=== PATIENT | female | born 1960 | race Caucasian/White ===

== ENCOUNTER 2019-02-09 17:50 | Emergency (ER) | payer SELFPAY ==
[2019-02-09] MEDS ORDERED: ASPIRIN 81 MG CHEWABLE TABLET ONE (18:36)
[2019-02-09] MEDS ORDERED: MECLIZINE HCL 12.5 MG TAB ONE (18:36)
[2019-02-09] MEDS ORDERED: NA CHLORIDE 0.9% 1,000 ML ONE (18:36)
[2019-02-09 18:51] LABS: Absolute Lymphocytes (CBC) 3.3 K/uL (0.7-4.9); Basophils % 0.8 % (0-1.3); Hematocrit 37.7 % (36.0-45.0); Lymphocytes % 32.6 % (15.3-44.8); MPV 7.8 fL (7.6-11.3); RBC Red Blood Cell Count 4.22 M/uL (3.86-4.86)
[2019-02-09 18:53] LABS: Protime INR 1.11
--- NOTE | 2019-02-09 19:06 | RAD REPORT ---
EXAM DESCRIPTION: CT - Head Brain Wo Cont - 02/09/2019 6:57 pm CLINICAL HISTORY: Dizziness, weakness, seizure history COMPARISON: None. TECHNIQUE: Axial 5 mm thick images of the head were obtained without IV contrast. All CT scans are performed using dose optimization technique as appropriate and may include automated exposure control or mA/KV adjustment according to patient size. FINDINGS: No intracranial hemorrhage, mass, edema or shift of mid-line structures. No acute infarcti on changes seen. No abnormal extra-axial fluid collections. Ventricles are normal. Patchy chronic isc hemic changes are evident in the cerebral white matter. Mastoid air cells and visualized portions of the paranasal sinuses are clear. No acute bony findings. IMPRESSION: Negative non-contrast CT head examination for acute finding.
[2019-02-09] MEDS ORDERED: FAMOTIDINE 20 MG/2 ML VIAL IV ONE (19:08)
[2019-02-09 19:14] LABS: ALT/SGPT 15 U/L (12-78); AST/SGOT 13 U/L (15-37); Albumin 3.1 g/dL (3.4-5.0); Alkaline Phosphatase 116 U/L (45-117); BUN Blood Urea Nitrogen 9 mg/dL (7-18); Bicarbonate 23 mmol/L (21-32); Bilirubin Direct < 0.1 mg/dL (0-0.2); Bilirubin Total 0.2 mg/dL (0.2-1.0); Glucose Level 112 mg/dL (74-106); Magnesium 1.8 mg/dL (1.8-2.4); NT PRO-BNP 96 pg/mL (<125); Potassium 3.2 mmol/L (3.5-5.1); Sodium Level 141 mmol/L (136-145); Troponin (Emerg Dept Use Only) < 0.02 ng/mL (0.0-0.045)
--- NOTE | 2019-02-09 20:06 | RAD REPORT ---
EXAM DESCRIPTION: RAD - Chest Single View - 02/09/2019 7:08 pm CLINICAL HISTORY: Cough COMPARISON: None. TECHNIQUE: AP portable chest image was obtained 1903 hours . FINDINGS: Lungs are clear. Heart and vasculature are normal. No measurable pleural effusion and no p neumothorax. No acute bony abnormality seen. No acute aortic findings suspected. IMPRESSION: No acute cardiopulmonary process.
--- NOTE | 2019-02-09 20:07 | RAD REPORT ---
EXAM DESCRIPTION: US - CP - 02/09/2019 7:44 pm CLINICAL HISTORY: Dizziness, syncope, stroke-like symptoms COMPARISON: None. TECHNIQUE: Real-time sonographic evaluation of both carotid systems was performed. Garcias scale and Do ppler interrogation were performed with waveform tracing bilaterally. FINDINGS: Normal high resistance waveforms are noted in both external carotid arteries. The common c arotid arteries and internal carotid arteries show normal low resistance waveforms. Prominent carotid bulb calcified plaquing changes are present. Visually no significant degree of jess nal narrowing identified. Peak systolic and end diastolic velocity values and the ICA/CCA ratios are in the non-hemodynamically significant range. Antegrade flow seen in both vertebral arteries. Velocity values and ratios were recorded and are retained in the patient's imaging records. IMPRESSION: Bilateral carotid bulb calcified plaquing changes. No evidence of a hemodynamically significant stenosis.
--- NOTE | 2019-02-09 20:14 | ER ---
Nurse's Notes [facility] Name: Milly Cabrera Age: 58 yrs Sex: Female : 1960 Arrival Date: 02/09/2019 Time: 17:53 Bed 8 Private MD: Diagnosis: Dizziness and giddiness;Weakness;Dermatitis, unspecified;Vertiginous syndromes in diseases classified elsewhere, unspecified ear Presentation: 02/09 18:20 Presenting complaint: Patient states: "equilibrium feels off today", it also affects iw her vision, thinks it may be caused by a rash on her hands, neck, lower back that started yesterday. her hands feel like needles and has numbness to fingertips in both hands. Transition of care: patient was not received from another setting of care. Onset of symptoms was February 09, 2019. Risk Assessment: Do you want to hurt yourself or someone else? Patient reports no desire to harm self or others. Initial Sepsis Screen: Does the patient meet any 2 criteria? No. Patient's initial sepsis screen is negative. Does the patient have a suspected source of infection? No. Patient's initial sepsis screen is negative. Care prior to arrival: None. 18:20 Method Of Arrival: Ambulatory iw 18:20 Acuity: DAMON 3 iw Historical: - Allergies: 18:25 PENICILLINS; iw 18:25 Zithromax Z-Joon; iw 18:25 Iodine; iw 18:25 SHELLFISH; iw 18:25 Strawberries; iw 18:25 Morphine; iw 18:25 Demerol; iw - Home Meds: 18:28 Plavix 75 mg Oral tab 1 tab once daily [Active]; metoprolol tartrate 50 mg Oral tab iw once daily [Active]; atorvastatin 40 mg oral tab 1 tab once daily [Active]; fluoxetine 40 mg Oral cap 1 cap once daily [Active]; aspirin 81 mg Oral TbEC 1 tab once daily [Active]; Nexium 40 mg Oral cpDR 1 cap once daily [Active]; - PMHx: 18:25 Anxiety; neuropathy; Hyperlipidemia; Hypertension; acid reflux; Endometrosis; vulvar iw cancer; - PSHx: 18:25 Hysterectomy; ; femoral stents; Appendectomy; vulvar; iw - Immunization history:: Adult Immunizations not up to date. - Social history:: Smoking status: Patient/guardian denies using tobacco. - Ebola Screening: : Patient negative for fever greater than or equal to 101.5 degrees Fahrenheit, and additional compatible Ebola Virus Disease symptoms Patient denies exposure to infectious person Patient denies travel to an Ebola-affected area in the 21 days before illness onset No symptoms or risks identified at this time. - Family history:: not pertinent. Screenin:47 Abuse screen: Denies threats or abuse. Denies injuries from another. Nutritional hb screening: No deficits noted. Tuberculosis screening: No symptoms or risk factors identified. Fall Risk None identified. Assessment: 18:46 General: Appears in no apparent distress. Behavior is calm, cooperative. Pain: Denies hb pain. Neuro: Level of Consciousness is awake, alert, obeys commands, Oriented to person, place, time, situation, Reports dizziness. Cardiovascular: Capillary refill < 3 seconds Patient's skin is warm and dry. Respiratory: Airway is patent Respiratory effort is even, unlabored, Respiratory pattern is regular, symmetrical, Breath sounds are clear bilaterally. GI: No signs and/or symptoms were reported involving the gastrointestinal system. : No signs and/or symptoms were reported regarding the genitourinary system. EENT: No signs and/or symptoms were reported regarding the EENT system. Derm: Skin is pink, warm \\T\\ dry. Reports itching. Musculoskeletal: No signs and/or symptoms reported regarding the musculoskeletal system. 19:15 General: Appears in no apparent distress. comfortable, Behavior is calm, cooperative, rr5 appropriate for age. Pain: Denies pain. Neuro: Level of Consciousness is awake, alert, obeys commands, Oriented to person, place, time, situation, Appropriate for age. Cardiovascular: Capillary refill < 3 seconds Patient's skin is warm and dry. Respiratory: Airway is patent Respiratory effort is even, unlabored, Respiratory pattern is regular, symmetrical. GI: No signs and/or symptoms were reported involving the gastrointestinal system. : No signs and/or symptoms were reported regarding the genitourinary system. EENT: No signs and/or symptoms were reported regarding the EENT system. Derm: Skin is intact, is healthy with good turgor, Skin temperature is warm Reports itching, both hands, it started at nape area going down to her back. now its in my hands as verbalized by the patient. 19:15 Musculoskeletal: Circulation, motion, and sensation intact. Capillary refill < 3 rr5 seconds, Swelling present in right hand. 20:00 Reassessment: Patient appears in no apparent distress at this time. Patient is alert, rr5 oriented x 3, equal unlabored respirations, skin warm/dry/pink. Patient states feeling better. Patient states symptoms have improved. 20:22 Reassessment: Patient appears in no apparent distress at this time. Patient is alert, rr5 oriented x 3, equal unlabored respirations, skin warm/dry/pink. discharge instruction given and explained without complaints made,verbalized understanding. Patient states feeling better. Vital Signs: 18:25 BP 125 / 55; Pulse 50; Resp 16; Temp 98.0; Pulse Ox 98% on R/A; Weight 84.82 kg; Height iw 5 ft. 6 in. (167.64 cm); Pain 9/10; 19:15 BP 121 / 70; Pulse 51; Resp 19; Temp 98.1; Pulse Ox 99% on R/A; Pain 0/10; rr5 20:21 BP 115 / 60; Pulse 52; Resp 17; Temp 98; Pulse Ox 100% ; rr5 18:25 Body Mass Index 30.18 (84.82 kg, 167.64 cm) iw ED Course: 17:53 Patient arrived in ED. rg4 18:04 Joshua Milner MD is Attending Physician. demetra 18:22 Triage completed. iw 18:25 Arm band placed on. iw 18:46 Zaynab Meeks, RAAD is Primary Nurse. hb 18:46 Ignacio Sun NP is PHCP. pm1 18:47 Patient has correct armband on for positive identification. Placed in gown. Bed in low hb position. Call light in reach. Side rails up X 1. 18:47 Inserted saline lock: 20 gauge in right antecubital area, using aseptic technique. hb Blood collected. 19:01 CT completed. Patient tolerated procedure well. Patient moved to radiology Patient bq moved back from CT. 19:43 Ultrasound completed. Patient tolerated well. sg3 20:13 Cipriano Rasheed MD is Referral Physician. pm1 20:21 No provider procedures requiring assistance completed. IV discontinued, intact, rr5 bleeding controlled, No redness/swelling at site. Pressure dressing applied. Administered Medications: 18:45 Drug: Meclizine 50 mg Route: PO; hb 20:20 Follow up: Response: No adverse reaction; Marked relief of symptoms rr5 18:45 Drug: NS 0.9% 500 ml Route: IV; Rate: bolus; Site: right antecubital; hb 19:15 Follow up: Response: No adverse reaction; IV Status: Completed infusion; IV Intake: rr5 500ml 19:01 Drug: Aspirin 162 mg Route: PO; hb 20:23 Follow up: Response: No adverse reaction rr5 19:15 Drug: NS 0.9% 1000 ml Route: IV; Rate: 125 ml/hr; Site: right antecubital; rr5 20:20 Follow up: Response: No adverse reaction; IV Status: Order to discontinue infusion; IV rr5 Intake: 125ml 19:23 Drug: Pepcid 20 mg Route: IVP; Site: right antecubital; rr5 20:23 Follow up: Response: No adverse reaction rr5 20:34 Drug: Potassium Chloride 40 mEq Route: PO; rr5 20:34 Follow up: Response: Medication administered at discharge. rr5 Intake: 19:15 IV: 500ml; Total: 500ml. rr5 20:20 IV: 125ml; Total: 625ml. rr5 Outcome: 20:13 Discharge ordered by . pm1 20:21 Discharged to home ambulatory, with family. rr5 20:21 Condition: stable 20:21 Discharge instructions given to patient, family, Instructed on discharge instructions, follow up and referral plans. medication usage, Demonstrated understanding of instructions, follow-up care, medications, Prescriptions given X 4. 20:35 Patient left the ED. rr5 Signatures: Joshua Milner MD MD cha Quilty, Betty bq Williams, Irene, RN RN iw Marinas, Patrick, NP SENIOR BEHAVIORAL SCIENTIST pm1 Zaynab Meeks RN RN hb Garcia, Rubi Rachel Espino 3 Christopher Dial RN RN rr5
--- NOTE | 2019-02-09 20:14 | EDPHYS ---
Physician Documentation [facility] Name: Milly Cabrera Age: 58 yrs Sex: Female : 1960 Arrival Date: 02/09/2019 Time: 17:53 Bed 8 Private MD: ELINA Physician Joshua Milner HPI: 02/09 18:32 This 58 yrs old Female presents to ER via Ambulatory with complaints of demetra Dizziness, Rash, Hand Swelling. 18:32 The patient presents with dizziness, generalized weakness, feeling off balance. Onset: demetra The symptoms/episode began/occurred this morning. Context: occurred at home. Modifying factors: The symptoms are alleviated by nothing, the symptoms are aggravated by nothing. Associated signs and symptoms: The patient has no apparent associated signs or symptoms. Severity of symptoms: At their worst the symptoms were mild in the emergency department the symptoms are unchanged. Patient's baseline: Neuro: alert and fully oriented. The patient has experienced similar episodes in the past, a few times. Historical: - Allergies: 18:25 PENICILLINS; iw 18:25 Zithromax Z-Joon; iw 18:25 Iodine; iw 18:25 SHELLFISH; iw 18:25 Strawberries; iw 18:25 Morphine; iw 18:25 Demerol; iw - Home Meds: 18:28 Plavix 75 mg Oral tab 1 tab once daily [Active]; metoprolol tartrate 50 mg Oral tab iw once daily [Active]; atorvastatin 40 mg oral tab 1 tab once daily [Active]; fluoxetine 40 mg Oral cap 1 cap once daily [Active]; aspirin 81 mg Oral TbEC 1 tab once daily [Active]; Nexium 40 mg Oral cpDR 1 cap once daily [Active]; - PMHx: 18:25 Anxiety; neuropathy; Hyperlipidemia; Hypertension; acid reflux; Endometrosis; vulvar iw cancer; - PSHx: 18:25 Hysterectomy; ; femoral stents; Appendectomy; vulvar; iw - Immunization history:: Adult Immunizations not up to date. - Social history:: Smoking status: Patient/guardian denies using tobacco. - Ebola Screening: : Patient negative for fever greater than or equal to 101.5 degrees Fahrenheit, and additional compatible Ebola Virus Disease symptoms Patient denies exposure to infectious person Patient denies travel to an Ebola-affected area in the 21 days before illness onset No symptoms or risks identified at this time. - Family history:: not pertinent. ROS: 18:32 Constitutional: Negative for fever, chills, and weight loss, Eyes: Negative for injury, demetra pain, redness, and discharge, ENT: Negative for injury, pain, and discharge, Neck: Negative for injury, pain, and swelling, Cardiovascular: Negative for chest pain, palpitations, and edema, Respiratory: Negative for shortness of breath, cough, wheezing, and pleuritic chest pain, Abdomen/GI: Negative for abdominal pain, nausea, vomiting, diarrhea, and constipation, Back: Negative for injury and pain, : Negative for injury, bleeding, discharge, and swelling, MS/Extremity: Negative for injury and deformity, Skin: Negative for injury, rash, and discoloration, Psych: Negative for depression, anxiety, suicide ideation, homicidal ideation, and hallucinations, Allergy/Immunology: Negative for hives, rash, and allergies, Endocrine: Negative for neck swelling, polydipsia, polyuria, polyphagia, and marked weight changes, Hematologic/Lymphatic: Negative for swollen nodes, abnormal bleeding, and unusual bruising. 18:32 Neuro: Positive for dizziness. Exam: 18:32 Constitutional: This is a well developed, well nourished patient who is awake, alert, demetra and in no acute distress. Head/Face: Normocephalic, atraumatic. ENT: Nares patent. No nasal discharge, no septal abnormalities noted. Tympanic membranes are normal and external auditory canals are clear. Oropharynx with no redness, swelling, or masses, exudates, or evidence of obstruction, uvula midline. Mucous membranes moist. Neck: Trachea midline, no thyromegaly or masses palpated, and no cervical lymphadenopathy. Supple, full range of motion without nuchal rigidity, or vertebral point tenderness. No Meningismus. Chest/axilla: Normal chest wall appearance and motion. Nontender with no deformity. No lesions are appreciated. Cardiovascular: Regular rate and rhythm with a normal S1 and S2. No gallops, murmurs, or rubs. Normal PMI, no JVD. No pulse deficits. Respiratory: Lungs have equal breath sounds bilaterally, clear to auscultation and percussion. No rales, rhonchi or wheezes noted. No increased work of breathing, no retractions or nasal flaring. Abdomen/GI: Soft, non-tender, with normal bowel sounds. No distension or tympany. No guarding or rebound. No evidence of tenderness throughout. Back: No spinal tenderness. No costovertebral tenderness. Full range of motion. Female : Normal external genitalia. Skin: Warm, dry with normal turgor. Normal color with no rashes, no lesions, and no evidence of cellulitis. MS/ Extremity: Pulses equal, no cyanosis. Neurovascular intact. Full, normal range of motion. Neuro: Awake and alert, GCS 15, oriented to person, place, time, and situation. Cranial nerves II-XII grossly intact. Motor strength 5/5 in all extremities. Sensory grossly intact. Cerebellar exam normal. Normal gait. Psych: Awake, alert, with orientation to person, place and time. Behavior, mood, and affect are within normal limits. 18:32 Eyes: Periorbital structures: appear normal, no acute changes, Pupils: no acute changes, equal, round, and reactive to light and accomodation, Extraocular movements: no acute changes, Conjunctiva: normal, no acute changes, Corneas: are normal, no acute changes, Sclera: no appreciated abnormality, no acute changes, Nystagmus: nystagmus with fast component noted, bilaterally. Vital Signs: 18:25 BP 125 / 55; Pulse 50; Resp 16; Temp 98.0; Pulse Ox 98% on R/A; Weight 84.82 kg; Height iw 5 ft. 6 in. (167.64 cm); Pain 9/10; 19:15 BP 121 / 70; Pulse 51; Resp 19; Temp 98.1; Pulse Ox 99% on R/A; Pain 0/10; rr5 20:21 BP 115 / 60; Pulse 52; Resp 17; Temp 98; Pulse Ox 100% ; rr5 18:25 Body Mass Index 30.18 (84.82 kg, 167.64 cm) iw MDM: 18:04 Patient medically screened. [facility] 18:35 Data reviewed: vital signs, nurses notes, lab test result(s), EKG, radiologic studies, [facility] CT scan, plain films. 20:13 Counseling: I had a detailed discussion with the patient and/or guardian regarding: the pm1 historical points, exam findings, and any diagnostic results supporting the discharge/admit diagnosis, lab results, radiology results, the need for outpatient follow up, to return to the emergency department if symptoms worsen or persist or if there are any questions or concerns that arise at home. 20:35 ED course: Patient itching and vertigo improved with medications given in the ER. pm1 02/09 18:32 Order name: Basic Metabolic Panel [facility] 02/09 18:32 Order name: CBC with Diff [facility] 02/09 18:32 Order name: LFT's [facility] 02/09 18:32 Order name: Magnesium [facility] 02/09 18:32 Order name: NT PRO-BNP [facility] 02/09 18:32 Order name: PT-INR [facility] 02/09 18:32 Order name: Troponin (emerg Dept Use Only) [facility] 02/09 18:55 Order name: CBC with Automated Diff; Complete Time: 19:08 EDMS 02/09 18:55 Order name: Protime (+INR); Complete Time: 19:08 EDMS 02/09 19:14 Order name: Basic Metabolic Panel; Complete Time: 19:38 EDMS 02/09 19:14 Order name: Liver (Hepatic) Function; Complete Time: 19:38 EDMS 02/09 19:14 Order name: Troponin (Emerg Dept Use Only); Complete Time: 19:38 EDMS 02/09 19:14 Order name: NT PRO-BNP; Complete Time: 19:38 EDMS 02/09 19:14 Order name: Magnesium; Complete Time: 19:38 EDMS 02/09 18:32 Order name: XRAY Chest (1 view) [facility] 02/09 18:32 Order name: EKG; Complete Time: 18:33 [facility] 02/09 18:32 Order name: Cardiac monitoring; Complete Time: 18:46 [facility] 02/09 18:32 Order name: EKG - Nurse/Tech; Complete Time: 19:24 [facility] 02/09 18:32 Order name: IV Saline Lock; Complete Time: 18:46 [facility] 02/09 18:32 Order name: Labs collected and sent; Complete Time: 18:46 [facility] 02/09 18:32 Order name: O2 Per Protocol; Complete Time: 18:45 [facility] 02/09 18:32 Order name: CT Head Brain wo Cont [facility] 02/09 18:32 Order name: US Carotid Artery Bilateral [facility] 02/09 20:11 Order name: CT; Complete Time: 20:12 EDCT 02/09 18:32 Order name: O2 Sat Monitoring; Complete Time: 18:45 demetra Administered Medications: 18:45 Drug: Meclizine 50 mg Route: PO; hb 20:20 Follow up: Response: No adverse reaction; Marked relief of symptoms rr5 18:45 Drug: NS 0.9% 500 ml Route: IV; Rate: bolus; Site: right antecubital; hb 19:15 Follow up: Response: No adverse reaction; IV Status: Completed infusion; IV Intake: rr5 500ml 19:01 Drug: Aspirin 162 mg Route: PO; hb 20:23 Follow up: Response: No adverse reaction rr5 19:15 Drug: NS 0.9% 1000 ml Route: IV; Rate: 125 ml/hr; Site: right antecubital; rr5 20:20 Follow up: Response: No adverse reaction; IV Status: Order to discontinue infusion; IV rr5 Intake: 125ml 19:23 Drug: Pepcid 20 mg Route: IVP; Site: right antecubital; rr5 20:23 Follow up: Response: No adverse reaction rr5 20:34 Drug: Potassium Chloride 40 mEq Route: PO; rr5 20:34 Follow up: Response: Medication administered at discharge. rr5 Disposition: 02/10 13:25 Co-signature as Attending Physician, Joshua Milner MD I agree with the assessment and [facility] plan of care. Disposition: 02/09/19 20:13 Discharged to Home. Impression: Dizziness and giddiness, Weakness, Dermatitis, unspecified, Vertiginous syndromes in diseases classified elsewhere, unspecified ear. - Condition is Stable. - Discharge Instructions: Benign Positional Vertigo, Contact Dermatitis, Dizziness, Hand Dermatitis, Rash, Weakness, Rash, Xawr-eg-Vnoh, Weakness, Tlbd-ak-Aytl, Contact Dermatitis, Cjgf-nv-Zhkc, Aspirin and Your Heart, Hand Dermatitis, Sesl-tv-Uvzl, Dizziness, Irbe-kt-Aorz. - Prescriptions for Meclizine 25 mg Oral Tablet - take 1 tablet by ORAL route every 8 hours As needed; 30 tablet. Pepcid 20 mg Oral Tablet - take 1 tablet by ORAL route every 12 hours for 10 days; 20 tablet. Hydrocortisone 0.5 % Topical Cream - apply 1 application by TOPICAL route every 12 hours As needed; 30 gram. Medrol (Joon) 4 mg Oral Tablets, Dose Pack - take 1 tablet by ORAL route as directed - follow package instructions; 1 packet. - Medication Reconciliation Form, Thank You Letter, Antibiotic Education, Prescription Opioid Use form. - Follow up: Private Physician; When: 2 - 3 days; Reason: Recheck today's complaints, Continuance of care, Re-evaluation by your physician. Follow up: Cipriano Rasheed; When: 2 - 3 days; Reason: Recheck today's complaints, Re-evaluation by your physician. - Problem is new. - Symptoms have improved. Signatures: Dispatcher [employer] EDMS Joshua Milner MD MD cha Williams, Irene, RN RN iw Ignacio Sun NP CRISIS NURSE pm1 Zaynab Meeks RN RN Christopher Dial RN RN rr5 Corrections: (The following items were deleted from the chart) 02/09 20:35 20:13 02/09/2019 20:13 Discharged to Home. Impression: Dizziness and giddiness; rr5 Weakness; Dermatitis, unspecified; Vertiginous syndromes in diseases classified elsewhere, unspecified ear. Condition is Stable. Discharge Instructions: Benign Positional Vertigo, Contact Dermatitis, Dizziness, Hand Dermatitis, Rash, Weakness, Rash, Aarh-ld-Uday, Weakness, Ltei-jf-Wpvf, Contact Dermatitis, Tiap-vs-Fkck, Aspirin and Your Heart, Hand Dermatitis, Xdom-ah-Ucaz, Dizziness, Jfpb-we-Recr. Prescriptions for Meclizine 25 mg Oral Tablet - take 1 tablet by ORAL route every 8 hours As needed; 30 tablet, Pepcid 20 mg Oral Tablet - take 1 tablet by ORAL route every 12 hours for 10 days; 20 tablet, Hydrocortisone 0.5 % Topical Cream - apply 1 application by TOPICAL route every 12 hours As needed; 30 gram, Medrol (Joon) 4 mg Oral Tablets, Dose Pack - take 1 tablet by ORAL route as directed - follow package instructions; 1 packet. and Forms are Medication Reconciliation Form, Thank You Letter, Antibiotic Education, Prescription Opioid Use. Follow up: Private Physician; When: 2 - 3 days; Reason: Recheck today's complaints, Continuance of care, Re-evaluation by your physician. Follow up: Cipriano Rasheed; When: 2 - 3 days; Reason: Recheck today's complaints, Re-evaluation by your physician. Problem is new. Symptoms have improved. pm1
[2019-02-09] MEDS ORDERED: POTASSIUM CL SA 10 MEQ TAB PO ONE (20:27)
[2019-02-09 21:43] VITALS: BP 115/60; TEMP 98; O2SAT 100
--- NOTE | 2019-02-10 12:45 | EKG ---
Test Date: 2019-02-09 Test Time: 19:19:55 Forest Management Teacher: RR MEASUREMENT RESULTS: Intervals: Rate: 47 PA: 198 QRSD: 94 QT: 466 QTc: 412 [place]: P: 54 PA: 198 QRS: 2 T: 15 INTERPRETIVE STATEMENTS: Sinus bradycardia ST & T wave abnormality, consider anterior ischemia Abnormal ECG No previous ECG available for comparison Electronically Signed On 02-10-19 12:43:41 HR GENERALIST by Jose Cook
--- OUTSIDE RECORDS SUMMARY | 2019-02-11 06:36 | XMS REPORT ---
:1960 [facility] Address [address] [place] [address] Care Team Providers Name Role Phone Unavailable Unavailable Unavailable Payers Payer Name Policy Type Policy Number Effective Date Expiration Date Problems This patient has no known problems. Allergies, Adverse Reactions, Alerts Allergy Name Allergy Status Severity Reaction(s) Onset Inactive Treating Comments Type Date Date Clinician clindamycin DA Active U 2018-11 00:00:0 0 No Known DA Active U 2018-09 Allergies - 00:00:0 0 iodine DA Active 2017-09 00:00:0 0 meperidine DA Active HI 2017-09 00:00:0 0 penicillin G DA Active HI 2017-09 00:00:0 0 strawberry DA Active 2017-09 00:00:0 0 ZPAC DA Active HI 2017-09 00:00:0 0 strawberry FA Active 2017-09 00:00:0 0 TUNA FISH DA Active 2017-04 00:00:0 0 Medications This patient has no known medications. Results Test Description Test Time Test Comments Text Results Atomic Results Result Comments - MRI 2019-01-08 FAX: Bella Hannah MD [phone] [place]: St: [facility] FAX: Y L-SPINE 09:37:00 Apolinar Fields MD [phone] W/O CONT Patient Name: JEFRY LOPEZ Unit No: [id number] EXAMS: CPT CODE: [id number] MRI L-SPINE W/O CONT [id number] MRI Lumbar Spine without contrast HISTORY: Back pain COMPARISON: None available TECHNIQUE: Sagittal T1, T2 and STIR, axial T1, T2 and coronal fat suppressed T2 weighted images of the lumbar spine were obtained without contrast. FINDINGS: There is a normal lumbar lordosis with preservation of vertebral body alignment and vertebral body height. The conus medullaris ends at the L1 level and demonstrates normal caliber and signal intensity. Disc desiccation is noted throughout the lumbar spine. Mild loss of disc height is noted at L3-L4. Soft tissues are within normal limits. Axial images: L1-L2: The disk is normal in configuration. There is no facet arthropathy, neural foraminal narrowing, or central canal stenosis. L2-L3: Mild 2 mm broad-based central disc protrusion There is no facet arthropathy, neural foraminal narrowing, or central canal stenosis. L3-L4: mild 3 mm broad-based disc bulge eccentric to the right. No canal stenosis. Mild bilateral right greater than left neuroforaminal narrowing.. L4-L5: Moderate 4 mm broad-based disc bulge.. There is moderate bilateral facet arthrosis with ligamentum flavum hypertrophy. Moderate canal stenosis with the canal measuring 7 mm. Marked bilateral lateral recess stenosis. Moderate bilateral neuroforaminal stenosis. L5-S1: The disk is normal in configuration. There is no facet arthropathy, neural foraminal narrowing, or central canal stenosis. IMPRESSION: 1. At L4-L5, moderate canal stenosis, marked bilateral lateral recess stenosis , and moderate bilateral neuroforaminal stenosis. 2. At L3-L4, mild bilateral neuroforaminal narrowing. at 0937 Reported and signed by: Tyrell Burgos M.D. 508 Imaging NAME: JEFRY LOPEZ [address] [place] [address] PHYS: [place], [place] : 1960 AGE: 58 SEX: F [phone] LOC: [email or web address] PHONE #: [phone] EXAM DATE: 01/08/2019 STATUS: REG CLI FAX #: [phone] RAD NO: DC Dt: PAGE 1 Signed Report ( CONTINUED) FAX: Bella Hannah MD [phone] [place]: St: REG FAX : Apolinar Buchanan MD [phone] ------ Patient Name: JEFRY LOPEZ Unit No: [id number] EXAMS: CPT CODE: [id number] MRI L-SPINE W/O CONT [id number] <Continued> CC: Bella Elmore MD; Apolinar Fields MD Dictated Date/Time: 01/08/2019 (936)Technologist: Low Barillas Transcribed Date/Time: 2018 (936) By: [email or web address] Orig Print D/T: S: 01/08/2019 (939) 508 Imaging NAME: JEFRY LOPEZ [address] [place] [address] PHYS: Apolinar [place], [place] : 1960 AGE: 58 SEX: F [id number] LOC: [id number] PHONE #: [phone] EXAM DATE: 01/08/2019 STATUS: REG CLI FAX # : [phone] RAD NO: DC Dt: PAGE 2 Signed Report BASIC METABOLIC PANEL 2018-11-02 11:35:00 Test Item Value Reference Range Comments SODIUM (test code=NA) 138.0 mmol/L 133-144 POTASSIUM (test code=K) 4.5 mmol/L 3.5-5.1 CHLORIDE (test code=CL) 105 mmol/L 95-105 CARBON DIOXIDE (test 27 mmol/L 21-32 code=CO2) ANION GAP (test code=GAP) 6.0 GAP calc 4.0-15.0 GLUCOSE (test code=GLU) 144 MG/DL 70-110 BLOOD UREA NITROGEN (test 9 MG/DL 7-18 code=BUN) CREATININE (test 0.75 MG/DL 0.55-1.30 Results may be depressed code=CREAT) if patient is takingN-Acetylcysteine (NAC) and Metamizole (Dipyrone). CALCIUM (test code=CA) 8.7 MG/DL 8.5-10.1 INDEX HEMOLYSIS (test 1 NORMAL <10 MG 1 NORMAL code=HEMINDEX) Index/DL INDEX ICTERIC (test 1 NORMAL <2 MG 1 NORMAL code=ICTINDEX) Index/DL INDEX LIPEMIA (test 1 NORMAL <50 MG 1 NORMAL code=LIPINDEX) Index/DL Specimen comments: PRE-OPIs this a LINE draw? [place],N: The patient will be fasting before starting thistest? YLIPID PROFILE (CORONARY RISK)2018-11-02 11:35:00 Test Item Value Reference Range Comments TRIGLYCERIDES (test code=TRIG) 105 MG/DL 0-150 Results may be depressed if patient is takingN-Acetylcysteine (NAC) and Metamizole (Dipyrone). CHOLESTEROL (test code=CHOL) 169 MG/DL 133-200 CHOLESTEROL/HDL RATIO (test 2.72 RATIO >0 REFERENCE RANGE: code=CHOLHDL) MALE FEMALE 1/2 AVG RISK 3.43 3.27 AVG RISK 4.97 4.44 2X AVG RISK 9.55 7.05 3X AVG RISK 23.39 11.04 HDL CHOLESTEROL (test code=HDL) 62 MG/DL 40-59 Results maybe depressed if patient is taking Metamizole(Dipyrone). NON-HDL CHOLESTEROL (test 107 mg/dL <130 Patients with CHD or CHD code=NHDL) risk LDL: <70 mg/dL nonHDL: <100 mg/dLPatients with 2+ risk factors LDL: <130 mg/dL nonHDL: <160 mg/dLPatients with 0-1 risk factors LDL: <160 mg/dL nonHDL: <190 mg/dL LIPOPROTEIN LDL (test code=LDL) 86 MG/DL 0-129 LDL/HDL (test code=LDL/HDL) 1.38 Ratio 1.48-3.22 Avg LDL/HDL RISK ASSESSMENT1.47 One-half average3.22 Average5.03 Two times average6.14 Three times average Specimen comments: PRE-OPIs this a LINE draw? [place],N: The patient will be fasting before starting thistest? YBASIC METABOLIC [id number] 11:33:00 Test Item Value Reference Range Comments SODIUM (test code=NA) 138.0 mmol/L 133-144 POTASSIUM (test code=K) 4.5 mmol/L 3.5-5.1 CHLORIDE (test code=CL) 105 mmol/L 95-105 CARBON DIOXIDE (test 27 mmol/L 21-32 code=CO2) ANION GAP (test code=GAP) 6.0 GAP calc 4.0-15.0 GLUCOSE (test code=GLU) 144 MG/DL 70-110 BLOOD UREA NITROGEN (test 9 MG/DL 7-18 code=BUN) CREATININE (test 0.75 MG/DL 0.55-1.30 Results may be depressed code=CREAT) if patient is takingN-Acetylcysteine (NAC) and Metamizole (Dipyrone). CALCIUM (test code=CA) 8.7 MG/DL 8.5-10.1 INDEX HEMOLYSIS (test 1 NORMAL <10 MG 1 NORMAL code=HEMINDEX) Index/DL INDEX ICTERIC (test 1 NORMAL <2 MG 1 NORMAL code=ICTINDEX) Index/DL INDEX LIPEMIA (test 1 NORMAL <50 MG 1 NORMAL code=LIPINDEX) Index/DL Specimen comments: PRE-OPIs this a LINE draw? [place],N: The patient will be fasting before starting thistest? YLIPID PROFILE (CORONARY RISK)2018-11-02 11:33:00 Test Item Value Reference Range Comments TRIGLYCERIDES (test code=TRIG) 105 MG/DL 0-150 Results may be depressed if patient is takingN-Acetylcysteine (NAC) and Metamizole (Dipyrone). CHOLESTEROL (test code=CHOL) 169 MG/DL 133-200 CHOLESTEROL/HDL RATIO (test RATIO >0 code=CHOLHDL) HDL CHOLESTEROL (test code=HDL) MG/DL 40-59 NON-HDL CHOLESTEROL (test mg/dL <130 code=NHDL) LIPOPROTEIN LDL (test code=LDL) MG/DL 0-129 LDL/HDL (test code=LDL/HDL) Ratio 1.48-3.22 Avg Specimen comments: PRE-OPIs this a LINE draw? [place],N: The patient will be fasting before starting thistest? YPT AND [id number] 11:24:00 Test Item Value Reference Range Comments PT PATIENT (test 11.2 SECONDS 9.4-12.5 code=PTP) INTERNATIONAL NORMAL 0.99 INR Unit 0.88-1.13 RATIO (test code=INR) T herapeutic range for INR is dependent upon the situation.2.0-3.0 Prophylaxis / venous thromboembolism, Treatment of DVT, Acute myocardial infarction stroke prevention, Systemic embolism prevention in fibrillation3.0-4.5 AMI recurrence prevention, Systemic embolism prevention in prosthetic heart 3.0-5.4 AMI mortality reduction THROMBOPLASTIN TIME 30.2 SECONDS 24-37.7 THERAPEUTIC RANGE FOR PARTIAL (test code=PTT) UNFRACTIONATED HEPARIN=50.5-83.6 SEC This test is not recommended to monitor low molecularweight heparin or danaparoid. Order LMWH test COLLECTION THROUGH LINES THAT HAVE BEEN PREVIOUSLY FLUSHEDWITH HEPARIN SHOULD BE AVOIDED DUE TO POSSIBLE HEPARINCONTAMINATION Specimen comments: PRE-OPIs this a LINE draw? NANTICOAGULANT THERAPY [Y,N]: [facility] W/AUTO [id number] 11:16:00 Test Item Value Reference Range Comments WHITE BLOOD CELL (test code=WBC) 14.0 K/mm3 4.1-12.1 RED BLOOD CELL (test code=RBC) 4.63 M/mm3 3.8-5.5 HEMOGLOBIN (test code=HGB) 13.7 G/DL 10.6-15.8 HEMATOCRIT (test code=HCT) 42.3 % 31.8-47.4 MEAN CELL VOLUME (test code=MCV) 91.4 fL 80.1-101.1 MEAN CELL HGB (test code=MCH) 29.6 pg 25.3-35.3 MEAN CELL HGB CONCETRATION (test code=MCHC) 32.4 G/DL 32.7-35.1 RED CELL DISTRIBUTION WIDTH (test code=RDW) 13.9 % 12.2-16.4 RED CELL DISTRIBUTION WIDTH (test code=RDW-SD) 46.5 fL 36.4-46.3 PLATELET COUNT (test code=PLT) 288 K/mm3 155-337 MEAN PLATELET VOLUME (test code=MPV) 9.4 fL 6.8-11.2 GRANULOCYTE % (test code=GR%) 86.0 % 37.8-82.6 IMMATURE GRANULOCYTE % (test code=IG%) 0.5 % 0.0-2.0 LYMPHOCYTE % (test code=LY%) 11.7 % 14.1-45.4 MONOCYTE % (test code=MO%) 1.7 % 2.5-11.7 EOSINOPHIL % (test code=EO%) 0.0 % 0.0-6.2 BASOPHIL % (test code=BA%) 0.1 % 0.0-2.1 NUCLEATED RBC % (test code=NRBC%) 0.0 /100WBC% 0.0-1.0 GRANULOCYTE # (test code=GR#) 12.01 k/mm3 2.0-13.7 IMMATURE GRANULOCYTE # (test code=IG#) 0.07 K/mm3 0.00-0.03 LYMPHOCYTE # (test code=LY#) 1.64 K/mm3 0.6-3.8 MONOCYTE # (test code=MO#) 0.24 K/mm3 0.11-0.59 EOSINOPHIL # (test code=EO#) 0.00 K/mm3 0.0-0.4 BASOPHIL # (test code=BA#) 0.02 K/mm3 0.0-0.1 NUCLEATED RBC # (test code=NRBC#) 0.00 K/mm3 0.0-0.05
== END 2019-02-09 20:35 | disposition home or self-care (01) ==
LOC: ER 17:50
DX: R53.1 Weakness (principal); H82.9 Vertiginous syndromes in diseases classified elsewhere, unspecified ear; L30.9 Dermatitis, unspecified; I10 Essential (primary) hypertension; E78.5 Hyperlipidemia, unspecified; F41.9 Anxiety disorder, unspecified; Z79.01 Long term (current) use of anticoagulants; Z79.82 Long term (current) use of aspirin; Z88.0 Allergy status to penicillin; Z88.1 Allergy status to other antibiotic agents; Z88.5 Allergy status to narcotic agent; Z91.013 Allergy to seafood; Z91.018 Allergy to other foods
CPT/HCPCS: 36415; 70450; 71045; 80048; 80076; 83735; 83880; 84484; 85025; 85610; 93005; 93880; 96361; 96374; 99284; J7030; J8597

== ENCOUNTER 2020-05-14 19:40 | Emergency (ER) | payer OTHER ==
[2020-05-14 20:44] LABS: Absolute Lymphocytes (CBC) 3.6 K/uL (0.7-4.9); Basophils % 1.1 % (0-1.3); Hematocrit 33.7 % (36.0-45.0); Lymphocytes % 22.8 % (15.3-44.8); MPV 6.7 fL (7.6-11.3); RBC Red Blood Cell Count 3.72 M/uL (3.86-4.86)
[2020-05-14 20:45] LABS: Protime INR 1.15
[2020-05-14 20:47] LABS: Urine Blood 2+ (NEG); Urine Glucose NEGATIVE (NEG); Urine Protein 2+ (NEG)
[2020-05-14] MEDS ORDERED: FENTANYL CITR 100 MCG/2 ML ONE (20:51)
[2020-05-14] MEDS ORDERED: NA CHLORIDE 0.9% 1,000 ML ONE ×2 (20:51→22:32)
[2020-05-14] MEDS ORDERED: ONDANSETRON 4 MG/2 ML VIAL ONE (20:51)
[2020-05-14] MEDS ORDERED: HYDROCODONE/APAP 7.5/325 MG TAB ONE (21:02)
[2020-05-14] MEDS ORDERED: CLINDAMYCIN IV 150 MG/ML (4 mL) VIAL ONE (21:02)
[2020-05-14 21:07] LABS: ALT/SGPT 13 U/L (12-78); AST/SGOT 14 U/L (15-37); Albumin 2.8 g/dL (3.4-5.0); Alkaline Phosphatase 145 U/L (45-117); BUN Blood Urea Nitrogen 10 mg/dL (7-18); Bicarbonate 21 mmol/L (21-32); Bilirubin Direct < 0.1 mg/dL (0-0.2); Bilirubin Total 0.2 mg/dL (0.2-1.0); Glucose Level 110 mg/dL (74-106); NT PRO-BNP 254 pg/mL (<125); Potassium 3.3 mmol/L (3.5-5.1); Protein, Total 8.4 g/dL (6.4-8.2); Sodium Level 138 mmol/L (136-145); Troponin (Emerg Dept Use Only) < 0.02 ng/mL (0.0-0.045)
--- NOTE | 2020-05-14 21:13 | RAD REPORT ---
EXAM DESCRIPTION: CT - Abdomen Pelvis Wo Contrast - 05/14/2020 8:40 pm CLINICAL HISTORY: ABD PAIN History of endometriosis, vulvar cancer, hysterectomy and appendectomy COMPARISON: No comparisons TECHNIQUE: Axial [address] imaging of the abdomen and pelvis was performed without IV contrast. No IV contrast was given because of allergy, abnormal renal function, patient refusal or physician re quest. No oral contrast. All CT scans are performed using dose optimization technique as appropriate and may include automated exposure control or mA/KV adjustment according to patient size. FINDINGS: No suspicious findings in the lung bases. The liver, spleen and pancreas show no suspicious findings on non-contrast imaging. Gallbladder and b iliary tree are also without suspicious finding. No hydronephrosis or suspicious renal mass. No significant adrenal finding. Isodense renal masses an d pyelonephritis cannot be excluded in the absence of IV contrast. Urinary bladder is contracted limi ting detail. Uterus is absent. Atrophic ovaries are noted with no adnexal mass. Increased soft tissue is present in the mid pole bulla with stranding and edema in the skin and fatty tissues of the lower pelvis. Postsurgical changes are present from right inguinal surgery. Right fem oral stent is in place. Patient has a history of vulvar cancer with surgery. Radiation history was no t detailed. No prior imaging is available to establish would baseline amount of soft tissue is presen t for this patient. Without prior imaging or additional clinical information, recurrent tumor and/or cellulitis changes cannot be distinguished from baseline post treatment appearance for this patient. No air present in the soft tissues. No dilated bowel loops or bowel wall thickening. No free air, free fluid or inflammatory stranding. No hernia, mass or bulky lymphadenopathy. No suspicious bony findings. Vascular calcifications are present. An infrarenal aortic aneurysm is present 3.2 cm AP x 2.6 cm TR. No displaced calcifications. IMPRESSION: Patient has increased soft tissue density in the vulvar region extending as stranding an d edematous appearance to the skin and subcutaneous fatty tissues lower pelvis. Patient details history of vulvar cancer with surgery. No prior imaging is available that would help distinguish baseline postsurgical and therapy change from recurrence and/or cellulitis. Urinary bladder is contracted limiting detail. No hydronephrosis or acute finding. Isodense masses and pyelonephritis are not excluded in the absence of contrast. Infrarenal abdominal aortic aneurysm 3.2 x 2.6 cm in size.
[2020-05-14 21:28] LABS: Urine Bacteria 20-50 /HPF (<20); Urine Mucus 2+ /HPF (NONE SEEN)
--- NOTE | 2020-05-14 22:13 | ER ---
Nurse's Notes [facility] Name: Milly Cabrera Age: 59 yrs Sex: Female : 1960 Arrival Date: 05/14/2020 Time: 19:46 Bed 5 Private MD: Diagnosis: Vulvovaginal ulceration and inflammation in diseases classified elsewhere-vulvar cancer;Abdominal tenderness;Urinary tract infection, site not specified;Elevated white blood cell count;Hypokalemia;Cellulitis and acute lymphangitis of other sites-mons, labia Presentation: 05/14 20:09 Chief complaint: Patient states: had 2 stents placed in her groin due to bad veins 3 em months ago, reports that her doctor tried to place a catheter in but would not go in, pt reports pain and blood during urination and when wiping, denies fever, N/V. Coronavirus screen: Client denies travel out of the [place] in the last 14 days. Ebola Screen: Patient negative for fever greater than or equal to 101.5 degrees Fahrenheit, and additional compatible Ebola Virus Disease symptoms Patient denies exposure to infectious person. Patient denies travel to an Ebola-affected area in the 21 days before illness onset. No symptoms or risks identified at this time. Initial Sepsis Screen: Does the patient meet any 2 criteria? No. Patient's initial sepsis screen is negative. Does the patient have a suspected source of infection? No. Patient's initial sepsis screen is negative. Risk Assessment: Do you want to hurt yourself or someone else? Patient reports no desire to harm self or others. Onset of symptoms was May 14, 2020. 20:09 Method Of Arrival: Ambulatory em 20:09 Acuity: DAMON 3 em Historical: - Allergies: 20:14 Demerol; em 20:14 Iodine; em 20:14 Morphine; em 20:14 PENICILLINS; em 20:14 SHELLFISH; em 20:14 Strawberries; em 20:14 Zithromax Z-Joon; em 20:14 Ciprofloxacin; em 20:14 Cephalexin; em - PMHx: 20:14 acid reflux; Anxiety; Endometrosis; Hyperlipidemia; Hypertension; neuropathy; vulvar em cancer; - PSHx: 20:14 vulvar; Hysterectomy; ; Appendectomy; femoral stents; em - Immunization history:: Adult Immunizations up to date. - Social history:: Smoking status: Patient denies any tobacco usage or history of. Screenin:33 Abuse screen: Denies threats or abuse. Denies injuries from another. Nutritional rv screening: No deficits noted. Tuberculosis screening: No symptoms or risk factors identified. Fall Risk None identified. Assessment: 20:33 General: Appears comfortable, Behavior is calm, cooperative. Pain: Complains of pain in rv abdomen and left lower quadrant and right lower quadrant. Neuro: Level of Consciousness is awake, alert, obeys commands, Oriented to person, place, time, situation. Cardiovascular: Patient's skin is warm and dry. Respiratory: Airway is patent. : Reports vaginal bleeding that is light flow. Derm: Skin is intact. 21:40 Reassessment: Patient appears in no apparent distress at this time. Patient is alert, rr5 oriented x 3, equal unlabored respirations, skin warm/dry/pink. Patient states feeling better. Patient states symptoms have improved. 22:38 Reassessment: Patient appears in no apparent distress at this time. Patient is alert, rr5 oriented x 3, equal unlabored respirations, skin warm/dry/pink. complaint of pain pelvic area 10/10. stat medication given and signed. awaiting for other facility acceptance. Vital Signs: 20:09 BP 122 / 67; Pulse 87; Resp 18; Temp 97.0; Pulse Ox 97% on R/A; Weight 81.65 kg; Height em 5 ft. 6 in. (167.64 cm); Pain 9/10; 21:30 BP 105 / 75; Pulse 74; Resp 17; Pulse Ox 98% ; Pain 7/10; rr5 22:30 BP 117 / 64; Pulse 80; Resp 16; Pulse Ox 99% ; Pain 10/10; rr5 23:30 BP 131 / 67; Pulse 73; Resp 17; Pulse Ox 95% on R/A; rv 23:30 BP 138 / 66; Pulse 70; Resp 19; Temp 97.5; Pulse Ox 96% on R/A; rv 20:09 Body Mass Index 29.05 (81.65 kg, 167.64 cm) em ED Course: 19:46 Patient arrived in ED. am4 20:01 Christopher Dial RN is Primary Nurse. rr5 20:08 Joshua Milner MD is Attending Physician. demetra 20:13 Triage completed. em 20:14 Arm band placed on. em 20:33 Initial lab(s) drawn, by me, sent to lab. Inserted saline lock: 20 gauge in right rv antecubital area, using aseptic technique. Blood collected. 20:34 Patient has correct armband on for positive identification. 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 Pulse rv ox on. NIBP on. 20:40 CT Abd/Pelvis - Without Contrast In Process Unspecified. EDMS 20:44 XRAY Chest (1 view) In Process Unspecified. EDMS 20:45 EKG done, by ED staff, reviewed by Joshua Milner MD. rr5 22:10 Dr. Milner initiated transfer at [facility] with Marychuy Parmar. tt3 23:12 Gianna Grace called with Dr. Tapia to speak with Dr. Milner. tt3 23:15 Gianna Grace gave admin approval. The accepting physician is Dr. Tapia. The pt is tt3 going to the ER ([facility] Nurse to call report to [phone]. 05/15 00:30 No provider procedures requiring assistance completed. IV is patent, with fluids rv infusing freely, Patient transferred, IV remains in place. Administered Medications: 05/14 20:50 Drug: NS 0.9% 500 ml Route: IV; Rate: bolus; Site: right antecubital; rr5 21:23 Follow up: Response: No adverse reaction; IV Status: Completed infusion; IV Intake: rr5 500ml 20:50 Drug: Zofran (Ondansetron) 4 mg Route: IVP; Site: right antecubital; rr5 22:36 Follow up: Response: No adverse reaction rr5 20:52 Drug: fentaNYL (PF) 25 mcg {Note: rass 0.} Route: IVP; Site: right antecubital; rr5 21:50 Follow up: Response: No adverse reaction; Pain is decreased; RASS: Alert and Calm (0) rr5 21:22 Drug: NS 0.9% 1000 ml Route: IV; Rate: 125 ml/hr; Site: right antecubital; rr5 05/15 00:28 Follow up: IV Status: Completed infusion rv 05/14 22:24 Drug: Azactam 1 grams Route: IVPB; Infused Over: 30 mins; Site: right antecubital; rr5 23:14 Follow up: IV Status: Completed infusion; IV Intake: 100ml rv 22:36 Drug: Potassium Effervescent Tablet 25 mEq Route: PO; rr5 02 00:29 Follow up: Response: No adverse reaction rv 05/14 22:37 Drug: fentaNYL (PF) 25 mcg {Note: rass 0.} Route: IVP; Site: right antecubital; rr5 05/15 00:28 Follow up: Response: No adverse reaction; Adverse reaction, Physician notified; RASS: rv Alert and Calm (0) 05/14 23:14 Drug: vancoMYCIN 1 grams Route: IVPB; Infused Over: 2 hrs; Site: right antecubital; rv 02 00:29 Follow up: IV Status: Infusion continued upon transfer rv 00:28 Drug: fentaNYL (PF) 25 mcg {Note: rass 0.} Route: IVP; Site: right antecubital; rv 00:29 Follow up: Response: Medication administered at discharge.; RASS: Alert and Calm (0) rv 00:28 Drug: Zofran (Ondansetron) 4 mg Route: IVP; Site: right antecubital; rv 00:29 Follow up: Response: Medication administered at discharge. rv Intake: 05/14 21:23 IV: 500ml; Total: 500ml. rr5 23:14 IV: 100ml; Total: 600ml. rv Outcome: 22:12 ER care complete, transfer ordered by MD. mccrary 05/15 00:30 Transferred by ground EMS to [facility], Transfer form completed. X-rays sent rv w/ patient. Condition: good Instructed on the need for transfer. 00:31 Patient left the ED. rv Addendum: 05/23/2020 13:53 Addendum: Culture Results: Positive urine culture. Faxed over patient's culture reports e b to [facility] at [phone]. Signatures: Dispatcher [employer] Joshua Marley MD MD cha Munoz, Edgar, RN Jo Ann Mathis Ronaldo, RN RN rv Roque, Raymond, RN RN rr5 Teja Hawthorne3 Kirstin Stafford am4 Corrections: (The following items were deleted from the chart) 05/14 22:10 20:09 Chief complaint: Patient states: had 2 stents placed in her groin due to bad em veins 3 months ago, reports that her doctor tried to place a catheter in but would not go in, pt reports pain during urination and when wiping, denies fever, N/V em
--- NOTE | 2020-05-14 22:13 | EDPHYS ---
Physician Documentation [facility] Name: Milly Cabrera Age: 59 yrs Sex: Female : 1960 Arrival Date: 05/14/2020 Time: 19:46 Bed 5 Private MD: ELINA Physician Joshua Milner HPI: 05/14 20:23 This 59 yrs old Female presents to ER via Ambulatory with complaints of demetra Vaginal Bleeding. 20:23 The patient presents with vaginal bleeding that is light. Onset: The symptoms/episode demetra began/occurred 1 week(s) ago. Historical: - Allergies: 20:14 Demerol; em 20:14 Iodine; em 20:14 Morphine; em 20:14 PENICILLINS; em 20:14 SHELLFISH; em 20:14 Strawberries; em 20:14 Zithromax Z-Joon; em 20:14 Ciprofloxacin; em 20:14 Cephalexin; em - PMHx: 20:14 acid reflux; Anxiety; Endometrosis; Hyperlipidemia; Hypertension; neuropathy; vulvar em cancer; - PSHx: 20:14 vulvar; Hysterectomy; ; Appendectomy; femoral stents; em - Immunization history:: Adult Immunizations up to date. - Social history:: Smoking status: Patient denies any tobacco usage or history of. ROS: 20:24 Constitutional: Negative for fever, chills, and weight loss, Eyes: Negative for injury, demetra pain, redness, and discharge, ENT: Negative for injury, pain, and discharge, Neck: Negative for injury, pain, and swelling, Cardiovascular: Negative for chest pain, palpitations, and edema, Respiratory: Negative for shortness of breath, cough, wheezing, and pleuritic chest pain, Back: Negative for injury and pain, MS/Extremity: Negative for injury and deformity, Neuro: Negative for headache, weakness, numbness, tingling, and seizure, Psych: Negative for depression, anxiety, suicide ideation, homicidal ideation, and hallucinations, Allergy/Immunology: Negative for hives, rash, and allergies, Endocrine: Negative for neck swelling, polydipsia, polyuria, polyphagia, and marked weight changes, Hematologic/Lymphatic: Negative for swollen nodes, abnormal bleeding, and unusual bruising. 20:24 Abdomen/GI: Positive for abdominal distension. 20:24 : Positive for urinary symptoms, pelvic pain, vaginal bleeding, vaginal discharge, vaginal itching. 20:24 Skin: Positive for pallor. Exam: 20:24 Constitutional: This is a well developed, well nourished patient who is awake, alert, demetra and in no acute distress. Head/Face: Normocephalic, atraumatic. Eyes: Pupils equal round and reactive to light, extra-ocular motions intact. Lids and lashes normal. Conjunctiva and sclera are non-icteric and not injected. Cornea within normal limits. Periorbital areas with no swelling, redness, or edema. ENT: Nares patent. No nasal discharge, no septal abnormalities noted. Tympanic membranes are normal and external auditory canals are clear. Oropharynx with no redness, swelling, or masses, exudates, or evidence of obstruction, uvula midline. Mucous membranes moist. Neck: Trachea midline, no thyromegaly or masses palpated, and no cervical lymphadenopathy. Supple, full range of motion without nuchal rigidity, or vertebral point tenderness. No Meningismus. Chest/axilla: Normal chest wall appearance and motion. Nontender with no deformity. No lesions are appreciated. Cardiovascular: Regular rate and rhythm with a normal S1 and S2. No gallops, murmurs, or rubs. Normal PMI, no JVD. No pulse deficits. Respiratory: Lungs have equal breath sounds bilaterally, clear to auscultation and percussion. No rales, rhonchi or wheezes noted. No increased work of breathing, no retractions or nasal flaring. Back: No spinal tenderness. No costovertebral tenderness. Full range of motion. MS/ Extremity: Pulses equal, no cyanosis. Neurovascular intact. Full, normal range of motion. Neuro: Awake and alert, GCS 15, oriented to person, place, time, and situation. Cranial nerves II-XII grossly intact. Motor strength 5/5 in all extremities. Sensory grossly intact. Cerebellar exam normal. Normal gait. Psych: Awake, alert, with orientation to person, place and time. Behavior, mood, and affect are within normal limits. 20:24 Abdomen/GI: Inspection: distension, that is mild, that is moderate, Bowel sounds: active, Palpation: mild abdominal tenderness, moderate abdominal tenderness, in the right lower quadrant and left lower quadrant, Liver: no appreciated palpable abnormalities, Hernia: not appreciated. 22:08 ECG was reviewed by the Attending Physician. demetra Vital Signs: 20:09 BP 122 / 67; Pulse 87; Resp 18; Temp 97.0; Pulse Ox 97% on R/A; Weight 81.65 kg; Height em 5 ft. 6 in. (167.64 cm); Pain 9/10; 21:30 BP 105 / 75; Pulse 74; Resp 17; Pulse Ox 98% ; Pain 7/10; rr5 22:30 BP 117 / 64; Pulse 80; Resp 16; Pulse Ox 99% ; Pain 10/10; rr5 23:30 BP 131 / 67; Pulse 73; Resp 17; Pulse Ox 95% on R/A; rv 23:30 BP 138 / 66; Pulse 70; Resp 19; Temp 97.5; Pulse Ox 96% on R/A; rv 20:09 Body Mass Index 29.05 (81.65 kg, 167.64 cm) em MDM: 20:08 Patient medically screened. demetra 20:27 Differential diagnosis: malignancy, menorrhea, Neoplasm sympomatic leaking abdominal demetra aortic aneurysm, non-specific abd pain, pancreatitis, urinary tract infection. Data reviewed: vital signs, nurses notes, lab test result(s), EKG, radiologic studies, CT scan, plain films. Data interpreted: case monitor: rate is 87 beats/min, rhythm is regular, Pulse oximetry: is not applicable for this patient encounter. Test interpretation: by ED physician or midlevel provider: ECG, plain radiologic studies. Counseling: I had a detailed discussion with the patient and/or guardian regarding: the historical points, exam findings, and any diagnostic results supporting the discharge/admit diagnosis, lab results. 05/14 20:13 Order name: Urine Culture [facility] 05/14 20:22 Order name: Basic Metabolic Panel; Complete Time: 21:54 [facility] 05/14 20:22 Order name: CBC with Diff; Complete Time: 21:54 [facility] 05/14 20:22 Order name: LFT's; Complete Time: 21:54 [facility] 05/14 20:22 Order name: Magnesium; Complete Time: 21:54 [facility] 05/14 20:22 Order name: NT PRO-BNP; Complete Time: 21:54 [facility] 05/14 20:22 Order name: PT-INR; Complete Time: 21:54 [facility] 05/14 20:22 Order name: Troponin (emerg Dept Use Only); Complete Time: 21:54 [facility] 05/14 20:22 Order name: XRAY Chest (1 view) [facility] 05/14 20:40 Order name: Urine Microscopic Only; Complete Time: 21:54 [facility] 05/14 20:43 Order name: Urine Dipstick--Ancillary (enter results) [facility] 05/14 20:44 Order name: Urine Dipstick-Ancillary; Complete Time: 21:54 [facility] 05/14 23:21 Order name: SARS-COV-2 RT PCR [facility] 05/14 20:13 Order name: Pelvic Exam Setup; Complete Time: 20:33 [facility] 05/14 20:13 Order name: Urine Dipstick-Ancillary (obtain specimen); Complete Time: 20:33 [facility] 05/14 20:22 Order name: EKG; Complete Time: 20:23 [facility] 05/14 20:22 Order name: Cardiac monitoring; Complete Time: 20:32 [facility] 05/14 20:22 Order name: EKG - Nurse/Tech; Complete Time: 20:32 [facility] 05/14 20:22 Order name: CT Abd/Pelvis - Without Contrast; Complete Time: 21:54 [facility] 05/14 20:22 Order name: IV Saline Lock; Complete Time: 20:32 [facility] 05/14 20:22 Order name: Labs collected and sent; Complete Time: 20:32 [facility] 05/14 20:22 Order name: O2 Per Protocol; Complete Time: 20:33 [facility] 05/14 20:22 Order name: O2 Sat Monitoring; Complete Time: 20:33 [facility] EC:08 Rate is 74 beats/min. Rhythm is regular. QRS [place] is Normal. AL interval is normal. QRS demetra interval is normal. QT interval is normal. No Q waves. T waves are Normal. No ST changes noted. Clinical impression: NSR w/ Non-specific ST/T Changes and No evidence of ischemia. Interpreted by me. Reviewed by me. Administered Medications: 20:50 Drug: NS 0.9% 500 ml Route: IV; Rate: bolus; Site: right antecubital; rr5 21:23 Follow up: Response: No adverse reaction; IV Status: Completed infusion; IV Intake: rr5 500ml 20:50 Drug: Zofran (Ondansetron) 4 mg Route: IVP; Site: right antecubital; rr5 22:36 Follow up: Response: No adverse reaction rr5 20:52 Drug: fentaNYL (PF) 25 mcg {Note: rass 0.} Route: IVP; Site: right antecubital; rr5 21:50 Follow up: Response: No adverse reaction; Pain is decreased; RASS: Alert and Calm (0) rr5 21:22 Drug: NS 0.9% 1000 ml Route: IV; Rate: 125 ml/hr; Site: right antecubital; rr5 02 00:28 Follow up: IV Status: Completed infusion rv 05/14 22:24 Drug: Azactam 1 grams Route: IVPB; Infused Over: 30 mins; Site: right antecubital; rr5 23:14 Follow up: IV Status: Completed infusion; IV Intake: 100ml rv 22:36 Drug: Potassium Effervescent Tablet 25 mEq Route: PO; rr5 05/15 00:29 Follow up: Response: No adverse reaction rv 02 22:37 Drug: fentaNYL (PF) 25 mcg {Note: rass 0.} Route: IVP; Site: right antecubital; rr5 02 00:28 Follow up: Response: No adverse reaction; Adverse reaction, Physician notified; RASS: rv Alert and Calm (0) 02 23:14 Drug: vancoMYCIN 1 grams Route: IVPB; Infused Over: 2 hrs; Site: right antecubital; rv 0212 00:29 Follow up: IV Status: Infusion continued upon transfer rv 00:28 Drug: fentaNYL (PF) 25 mcg {Note: rass 0.} Route: IVP; Site: right antecubital; rv 00:29 Follow up: Response: Medication administered at discharge.; RASS: Alert and Calm (0) rv 00:28 Drug: Zofran (Ondansetron) 4 mg Route: IVP; Site: right antecubital; rv 00:29 Follow up: Response: Medication administered at discharge. rv Disposition: 05/14/20 22:12 Transfer ordered to [facility]. Diagnosis are Vulvovaginal ulceration and inflammation in diseases classified elsewhere - vulvar cancer, Abdominal tenderness, Urinary tract infection, site not specified, Elevated white blood cell count, Hypokalemia, Cellulitis and acute lymphangitis of other sites - mons, labia. - Reason for transfer: Higher level of care. - Accepting physician is to [facility]. - Condition is Fair. - Problem is new. - Symptoms are unchanged. Signatures: Dispatcher [employer] [facility] Joshua Milner MD MD cha Munoz, Edgar, RN RN Minh Leal, RN RN Christopher Mckeon, RN RN rr5 Corrections: (The following items were deleted from the chart) 05/14 22:13 22:12 05/14/2020 22:12 Transfer ordered to [facility]. Diagnosis is Vulvovaginal demetra ulceration and inflammation in diseases classified elsewhere - vulvar cancer; Abdominal tenderness; Urinary tract infection, site not specified; Elevated white blood cell count; Hypokalemia. Reason for transfer: Higher level of care. Accepting physician is to [facility]. Condition is Fair. Problem is new. Symptoms are unchanged. [facility] 22:37 22:21 CORONAVIRUS+MR.LAB.BRZ ordered. [facility] 05/15 00:31 05/14 22:13 05/14/2020 22:12 Transfer ordered to [facility]. Diagnosis is Vulvovaginal rv ulceration and inflammation in diseases classified elsewhere - vulvar cancer; Abdominal tenderness; Urinary tract infection, site not specified; Elevated white blood cell count; Hypokalemia; Cellulitis and acute lymphangitis of other sites - mons, labia. Reason for transfer: Higher level of care. Accepting physician is to [facility]. Condition is Fair. Problem is new. Symptoms are unchanged. demetra
[2020-05-14] MEDS ORDERED: VANCOMYCIN 1 GM/VIAL ONE (22:32)
[2020-05-14] MEDS ORDERED: NA CHLORIDE 0.9% 100 ML ONE (22:32)
[2020-05-14] MEDS ORDERED: AZTREONAM 1 GM/VIAL ONE (22:32)
[2020-05-14] MEDS ORDERED: NA CHLORIDE 0.9% 250 ML ONE (22:34)
[2020-05-14] MEDS ORDERED: POTASSIUM 25 MEQ EFFERV TAB ONE (22:46)
[2020-05-15] MEDS ORDERED: FENTANYL CITR 100 MCG/2 ML ONE (00:39)
[2020-05-15] MEDS ORDERED: ONDANSETRON 4 MG/2 ML VIAL ONE (00:39)
[2020-05-15 00:40] VITALS: BP 131/67; TEMP 97.5; O2SAT 96
--- NOTE | 2020-05-15 07:58 | RAD REPORT ---
EXAM DESCRIPTION: [facility] Single View05/14/2020 8:44 pm CLINICAL HISTORY: Cough COMPARISON: 2019 FINDINGS: The lungs appear clear of acute infiltrate. The heart is normal size IMPRESSION: No acute abnormalities displayed
--- NOTE | 2020-05-17 07:58 | EKG ---
Test Date: 2020-05-14 Test Time: 20:53:41 Career Development Coordinator/Teacher: RV MEASUREMENT RESULTS: Intervals: Rate: 74 NC: 188 QRSD: 102 QT: 416 QTc: 461 Lolo: P: 113 NC: 188 QRS: -24 T: 13 INTERPRETIVE STATEMENTS: Normal sinus rhythm Nonspecific ST abnormality Abnormal ECG Compared to ECG 02/09/2019 19:19:55 Sinus bradycardia no longer present Possible ischemia no longer present ST (T wave) deviation still present Electronically Signed On 05-17-20 07:53:49 EARTH MOVER by Jose Cook
== END 2020-05-15 00:31 | disposition short-term general hospital (02) ==
LOC: ER 19:40
DX: C51.9 Malignant neoplasm of vulva, unspecified (principal); N39.0 Urinary tract infection, site not specified; E87.6 Hypokalemia; N76.2 Acute vulvitis; L04.1 Acute lymphadenitis of trunk; D72.829 Elevated white blood cell count, unspecified; R10.819 Abdominal tenderness, unspecified site; I10 Essential (primary) hypertension; Z88.0 Allergy status to penicillin; Z88.1 Allergy status to other antibiotic agents; Z88.5 Allergy status to narcotic agent; Z20.822 Contact with and (suspected) exposure to COVID-19; Z91.013 Allergy to seafood; Z91.018 Allergy to other foods; Z91.048 Other nonmedicinal substance allergy status
CPT/HCPCS: 96365; 96367; 96361; 93005; 87088; 85025; 87086; 80048; 36415; 83735; 85610; 80076; 87077; 87186; 84484; 83880; 74176; 71045; 96375; 99285; U0003; J3010 ×2; J3370; S0077; J7050; J7030 ×2; J2405 ×2; 81003; 81015

== ENCOUNTER 2020-05-28 15:13 | Emergency (ER) | payer OTHER ==
--- OUTSIDE RECORDS SUMMARY | 2020-05-28 15:18 | XMS REPORT | Continuity of Care Document ---
:1960 Author Organization [facility] t Address [address] [place] [address] Care Team Providers Name Role Phone Catarina CASTELLON Primary Care Physician Fred CASTELLON Attending Clinician Willie CASTELLON Attending Clinician Tammy CASTELLON Attending Clinician TAMMY Attending Clinician Unavailable Bill CASTELLON Attending Clinician Shea Morales MD Attending Clinician TAMMY Admitting Clinician Unavailable Payers Payer Name Policy Type Policy Effective Date Expiration Date Sour ce Number [facility] [id number] 2020 MD Dowell rschuck MEDICARE 00:00:00 [facility] MEDICARE MEDICAID DUAL [id number] 21-PresentMedicare Problems Condition Condition Condition Status Onset Resolution Last Treating Co mments Source Name Details Category Date Date Treatment Clinician Date Chronic Chronic Disease Active obstructiv obstructiv 2-12 An derso e e 00:00: n pulmonary pulmonary 00 disease disease Coronary Coronary Disease Active arterioscl arterioscl 2-12 An derso erosis erosis 00:00: n 00 Chronic Chronic Disease Active back pain back pain 2-12 Delmer rso 00:00: n 00 Cellulitis Cellulitis Disease Active M D 2-12 Anderso 00:00: n 00 Anxiety Anxiety Disease Active depression depression 212 An derso 00:00: n 00 Hyperlipid Hyperlipid Disease Active M D emia emia 2-12 Anderso 00:00: n 00 Abnormal Abnormal Disease Active vaginal vaginal 2-12 Anderso bleeding bleeding 00:00: n 00 Malignant Malignant Disease Active neoplasm neoplasm Ed o of vulva of vulva n Allergies, Adverse Reactions, Alerts Allergy Allergy Status Severity Reaction(s) Onset Inactive Treating Comm ents Source Name Type Date Date Clinician clindamy DA Active [facility] jomar 8- [place] 00:00: [facility] No Known DA Active [facility] Allergie 6-13 [place] s 00:00: [facility] iodine DA Active SV [facility] 6- [place] 00:00: [facility] meperidi DA Active PA 0 [facility] ne 6- [place] 00:00: [facility] penicill DA Active PA [facility] in G 6- [place] 00:00: [facility] strawber DA Active SV [facility] ry 6- [place] 00:00: [facility] ZPAC DA Active PA 2017-0 [facility] 6-25 [place] 00:00: [facility] strawber FA Active SV [facility] ry 6- [place] 00:00: [facility] TUNA DA Active SV [facility] FISH 1-12 [place] 00:00: [facility], [facility] Aspirin Propensi Active [place] ty to Methodi adverse st reaction s to drug Iodine Propensi Active [place] ty to Methodi adverse st reaction s to drug Meperidi Propensi Active [facility] n me ty to Methodi adverse st reaction s to drug Penicill Propensi Active [place] [facility] ty to Methodi adverse st reaction s to drug Social History Social Habit Start Date Stop Date Quantity Comments Source Sex Assigned At MD Ward on Exposure to Not sure MD Milner SARS-CoV-2 (event) Cigarettes smoked 2020-05-15 2020-05-15 MD Delmer coleman current (pack per 00:00:00 00:00:00 day) - Reported Cigarette pack-years 2020-05-15 2020-05-15 MD Kristy villeda 00:00:00 00:00:00 Tobacco use and 2020-05-15 2020-05-15 Never used MD Ward on exposure 00:00:00 00:00:00 Alcohol intake 2020-05-15 2020-05-15 Ex-drinker MD Arlene briggs 00:00:00 00:00:00 (finding) Smoking Status Start Date Stop Date Source Former smoker 2020-05-15 00:00:00 2020-05-15 00:00:00 MD Marte son Medications Ordered Filled Start Stop Current Ordering Indication Dosage Frequency Signature Comments Components Source Medication Medication Date Date Medication? Clinician (SIG) Name Name amitriptyli Yes 100mg Take 100 M D ne (ELAVIL) 2-12 mg by Anderso 50 mg 23:04: mouth at n tablet 43 bedtime. Takes 50mg by mouth in the morning and 100mg by mouth in the evening. aspirin 81 Yes 81mg Take 81 mg M D mg EC 2-12 by mouth Anderso tablet 23:04: daily. n 43 lidocaine-p Yes Suspected Please rilocaine 2-12 vulva administer And erso (EMLA) 00:00: cancer as needed n 2.5-2.5% 00 for cream comfort doxycycline 2020-2020- No Cellulitis 100mg Take 1 MD (VIBRAMYCIN 2-12 02-20 capsule Delmer rso ) 100 MG 00:00: 05:59 (100 mg) n capsule 00 :00 by mouth twice daily for 7 days. HYDROcodone Yes 1{tbl} Take 1 MD -acetaminop 2-04 tablet by And erso hen (NORCO) 00:00: mouth n 10 mg-325 00 every 6 mg per (six) tablet hours as needed for pain. tiZANidine Yes 4mg Take 4 mg MD (ZANAFLEX) 2-04 by mouth Estuardo so 4 mg tablet 00:00: every 8 n 00 (eight) hours as needed for muscle spasms. clopidogrel Yes 75mg Take 75 mg MD (PLAVIX) 75 1-14 by mouth Delmer rso mg tablet 00:00: daily. n 00 amitriptyli Yes 50mg Take 50 mg MD ne (ELAVIL) 1-11 by mouth Delmer rso 50 mg 00:00: daily. n tablet 00 Takes 50mg by mouth in the morning and 100mg by mouth in the evening. atorvastati Yes 40mg Take 40 mg MD n (LIPITOR) 1-11 by mouth Del[place] rso 40 mg 00:00: at n tablet 00 bedtime. FLUoxetine Yes 40mg Take 40 mg M D (PROzac) 40 11 by mouth Delmer rso mg capsule 00:00: daily. n 00 metoprolol 2017-04 Yes metoprolol [place] clements/hydrochl 0-15 clements-hydroch Me thodi orothiaz 14:33: lorothiaz st (DUTOPROL 44 ORAL) morPHINE 2017-04 Yes morphine [place] on 0.2 mg/mL 0-15 Methodi solution 14:33: st () 44 atorvastati 2017-04 Yes atorvastat Marquez n (LIPITOR) 0-15 in 10 mg Meth giovanna 10 MG 14:33: tablet st tablet 44 Take 1 tablet every day by oral route. ibuprofen 2017-04 Yes ibuprofen Bettina ston (MOTRIN) 0-15 Methodi 100 mg/5 mL 14:33: st suspension 44 pregabalin 2017-04 Yes Lyrica 75 [place] (LYRICA) 75 0-15 mg capsule Me thodi MG capsule 14:33: Take 1 st 44 capsule twice a day by oral route. Vital Signs Vital Name Observation Time Observation Value Comments Source WEIGHT 2020-05-15 05:19:42 79.7 kg HEIGHT 2020-05-15 05:19:42 164 cm WEIGHT 2020-05-15 05:19:42 79.7 kg HEIGHT 2020-05-15 05:19:42 164 cm Systolic blood pressure 2020-05-15 22:03:02 145 mm[Hg] MD Milner Diastolic blood pressure 2020-05-15 22:03:02 80 mm[Hg] MD Milner Heart rate 2020-05-15 22:03:02 94 /min MD Estuardo zuniga Body temperature 2020-05-15 22:03:02 36.72 Kiersten MD Kristy villeda Respiratory rate 2020-05-15 22:03:02 18 /min MD Kristy villeda Oxygen saturation in 2020-05-15 22:03:02 95 /min MD Milner Arterial blood by Pulse oximetry Body height 2020-05-15 11:19:42 164 cm MD Estuardo zuniga Body weight 2020-05-15 11:19:42 79.7 kg MD Estuardo zuniga BMI 2020-05-15 11:19:42 29.63 kg/m2 MD Estuardo zuniga Procedures Procedure Date / Time Performed Performing Clinician [facility] e PATHOLOGY BIOPSY 2020-05-15 18:35:00 Julian Ferro MD INTERPRETATION CT ABDOMEN PELVIS WO CONTRAST 2020-05-15 09:54:00 Mahendra Tapia MD URINALYSIS WITH MICROSCOPIC IF 2020-05-15 09:21:00 Josh Tapia MD INDICATED URINALYSIS MICROSCOPIC 2020-05-15 09:21:00 Kameron Tapia MDson URINE CULTURE 2020-05-15 09:21:00 Kameron Tapia MD ANTIBODY SCREEN 2020-05-15 08:19:00 Kameron Tapia MD GLUCOSE LEVEL 2020-05-15 08:19:00 Kameron Tapia MD BLOOD UREA NITROGEN 2020-05-15 08:19:00 Kameron Tapia MD ELECTROLYTE PANEL 2020-05-15 08:19:00 Kameron Tapia MD SERUM CREATININE 2020-05-15 08:19:00 Kameron Tapia MD .GLOMERULAR FILTRATION RATE 2020-05-15 08:19:00 Kameron Tapia MD CALCIUM LEVEL TOTAL 2020-05-15 08:19:00 Kameron Tapia MD ALBUMIN LEVEL 2020-05-15 08:19:00 Kameron Tapia MD ALKALINE PHOSPHATASE 2020-05-15 08:19:00 Kameron Tapia MD ALANINE AMINOTRANSFERASE 2020-05-15 08:19:00 Kameron aTpia MD ASPARTATE AMINOTRANSFERASE 2020-05-15 08:19:00 Kameron Tapia TOTAL PROTEIN 2020-05-15 08:19:00 Kameron Tapia MD FRACTIONATED BILIRUBIN 2020-05-15 08:19:00 Kameron Tapia MD derson Results CBC 2020-05-15 08:19:00 Kameron Tapia MD MANUAL DIFFERENTIAL 2020-05-15 08:19:00 Kameron Tapia MD son CLOT EXPIRATION DATE 2020-05-15 08:19:00 Kameron Tapia MD TMP INTERPRETATION ANTIBODY 2020-05-15 08:19:00 Kameron Tapia MD SCREEN NEGATIVE BLOODCULTURE 2020-05-15 08:19:00 Kameron Tapia MD INFLUENZA A/B + COVID-19 2020-05-15 08:19:00 Kameron Tapia MD ASYMPTOMATIC-L MAGNESIUM LEVEL 2020-05-15 08:19:00 Kameron Tapia MD PHOSPHORUS LEVEL 2020-05-15 08:19:00 Kameron Tapia MD COMPREHENSIVE METABOLIC PANEL 2020-05-15 08:19:00 Mahendra Tapia MD COMPLETE BLOOD COUNT W/ 2020-05-15 08:19:00 Kameron Tapia MD nderson DIFFERENTIAL PROTHROMBIN TIME 2020-05-15 08:19:00 Kameron Tapia MD PARTIAL THROMBOPLASTIN TIME 2020-05-15 08:19:00 Kameron Tapia MD TYPE AND SCREEN 2020-05-15 08:19:00 Sujata Khan MD Delmer rson CONFIRM ABORH TYPE 2020-05-15 08:19:00 Kameron Tapiaers on ABORH 2020-05-15 08:19:00 Kameron Tapia MD OSI CHEST 2020-05-15 04:04:02 Joshua Milner MD Plan of Care Planned Activity Planned Date Details Comments Source Future Scheduled 2019-11-02 INFLUENZA VACCINE [place] [facility] 00:00:00 [code = INFLUENZA VACCINE] Future Scheduled 2009-12-19 BREAST CANCER [place] [facility] Test 00:00:00 SCREENING [code = BREAST CANCER SCREENING] Future Scheduled 2009-12-19 COLONOSCOPY SCREENING [place] [facility] 00:00:00 [code = COLONOSCOPY SCREENING] Future Scheduled 2009-12-19 SHINGLES VACCINES [place] [facility] 00:00:00 (#1) [code = SHINGLES VACCINES (#1)] Future Scheduled 1980-12-[address] [facility] Test 00:00:00 malignant neoplasm of cervix (procedure) [code = 402941954] Future Scheduled 1977-12-19 Hepatitis C screening [place] [facility] 00:00:00 (procedure) [code = 471112812] Future Scheduled 1975 COVID-19 VACCINE (1 [place] [facility] Test 00:00:00 of 2) [code = COVID-19 VACCINE (1 of 2)] Encounters Start End Encounter Admission Attending Care Care Encounter Source Date/Time Date/Time Type Type Clinicians Facility Department ID 2020-05-15 2020-05-15 Outpatient [facility] [id number] 22:03:48 22:03:48 Ed briggs 2020-05-15 2020-05-15 Inpatient ER [facility] [place] [facility] [id number] 01:39:00 17:04:00 JULIAN briggs Results Test Description Test Time Test Comments Results Result Comments Source Blood culture 2020-05-23 00:51:09 Test Item Value Reference Range Interpretation Comme nts Final Report (test code = 8488) No growth Path Review - Bottle/Isolator (test Immunity and antibiotic use may render code = 8499) culture negative. Ongoing infection requires repeat culture.The results have been reviewed and electronically signed by Pathologist:RANDA RAMOS MD #[id number] MO (test code = MO) Short draw may invalidate quantitative blood culture results. MD MilnerUrine [id number] 19:27:30 Test Item Value Reference Range Interpretation Comments Final Report (test code <10,000 cfu/ml Gram A = 8488) Negative Rods...<10,000 cfu/ml Normal site silverio present. Path Review - Urine The results have been A (test code = 8483) reviewed and electronically signed by Pathologist:RANDA RAMOS MD #[id number] Lab Interpretation Abnormal (test code = 62277-4) MD MilnerPathology Biopsy [id number] 15:22:00 Test Item Value Reference Range Interpretation Comments Diagnosis (test code = 34) j7tozPHuKBZxkVO6UxY zKKLyi1hnq5BfsLMbrX UoRDekwELxamLqlq82b FQ7pJ33MC7pNADwYmU2 UYKgktT8Oto5NWKlATD ucGYjL175z0vbo3olyn YwuBW2lWldITPuLJGsA WluXGZzMjAgQTogQmlv gXL3SWZ4gCj3QOubeJX yXGxpNzIwXGxpbjcyMC VSOnSMK0rGWCVJOWhJC DPPJK1ZMXLYNJUSQAgh NLkUJcBSDT2BSJWKTPT oD7MSRY3MTMUrW6DBH6 pXT65MUHGOXKVVFDbSB yBUTyBUSVNTVUUgRURH RVMuXHBhclxwYXJkXHR hYiBERVBUSCBPRiBJTl IEP7vXZqSODWBEHJFRU QGmHC9qZOXhwadpFXIn TEpET3IJHzhiNEH7 Gross Description (test j7uafVHvKTYtqDQ8HhT code = [id number]) kQZPer5fjo6GxzWPqiE JwHCsasIDzkoFbwa07a EK2qP59LO9mJOOhSqL1 XKZbloP7Tsu3CJIkKKP lxHOiT902c3tol3jvfv TrkMC2mVgcGIVns4yxQ OXkcKYqGDX3CSncfSZn GNRdZVWzLMf0QINnJGe tgRCiIZ1lrPxhTetdaP bpj0IrfQCbDXxjPAAjT PCiCWjtQMSfH1FGMSAp WhG8CeDcNRHaTIj2VDl xG8YMOWTmEFS6PuKfJC YsApY5TSt4DVFKDa4yZ gK5FKp8IfD7CZU3JjS7 IFxcdCAyIFxcZmwgXFx mIEFyaWFsIFxcZnMgMT WkVPypNsQcBE9hnNxnt GFpblxiXGZzMjAgQTpc hKRjNJTkMFPxj3StfCq shdLmxbX1HDUvWMHYj0 2qsUL3qyVxAhKfHIFdi r9rhoW4SOJ9mf6zmSEb tCGtHEQfl2etOWJ8O8m yeS9cLAXyPUSmkYSqNz 3zMKmrSY15KAxyBG77K GNtLCBzdXJmYWNlIGRp n7ZrMNalEYBlUsVvo46 sIGdyYWlueSBsZXNpb2 4gdGhhdCBpcyAwLjcge SXsMsXlK35fJIceB5J9 TYZiOI7xNVIgUAJcl36 fcRyjWN6aMBRdq2NdkB IpM7anICHwemfhCIFqt HVlOyBlbnRpcmVseSBz oNWpxBC4OQBrpH9uYKT 2WCWseQnoSC1getqfqF 2rYYLeIXCnLC24mmgaH RCwUQK1FMQvdEGrzuHu gaLrOaC9hUDks4KwI4z xDO4az8YorJSchCeme7 VjdGlvbmVkLiAgXHByb 2RqA2Q1FBMoDKngb0ao LNVrTVvoq8FqJXmGQVX WNA1PIZ0bgTW0ZJxRV6 LSE1iTvLPiITW2qIF3X UIRBdggeQG3hVP5pS25 TPWcBSJugUOiZYwqY60 1QXl7MXUiKFhvu1qrAM TcMMzbj6XkKDkLEFNXW I6DXM4bbDF5WVsRX1VE RHwyMTAxNnwxfFVTRVJ 6GVwljYiaeYz4h8bapB Mid6u1IDouKMH0fVtcq GMrudmiehOlx1scdTmf g7XvyUBvRS17GRUknAM fJGN9NA3uaJouOLU6 Disclaimer (test code = p6jxsBXlJFTgrWQcHeR 9844) cAPHqYSVax5isLEJftF FuZzEwMzNcZnRuYmpcd TJiAFWjUfKfz0mpn696 fXTxn5oaMJLkOmD7tLX iKIGrmGNeF580QHRsLU hmr2wyv9PdMTUgjCKuw 6D4LJBVnczewNq6pRsv J67jz6I9YdqgW7hrZWF dNZQpM9IpFT1vMONnNr c7ILQ2YTV9SWYwYISwX 5JcXO0mEYOecDViIVy9 h1oyjMgaHZHvMZM6r0s kPPgxgvXwJR3gez6hjY n7j6hqygCmOGLcJFDea IVTUANqR2IcmSvfXe4m zYd7nGdlCmrdGRY5Efk 9LX5ojg35uxg3tWhaHV QxzfgsZoK1EPkjWOPxf vyrJBk4IBfoPHEjcAN6 KXPovEUvM8IhCLTsUP0 fqao2QLP8EQihOFGuKu V0CXBdqFTxBTQdgKhiR Ybyd279GLB9OhZoOO5p G3Fat6C4uG9iaEMhKUY ifVLtRiRnFTEsnj5bjR ZrXEteq4TmTUJ1orT5z VIhoHUtOWOoPV75Uvvx f9UyOwyjTWM5CXXpuxW wr0Ton6hmWsTegcZjC7 yoW8ReIILsTPMcKVBrD hXqmpTlp8Oes1FbxFRv pCd1x4uzVVNbXKXabMj xg3bdPJS9BJQkX9X3cB Tia0lvWUtdFXQwbXG7g pA8FLCioPEtT9BgbX9p CPWrTZ9swzi3a8dsQRA 3IOllUIVuCaB5vkU4PJ BcaGVhZGVyeTcyMFxmb 106MST8RaUhOSWmu2Ps F6CcjQmdB16tmAywX68 dJYBktYhdmA7vkKcafW 5cZjBcZnMyNFxxbFxwb YThdwpqIDofcaO8BZbd fexrMJHhYWumF3fhUkN zXALxzYyoCGbpq1QuWH EpXZDdYphvvlA2VAWKh 95iUWMzx5TaILPqzM4g nFQaVQmfzcIezKX1OBr hdmUgYmVlbiBkZXZlbG 5vNULdFI3aMXLdvgLca b7mdoPuPDTzTGGjI2Ts cmlzdGljcyBkZXRlcm1 vawCvDRN3JKWPER9UIN OhPWHuz32vUKXopCmcg K5ozAPsbpGkYVVzb7Ic tS3lrOTPNJOaP2edDO6 nURgga9BlvEHvwJHecO L3RBCdy1WsCbQyxlNez XQrgMUuS8TcaYzdC2ou IQFvSMKqglXhnNQwz5C xGJNacNB7eHKlNZ3EDm GGb80cSIIdAELVfvBsG ZSsuVzzqIN6agS3oY6a LiBJZiBhcHBsaWNhYmx oIWFeo527ua5dqqS7QB JeFPQuncyvb1UjXRTxE ITteX06UXFbBJHaal0v ovsdgFIqcvVoC6Wtktt 0mM8yWRRnYDjsBZWzBA ZzMjJcbGFuZzEwMzNca GljaFxmMVxkYmNoXGYx CAuhE2poVkXtSvYeWvb wYXJ9 MD MilnerOSI [id number] 04:04:09Study acquired at another institution. For comparison only. No MD Milner originated interpretationrequested or available.MD MilnerCT Abdomen Pelvis without IV [id number] 16:14:151. Fungating soft tissue vulvar mass with overlying subcutaneous edema, consistent with patient's known treated vulvar malignancy.2. Colonic diverticulosis without acute diverticulitis.3. Incidentalfindings as above. 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 Axial, coronal and sagittal reconstructions. The study is limited by the noncontrast technique.FINDINGS: Soft tissues: Fungating vulvar soft tissue mass consistent with treated malignancy measures 2.8 x 7.7 x 5.2 cm, with overlying subcutaneous edema.Reproductive organs: Status post hysterectomy. There is no adnexal mass.Gastrointestinal tract: Incidental colonic diverticulosis. Small hiatal hernia.Peritoneum and retroperitoneum: No ascites o r free air. No other fluid collection.Lymph nodes: Scattered nonenlarged mesenteric and retroperitoneal lymph nodes. Prominent left inguinal lymph node measures 0.7 cm in short axis.Liver: Normal.Biliary tree: No intra- or extrahepatic biliary ductal dilation.Gallbladder: Hydropic, measuring 4.6 cm in diameter. No CT evidence of gallstones.Pancreas: Normal.Spleen: Normal.Adrenals: Normal.Kidneys and ureters: Normal.Urinary bladder: Normal.Vasculature: Atherosclerotic changes of the abdominal aorta and its branches.Bones: Multilevel degenerative changes of the visualized axial skeleton.Lines, tubes a nd hardware: None.Lower thorax: 0.4 cm right middle lobe pulmonary nodule. Mild bibasilar pulmonary scarring/atelectasis.IMPRESSION:1. Fungating soft tissue vulvar mass with overlying subcutaneous edema, consistent with patient's known treated vulvar malignancy.2. Colonic diverticulosis without acute diverticulitis.3. Incidental findings as above.I personally reviewed these image(s) along with theresident's/fellow's interpretations, certify that if a procedure was performed I was physically present, and agree with the final report.[facility] Interpretation Antibody Screen [id number] 15:41:44 Test Item Value Reference Range Interpretation Comments TMP Auto Neg At the present ABSC Interp time, patient (test code = plasma shows no REJI 7535) evidence of RBC LERNER alloantibodies. Melyssa SANa paramjit by: REJI SAN,Dictated Date/Time: 05.15.2020 9:41 AM OCCUPATIONAL THERAPY AIDE Transcrib ed Date/Time: 05.15.2020 9:41 AM CSTElectronical ly Signed By: MITCHELL IN EDUARDA SAN, on 05.15.2020 9:41 AM C MD MilnerConfirm [id number] 13:46:54 Test Item Value Reference Range Interpretation Comments ABORh Confirm. (test code = 882-1) O POS MD MilnerAntibody [id number] 13:33:05 Test Item Value Reference Range Interpretation Comments ABSC. (test code = 890-4) Negative ABSC MD [id number] 13:33:04 Test Item Value Reference Range Interpretation Comments ABORh. (test code = 882-1) O POS MD MilnerClot Expiration [id number] 13:32:35 Test Item Value Reference Range Interpretation Comments T & S Expiration (test code = 05/18/2020 5318) MD MilnerUrinalysis with [id number] 11:06:23 Test Item Value Reference Interpretation Comments Range UA WBC (test code = 108 See_Comment H [Automa paramjit 7904) message] The system which generated this result transmitted reference range : 0 - 2 /HPF. The reference range was not used to interpret this result as normal/abnormal . UA RBC (test code = 7 See_Comment H [Automa paramjit 7891) message] The system which generated this result transmitted reference range : 0 - 2 /HPF. The reference range was not used to interpret this result as normal/abnormal . UA Mucous (test code NOT SEEN TRACE /HPF = 7887) UA Bacteria (test OCC NOT SEEN /HPF code = 7870) UA Squam Epi (test OCC OCC /HPF code = 7896) UA WBC Clump (test OCC OCC /HPF code = 7906) MO (test code = Some reporting MO) parameters within the Urinalysis test have changed due to the implementation of new instrumentation in the [facility], allowing greater sensitivity of measurement. Urinalysis results reported by the [facility] using existing instrumentation, as well as Urinalysis testing performed manually or by backup methodology at the [facility] will remain relatively unchanged. New reporting parameters and units will now be reported for all campuses. Lab Interpretation Abnormal (test code = 51994-6) MD MilnerUrinalysis w/Microscopic if [id number] 10:53:50 Test Item Value Reference Range Interpretation Comments UA Color (test code = 7877) Yellow Yellow UA Appear (test code = 7868) Clear Clear UA Glucose (test code = 7881) NEG NEG mg/dL UA Bili (test code = 7871) NEG NEG UA Ketones (test code = 7884) NEG NEG mg/dL UA Spec Grav (test code = 7894) 1.009 1.002-1.035 UA Blood (test code = 7872) Moderate NEG A UA pH (test code = 7909) 6.0 4.5-8.0 UA Protein (test code = 7890) NEG NEG mg/dL UA Urobilinogen (test code = 7903) NEG NEG UA Nitrite (test code = 7888) NEG NEG UA Leuk Est (test code = 7886) Large NEG A Lab Interpretation (test code = Abnormal 33410-0) MD MilnerFractionated [id number] 09:23:53 Test Item Value Reference Range Interpretation Comments Bili Total (test <0.3 See_Comment Direct and indirect code = 5096) bilirubin will not be reported when T otal bilirubin resul t is <0.3 mg/dLIndocyanin e Green (ICG) may cause false ly elevated bilirubin resul ts. Total and direct bilirubi n must not be measured from s amples containing indo cyanine green. False el evation of total bilirubin can be seen in patients wit h IgG concentrations above 28 g/L. [Automated mes demarco] The system which ge nerated this result transmit paramjit reference range: <=1.2 mg /dL. The reference range was not used to interpret th is result as normal/abnormal . MD MilnerGlomerular Filtration [id number] 09:23:52 Test Item Value Reference Range Interpretation Comments eGFR-AA (test code 83 See_Comment Normal eG FR: >= 60 = 8062) mL/min/1.73 m2N ote: The eGFR is calculated u sing the CKD-EPI equatio n. The eGFR declines with a ge. eGFR <60 mL/min/1.73 m2 is considered as "decreased". This equation should only be used for patients 18 and older. According to th e National Kidney [employer] on's Kidney Disease Outcome Quality Initiative (KDO QI) classification and 2012 Kidney Disease Improving Global Outcomes (KDIGO) Clinical Practi ce Guideline, the stage of CK D should be categorized bas ed on estimated GFR. Stage Description GFR mL/min/1.73 m21 Normal or high GFR >=902 Mildly decrease d GFR 60-893a M ildly to moderately decr eased GFR 45-593b Moderat rei to severely decrea sed GFR 30-444 Severely decreased GFR 15-295 Kid andrey failure <15 [Automa Marley Spoon message] The system OutSystems generated this result tra nsmitted reference range : >=60 mL/min/1.73 sq. m. The reference range was not used to interpret th is result as normal/abnormal . eGFR-EMILY (test code 72 See_Comment Normal e GFR: >= 60 = 8063) mL/min/1.73 m2N ote: The eGFR is calculated u sing the CKD-EPI equatio n. The eGFR declines with a ge. eGFR <60 mL/min/1.73 m2 is considered as "decreased". This equation should only be used for patients 18 and older. According to th e National Kidney [employer] on's Kidney Disease Outcome Quality Initiative (KDO QI) classification and 2012 Kidney Disease Improving Global Outcomes (KDIGO) Clinical Practi ce Guideline, the stage of CK D should be categorized bas ed on estimated GFR. Stage Description GFR mL/min/1.73 m21 Normal or high GFR >=902 Mildly decrease d GFR 60-893a M ildly to moderately decr eased GFR 45-593b Moderat rei to severely decrea sed GFR 30-444 Severely decreased GFR 15-295 Kid andrey failure <15 [Automa paramjit message] The system OutSystems generated this result tra nsmitted reference range : >=60 mL/min/1.73 sq. m. The reference range was not used to interpret th is result as normal/abnormal . MD MilnerTotal [id number] 09:23:51 Test Item Value Reference Range Interpretation Comments Total Protein (test code = 7649) 7.6 g/dL 6.4-8.3 MD MilnerMagnesium [id number] 09:23:50 Test Item Value Reference Range Interpretation Comments Magnesium (test code = 6359) 2.0 mg/dL 1.6-2.6 MD MilnerPhosphorus [id number] 09:23:49 Test Item Value Reference Range Interpretation Comments Phosphorus (test code = 6817) 4.2 mg/dL 2.5-4.5 MD MilnerAlkaline [id number] 09:23:48 Test Item Value Reference Range Interpretation Comments Alk Phos (test code = 4768) 137 U/L 35-104 H Lab Interpretation (test code = Abnormal 88540-0) MD MilnerCalcium [id number] 09:23:47 Test Item Value Reference Range Interpretation Comments Calcium Lvl (test code = 5258) 9.0 mg/dL 8.4-10.2 MD [id number] 09:23:46 Test Item Value Reference Range Interpretation Comments ALT (test code = 8 U/L See_Comment [Automated message] The 4639) system which ge nerated this result transmit paramjit reference range : <=33. The reference range was not used to interpr et this result as deepti l/abnormal. MD MilnerAlbumin [id number] 09:23:45 Test Item Value Reference Range Interpretation Comments Albumin Lvl (test code 3.5 See_Comment [Aut omated message] The = 7915) system which ge nerated this result tra nsmitted reference range : 3.5 - 5.2 gm/dL. The refe rence range was not used to interpret this result as normal/abnormal . MD Milner.Serum [id number] 09:23:44 Test Item Value Reference Range Interpretation Comments Creatinine (test code = 5399) 0.88 mg/dL 0.51-0.95 MD MilnerAspartate [id number] 09:23:43 Test Item Value Reference Range Interpretation Comments AST (test code = 10 U/L See_Comment [Automated message] The 4731) system which ge nerated this result transmit paramjit reference range : <=32. The reference range was not used to interpr et this result as deepti l/abnormal. MD [id number] 09:23:42 Test Item Value Reference Range Interpretation Comments BUN (test code = 5055) 10 mg/dL 6-23 MD MilnerElectrolyte [id number] 09:23:41 Test Item Value Reference Range Interpretation Comments Sodium Lvl (test code = 139 See_Comment [Au tomated message] The 7355) system which ge nerated this result tra nsmitted reference range : 136 - 145 mEq/L. The reference range was not u sed to interpret this result as normal/abnormal . Potassium Lvl (test 3.8 See_Comment [Automa paramjit message] The code = 6854) system which ge nerated this result tra nsmitted reference range : 3.5 - 5.1 mEq/L. The reference range was not u sed to interpret this result as normal/abnormal . Chloride (test code = 104 See_Comment [Auto mated message] The 3329) system which ge nerated this result tra nsmitted reference range : 98 - 107 mEq/L. The refe rence range was not u sed to interpret this result as normal/abnormal . CO2 (test code = 5227) 23 See_Comment [Aut omated message] The system which ge nerated this result tra nsmitted reference range : 22 - 29 mEq/L. The refe rence range was not u sed to interpret this result as normal/abnormal . Anion Gap (test code = 12 See_Comment [Aut omated message] The 9337) system which ge nerated this result tra nsmitted reference range : 4 - 14 mEq/L. The refe rence range was not u sed to interpret this result as normal/abnormal . MD MilnerGlucose [id number] 09:23:39 Test Item Value Reference Range Interpretation Comments Glucose Level (test code 110 mg/dL 70-99 H Eff ective 10/28/15, = 5699) the glucose reference inter vals have been updat ed based on [place] an Diabetes Associ ation guidelines (Standards of Medical Care in Diabetes 2016. Diabetes Care 2 016; 39: S13-S22).Fa sting blood glucose:Normal: 70 99 mg/dLImpaire d fasting glucose (increased risk for diabetes or pre-diabetes): 100 125 mg/dLDiabet es mellitus: >/=1 26 mg/dL Random bl ood glucose:Normal: 70 199 mg/dLNote: Random glucose >100 mg/dL is associ ated with increased risk for diabetes Lab Interpretation (test Abnormal code = 13197-8) MD MilnerInfluenza A/B + COVID-19 Asymptomatic- [id number] 09:13:15 Test Item Value Reference Range Interpretation Comments Influenza A (test Not Detected Not Detected code = 28773-9) Influenza B (test Not Detected Not Detected code = 13084-7) COVID19 Not Detected Not Detected (SARS-CoV-2) (test code = 18662-1) COVID19 SARS Inpatient Indication (test Admission code = 94144) Inf AB+Cov19 See Note The [place] SARS- CoV-2 Comment (test & Influenza A/ B code = 35042) nucleic acid t est for use on the alireza s Geni System is a [employer] real-time RT-PC R assay intended for the simultaneou s, qualitative det ection and differentia l of SARS-CoV-2 (COVID-19), inf luenza A, and influenz a B viral RNA in nasopharyngeal swabs in transport me autumn from patients suspected of valle ving a respiratory inf ection with one of the se viruses or poss ibly exposure to COV ID-19 by a healthcare provider. Resul ts must be interpr eted within the cont ext of all relevant cl inical and laboratory findings and sh ould not form the so le basis for a autumn gnosis or treatment decision. A fac t sheet for patie nts provided by the pulling machine operator ([employer]) can be rev iewed at: https://www.fda .gov/m edia/277461/radha nloadA fact sheet for Health Care providers is provided by the pulling machine operator ([employer]) and can be reviewed at: https://www.fda .gov/m edia/967373/radha nload Influenza A and Influenza B neg ative results should be considered presumptive in samples that valle ve a positive SARS-C oV-2 result. If co-infection wi th influenza A or influenza B vir us is suspected in sa mples with a positive SARS-CoV-2 resu lts, the sample pepeu ld be re-tested with another approve d influenza test. This assay has been authorized by t willy FDA for use only un fausto Emergency Use Authorization ( EUA) in laboratories that have been CLIA-certified to perform moderate-comple xity and high-comple xity tests. The [facility] Laboratory at [facility], CLIA Accreditation #[id number] and CAP Accreditation #[id number], verif ied the performance characteristics of this assay. Int ernal controls are us ed to monitor all sta ges of the test proces s. MD MinlerPartial Thromboplastin [id number] 09:04:05 Test Item Value Reference Range Interpretation Comments PTT (test code = 30.1 See_Comment [Automated message] The 6773) system which ge nerated this result transmit paramjit reference range : 24.2 - 36.0 second(s). The reference range was not used to interpr et this result as deepti l/abnormal. MD MilnerProthrombin Time with [id number] 09:04:04 Test Item Value Reference Range Interpretation Comments PT (test code = 6746) 14.5 See_Comment H [Auto mated message] The system whic h generated this result transmitted ref erence range: 12.0 - 1 4.3 second(s). The reference range was not used to int erpret this result as normal/abnormal . INR (test code = 5973) 1.20 0.90-1.10 H Lab Interpretation (test Abnormal code = 37336-1) MD Mi[id number] 08:56:12 Test Item Value Reference Range Interpretation Comments Neutrophil % (test code = 65.3 % 42-66 78689-2) Lymphocyte % (test code = 20.5 % 24-44 L 737-7) Monocyte % (test code = 10.9 % 2-7 H 744-3) Eosinophil % (test code = 2.4 % 1-4 713-8) Basophil % (test code = 0.5 % 0-1 707-0) IGRE % (test code = 0.4 % 0-0.4 IGRE % c ount 51806-0) includes Metamyelocytes, Myelocytes, and Promyelocytes. Neutrophil Abs (test code 9.79 K/uL 1.7-7.3 H = 753-4) Lymphocyte Abs (test code 3.07 K/uL 1-4.8 = 732-8) Monocyte Abs (test code = 1.63 K/uL 0.08-0.7 H 743-5) Eosinophil Abs (test code 0.36 K/uL 0.04-0.4 = 712-0) Basophil Abs (test code = 0.07 K/uL 0-0.1 705-4) IG Abs (test code = 0.06 K/uL 0-0.04 H 76925-3) Lab Interpretation (test Abnormal code = 38713-5) MD Milner.[id number] 08:56:09 Test Item Value Reference Range Interpretation Comments WBC (test code = 15.0 K/uL 4-11 H 6690-2) RBC (test code = 789-8) 3.48 See_Comment L [Au tomated message] The system [employer] generated this result transmitted ref erence range: 4.00 - 5 .50 M/uL. The refer ence range was not u sed to interpret this result as normal/abnor mal. Hgb (test code = 718-7) 10.0 See_Comment L [Au tomated message] The system [employer] generated this result transmitted ref erence range: 12.0 - 1 6.0 gm/dL. The refe rence range was not u sed to interpret this result as normal/abnor mal. Hct (test code = 32.9 % 37-47 L 4544-3) MPV (test code = 787-2) 8.6 fL 4-10.4 MCH (test code = 785-6) 28.7 pg 27-31 MCHC (test code = 30.4 See_Comment L [Automate d message] 786-4) The system [employer] generated this result transmitted ref erence range: 31.0 - 3 6.0 gm/dL. The refe rence range was not u sed to interpret this result as normal/abnor mal. RDW-SD (test code = 60.4 fL 35.1-46.3 H 66655-0) RDW-CV (test code = 17.6 % 12-15.5 H 788-0) Platelet count (test 407 K/uL 140-440 code = 777-3) INRBC (test code = 0.1 % See_Comment H The INRBC (instrument 5974) NRBC) value ref lects the enumeration of nucleated red b lood cells contained in a 200uL sampleof whole blood analyzed by the instrument. Thi s value maydiffer from the NRBC value reported in a m anual differential,wh ich is based on a 100 cell differential. [Automated mess age] The system [employer] generated this result transmitted ref erence range: <=0.0. T he reference range was not used to int erpret this result as normal/abnormal . Lab Interpretation Abnormal (test code = 09964-4) MD Milner- MRI L-SPINE W/O [id number] 09:37:00 FAX: Bella Hannah MD [phone] [place]: St: [facility] FAX: Apolinar [place] MD [phone] Patient Name: JEFRY LOPEZ Unit No: [id number] EXAMS: CPT CODE: [id number] MRI L-SPINE W/O CONT 20351 MRI Lumbar Spine without contrast HISTORY: Back pain COMPARISON: None available TECHNIQUE: Sagittal T1, T2 and STIR, axial T1, T2 andcoronal fat suppressed T2 weighted images of the lumbar spine were obtained without contrast. FINDINGS: There is a normal lumbar lordosis with preservation of vertebral bodyalignment and vertebral body height. The conus medullaris ends at the L1 level and demonstrates normal caliber and signal intensity. Disc desiccation is noted throughout the lumbar sp ine. Mild loss of disc height is noted at L3-L4. Soft tissues are within normal limits. Axial images: L1-L2: The disk is normal in configuration. There is no facet arthropathy, neural foraminal narrowing, or central canal stenosis. L2-L3: Mild 2 mm broad- based central disc protrusion There is no facet [...] is normal in configuration. There is no facetarthropathy, neural foraminal narrowing, or central canal stenosis. IMPRESSION: 1. At L4-L5, moderate canal stenosis, marked bilateral lateral recess stenosis, and moderate bilateral neuroforaminal stenosis. 2. At L3-L4, mild bilateral neuroforaminal narrowing. at 0937 Reported and signed by: Tyrell Burgos M.D. [facility] NAME: JEFRY LOPEZ [address] [place] [address] PHYS: LISA - Apolinar [place], [place] : 1960 AGE: 58 SEX: F [phone] LOC: [id number] PHONE #: [phone] EXAM DATE: 01/08/2019 STATUS: REG CLI FAX #: [phone] RAD NO: DC Dt: PAGE 1 Signed Report (CONTINUED) FAX: Bella Hannah MD [phone] [place]: St: REG FAX: Apolinar [place] MD [phone] --- Patient Name: JEFRY LOPEZ Guy Unit No: [id number] EXAMS: CPT CODE: [id number] MRI L-SPINE W/O CONT [id number] <Continued> CC: Bella Elmore MD; Apolinar Fields MD Dictated Date/Time: 01/08/2019 (37)Technologist: Low Painting - Eran Transcribed Date/Time: 01/08/2019 (936) By: [email or web address] Orig Print D/T: S: 01/08/2019 (1866) 508 Imaging NAME: JEFRY LOPEZ [address] [place] [address] PHYS: SHIREEN.Regulo - Apolinar [place], [place] : 1960 AGE: 58 SEX: F [id number] LOC: SELAM PHONE #: [phone] EXAM DATE: 01/08/2019 STATUS: REG CLI FAX #: [phone] RAD NO: DC Dt: PAGE 2 SignedReportBASIC METABOLIC [id number] 11:35:00 Test Item Value Reference Range Interpretation Comments SODIUM (test code = 138.0 mmol/L 133-144 N NA) POTASSIUM (test code 4.5 mmol/L 3.5-5.1 N = K) CHLORIDE (test code 105 mmol/L 95-105 N = CL) CARBON DIOXIDE (test 27 mmol/L 21-32 N code = CO2) ANION GAP (test code 6.0 GAP calc 4.0-15.0 N = GAP) GLUCOSE (test code = 144 MG/DL 70-110 H GLU) BLOOD UREA NITROGEN 9 MG/DL 7-18 N (test code = BUN) CREATININE (test 0.75 MG/DL 0.55-1.30 N Results may be code = CREAT) depressed if patient is takingN-Acetylc yste ine (NAC) and Metamizole (Dipyrone). CALCIUM (test code = 8.7 MG/DL 8.5-10.1 N CA) INDEX HEMOLYSIS 1 NORMAL <10 MG 1 NORMAL (test code = Index/DL HEMINDEX) INDEX ICTERIC (test 1 NORMAL <2 MG 1 NORMAL code = ICTINDEX) Index/DL INDEX LIPEMIA (test 1 NORMAL <50 MG 1 NORMAL code = LIPINDEX) Index/DL Specimen comments: PRE-OPIs this a LINE draw? [place],N: The patient will be fasting before starting thistest? YLIPID PROFILE (CORONARY RISK)2018-11-02 11:35:00 Test Item Value Reference Range Interpretation Comments TRIGLYCERIDES (test 105 MG/DL 0-150 N Results may be code = TRIG) depressed if mitzy vines is takingN-Acetylc ystei ne (NAC) and Metamizole (Dipyrone). CHOLESTEROL (test code 169 MG/DL 133-200 N = CHOL) CHOLESTEROL/HDL RATIO 2.72 RATIO >0 REFER ENCE RANGE: (test code = CHOLHDL) WINSTON AHUJA FEMALE 1/2 AVG RISK 3.4 3 3.27 AVG RISK 4.9 7 4.44 2 X AVG RISK 9.5 5 7.05 3 X AVG RISK 23.3 9 11.04 HDL CHOLESTEROL (test 62 MG/DL 40-59 H Result s maybe code = HDL) depressed if mitzy vines is taking Metamizole(Dipy dorys) . NON-HDL CHOLESTEROL 107 mg/dL <130 Patients with CHD or (test code = NHDL) CHD risk LDL: <70 mg/dL non HDL: <100 mg/dLPatie nts with 2+ risk fa ctors LDL: <130 mg/dL nonHDL: <160 mg/dLPatie nts with 0-1 risk factors LDL: <160 mg/dL nonHDL: <190 m g/dL LIPOPROTEIN LDL (test 86 MG/DL 0-129 N code = LDL) LDL/HDL (test code = 1.38 Ratio 1.48-3.22 Avg L LDL/HD L RISK LDL/HDL) ASSESSMENT1.47 One-half averag e3.22 Average5.0 3 Two times average6.[address] Specimen comments: PRE-OPIs this a LINE draw? [place],N: The patient will be fasting before starting thistest? YBASIC METABOLIC [id number] 11:33:00 Test Item Value Reference Range Interpretation Comments SODIUM (test code = 138.0 mmol/L 133-144 N NA) POTASSIUM (test code 4.5 mmol/L 3.5-5.1 N = K) CHLORIDE (test code 105 mmol/L 95-105 N = CL) CARBON DIOXIDE (test 27 mmol/L 21-32 N code = CO2) ANION GAP (test code 6.0 GAP calc 4.0-15.0 N = GAP) GLUCOSE (test code = 144 MG/DL 70-110 H GLU) BLOOD UREA NITROGEN 9 MG/DL 7-18 N (test code = BUN) CREATININE (test 0.75 MG/DL 0.55-1.30 N Results may be code = CREAT) depressed if patient is takingN-Acetylc yste ine (NAC) and Metamizole (Dipyrone). CALCIUM (test code = 8.7 MG/DL 8.5-10.1 N CA) INDEX HEMOLYSIS 1 NORMAL <10 MG 1 NORMAL (test code = Index/DL HEMINDEX) INDEX ICTERIC (test 1 NORMAL <2 MG 1 NORMAL code = ICTINDEX) Index/DL INDEX LIPEMIA (test 1 NORMAL <50 MG 1 NORMAL code = LIPINDEX) Index/DL Specimen comments: PRE-OPIs this a LINE draw? [place],N: The patient will be fasting before starting thistest? YLIPID PROFILE (CORONARY RISK)2018-11-02 11:33:00 Test Item Value Reference Range Interpretation Comments TRIGLYCERIDES (test code 105 MG/DL 0-150 N Res ults may be = TRIG) depressed if mitzy vines is takingN-Acetylc ystei ne (NAC) and Metamizole (Dipyrone). CHOLESTEROL (test code = 169 MG/DL 133-200 N CHOL) CHOLESTEROL/HDL RATIO RATIO >0 (test code = CHOLHDL) HDL CHOLESTEROL (test MG/DL 40-59 code = HDL) NON-HDL CHOLESTEROL mg/dL <130 (test code = NHDL) LIPOPROTEIN LDL (test MG/DL 0-129 code = LDL) LDL/HDL (test code = Ratio 1.48-3.22 Avg LDL/HDL) Specimen comments: PRE-OPIs this a LINE draw? [place],N: The patient will be fasting before starting thistest? YPT AND [id number] 11:24:00 Test Item Value Reference Interpretation Comments Range PT PATIENT (test 11.2 SECONDS 9.4-12.5 N code = PTP) INTERNATIONAL 0.99 INR 0.88-1.13 N NORMAL RATIO (test Unit --------- code = INR) ---------Therap eutic range for INR i s dependent upon the situation.2.0-3 .0 Prophylaxis / v enous thromboembolism , Treatment of DVT, Acute myocardia l infarction stro ke prevention, Systemic emboli sm prevention in fibrillation3.0 -4.5 AMI recurrence prev ention, Systemic emboli sm prevention in p rosthetic heart 3.0-5.4 A PA mortality reduc tion THROMBOPLASTIN TIME 30.2 SECONDS 24-37.7 N THERAPEU TIC RANGE FOR PARTIAL (test code UNFRACTIO NATED HEPARIN = = PTT) 50.5-83.6 SEC T his test is not recommen ded to monitor low molecularweight heparin or danaparoid. Order LMWH test COLLECTION THROUGH LINES THAT HAVE BEEN PREVIOUSLY FLUS HEDWITH HEPARIN SHOULD BE AVOIDED DUE TO POSSIBLE HEPARINCONTAMIN ATION Specimen comments: PRE-OPIs this a LINE draw? NANTICOAGULANT THERAPY [Y,N]: [facility] CBC W/AUTO [id number] 11:16:00 Test Item Value Reference Range Interpretation Comments WHITE BLOOD CELL (test code = 14.0 K/mm3 4.1-12.1 H WBC) RED BLOOD CELL (test code = RBC) 4.63 M/mm3 3.8-5.5 N HEMOGLOBIN (test code = HGB) 13.7 G/DL 10.6-15.8 N HEMATOCRIT (test code = HCT) 42.3 % 31.8-47.4 N MEAN CELL VOLUME (test code = 91.4 fL 80.1-101.1 N MCV) MEAN CELL HGB (test code = MCH) 29.6 pg 25.3-35.3 N MEAN CELL HGB CONCETRATION (test 32.4 G/DL 32.7-35.1 L code = MCHC) RED CELL DISTRIBUTION WIDTH 13.9 % 12.2-16.4 N (test code = RDW) RED CELL DISTRIBUTION WIDTH 46.5 fL 36.4-46.3 H (test code = RDW-SD) PLATELET COUNT (test code = PLT) 288 K/mm3 155-337 N MEAN PLATELET VOLUME (test code 9.4 fL 6.8-11.2 N = MPV) GRANULOCYTE % (test code = GR%) 86.0 % 37.8-82.6 H IMMATURE GRANULOCYTE % (test 0.5 % 0.0-2.0 N code = IG%) LYMPHOCYTE % (test code = LY%) 11.7 % 14.1-45.4 L MONOCYTE % (test code = MO%) 1.7 % 2.5-11.7 L EOSINOPHIL % (test code = EO%) 0.0 % 0.0-6.2 N BASOPHIL % (test code = BA%) 0.1 % 0.0-2.1 N NUCLEATED RBC % (test code = 0.0 /100WBC% 0.0-1.0 N NRBC%) GRANULOCYTE # (test code = GR#) 12.01 k/mm3 2.0-13.7 N IMMATURE GRANULOCYTE # (test 0.07 K/mm3 0.00-0.03 H code = IG#) LYMPHOCYTE # (test code = LY#) 1.64 K/mm3 0.6-3.8 N MONOCYTE # (test code = MO#) 0.24 K/mm3 0.11-0.59 N EOSINOPHIL # (test code = EO#) 0.00 K/mm3 0.0-0.4 N BASOPHIL # (test code = BA#) 0.02 K/mm3 0.0-0.1 N NUCLEATED RBC # (test code = 0.00 K/mm3 0.0-0.05 N NRBC#)
--- NOTE | 2020-05-28 20:55 | ER ---
Nurse's Notes [facility] Name: Milly Cabrera Age: 59 yrs Sex: Female : 1960 Arrival Date: 05/28/2020 Time: 15:15 Bed Waiting Private MD: Diagnosis: Presentation: 05/28 15:34 Chief complaint: Patient states: i have a abscess on my vagina that i need to get tw2 recheck i am still having some redness and drainage and swelling as well. Coronavirus screen: At this time, the client does not indicate any symptoms associated with coronavirus-19. Ebola Screen: Patient denies travel to an Ebola-affected area in the 21 days before illness onset. Initial Sepsis Screen: Does the patient meet any 2 criteria? HR > 90 bpm. Does the patient have a suspected source of infection? No. Patient's initial sepsis screen is negative. Risk Assessment: Do you want to hurt yourself or someone else? Patient reports no desire to harm self or others. Onset of symptoms was May 28, 2020. 15:34 Method Of Arrival: Ambulatory tw2 15:34 Acuity: DAMON 3 tw2 Triage Assessment: 15:38 General: Appears in no apparent distress. uncomfortable, Behavior is calm, cooperative, tw2 appropriate for age. Pain: Complains of pain in pelvis. Historical: - Allergies: 15:38 Cephalexin; tw2 15:38 Ciprofloxacin; tw2 15:38 Demerol; tw2 15:38 Iodine; tw2 15:38 Morphine; tw2 15:38 PENICILLINS; tw2 15:38 SHELLFISH; tw2 15:38 Strawberries; tw2 15:38 Zithromax Z-Joon; tw2 - Home Meds: 15:38 aspirin 81 mg Oral TbEC 1 tab once daily [Active]; atorvastatin 40 mg Oral tab 1 tab tw2 once daily [Active]; fluoxetine 40 mg Oral cap 1 cap once daily [Active]; metoprolol tartrate 50 mg Oral tab once daily [Active]; Nexium 40 mg Oral cpDR 1 cap once daily [Active]; Plavix 75 mg Oral tab 1 tab once daily [Active]; - PMHx: 15:38 acid reflux; Anxiety; Endometrosis; Hyperlipidemia; Hypertension; neuropathy; vulvar tw2 cancer; ovarian cancer; - PSHx: 15:38 vulvar; Hysterectomy; ; Appendectomy; femoral stents; tw2 - Immunization history:: Adult Immunizations. - Social history:: Smoking status: . Assessment: 20:53 Reassessment: Phoned pt, pt states, "I left already cause I was hurting too bad". ca1 Vital Signs: 15:34 BP 146 / 87; Pulse 108; Resp 17; Temp 97.8(TE); Pulse Ox 99% on R/A; Weight 83.01 kg; tw2 Height 5 ft. 6 in. (167.64 cm); Pain 10/10; 15:34 Body Mass Index 29.54 (83.01 kg, 167.64 cm) tw2 ED Course: 15:15 Patient arrived in ED. as 15:36 Triage completed. tw2 15:38 Arm band placed on. tw2 20:50 Patient's name was called from ER lobby. No response. Unable to locate patient. Will ca1 disposition as left without being seen by a provider. Administered Medications: No medications were administered Outcome: 20:54 Patient left the ED. ca1 Signatures: Faviola Stafford Tara, RN RN tw2 Sally Brown RN RN ca1
[2020-05-29 01:44] VITALS: BP 146/87; TEMP 97.8; O2SAT 99
== END 2020-05-28 20:54 | disposition left against medical advice (07) ==
LOC: ER 15:13
DX: Z53.21 Procedure and treatment not carried out due to patient leaving prior to being seen by health care provider (principal)
CPT/HCPCS: 99281

== ENCOUNTER 2020-05-31 20:56 | Emergency (ER) | payer OTHER ==
--- OUTSIDE RECORDS SUMMARY | 2020-05-31 21:01 | XMS REPORT | Continuity of Care Document ---
:1960 Author Organization [facility] t Address [address] [place] [address] Care Team Providers Name Role Phone Catarina CASTELLON Primary Care Physician Rudy PAC, S Attending Clinician Marcos SHANKAR, R Attending Clinician Unavailable Fred CASTELLON Attending Clinician Willie CASTELLON Attending Clinician Tammy CASTELLON Attending Clinician TAMMY Attending Clinician Unavailable Bill CASTELLON Attending Clinician Shea Morales MD Attending Clinician TAMMY Admitting Clinician Unavailable Payers Payer Name Policy Type Policy Effective Date Expiration Date Sour ce Number [facility] [id number] 2020 MD Dowell rson MEDICARE 00:00:00 [facility] MEDICARE MEDICAID DUAL [id number] 21-PresentMedicare Problems Condition Condition Condition Status Onset [...] 00 Anxiety Anxiety Disease Active depression depression 2-12 An derso 00:00: n 00 Hyperlipid Hyperlipid [...] Date Date Clinician clindamy DA Active U 2018- [facility] [place] [facility] No Known DA Active U 2018-0 [facility] Allergie 6-13 [place] [facility] 00:[facility] iodine DA Active SV 2017- [facility] 6-25 [place] 00:[facility]: [facility] meperidi DA Active AR 2017-0 [facility] ne 6- [place] 00:00: [facility] penicill DA Active AR 2017-0 [facility] in G 6-25 [place] 00:00: [facility] strawber DA Active SV 2018-0 [facility] ry 6-25 [place] 00:00: [facility] ZPAC DA Active AR 2017-0 [facility] 6-25 [place] 00:00: [facility] strawber FA Active SV 2017-0 [facility] ry 6- [place] 00:00: [facility] TUNA DA Active SV 2017-0 [facility] FISH 1-12 [place] 00:00: [facility] Aspirin Propensi Active [place] ty to Methodi adverse st reaction s to drug Iodine Propensi Active [place] ty to Methodi adverse st reaction s to drug Meperidi Propensi Active [place] ty to Methodi adverse st reaction s [...] n 43 lidocaine-p Yes Suspected Please rilocaine 12 vulva administer And erso (EMLA) 00:00: cancer as needed n 2.5-2.5% 00 for cream comfort doxycycline 2021- No Cellulitis 100mg Take 1 MD (VIBRAMYCIN 05-15 02-20 capsule Delmer rso ) 100 MG [...] 50mg Take 50 mg MD ne (ELAVIL) -11 by mouth [place] rso 50 mg 00:00: daily. n tablet 00 Takes 50mg by mouth in the morning and 100mg by mouth in the evening. atorvastati Yes 40mg Take 40 mg MD n (LIPITOR) 1-11 by mouth Delmer rso 40 mg 00:00: at n tablet 00 bedtime. FLUoxetine Yes 40mg Take 40 mg M D (PROzac) 40 -11 by mouth Delmer rso mg capsule 00:00: [...] Procedure Date / Time Performed Performing Clinician [facility] e PATHOLOGY BIOPSY 2020-05-15 18:35:00 Julian Ferro MD INTERPRETATION CT ABDOMEN PELVIS WO CONTRAST 2020-05-15 09:54:00 Mahendra Tapia MD URINALYSIS WITH MICROSCOPIC IF 2020-05-15 09:21:00 Josh Tapia MD INDICATED URINALYSIS MICROSCOPIC 2020-05-15 09:21:00 Kameron Tapia MD derson URINE CULTURE 2020-05-15 09:21:00 Kameron Tapia MD ABORH 2020-05-15 08:19:00 Kameron Tapia MD ANTIBODY SCREEN 2020-05-15 08:19:00 Kameron Tapia MD GLUCOSE LEVEL 2020-05-15 08:19:00 Kameron Tapia MD BLOOD UREA NITROGEN 2020-05-15 08:19:00 Kameron Tapia MD ELECTROLYTE PANEL 2020-05-15 08:19:00 Kameron Tapia MD SERUM CREATININE 2020-05-15 08:19:00 Kameron Tapia MD .GLOMERULAR FILTRATION RATE 2020-05-15 08:19:00 Kameron Tapia MD CALCIUM LEVEL TOTAL 2020-05-15 08:19:00 Kameron Tapia MD Estuardo zuniga ALBUMIN LEVEL 2020-05-15 08:19:00 Kameron Tapia MD ALKALINE PHOSPHATASE 2020-05-15 08:19:00 Kameron Tapia MD rschuck ALANINE AMINOTRANSFERASE 2020-05-15 08:19:00 [facility] ASPARTATE AMINOTRANSFERASE 2020-05-15 08:19:00 [facility] TOTAL PROTEIN 2020-05-15 08:19:00 [facility] FRACTIONATED BILIRUBIN 2020-05-15 08:19:00 Kameron Tapia MD derson Results CBC 2020-05-15 08:19:00 [facility] MANUAL DIFFERENTIAL 2020-05-15 08:19:00 Kameron Tapia MD Estuardo zuniga CLOT EXPIRATION DATE 2020-05-15 08:19:00 [facility] rschuck TMP INTERPRETATION ANTIBODY 2020-05-15 08:19:00 Kameron Tapia MD SCREEN NEGATIVE BLOODCULTURE 2020-05-15 08:19:00 Kameron Tapia MD INFLUENZA A/B + COVID-19 2020-05-15 08:19:00 Kameron Tapia MD ASYMPTOMATIC-L MAGNESIUM LEVEL 2020-05-15 08:19:00 [facility] PHOSPHORUS LEVEL 2020-05-15 08:19:00 Kameron Tapia MD COMPREHENSIVE METABOLIC PANEL 2020-05-15 08:19:00 [facility] MD COMPLETE BLOOD COUNT W/ 2020-05-15 08:19:00 Kameron Tapia MD nderson DIFFERENTIAL PROTHROMBIN TIME 2020-05-15 08:19:00 [facility] MD PARTIAL THROMBOPLASTIN TIME 2020-05-15 08:19:00 Kameron Tapia MD TYPE AND SCREEN 2020-05-15 08:19:00 Sujata Khan MD Delmer rschuck CONFIRM ABORH TYPE 2020-05-15 08:19:00 [facility] MD on OSI CHEST 2020-05-15 04:04:02 Joshua Milner MD Plan of Care Planned Activity Planned Date Details Comments Source Future Scheduled 2019-11-02 INFLUENZA VACCINE [place] [facility] 00:00:00 [code = INFLUENZA VACCINE] Future Scheduled 2009-12-19 BREAST CANCER [facility] Test 00:00:00 SCREENING [code = BREAST CANCER SCREENING] Future Scheduled 2009-12-19 COLONOSCOPY SCREENING [place] [facility] 00:00:00 [code = COLONOSCOPY SCREENING] Future Scheduled 2009-12-19 SHINGLES VACCINES [place] [facility] 00:00:00 (#1) [code = SHINGLES VACCINES (#1)] Future Scheduled 1980-12-19 Screening for [facility] Test 00:00:00 malignant neoplasm of cervix (procedure) [code = 679346907] Future Scheduled 1977-12-19 Hepatitis C screening [place] [facility] 00:00:00 (procedure) [code = 305025920] Future Scheduled 1975 COVID-19 VACCINE (1 [place] [facility] 00:00:00 of 2) [code = COVID-19 VACCINE (1 of 2)] Encounters Start End Encounter Admission Attending Care Care Encounter Source Date/Time Date/Time Type Type Clinicians Facility Department ID 2020-05-28 2020-05-28 Emergency [facility] [id number] 19:20:00 21:33:00 Rosi Zhang [id number] [place] [id number] Mobile [id number] 2020-05-15 2020-05-15 Outpatient MILTON ROSE [id number] 22:03:48 22:03:48 Ed briggs 2020-05-15 2020-05-15 Inpatient ER TAMMY, MILTON CHIMNEY SWEEPER [id number] 01:39:00 17:04:00 JULIAN briggs Results Test Description [...] and electronically signed by Pathologist:RANDA RAMOS MD #[id number] MO (test code = MO) Short draw may invalidate quantitative blood culture results. MD MilnerUrine [id number] 19:27:30 Test Item Value Reference Range Interpretation Comments Final Report (test code <10,000 cfu/ml Gram A = 8488) Negative Rods...<10,000 cfu/ml Normal site silverio present. Path Review - Urine The results have been A (test code = 8483) reviewed and electronically signed by Pathologist:RANDA RAMOS MD #[id number] Lab Interpretation Abnormal (test code = 87974-8) MD MilnerPathology Biopsy [id number] 15:22:00 Test Item Value Reference Range Interpretation Comments Diagnosis (test code = 34) o2khkQSoAQYagWG2MyD nXYYcr5ift0EgyNLjqD GwOThjsJFuymGbai10p IE5eD13XB3cWIGuVhH2 BKJmkiJ3Tlh2VIDaCQA ofLFaQ193p3dyn0zbnp YzdKG5ySmzDUBiGERtK WluXGZzMjAgQTogQmlv iJC3GIE3uIq7NSjehCW yXGxpNzIwXGxpbjcyMC CZXtZNU1vJNLHRTWbWI RNQJF3ONIPJBSKVQUti GHhTIoLPZX9PWHXNJFS iG8QEVN3ZDXTkK0HRC4 pOX86SPHNANZPGNQfWK yBUTyBUSVNTVUUgRURH RVMuXHBhclxwYXJkXHR hYiBERVBUSCBPRiBJTl QKR0tMEeAZSGSPRKTGW LVnTY8jIAFinzdsGETq BKkPN6GHJisqIGT0 Gross Description (test y6cshOMaTKDrtMS3ExX code = 3882604193) kPWFyh5nef3FxbZCucP ItHHguqOGmscUafv47l MP3uU24MN4rFNWuNhJ8 OVMfgnE5Pei8FDXfJFK qiFKnO226j6gzr5sors XnnDW2lGbsQDCgm2dwM EFjrFWaNBC5QBwdwGDz IOFcQSWeLUq1VGLtUXn fdKEmXP2wmOnmZkiblE cfu4SzjSYaSRogSKSkH TPiCQfoAHQgV5MRLUVt KtC9KmXaJBYqQSm7IXe tG1JUSRWuTAS8LoOtGD JeUzC9BRw9LBSLOw8wY pP1ILt2NzP2QAR8LcZ1 IFxcdCAyIFxcZmwgXFx mIEFyaWFsIFxcZnMgMT MwUFdjZlPbFD7wyFgjb GFpblxiXGZzMjAgQTpc yATiDKRhULZwf9GwqMu tvsDcksS8HCPlBJUPv0 4gdXC4rjQnHzNbFQMix w3ysvB3DWG6zr8ulBDo kRRfPLFnd3idLQF8I9e gdK5hQLEmWCTamKGwVc 4fTPuqDR40SGpcVE54Y GNtLCBzdXJmYWNlIGRp k2MrFNgyFSWmTsZrq73 sIGdyYWlueSBsZXNpb2 4gdGhhdCBpcyAwLjcge RWqPzIxY39gPLvwT1V8 BXHcJO9sNKHcCXZcx44 yrPkjDB9sKCFuk1XrvS AkM1qhCSDecxfiXIUnp HVlOyBlbnRpcmVseSBz aQUfiJF7TLUufX9qEUQ 8IGMvrGwkCP5cpagpfD 1uUTRwACHzFL10oqszJ EBfMPJ3MKNpeUGwgsEj jhMtYsP6lKHok4WhH8e bQJ1co8QccRRbfLjui1 VjdGlvbmVkLiAgXHByb 4HpE8I2RXJfKXgqm7zr ZDNjLNhjf0ClDJoMYJK BZV2AMV8neVG3MXnKZ8 QNO8pYvMAzYXP2nSB2N NSEJxvsgXS0uIM4sA01 GPIfIORzxEQuFCuoI56 8PHl8AOPqIXiup1udDF BgFRmpv3AeCErXCMACB P4XGI4xoTM2PRfYH2VB RHwyMTAxNnwxfFVTRVJ 7QKaidNlzhKc4o0vtvQ Rbk7k4CBqsHZY5lEzzp VBnoasxbmKea5pxlZii g6YiiWPdAE22TOSinWA xIGX7RH5prQxeMLZ2 Disclaimer (test code = k5cayMUdWJUcbVPuSyJ 9844) gOYWaMMFub7fuRQZqgG FuZzEwMzNcZnRuYmpcd UHgBVNzAsZuw5tcc980 rMQys1vuDTKhJeD5oNF fCSEfvJEaW026YHCzEZ wys6yte1UpMQMlzDWus 4A5IALDouujxWw9tCbw W33iy7H8DjmlA8whVIG hFAVpJ5YnUJ2tMNIqPo w1FNB3FRS3JMBqFWRuN 9TeBZ4lWEFiyGLcUOv5 a2mgrYhjNWJsYTU3w2r eERfubuXqIS7jrd8qpP x2m7jeqnDuRWHuDINwh WXLJIVgH8ZueDpuXo1i aWl6hDidXtzyKFS5Jir 0DM1miu66aer8tFbyFR PsiwixPyK1UGiwRUBbh iwdYUu6DVdgJXZizBG5 LKSabBLcV7JdNASaIV6 bidi1JNB0UXsjLDNpBy K5YFCnxMTeNXNjyRkbZ Zfkj417UWQ5NaAxBQ2x F3Dho4G1dP9gwLFaVPP jbGFdNhSoQNDxft5oqQ JbLHwgt1BrFPK1bsG8s OAwjIXnZHAdHT97Taub y1ZlVapmQKS9VZZwlmR qa9Kba6hcXsKjcjRzL1 gxI9DfTDVaWNFhPJQzL uKapjUob6Nzk9YpyZNf tUu3n8unPGYxGEMhiOr rz1khUXH5PZVaU4C9tA Enw6viFBrsCTYacDZ8c oB3ERHnxJUnV5FvxZ6f RZRwQS1mjml3z6gqQCA 0AWdgABZvUdX7lkC9DG BcaGVhZGVyeTcyMFxmb 819VBC6BiJbEXDvf4Xu U5OmfDvkJ04qtDjzD72 sUBOysZrnpP4paJwudR 5cZjBcZnMyNFxxbFxwb HDirgbeSDqrkpQ3OHrc rbjhTEXuKXsrG7dwGmE eYLBfiQlwQGpww8IlBP NcQNIxUiubnkZ4YWOXw 42zVPCux2IsEGDfeL6o sQPzPRjsthBzkIX7QEx hdmUgYmVlbiBkZXZlbG 6rYFMjAO3zGFXexqWby t0djdVqJXFpZJQpC8Vp cmlzdGljcyBkZXRlcm1 kosFcSMG0CQSCBC3AAQ WiMKCqg37iLLGixWwyl O7bcSCdrzUhJRJcp9Mc jO8zvLIUDEGsV3vyQQ2 sPFwpv6JzjJDhlUPwrM M9KDGho5EiNhSbzbUnz ZEbaTKmT5GkwAvrB2hm LHLjOWVhakYspPFlh5R aAXTugRQ9fUPtMK1VGh EAw71hWMBuFPGApcIrW BUjcYwboXJ8otT3fG3r LiBJZiBhcHBsaWNhYmx yJLAcp663we9wycW7HX ErVSEzljpgx0OtHNOaK HJibB62QRJeKQUrqq7u zboxoZCrctNdY8Kulol 4dK6xTWXpUFxaLNMvFR ZzMjJcbGFuZzEwMzNca GljaFxmMVxkYmNoXGYx HDbyQ2riTvQgScDcOtq wYXJ9 MD Bowles [id number] 04:04:09Study acquired at another institution. For comparison only. No MD Milner originated interpretationrequested or available.MD Bales Abdomen Pelvis without IV Zrriamwm1843-73-44 16:14:151. Fungating soft tissue vulvar mass with [...] present, and agree with the final report.MD MilnerTMP Interpretation Antibody Screen Fkmxvljo0270-27-31 15:41:44 Test Item Value Reference Range Interpretation Comments TMP Auto Neg At the present ABSC Interp time, patient (test code = plasma shows no REJI 7535) evidence of RBC LERNER alloantibodies. So SAN paramjit by: REJI SAN,Dictated Date/Time: 05.15.2020 9:41 AM NET SQL DEVELOPER Transcrib ed Date/Time: 05.15.2020 9:41 AM CSTElectronical ly Signed By: MITCHELL SAN, on 05.15.2020 9:41 AM C MD MilnerConfirm [id number] 13:46:54 Test Item Value Reference Range Interpretation Comments ABORh Confirm. (test code = 882-1) O POS MD MilnerAntibody [id number] 13:33:05 Test Item Value Reference Range Interpretation Comments ABSC. (test code = 890-4) Negative ABSC MD MilnerWooznvhwLSILs7286-55-13 13:33:04 Test Item Value Reference Range Interpretation Comments ABORh. (test code = 882-1) O POS MD MilnerClot Expiration [id number] 13:32:35 Test Item Value Reference Range Interpretation Comments T & S Expiration (test code = 05/18/2020 5318) MD MilnerUrinalysis with Zjayvqgovia7902-76-89 11:06:23 Test Item Value Reference Interpretation Comments Range UA WBC (test code = 108 See_Comment H [Automa paramjit 0171) message] The system which generated this result [...] implementation of new instrumentation in the [facility], allowing greater sensitivity of measurement. Urinalysis results reported by the [facility] using existing instrumentation, as well as Urinalysis testing performed manually or by backup methodology at the [facility] will remain relatively unchanged. New reporting parameters and units will now be reported for all campuses. Lab Interpretation Abnormal (test code = 49455-2) MD MilnerUrinalysis w/Microscopic if [id number] 10:53:50 Test Item Value Reference Range Interpretation [...] A Lab Interpretation (test code = Abnormal 50165-8) MD MilnerFractionated [id number] 09:23:53 Test Item Value Reference Range Interpretation [...] result as normal/abnormal . MD MilnerGlomerular Filtration [id number] 09:23:52 Test Item Value Reference Range Interpretation [...] failure <15 [Automa paramjit message] The system Axentraic h generated this result tra nsmitted reference range [...] failure <15 [Automa paramjit message] The system [employer] generated this result tra nsmitted reference range : >=60 mL/min/1.73 sq. m. The reference range was not used to interpret th is result as normal/abnormal . MD MilnerTotal Uqvzsbr4073-13-23 09:23:51 Test Item Value Reference Range Interpretation Comments Total Protein (test code = 7649) 7.6 g/dL 6.4-8.3 MD MilnerMagnesium [id number] 09:23:50 Test Item Value Reference Range Interpretation Comments Magnesium (test code = 6359) 2.0 mg/dL 1.6-2.6 MD MilnerPhosphorus [id number] 09:23:49 Test Item Value Reference Range Interpretation Comments Phosphorus (test code = 6817) 4.2 mg/dL 2.5-4.5 MD MilnerAlkaline Ubokphmedpq5657-74-38 09:23:48 Test Item Value Reference Range Interpretation Comments Alk Phos (test code = 4768) 137 U/L 35-104 H Lab Interpretation (test code = Abnormal 68041-0) MD MilnerCalcium [id number] 09:23:47 Test Item Value Reference Range Interpretation Comments Calcium Lvl (test code = 5258) 9.0 mg/dL 8.4-10.2 MD MilnerQcrpoufxCLA3712-91-92 09:23:46 Test Item Value Reference Range Interpretation Comments ALT (test code = 8 U/L See_Comment [Automated message] The 1664) system which ge nerated this result transmit paramjit reference range : <=33. The reference range was not used to interpr et this result as deepti l/abnormal. MD MilnerAlbumin Vfgbh4353-04-12 09:23:45 Test Item Value Reference Range Interpretation Comments Albumin Lvl (test code 3.5 See_Comment [Aut omated message] The = 6819) system which ge nerated this result tra nsmitted reference range : 3.5 - 5.2 gm/dL. The refe rence range was not used to interpret this result as normal/abnormal . MD Milner.Serum Brbrhkvwdw5596-70-36 09:23:44 Test Item Value Reference Range Interpretation Comments Creatinine (test code = 5399) 0.88 mg/dL 0.51-0.95 MD MilnerAspartate Pblimukckkqyiiza7765-53-08 09:23:43 Test Item Value Reference Range Interpretation Comments AST (test code = 10 U/L See_Comment [Automated message] The 4731) system which ge nerated this result transmit paramjit reference range : <=32. The reference range was not used to interpr et this result as deepti l/abnormal. MD MilnerXneypcwfJRV7986-75-81 09:23:42 Test Item Value Reference Range Interpretation Comments BUN (test code = 5055) 10 mg/dL 6- MD MilnerElectrolyte [id number] 09:23:41 Test Item Value Reference Range Interpretation Comments Sodium Lvl (test code = 139 See_Comment [Au tomated message] The 7300) system which ge nerated this result tra [...] = 104 See_Comment [Auto mated message] The 3339) system which ge nerated this result tra [...] = 12 See_Comment [Aut omated message] The 9288) system which ge nerated this result tra nsmitted reference range : 4 - 14 mEq/L. The refe rence range was not u sed to interpret this result as normal/abnormal . MD MilnerGlucose [id number] 09:23:39 Test Item Value Reference Range Interpretation [...] diabetes Lab Interpretation (test Abnormal code = 91638-3) MD MilnerInfluenza A/B + COVID-19 Asymptomatic- [id number] 09:13:15 Test Item Value Reference Range Interpretation Comments Influenza A (test Not Detected Not Detected code = 50648-1) Influenza B (test Not Detected Not Detected code = 18668-4) COVID19 Not Detected Not Detected (SARS-CoV-2) (test code = 60112-9) COVID19 SARS Inpatient Indication (test Admission code = 11590) Inf AB+Cov19 See Note The stnaton SARS- CoV-2 Comment (test & Influenza A/ B code = 98998) nucleic acid t est for use on the alireza s Geni System is a mul [employer] real-time RT-PC R assay intended for the [...] sheet for patie nts provided by the advertising designer ([employer]) can be rev iewed at: https://www.fda .gov/m edia/570988/radha nloadA fact sheet for Health Care providers is provided by the advertising designer (Tyler patrick [employer]) and can be reviewed at: https://www.fda .gov/m edia/792582/radha nload Influenza A and Influenza B neg ative results should be considered presumptive in samples that valle ve a positive SARS-C oV-2 result. If co-infection wi th influenza A or influenza B vir us is suspected in sa mples with a positive SARS-CoV-2 resu lts, the sample shou ld be re-tested with another approve d influenza test. This assay has been authorized by t willy [facility] for use only un fausto Emergency Use Authorization ( EUA) in laboratories that have been CLIA-certified to perform moderate-comple xity and high-comple xity tests. The [facility] Laboratory at [facility], CLIA Accreditation #[id number] and CAP Accreditation #[id number], verif ied the performance characteristics of this assay. Int ernal controls are us ed to monitor all sta ges of the test proces s. MD MilnerPartial Thromboplastin [id number] 09:04:05 Test Item Value Reference Range Interpretation Comments PTT (test code = 30.1 See_Comment [Automated message] The 6773) system which ge nerated this result transmit paramjit reference range : 24.2 - 36.0 second(s). The reference range was not used to interpr et this result as deepti l/abnormal. MD MilnerProthrombin Time with [id number] 09:04:04 Test Item Value Reference Range Interpretation Comments PT (test code = 6746) 14.5 See_Comment H [Auto mated message] The system whic h generated this result transmitted ref erence range: 12.0 - 1 4.3 second(s). The reference range was not used to int erpret this result as normal/abnormal . INR (test code = 5973) 1.20 0.90-1.10 H Lab Interpretation (test Abnormal code = 23115-9) MD MilnerOqkybjgzJsmlxyktkhth2108-28-16 08:56:12 Test Item Value Reference Range Interpretation Comments Neutrophil % (test code = 65.3 % 42-66 86435-0) Lymphocyte % (test code = 20.5 % 24-44 L 737-7) Monocyte % (test code = 10.9 % 2-7 H 744-3) Eosinophil % (test code = 2.4 % 1-4 713-8) Basophil % (test code = 0.5 % 0-1 707-0) IGRE % (test code = 0.4 % 0-0.4 IGRE % c ount 67618-0) includes Metamyelocytes, Myelocytes, and Promyelocytes. Neutrophil Abs (test code 9.79 K/uL 1.7-7.3 H = 753-4) Lymphocyte Abs (test code 3.07 K/uL 1-4.8 = 732-8) Monocyte Abs (test code = 1.63 K/uL 0.08-0.7 H 743-5) Eosinophil Abs (test code 0.36 K/uL 0.04-0.4 = 712-0) Basophil Abs (test code = 0.07 K/uL 0-0.1 705-4) IG Abs (test code = 0.06 K/uL 0-0.04 H 37094-8) Lab Interpretation (test Abnormal code = 67859-6) MD Milner.[id number] 08:56:09 Test Item Value Reference Range Interpretation Comments WBC (test code = 15.0 K/uL 4-11 H 6690-2) RBC (test code = 789-8) 3.48 See_Comment L [Au tomated message] The system [employer] generated this result transmitted ref erence range: 4.00 - 5 .50 M/uL. The refer ence range was not u sed to interpret this result as normal/abnor mal. Hgb (test code = 718-7) 10.0 See_Comment L [Au tomated message] The system [employer] generated this result transmitted ref erence range: [...] L [Automate d message] 786-4) The system [employer] generated this result transmitted ref erence range: 31.0 - 3 6.0 gm/dL. The refe rence range was not u sed to interpret this result as normal/abnor mal. RDW-SD (test code = 60.4 fL 35.1-46.3 H 77474-0) RDW-CV (test code = 17.6 % 12-15.5 [...] cell differential. [Automated mess age] The system [employer] generated this result transmitted ref erence range: <=0.0. T he reference range was not used to int erpret this result as normal/abnormal . Lab Interpretation Abnormal (test code = 11534-2) MD Milner- MRI L-SPINE W/O [id number] 09:37:00 FAX: Bella Hannah MD [phone] Mobile: St: REG FAX: Apolinar Buchanan MD [phone] Patient Name: JEFRY LOPEZ Unit No: [id number] EXAMS: CPT CODE: [id number] MRI L-SPINE W/O CONT 17208 MRI Lumbar Spine without contrast HISTORY: Back [...] Reported and signed by: Tyrell Burgos M.D. [facility] NAME: JESSICAJEFRY D [address] [place] [address] PHYS: JONAHH.Regulo - Apolinar Fields [place] : 1960 AGE: 58 SEX: F [phone] LOC: [id number] PHONE #: [phone] EXAM DATE: 01/08/2019 STATUS: REG CLI FAX #: [phone] RAD NO: DC Dt: PAGE 1 Signed Report (CONTINUED) FAX: Bella Hannah MD [phone] Mobile: St: REG FAX: Apolinar Buchanan MD [phone] --- Patient Name: JEFRY LOPEZ Unit No: [id number] EXAMS: CPT CODE: [id number] MRI L-SPINE W/O CONT 00602 <Continued> CC: Bella Elmore MD; Apolinar Fields MD Dictated Date/Time: 01/08/2019 (936)Technologist: Low Barillas Transcribed Date/Time: 01/08/2019 (936) By: [email or web address] Orig Print D/T: S: 01/08/2019 (0940) 508 Imaging NAME: JEFRY LOPEZ [address] [place] [address] PHYS: Apolinar Huerta, [place] : 1960 AGE: 58 SEX: F [phone] LOC: [id number] PHONE #: [phone] EXAM DATE: 01/08/2019 STATUS: REG CLI FAX #: [phone] RAD NO: DC Dt: PAGE 2 SignedReportBASIC METABOLIC [id number] 11:35:00 Test Item Value Reference Range Interpretation [...] be fasting before starting thistest? YBASIC METABOLIC [id number] 11:33:00 Test Item Value Reference Range Interpretation [...] be fasting before starting thistest? YPT AND [id number] 11:24:00 Test Item Value Reference Interpretation Comments [...] prevention in p rosthetic heart 3.0-5.4 A AR mortality reduc tion THROMBOPLASTIN TIME 30.2 SECONDS [...] this a LINE draw? NANTICOAGULANT THERAPY [Y,N]: UNK CBC W/AUTO [id number] 11:16:00 Test Item Value Reference Range Interpretation [...]
[2020-05-31] MEDS ORDERED: FENTANYL CITR 100 MCG/2 ML ONE ×2 (22:39→23:00)
[2020-05-31 23:07] LABS: Urine Blood NEGATIVE (NEG); Urine Glucose 2+ (NEG); Urine Protein NEGATIVE (NEG); Urine Specific Gravity 1.015 (1.005-1.030); Urine pH 5.5 (5.0-7.0)
--- NOTE | 2020-05-31 23:38 | EDPHYS ---
Physician Documentation [facility] Name: Milly Cabrera Age: 59 yrs Sex: Female : 1960 Arrival Date: 05/31/2020 Time: 21:02 Bed 6 Private MD: ED Physician Nitish Hatch HPI: 05/31 22:45 This 59 yrs old Female presents to ER via Ambulatory with complaints of mh7 VAGINAL PROBLEM. 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 mh7 Onset: The symptoms/episode began/occurred 2 day(s) ago, Pain for several weeks but ran out of pain medication 2 days ago. Modifying factors: The symptoms are alleviated by nothing, the symptoms are aggravated by nothing. 22:47 Associated signs and symptoms: Pertinent positives: vaginal discharge, for 2 weeks, mh7 currently taking Metronidazole and Doxycycline, Pertinent negatives: constipation, cramping, diarrhea, dyspareunia, dysuria, fever, hematuria, nausea, urinary frequency, vaginal bleeding, vomiting. Severity of symptoms: At their worst the symptoms were moderate, 2 day(s) ago, in the emergency department the symptoms are unchanged. The patient has been recently seen at the [facility] Emergency Department, a couple of weeks ago. Seen at [facility] and to follow up with [facility] oncology.. Historical: - Allergies: 21:10 Cephalexin; mg2 21:10 Ciprofloxacin; mg2 21:10 Demerol; mg2 21:10 Iodine; mg2 21:10 Morphine; mg2 21:10 PENICILLINS; mg2 21:10 SHELLFISH; mg2 21:10 Strawberries; mg2 21:10 Zithromax Z-Joon; mg2 - PMHx: 21:10 acid reflux; Anxiety; Endometrosis; Hyperlipidemia; Hypertension; neuropathy; ovarian mg2 cancer; vulvar cancer; - PSHx: 21:10 neck sx; c section; Appendectomy; mg2 - Immunization history:: Flu vaccine status is unknown. - Social history:: Smoking status: Patient denies any tobacco usage or history of. Patient/guardian denies using alcohol, street drugs, IV drugs. ROS: 22:47 Constitutional: Negative for fever, chills, and weight loss, Eyes: Negative for injury, mh7 pain, redness, and discharge, ENT: Negative for injury, pain, and discharge, Neck: Negative for injury, pain, and swelling, Cardiovascular: Negative for chest pain, palpitations, and edema, Respiratory: Negative for shortness of breath, cough, wheezing, and pleuritic chest pain, Abdomen/GI: Negative for abdominal pain, nausea, vomiting, diarrhea, and constipation, Back: Negative for injury and pain, MS/Extremity: Negative for injury and deformity, Skin: Negative for injury, rash, and discoloration, Neuro: Negative for headache, weakness, numbness, tingling, and seizure, Psych: Negative for depression, anxiety, suicide ideation, homicidal ideation, and hallucinations, Allergy/Immunology: Negative for hives, rash, and allergies, Endocrine: Negative for neck swelling, polydipsia, polyuria, polyphagia, and marked weight changes, Hematologic/Lymphatic: Negative for swollen nodes, abnormal bleeding, and unusual bruising. Exam: 22:47 Constitutional: This is a well developed, well nourished patient who is awake, alert, mh7 and in no acute distress. Head/Face: Normocephalic, atraumatic. Eyes: Pupils equal round and reactive to light, extra-ocular motions intact. Lids and lashes normal. Conjunctiva and sclera are non-icteric and not injected. Cornea within normal limits. Periorbital areas with no swelling, redness, or edema. Neck: Trachea midline, no thyromegaly or masses palpated, and no cervical lymphadenopathy. Supple, full range of motion without nuchal rigidity, or vertebral point tenderness. No Meningismus. Chest/axilla: Normal chest wall appearance and motion. Nontender with no deformity. No lesions are appreciated. Cardiovascular: Regular rate and rhythm with a normal S1 and S2. No gallops, murmurs, or rubs. Normal PMI, no JVD. No pulse deficits. Respiratory: Lungs have equal breath sounds bilaterally, clear to auscultation and percussion. No rales, rhonchi or wheezes noted. No increased work of breathing, no retractions or nasal flaring. Abdomen/GI: Soft, non-tender, with normal bowel sounds. No distension or tympany. No guarding or rebound. No evidence of tenderness throughout. Back: No spinal tenderness. No costovertebral tenderness. Full range of motion. MS/ Extremity: Pulses equal, no cyanosis. Neurovascular intact. Full, normal range of motion. Neuro: Awake and alert, GCS 15, oriented to person, place, time, and situation. Cranial nerves II-XII grossly intact. Motor strength 5/5 in all extremities. Sensory grossly intact. Cerebellar exam normal. Normal gait. Psych: Awake, alert, with orientation to person, place and time. Behavior, mood, and affect are within normal limits. 22:51 : CVA tenderness, is absent, Pelvic Exam: External exam: moderate vulva mass without 7 bleeding or erythema. 22:51 : Pelvic Exam: the nurse was present for the exam. [facility] Vital Signs: 21:06 BP 116 / 93; Pulse 103; Resp 18; Temp 98.2; Pulse Ox 100% on R/A; Weight 81.65 kg; mg2 Height 5 ft. 6 in. (167.64 cm); 23:37 BP 130 / 76; Pulse 80; Resp 18; Temp 98; Pulse Ox 95% on R/A; mg2 21:06 Body Mass Index 29.05 (81.65 kg, 167.64 cm) mg2 MDM: 23:35 Differential diagnosis: vaginosis, Vulva Cancer, Chronic Pain. Data reviewed: [facility] signs, nurses notes, old medical records. Data interpreted: Pulse oximetry: on room air is 100 %. Interpretation: normal. Counseling: I had a detailed discussion with the patient and/or guardian regarding: the historical points, exam findings, and any diagnostic results supporting the discharge/admit diagnosis, the need for outpatient follow up, to return to the emergency department if symptoms worsen or persist or if there are any questions or concerns that arise at home. Response to treatment: the patient's symptoms have markedly improved after treatment. 23:37 Patient medically screened. [facility] 05/31 22:32 Order name: Urine Dipstick--Ancillary (enter results) ut 05/31 22:32 Order name: Urine --Ancillary (enter results); Complete Time: 23:11 ut 05/31 22:32 Order name: Urine Dipstick-Ancillary; Complete Time: 23:11 EDMS Administered Medications: 22:27 Drug: fentaNYL (PF) 50 mcg {Note: RASS 0.} Route: IM; Site: right gluteus; 23:19 Follow up: Response: No adverse reaction mg2 Disposition: 05/31/20 23:37 Discharged to Home. Impression: Vulva Cancer, Chronic Pain. - Condition is Stable. - Discharge Instructions: Vulvar Pain. - Medication Reconciliation Form, Thank You Letter, Antibiotic Education, Prescription Opioid Use form. - Follow up: Private Physician; When: 1 - 2 days; Reason: Worsening of condition, Recheck today's complaints, Continuance of care, Re-evaluation by your physician. Follow up: Manda Lassiter MD; When: 1 - 2 days; Reason: Worsening of condition, Recheck today's complaints. - Problem is chronic. - Symptoms have improved. Signatures: Dispatcher [employer] EDMS Osiris Pro RN RN Mike Carrillo RN RN mg2 Nitish Hatch MD MD mh7 Corrections: (The following items were deleted from the chart) 23:46 23:37 05/31/2020 23:37 Discharged to Home. Impression: Vulva Cancer; Chronic Pain. mg2 Condition is Stable. Forms are Medication Reconciliation Form, Thank You Letter, Antibiotic Education, Prescription Opioid Use. Follow up: Private Physician; When: 1 - 2 days; Reason: Worsening of condition, Recheck today's complaints, Continuance of care, Re-evaluation by your physician. Follow up: Manda Lassiter; When: 1 - 2 days; Reason: Worsening of condition, Recheck today's complaints. Problem is chronic. Symptoms have improved. mh7
--- NOTE | 2020-05-31 23:38 | ER ---
Nurse's Notes [facility] Name: Milly Cabrera Age: 59 yrs Sex: Female : 1960 Arrival Date: 05/31/2020 Time: 21:02 Bed 6 Private MD: Diagnosis: Vulva Cancer;Chronic Pain Presentation: 05/31 21:06 Chief complaint: Patient states: i have vulvar Cancer , not on treatment and im looking mg2 for an oncologist here in [place]. prabhakar been having vaginal pain /discharge for long time. Coronavirus screen: Client denies travel out of the [place] in the last 14 days. At this time, the client does not indicate any symptoms associated with coronavirus-19. Ebola Screen: No symptoms or risks identified at this time. Initial Sepsis Screen: Does the patient meet any 2 criteria? No. Patient's initial sepsis screen is negative. Does the patient have a suspected source of infection? No. Patient's initial sepsis screen is negative. Risk Assessment: Do you want to hurt yourself or someone else? Patient reports no desire to harm self or others. 21:06 Method Of Arrival: Ambulatory mg2 21:06 Acuity: DAMON 3 mg2 Historical: - Allergies: 21:10 Cephalexin; mg2 21:10 Ciprofloxacin; mg2 21:10 Demerol; mg2 21:10 Iodine; mg2 21:10 Morphine; mg2 21:10 PENICILLINS; mg2 21:10 SHELLFISH; mg2 21:10 Strawberries; mg2 21:10 Zithromax Z-Joon; mg2 - PMHx: 21:10 acid reflux; Anxiety; Endometrosis; Hyperlipidemia; Hypertension; neuropathy; ovarian mg2 cancer; vulvar cancer; - PSHx: 21:10 neck sx; c section; Appendectomy; mg2 - Immunization history:: Flu vaccine status is unknown. - Social history:: Smoking status: Patient denies any tobacco usage or history of. Patient/guardian denies using alcohol, street drugs, IV drugs. Screenin:49 Abuse screen: Denies threats or abuse. Nutritional screening: No deficits noted. ll1 Tuberculosis screening: No symptoms or risk factors identified. 23:46 Fall Risk None identified. mg2 Assessment: 21:48 General: Appears in no apparent distress. Behavior is calm, cooperative, appropriate ll1 for age. Pain: Complains of pain in vagina Quality of pain is described as aching, crampy. Neuro: No deficits noted. Cardiovascular: No deficits noted. Respiratory: No deficits noted. : Reports cramping, discharge, from vagina that is pain vaginal area. 23:37 Reassessment: Patient appears in no apparent distress at this time. Patient and/or mg2 family updated on plan of care and expected duration. Pain level reassessed. Patient is alert, oriented x 3, equal unlabored respirations, skin warm/dry/pink. Vital Signs: 21:06 BP 116 / 93; Pulse 103; Resp 18; Temp 98.2; Pulse Ox 100% on R/A; Weight 81.65 kg; mg2 Height 5 ft. 6 in. (167.64 cm); 23:37 BP 130 / 76; Pulse 80; Resp 18; Temp 98; Pulse Ox 95% on R/A; mg2 21:06 Body Mass Index 29.05 (81.65 kg, 167.64 cm) [facility] [place]: 21:02 Patient arrived in ED. 2 21:09 Triage completed. [facility] 21:09 Arm band placed on. [facility] 21:28 Nitish Hatch MD is Attending Physician. [facility] 21:50 Patient has correct armband on for positive identification. Bed in low position. Call ll1 light in reach. Side rails up X 1. Cardiac monitoring not applicable on this patient. 21:54 Radha Fay RN is Primary Nurse. 1 22:15 vaginal exam. [facility] 23:19 Patient did not have IV access during this emergency room visit. [facility] 23:36 Manda Lassiter MD is Referral Physician. [facility] Administered Medications: 22:27 Drug: fentaNYL (PF) 50 mcg {Note: RASS 0.} Route: IM; Site: right gluteus; 23:19 Follow up: Response: No adverse reaction [facility] Outcome: 23:37 Discharge ordered by . [facility] 23:46 Discharged to home ambulatory. [facility] 23:46 Condition: stable 23:46 Discharge instructions given to patient, Instructed on discharge instructions, follow up and referral plans. Demonstrated understanding of instructions, follow-up care. 23:46 Patient left the ED. [facility] Signatures: Osiris Pro RN RN Mike Carrillo RN RN [facility] Erika Bains 2 Radha Fay RN RN ll1 Nitish Hatch MD MD mh7
[2020-06-01 03:11] VITALS: BP 130/76; TEMP 98; O2SAT 95
== END 2020-05-31 23:46 | disposition home or self-care (01) ==
LOC: ER 20:56
DX: G89.3 Neoplasm related pain (acute) (chronic) (principal); C51.9 Malignant neoplasm of vulva, unspecified; I10 Essential (primary) hypertension; Z85.43 Personal history of malignant neoplasm of ovary; Z88.0 Allergy status to penicillin; Z88.1 Allergy status to other antibiotic agents; Z88.5 Allergy status to narcotic agent; Z91.013 Allergy to seafood; Z91.018 Allergy to other foods
CPT/HCPCS: 81025; 81003; 96372; 99283; J3010

== ENCOUNTER 2020-06-11 13:33 | Emergency (ER) | payer OTHER ==
--- OUTSIDE RECORDS SUMMARY | 2020-06-11 13:37 | XMS REPORT | Continuity of Care Document ---
:[address] [facility] [place], [place] t Address [address] [place] [address] Care Team Providers Name Role Phone SYSTEM, NOT IN Attending Clinician Unavailable Marcos SHANKAR, R Attending Clinician Unavailable Bill CASTELLON Attending Clinician Fred CASTELLON Attending Clinician TAMMY Attending Clinician Unavailable Willie CASTELLON Attending Clinician Tammy CASTELLON Attending Clinician Bill CASTELLON Attending Clinician Shea Morales MD Attending Clinician TAMMY Admitting Clinician Unavailable Payers Payer Name Policy Type Policy Effective Date Expiration Date Sour ce Number [facility] [id number] 2020 MD Dowell rson MEDICARE 00:00:00 [facility] MEDICARE MEDICAID DUAL [id number] 21-PresentMedicare Problems Condition Condition Condition Status Onset [...] clindamy DA Active U 2018- [facility] jomar 8-02 [place] 00:00: [facility] No Known DA Active U 2018-0 [facility] Allergie 6-13 [place] 00:00: [facility] iodine DA Active SV [facility] 6-25 [place] 00:00: [facility] meperidi DA Active [place] 2017-0 [facility] ne 6- [place] 00:00: [address] penicill DA Active [place] 2017-0 [facility] in G 6-25 [place] 00:00: [facility] strawber DA Active SV 2017-0 [facility] ry 6- [place] 00:00: [facility] ZPAC DA Active [place] 2017-0 [facility] 6-25 [place] 00:00: [facility] strawber FA Active SV 2017- [facility] ry 6- [place] 00:00: [facility] TUNA DA Active SV [facility] FISH 1-12 [place] 00:00: [address] Social History Social Habit Start Date Stop [...] n 2.5-2.5% 00 for cream comfort doxycycline 2020- No Cellulitis 100mg Take 1 MD (VIBRAMYCIN 2-12 02-20 capsule Del[place] rso ) 100 MG 00:00: 05:59 (100 mg) n capsule 00 :00 by mouth twice daily for 7 days. HYDROcodone Yes 1{tbl} Take 1 MD -acetaminop 2-04 tablet by And erso hen (NORCO) 00:00: mouth n 10 mg-325 00 every 6 mg per (six) tablet hours as needed for pain. tiZANidine 2021-0 Yes 4mg Take 4 mg MD (ZANAFLEX) [...] Take 40 mg M D (PROzac) 40 1-11 by mouth Delmer rso mg capsule 00:00: daily. n 00 Vital Signs Vital Name Observation Time Observation [...] Procedure Date / Time Performed Performing Clinician [facility] e PATHOLOGY BIOPSY 2020-05-15 18:35:00 Julian Munoz MD Estuardo son INTERPRETATION CT ABDOMEN PELVIS WO CONTRAST 2020-05-15 [...] UREA NITROGEN 2020-05-15 08:19:00 Kameron Tapia MD Estuardo [facility] ELECTROLYTE PANEL 2020-05-15 08:19:00 Kameron Tapia MD SERUM CREATININE 2020-05-15 08:19:00 Kameron Tapia MD .GLOMERULAR FILTRATION RATE 2020-05-15 08:19:00 Kameron Tapia MD CALCIUM LEVEL TOTAL 2020-05-15 08:19:00 Kameron Tapia MD Estuardo son ALBUMIN LEVEL 2020-05-15 08:19:00 Kameron Tapia MD ALKALINE PHOSPHATASE 2020-05-15 08:19:00 Kameron Tapia MD rschuck ALANINE AMINOTRANSFERASE 2020-05-15 08:19:00 Kameron Tapia MD ASPARTATE AMINOTRANSFERASE 2020-05-15 08:19:00 Kameron Tapia TOTAL PROTEIN 2020-05-15 08:19:00 Kameron Tapia MD FRACTIONATED BILIRUBIN 2020-05-15 08:19:00 Kameron Tapia MD derson Results CBC 2020-05-15 08:19:00 Kameron Tapia MD MANUAL DIFFERENTIAL 2020-05-15 08:19:00 Kameron Tapia MD Estuardo [facility] CLOT EXPIRATION DATE 2020-05-15 08:19:00 Kameron Tapia MD rschuck TMP INTERPRETATION ANTIBODY 2020-05-15 08:19:00 [...] rson CONFIRM ABORH TYPE 2020-05-15 08:19:00 Kameron Tapia MD Ed on OSI CHEST 2020-05-15 04:04:02 Joshua Milner MD Encounters Start End Encounter Admission Attending Care Care Encounter Source Date/Time Date/Time Type Type Clinicians Facility Department ID 2020-06-01 Outpatient SYSTEM, [facility] ROSE [id number] 10:50:13 PROVIDER Ed briggs 2020-05-22 2020-05-22 Telephone KhanMARTHA [id number] 00:00:00 00:00:00 [facility] [id number] [facility] [id number] 2020-05-15 2020-05-15 Outpatient MILTON ROSE [id number] 22:03:48 22:03:48 Ed o chester 2020-05-15 2020-05-15 Inpatient ER MILTON MUNOZ DO[facility] NURSING PRACTICE [id number] 01:39:00 17:04:00 JULIAN briggs Results Test Description [...] and electronically signed by Pathologist:RANDA RAMOS MD #[id number] MO (test code = MO) Short draw may invalidate quantitative blood culture results. MD MilnerUrine [id number] 19:27:30 Test Item Value Reference Range Interpretation Comments Final Report (test code <10,000 cfu/ml Gram A = 8488) Negative Rods...<10,000 cfu/ml Normal site silverio present. Path Review - Urine The results have been A (test code = 8483) reviewed and electronically signed by Pathologist:RANDA RAMOS MD #[id number] Lab Interpretation Abnormal (test code = 24007-2) MD MilnerPathology Biopsy [id number] 15:22:00 Test Item Value Reference Range Interpretation Comments Diagnosis (test code = 34) a0oskKGbRBTxuCD4EjZ rNGThp2wow7SvbEWwaX SjXPuyoSRuuaPhwo50m WZ1iE02KU1jIXIpRsV9 DODxaaN4Nmq4JPNeKHU jkEZtK508p5ryf9kzff GioQP3tWvbBOEvLWNnZ WluXGZzMjAgQTogQmlv lBS9WTB4gJk2OHghvRO yXGxpNzIwXGxpbjcyMC AFWhIYK5mEQHUQQZjYD SQGNX8IDUTDQTPKYTqq OHgMMbFJKA8HPOYNSMV nU2BMYJ6FVUBfX9PFS9 vXV70PUKZZMVNNPYuZD yBUTyBUSVNTVUUgRURH RVMuXHBhclxwYXJkXHR hYiBERVBUSCBPRiBJTl KIZ3kMBeQYLPYHMWOFJ HSmHG4oBTPbuzixPUQv QNyPI6QVNnvyOHF0 Gross Description (test y1ixmGLgPKOjzQV9TaJ code = 4679402067) eJNNca1szd4NeaJFplS EvKYgdbFGlyuCkjn04y GZ5lS64PQ6oFCFoPlL7 OYKlayO2Noc4YUUvECE ruAAaZ966u2xvh3tgmd AopMT2oRjqNSKrh2ppI ICfaRGuSXB0IFzfyHSd EDQhFCSjWOy9UNSdTBh ywSArMB4seHaqAubnaO mwt1AbkSKfDLpiUTOmW ZIjRCzzSPLoH9CZZEHr XnF4EyIwIRSaURi8XYp pB3PXEWTmDXK8QzQjNZ YuQaS1BNs0SVBXMe5vZ sM8CFc9PrO5CGS3GbN8 IFxcdCAyIFxcZmwgXFx mIEFyaWFsIFxcZnMgMT IuQBcbPaVoGB9mbLjgy GFpblxiXGZzMjAgQTpc wTScADGoEPSkg2DpsWa dheUpmsM4HKRpFZEAo8 5foAP3ibZiNcQlOXEms n9djbD2EWA4bg6wlWFo jYKlYXByn7iwTUN0E2a pyW6qXRWoHFHsdELfVb 4mYJuzJT66SVabMO75R GNtLCBzdXJmYWNlIGRp k4JiZOxsRCVkSaOhm12 sIGdyYWlueSBsZXNpb2 4gdGhhdCBpcyAwLjcge JGtEqEiU41xTKvhA7P2 ZMToYV6yKAVxSURxj88 zeMduSX5eCCFgp5TzfE MfX8pjTVZdulgtMCRbk HVlOyBlbnRpcmVseSBz cDTvqZK3RWAshO6vJWY 9ANTxoDzdCM6nvziafK 2wRTVyYSDyGL88lqawW DRhCWF3PNCwlBPmkvHk hsNnPeC4bYQpl2PdE9n vGV9fm9SzcRTjqLpqx3 VjdGlvbmVkLiAgXHByb 2EbX4Q8UVNcXEhjz0pz RMTpQNegn4PaDViLNDQ XRR3IBT9wfXX8LBiCS9 MNX2tXdMLjDAO6qTR7H HUDYtdxgAK1qPJ5lM72 RRCgDIOlgOAzCIvqA96 0JZg6LGUpFRyls1niYL TfVQbrv9KaLMsFVIYRS C7AMO1quTL6TUmCZ3FC RHwyMTAxNnwxfFVTRVJ 0DSkpnRvttSt4u7odeB Zdj2u2OPrmEII0jMsuf VUxsbtlvoCgk6hxkIby r9PbrWRnGN45QZTchES rPTH2PA1iqUpcRHL5 Disclaimer (test code = n3rmrPRsCCQahWDpFxO 9844) lRDJwOFNer8axMDObvR FuZzEwMzNcZnRuYmpcd XUqUONzSkVnn6cpx479 nMXdy6mjSTNfRsV0pEG xVBBzzQSnO187XURlJE hka3vza6QnJBZxmJWga 5L9XFYHfwdxySf4zMvp D17ta7H2GetoA8odCZK aMJGhI1CoDR4rAQKqMi c0ZLW5OCY7SHGhJBBsD 3WtLR8rTLFnbPMyWWr1 y0bvhUhtLPXvYVM9f9u qVDpbhdQyCC3rmj8gpW u6w9wvamSnTRNpYKAqh GFLWQTpG3RylNlkLd0e sMw7zYdiZcucALO8Bdm 2RJ7xer33phz5pBvaHH OoaivvApO8SYmwESEuw lqoTAd9BGlzANJytZH1 XWZnjLCxU4RdFRPeFH3 wxhv3PVK3WJlfTYApAw Q4RUDsoAZpLKAlgUmtY Zqxm819DAY7KyWuBI8d K4Xqs7J4nH8bdZDhKJR gvKFqEjNcWMFqml8hfO CcARozj6OeHCE4ekV1p BQnyHNqNHZlPO65Xxyj k3FeGyenGJY2IJKoneL kf6Iqi8urCrDyhaTnF8 cmK6BpELTmJTIwEVIoA oEfavAju1Ige9SscEKd yBs4b8mdEVPtOEYigTw aj7dvMMZ1BZMcT9O6xP Oye6ewSEouRTNqeFG8m xV4AWCcyHNlH1YllO8v YOGbJY6kyzm5c1iqJCY 4EFqxQXJyIdR0brA1PS BcaGVhZGVyeTcyMFxmb 358DIS9ItFbMCIht8Cp G1LtyFlzG35fhXxyG93 nJYWowPyhpL0rtWymbD 5cZjBcZnMyNFxxbFxwb MTxhqamTOfjxnG6DBbv kpgeAQIuZIniF0pgZcM kYZUzsEhmCXahk0BcAP OvGMMgEeqgcwX8KTHOf 77mIYXsf7CyBOFrsN8e dXYjGPnmubMypLI0AFo hdmUgYmVlbiBkZXZlbG 1vJSSbHT3yTDJeveXmv s1tkqKmXEGeVMBxG2En cmlzdGljcyBkZXRlcm1 iugRzJSU2YUOUUM4INX ObRPZvs26lQOTluVuun L0mqCWxyvIwAIFsa8Fu lM1waZOILLRrJ7dgBZ3 lJHkeb5PapIZfaUPhpQ P5DCPmg9WvKzLrxbDfa BXrqQNkJ4MbxLerZ2gd KEYsATBefiDdtTZoa5O tGTHbwTH3mQGvWU8PXw LFv71iVACgMWPFjpQoC VKgaQvymQG6ecG2dO8y LiBJZiBhcHBsaWNhYmx wGIGiu965ol6rqgU0EQ MwWAHrsbkcs5OdPBZqH PXxuM34ROStGFBcsl6k rjqcgUAhhiEiI8Qqeax 0mY7kUHBzESdyDBOwLV ZzMjJcbGFuZzEwMzNca GljaFxmMVxkYmNoXGYx AIxsR2wjOhQnPiOyQeb wYXJ9 MD Bowles [id number] 04:04:09Study acquired at another institution. For comparison only. No MD Milner originated interpretationrequested or available.MD MilnerCT Abdomen Pelvis without IV Epihmucz3193-60-00 16:14:151. Fungating soft tissue vulvar mass with [...] the final report.MD MilnerTMP Interpretation Antibody Screen Tppxpsqk1445-21-20 15:41:44 Test Item Value Reference Range Interpretation Comments TMP Auto Neg At the present ABSC Interp time, patient (test code = plasma shows no REJI 7535) evidence of RBC LERNER alloantibodies. So SAN paramjit by: REJI SAN,Dictated Date/Time: 05.15.2020 9:41 AM [employer] Transcrib ed Date/Time: 05.15.2020 9:41 AM CSTElectronical ly Signed By: MITCHELL SAN, on 05.15.2020 9:41 AM C MD MilnerConfirm [id number] 13:46:54 Test Item Value Reference Range Interpretation Comments ABORh Confirm. (test code = 882-1) O POS MD MilnerAntibody Fhocgw7223-04-34 13:33:05 Test Item Value Reference Range Interpretation Comments ABSC. (test code = 890-4) Negative ABSC MD MilnerEhdplytfQMTTs9180-71-83 13:33:04 Test Item Value Reference Range Interpretation Comments ABORh. (test code = 882-1) O POS MD MilnerClot Expiration [id number] 13:32:35 Test Item Value Reference Range Interpretation Comments T & S Expiration (test code = 05/18/2020 5318) MD MilnerUrinalysis with Gtvzzsqzkuv0678-86-31 11:06:23 Test Item Value Reference Interpretation Comments [...] implementation of new instrumentation in the Main [place], allowing greater sensitivity of measurement. Urinalysis results reported by the [facility] using existing instrumentation, as well as Urinalysis testing performed manually or by backup methodology at the [facility] will remain relatively unchanged. New reporting parameters and units will now be reported for all campuses. Lab Interpretation Abnormal (test code = 16632-3) MD MilnerUrinalysis w/Microscopic if Vfsplyrxi7969-78-68 10:53:50 Test Item Value Reference Range Interpretation [...] A Lab Interpretation (test code = Abnormal 13291-9) MD MilnerFractionated Rlqtjxycf3070-57-18 09:23:53 Test Item Value Reference Range Interpretation [...] result as normal/abnormal . MD MilnerGlomerular Filtration [id number] 09:23:52 Test Item Value Reference Range Interpretation Comments eGFR-AA (test code 83 See_Comment Normal eG FR: >= 60 = 8062) mL/min/1.73 m2N ote: The eGFR is calculated u sing the CKD-EPI equatio n. The eGFR declines with a ge. eGFR <60 mL/min/1.73 m2 is considered as "decreased". This equation should only be used for patients 18 and older. According to e [employer]'s Kidney Disease [...] failure <15 [Automa paramjit message] The system [employer] h generated this result tra nsmitted reference [...] for patients 18 and older. According to e [employer]'s Kidney Disease [...] failure <15 [Automa paramjit message] The system Camera360 generated this result tra nsmitted reference range : >=60 mL/min/1.73 sq. m. The reference range was not used to interpret th is result as normal/abnormal . MD MilnerTotal Cialwgr0936-16-95 09:23:51 Test Item Value Reference Range Interpretation Comments Total Protein (test code = 7649) 7.6 g/dL 6.4-8.3 MD MilnerMagnesium [id number] 09:23:50 Test Item Value Reference Range Interpretation Comments Magnesium (test code = 6359) 2.0 mg/dL 1.6-2.6 MD MilnerPhosphorus [id number] 09:23:49 Test Item Value Reference Range Interpretation Comments Phosphorus (test code = 6817) 4.2 mg/dL 2.5-4.5 MD MilnerAlkaline Yolxjnlttre1459-97-52 09:23:48 Test Item Value Reference Range Interpretation Comments Alk Phos (test code = 4768) 137 U/L 35-104 H Lab Interpretation (test code = Abnormal 00956-9) MD MilnerCalcium [id number] 09:23:47 Test Item Value Reference Range Interpretation Comments Calcium Lvl (test code = 5258) 9.0 mg/dL 8.4-10.2 MD MilnerMrbbtsfbBTD1009-26-24 09:23:46 Test Item Value Reference Range Interpretation Comments ALT (test code = 8 U/L See_Comment [Automated message] The 8881) system which ge nerated this result transmit paramjit reference range : <=33. The reference range was not used to interpr et this result as deepti l/abnormal. MD MilnerAlbumin Fxode1062-41-37 09:23:45 Test Item Value Reference Range Interpretation Comments Albumin Lvl (test code 3.5 See_Comment [Aut omated message] The = 4763) system which ge nerated this result tra nsmitted reference range : 3.5 - 5.2 gm/dL. The refe rence range was not used to interpret this result as normal/abnormal . MD Milner.Serum Vrnxkcvgbz3009-54-32 09:23:44 Test Item Value Reference Range Interpretation Comments Creatinine (test code = 5399) 0.88 mg/dL 0.51-0.95 MD MilnerAspartate Rubsbkocvfgxluzh5235-69-08 09:23:43 Test Item Value Reference Range Interpretation Comments AST (test code = 10 U/L See_Comment [Automated message] The 4731) system which ge nerated this result transmit parajmit reference range : <=32. The reference range was not used to interpr et this result as deepti l/abnormal. MD MilnerYyglkbsrUCZ2411-01-53 09:23:42 Test Item Value Reference Range Interpretation Comments BUN (test code = 5055) 10 mg/dL 6- MD MilnerElectrolyte Kmkze8793-04-64 09:23:41 Test Item Value Reference Range Interpretation Comments Sodium Lvl (test code = 139 See_Comment [Au tomated message] The 7373) system which ge nerated this result tra [...] = 104 See_Comment [Auto mated message] The 5279) system which ge nerated this result tra [...] = 12 See_Comment [Aut omated message] The 9355) system which ge nerated this result tra nsmitted reference range : 4 - 14 mEq/L. The refe rence range was not u sed to interpret this result as normal/abnormal . MD MilnerGlucose Dfppw8835-05-26 09:23:39 Test Item Value Reference Range Interpretation [...] diabetes Lab Interpretation (test Abnormal code = 29923-6) MD MilnerInfluenza A/B + COVID-19 Asymptomatic- [id number] 09:13:15 Test Item Value Reference Range Interpretation Comments Influenza A (test Not Detected Not Detected code = 39345-6) Influenza B (test Not Detected Not Detected code = 18556-4) COVID19 Not Detected Not Detected (SARS-CoV-2) (test code = 07762-6) COVID19 SARS Inpatient Indication (test Admission code = 69158) Inf AB+Cov19 See Note The [place] SARS- CoV-2 Comment (test & Influenza A/ B code = 08907) nucleic acid t est for use on the alireza s Geni System is a mul tiplex real-time RT-PC R assay intended for the [...] sheet for patie nts provided by the erp engineer ([employer]) can be rev iewed at: https://www.[facility] .gov/ edia/133273/radha nloadA fact sheet for Health Care providers is provided by the erp engineer ([employer]) and can be reviewed at: https://www.fda .gov/m edia/142574/radha nload Influenza A and Influenza B neg [...] This assay has been authorized by t [facility] for use only un fausto Emergency Use Authorization ( EUA) in laboratories that have been CLIA-certified to perform moderate-comple xity and high-comple xity tests. The Microbiology Laboratory at [facility], CLIA Accreditation #[id number] and CAP Accreditation #[id number], verif ied the performance characteristics of this assay. Int ernal controls are us ed to monitor all sta ges of the test proces s. MD MilnerPartial Thromboplastin [id number] 09:04:05 Test Item Value Reference Range Interpretation Comments PTT (test code = 30.1 See_Comment [Automated message] The 6773) system which ge nerated this result transmit paramjit reference range : 24.2 - 36.0 second(s). The reference range was not used to interpr et this result as deepti l/abnormal. MD MilnerProthrombin Time with [id number] 09:04:04 Test Item Value Reference Range Interpretation Comments PT (test code = 6746) 14.5 See_Comment H [Auto mated message] The system whic h generated this result transmitted ref erence range: 12.0 - 1 4.3 second(s). The reference range was not used to int erpret this result as normal/abnormal . INR (test code = 5973) 1.20 0.90-1.10 H Lab Interpretation (test Abnormal code = 42385-1) MD MilnerPwgnwjfjZzafqosufwgl9367-24-72 08:56:12 Test Item Value Reference Range Interpretation Comments Neutrophil % (test code = 65.3 % 42-66 36244-4) Lymphocyte % (test code = 20.5 % 24-44 L 737-7) Monocyte % (test code = 10.9 % 2-7 H 744-3) Eosinophil % (test code = 2.4 % 1-4 713-8) Basophil % (test code = 0.5 % 0-1 707-0) IGRE % (test code = 0.4 % 0-0.4 IGRE % c ount 86841-5) includes Metamyelocytes, Myelocytes, and Promyelocytes. Neutrophil Abs (test code 9.79 K/uL 1.7-7.3 H = 753-4) Lymphocyte Abs (test code 3.07 K/uL 1-4.8 = 732-8) Monocyte Abs (test code = 1.63 K/uL 0.08-0.7 H 743-5) Eosinophil Abs (test code 0.36 K/uL 0.04-0.4 = 712-0) Basophil Abs (test code = 0.07 K/uL 0-0.1 705-4) IG Abs (test code = 0.06 K/uL 0-0.04 H 37031-2) Lab Interpretation (test Abnormal code = 60079-0) MD Milner.[id number] 08:56:09 Test Item Value Reference Range Interpretation Comments WBC (test code = 15.0 K/uL 4-11 H 6690-2) RBC (test code = 789-8) 3.48 See_Comment L [Au tomated message] The system Camera360 generated this result transmitted ref erence range: 4.00 - 5 .50 M/uL. The refer ence range was not u sed to interpret this result as normal/abnor mal. Hgb (test code = 718-7) 10.0 See_Comment L [Au tomated message] The system [employer]360 generated this result transmitted ref erence range: [...] L [Automate d message] 786-4) The system [employer] generated this result transmitted ref erence range: 31.0 - 3 6.0 gm/dL. The refe rence range was not u sed to interpret this result as normal/abnor mal. RDW-SD (test code = 60.4 fL 35.1-46.3 H 90523-0) RDW-CV (test code = 17.6 % 12-15.5 [...] cell differential. [Automated mess age] The system [employer]360 generated this result transmitted ref erence range: <=0.0. T he reference range was not used to int erpret this result as normal/abnormal . Lab Interpretation Abnormal (test code = 07165-8) MD Milner- MRI L-SPINE W/O [id number] 09:37:00 FAX: Bella Hannah MD [phone] [place]: St: [facility] FAX: Apolinar Buchanan MD [phone] Patient Name: JEFRY LOPEZ Unit No: [id number] EXAMS: CPT CODE: [id number] MRI L-SPINE W/O CONT 43602 MRI Lumbar Spine without contrast HISTORY: Back [...] by: Tyrell Burgos M.D. 508 Imaging NAME: JESSICAJEFRY uGy [address] [place] [address] PHYS: [email or web address] - Apolinar Fields [place] : 1960 AGE: 58 SEX: [phone] LOC: KirtIM508 PHONE #: [phone] EXAM DATE: 01/08/2019 STATUS: REG CLI FAX #: [phone] RAD NO: DC Dt: PAGE 1 Signed Report (CONTINUED) FAX: Bella Hannah MD [phone] [place]: St: REG FAX: Y Apolinar Fields MD [phone] --- Patient Name: JEFRY LOPEZ Unit No: [id number] EXAMS: CPT CODE: [id number] MRI L-SPINE W/O CONT 90611 <Continued> CC: Bella Elmoer MD; Apolinar Fields MD Dictated Date/Time: 01/08/2019 (936)Technologist: Low Barillas Transcribed Date/Time: 01/08/2019 (936) By: [email or web address] Orig Print D/T: S: 01/08/2019 (40) 508 Imaging NAME: JEFRY LOPEZ [address] [place] [address] PHYS: LISA - Apolinar Fields [place], [place] : 1960 AGE: 58 SEX: [phone] LOC: [facility]508 PHONE #: [phone] EXAM DATE: 01/08/2019 STATUS: REG CLI FAX #: [phone] RAD NO: DC Dt: PAGE 2 SignedReportBASIC METABOLIC [id number] 11:35:00 Test Item Value Reference Range Interpretation [...] REFER ENCE RANGE: (test code = CHOLHDL) MA LE FEMALE 1/2 AVG RISK 3.4 3 3.27 [...] be fasting before starting thistest? YBASIC METABOLIC [id number] 11:33:00 Test Item Value Reference Range Interpretation [...] be fasting before starting thistest? YPT AND [id number] 11:24:00 Test Item Value Reference Interpretation Comments [...] prevention in p rosthetic heart 3.0-5.4 A [place] mortality reduc tion THROMBOPLASTIN TIME 30.2 SECONDS [...] draw? NANTICOAGULANT THERAPY [Y,N]: UNK CBC W/AUTO [id number] 11:16:00 Test Item Value Reference Range Interpretation [...]
[2020-06-11] MEDS ORDERED: HYDROMORPHONE HCL 1 MG/ML INJ ONE (18:24)
[2020-06-11] MEDS ORDERED: ONDANSETRON 4 MG/2 ML VIAL ONE (18:25)
[2020-06-11] MEDS ORDERED: NA CHLORIDE 0.9% 500 ML ONE (18:25)
[2020-06-11] MEDS ORDERED: NA CHLORIDE 0.9% 1,000 ML ONE (18:25)
--- NOTE | 2020-06-11 18:32 | EDPHYS ---
Physician Documentation [facility] Name: Milly Cabrera Age: 59 yrs Sex: Female : 1960 Arrival Date: 06/11/2020 Time: 13:40 Bed 24 Private MD: ED Physician Doreen Finn HPI: 06/11 18:03 This 59 yrs old Female presents to ER via Ambulatory with complaints of demetra Vaginal Bleeding. 18:03 The patient presents with pelvic pain, vaginal bleeding that is moderate. Onset: The demetra symptoms/episode began/occurred 3 day(s) ago. Modifying factors: The symptoms are alleviated by remaining still. Associated signs and symptoms: The patient has no apparent associated signs or symptoms. Severity of symptoms: At their worst the symptoms were mild, moderate, in the emergency department the symptoms are unchanged. The patient is not sexually active. The patient has not experienced similar symptoms in the past. Historical: - Allergies: 14:22 Cephalexin; ca1 14:22 Ciprofloxacin; ca1 14:22 Demerol; ca1 14:22 Iodine; ca1 14:22 Morphine; ca1 14:22 PENICILLINS; ca1 14:22 SHELLFISH; ca1 14:22 Strawberries; ca1 14:22 Zithromax Z-Joon; ca1 - PMHx: 14:22 acid reflux; Anxiety; Endometrosis; Hyperlipidemia; Hypertension; neuropathy; ovarian ca1 cancer; vulvar cancer; - PSHx: 14:22 neck sx; ; Appendectomy; stents; ca1 - Immunization history:: Flu vaccine is up to date. - Social history:: Smoking status: Patient/guardian denies using tobacco, the patient reports quitting approximately 13 years ago. - Family history:: not pertinent. ROS: 18:03 Constitutional: Negative for fever, chills, and weight loss, Eyes: Negative for injury, demetra pain, redness, and discharge, ENT: Negative for injury, pain, and discharge, Neck: Negative for injury, pain, and swelling, Cardiovascular: Negative for chest pain, palpitations, and edema, Respiratory: Negative for shortness of breath, cough, wheezing, and pleuritic chest pain, Back: Negative for injury and pain, MS/Extremity: Negative for injury and deformity, Skin: Negative for injury, rash, and discoloration, Neuro: Negative for headache, weakness, numbness, tingling, and seizure, Psych: Negative for depression, anxiety, suicide ideation, homicidal ideation, and hallucinations, Allergy/Immunology: Negative for hives, rash, and allergies, Endocrine: Negative for neck swelling, polydipsia, polyuria, polyphagia, and marked weight changes, Hematologic/Lymphatic: Negative for swollen nodes, abnormal bleeding, and unusual bruising. 18:03 Abdomen/GI: Positive for abdominal pain, abdominal cramps. 18:03 : Positive for injury or acute deformity, foul smelling urine, vaginal bleeding, of the clitoris, right labia majora, left labia majora, right labia minora and left labia minora. Exam: 18:03 Constitutional: This is a well developed, well nourished patient who is awake, alert, demetra and in no acute distress. Head/Face: Normocephalic, atraumatic. Eyes: Pupils equal round and reactive to light, extra-ocular motions intact. Lids and lashes normal. Conjunctiva and sclera are non-icteric and not injected. Cornea within normal limits. Periorbital areas with no swelling, redness, or edema. ENT: Nares patent. No nasal discharge, no septal abnormalities noted. Tympanic membranes are normal and external auditory canals are clear. Oropharynx with no redness, swelling, or masses, exudates, or evidence of obstruction, uvula midline. Mucous membranes moist. Neck: Trachea midline, no thyromegaly or masses palpated, and no cervical lymphadenopathy. Supple, full range of motion without nuchal rigidity, or vertebral point tenderness. No Meningismus. Chest/axilla: Normal chest wall appearance and motion. Nontender with no deformity. No lesions are appreciated. Respiratory: Lungs have equal breath sounds bilaterally, clear to auscultation and percussion. No rales, rhonchi or wheezes noted. No increased work of breathing, no retractions or nasal flaring. Back: No spinal tenderness. No costovertebral tenderness. Full range of motion. Skin: Warm, dry with normal turgor. Normal color with no rashes, no lesions, and no evidence of cellulitis. MS/ Extremity: Pulses equal, no cyanosis. Neurovascular intact. Full, normal range of motion. Neuro: Awake and alert, GCS 15, oriented to person, place, time, and situation. Cranial nerves II-XII grossly intact. Motor strength 5/5 in all extremities. Sensory grossly intact. Cerebellar exam normal. Normal gait. Psych: Awake, alert, with orientation to person, place and time. Behavior, mood, and affect are within normal limits. 18:03 Cardiovascular: Rate: tachycardic, Rhythm: regular, Pulses: Pulses are 4+ in bilateral radial, brachial, femoral, popliteal, posterior tibial and and dorsalis pedis arteries.. Heart sounds: normal, normal S1and S2, no S3 or S4, no murmur, no rub, no gallop, Edema: is not appreciated, JVD: is not appreciated. 20:04 ECG was reviewed by the Attending Physician. [facility] Vital Signs: 14:18 BP 113 / 83; Pulse 113; Resp 18 S; Temp 97.4; Pulse Ox 97% on R/A; Weight 72.57 kg (R); ca1 Height 5 ft. 6 in. (167.64 cm) (R); Pain 10/10; 18:17 BP 153 / 81; Pulse 100; Resp 16 S; Pulse Ox 96% ; aa5 19:30 BP 133 / 64; Pulse 92; Resp 18; Pulse Ox 97% on R/A; jb4 21:00 BP 134 / 93; Pulse 86; Resp 18; Pulse Ox 94% on R/A; jb4 22:00 BP 136 / 89; Pulse 84; Resp 17; Pulse Ox 96% on R/A; jb4 14:18 Body Mass Index 25.82 (72.57 kg, 167.64 cm) ca1 MDM: 17:40 Patient medically screened. [facility] 18:09 Differential diagnosis: jayesh infection, cervicitis, dysmenorrhea, malignancy, demetra menometrorrhagia, Neoplasm urinary tract infection. Data reviewed: vital signs, nurses notes, lab test result(s), radiologic studies, CT scan. 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 Counseling: I had a detailed discussion with the patient and/or guardian regarding: the historical points, exam findings, and any diagnostic results supporting the discharge/admit diagnosis, lab results, radiology results. 21:52 Response to treatment: the patient's symptoms have markedly improved after treatment. ma2 ED course: signed out to be as mild hypokalemia pending final recheck for potassium after repletion, potassium came back wnl.. will discharge home . 06/11 18:01 Order name: CBC with Diff [facility] 06/11 18:01 Order name: Comprehensive Metabolic Panel [facility] 06/11 18:59 Order name: Comprehensive Metabolic Panel; Complete Time: 19:01 EDTX 06/11 19:03 Order name: Phosphorus [facility] 06/11 19:06 Order name: Chem 7: at 845pm [facility] 06/11 19:10 Order name: CBC with Automated Diff; Complete Time: 19:11 EDTX 06/11 18:01 Order name: CT Abd/Pelvis - Without Contrast [facility] 06/11 19:46 Order name: CT; Complete Time: 20:04 EDTX 06/11 19:56 Order name: Phosphorus; Complete Time: 20:04 EDTX 06/11 21:47 Order name: Basic Metabolic Panel; Complete Time: 21:52 EDTX 06/11 18:01 Order name: Urine Dipstick-Ancillary (obtain specimen); Complete Time: 18:43 [facility] 06/11 18:15 Order name: EKG; Complete Time: 18:16 [facility] 06/11 18:15 Order name: EKG - Nurse/Tech; Complete Time: 18:43 [facility] EC:04 Rate is 99 beats/min. Rhythm is regular. QRS [place] is Normal. [place] interval is normal. QRS demetra interval is normal. QT interval is normal. No Q waves. T waves are Normal. No ST changes noted. Clinical impression: NSR w/ Non-specific ST/T Changes, 1st degree heart block, and No evidence of ischemia. Interpreted by me. Reviewed by me. Administered Medications: Discontinued: NS 0.9% 1000 ml IV at 125 ml/hr continuous 18:10 Drug: NS 0.9% 500 ml Route: IV; Rate: bolus; Site: right antecubital; aa5 19:45 Follow up: Response: No adverse reaction; IV Status: Completed infusion; IV Intake: jb4 500ml 18:10 Drug: NS 0.9% 1000 ml Route: IV; Rate: 125 ml/hr; Site: right antecubital; aa5 18:10 Drug: Zofran (Ondansetron) 4 mg Route: IVP; Site: right antecubital; aa5 18:20 Follow up: Response: No adverse reaction aa5 18:12 Drug: Dilaudid 1 mg Route: IVP; Site: right antecubital; aa5 18:20 Follow up: Response: No adverse reaction aa5 19:30 Drug: Bactrim (160 mg-800 mg (DS) 1 tablet Route: PO; jb4 20:46 Follow up: Response: No adverse reaction jb4 19:30 Drug: Doxycycline 100 mg Route: PO; jb4 20:45 Follow up: Response: No adverse reaction jb4 19:30 Drug: Potassium Effervescent Tablet 50 mEq Route: PO; jb4 20:45 Follow up: Response: No adverse reaction jb4 19:30 Drug: Potassium Chloride 20 mEq Route: IV; Rate: per protocol; Site: right antecubital; jb4 20:30 Follow up: Response: No adverse reaction; IV Status: Completed infusion; IV Intake: jb4 100ml 19:30 Drug: NS 0.9% with KCl 20 mEq/L 1000 ml Route: IV; Rate: 150 ml/hr; Site: right jb4 antecubital; 22:29 Follow up: Response: No adverse reaction; IV Status: Order to discontinue infusion; IV jb4 Intake: 406ml 20:45 Drug: Potassium Effervescent Tablet 50 mEq Route: PO; jb4 22:30 Follow up: Response: No adverse reaction jb4 21:24 Drug: fentaNYL (PF) 25 mcg Route: IVP; Site: right antecubital; jb4 21:50 Follow up: Response: No adverse reaction; Pain is decreased; RASS: Alert and Calm (0) jb Disposition: 06/11/20 21:57 Discharged to Home. Impression: Abnormal uterine and vaginal bleeding, unspecified, Malignant neoplasm of vulva, Anemia, unspecified, Hypokalemia. - Condition is Stable. - Discharge Instructions: Abnormal Uterine Bleeding, Potassium Content of Foods, Hypokalemia, Vulva Biopsy, Care After, Vulvar Pain. - Prescriptions for Ibuprofen 600 mg Oral Tablet - take 1 tablet by ORAL route every 6 hours As needed take with food; 20 tablet. Tylenol- Codeine #3 300-30 mg Oral Tablet - take 2 tablets by ORAL route every 4-6 hours As needed; 24 tablet. Potassium Chloride 20 meq Oral Packet - take 1 packet by ORAL route every 12 hours 1 packet in 6 (six) ounces of water or juice; Take after meal; 14 packet. Doxycycline Hyclate 100 mg Oral Tablet - take 1 tablet by ORAL route every 12 hours; 20 tablet. Bactrim DS 800- 160 mg Oral Tablet - take 1 tablet by ORAL route every 12 hours for 10 days; 20 tablet. - Medication Reconciliation Form, Thank You Letter, Antibiotic Education, Prescription Opioid Use form. - Follow up: Private Physician; When: 2 - 3 days; Reason: Recheck today's complaints, Continuance of care, Re-evaluation by your physician. Follow up: Reva Wynne; When: 2 - 3 days; Reason: Recheck today's complaints, Re-evaluation by your physician. Follow up: Manda Lassiter; When: 2 - 3 days; Reason: Recheck today's complaints, Continuance of care, Re-evaluation by your physician. - Problem is new. - Symptoms have improved. 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 Impression: Vulvodynia, unspecified; demetra Malignant neoplasm of vulva - bleeding. Condition is Stable. Forms are Medication Reconciliation Form, Thank You Letter, Antibiotic Education, Prescription Opioid Use. Follow up: Private Physician; When: 2 - 3 days; Reason: Recheck today's complaints, Continuance of care, Re-evaluation by your physician. Follow up: Manda Lassiter; When: 2 - 3 days; Reason: Recheck today's complaints, Re-evaluation by your physician. Follow up: Reva Wynne; When: 2 - 3 days; Reason: Recheck today's complaints, Re-evaluation by your physician. Problem is new. Symptoms have improved. demetra 22:30 21:57 06/11/2020 21:57 Discharged to Home. Impression: Abnormal uterine and vaginal jb4 bleeding, unspecified; Malignant neoplasm of vulva; Anemia, unspecified; Hypokalemia. Condition is Stable. Discharge Instructions: Abnormal Uterine Bleeding, Potassium Content of Foods, Hypokalemia, Vulva Biopsy, Care After, Vulvar Pain. Prescriptions for Tylenol-Codeine #3 300-30 mg Oral Tablet - take 2 tablets by ORAL route every 4-6 hours As needed; 20 tablet, Doxycycline Hyclate 100 mg Oral Tablet - take 1 tablet by ORAL route every 12 hours; 20 tablet, Bactrim DS 800-160 mg Oral Tablet - take 1 tablet by ORAL route every 12 hours for 10 days; 20 tablet, Ibuprofen 600 mg Oral Tablet - take 1 tablet by ORAL route every 6 hours As needed take with food; 20 tablet, Tylenol-Codeine #3 300-30 mg Oral Tablet - take 2 tablets by ORAL route every 4-6 hours As needed; 24 tablet, Potassium Chloride 20 meq Oral Packet - take 1 packet by ORAL route every 12 hours 1 packet in 6 (six) ounces of water or juice; Take after meal; 14 packet, Doxycycline Hyclate 100 mg Oral Tablet - take 1 tablet by ORAL route every 12 hours; 20 tablet, Bactrim DS 800-160 mg Oral Tablet - take 1 tablet by ORAL route every 12 hours for 10 days; 20 tablet. and Forms are Medication Reconciliation Form, Thank You Letter, Antibiotic Education, Prescription Opioid Use. Follow up: Private Physician; When: 2 - 3 days; Reason: Recheck today's complaints, Continuance of care, Re-evaluation by your physician. Follow up: Reva Wynne; When: 2 - 3 days; Reason: Recheck today's complaints, Re-evaluation by your physician. Follow up: Manda Lassiter; When: 2 - 3 days; Reason: Recheck today's complaints, Continuance of care, Re-evaluation by your physician. Problem is new. Symptoms have improved. ma2
--- NOTE | 2020-06-11 18:32 | ER ---
Nurse's Notes [facility] Name: Milly Cabrera Age: 59 yrs Sex: Female : 1960 Arrival Date: 06/11/2020 Time: 13:40 Bed 24 Private MD: Diagnosis: Abnormal uterine and vaginal bleeding, unspecified;Malignant neoplasm of vulva;Anemia, unspecified;Hypokalemia Presentation: 06/11 14:18 Chief complaint: Patient states: They diagnosed me of Vulvar Cancer last month, have ca1 not started treatment yet. Last night, started having vaginal bleeding, heavy. Reports pain in the groin and suprapubic area. Coronavirus screen: Client denies travel out of the [place] in the last 14 days. At this time, the client does not indicate any symptoms associated with coronavirus-19. Ebola Screen: Patient negative for fever greater than or equal to 101.5 degrees Fahrenheit, and additional compatible Ebola Virus Disease symptoms Patient denies exposure to infectious person. Patient denies travel to an Ebola-affected area in the 21 days before illness onset. No symptoms or risks identified at this time. Initial Sepsis Screen: Does the patient meet any 2 criteria? No. Patient's initial sepsis screen is negative. Does the patient have a suspected source of infection? No. Patient's initial sepsis screen is negative. Risk Assessment: Do you want to hurt yourself or someone else? Patient reports no desire to harm self or others. Onset of symptoms was June 10, 2020. 14:18 Method Of Arrival: Ambulatory ca1 14:18 Acuity: DAMON 3 ca1 Historical: - Allergies: 14:22 Cephalexin; ca1 14:22 Ciprofloxacin; ca1 14:22 Demerol; ca1 14:22 Iodine; ca1 14:22 Morphine; ca1 14:22 PENICILLINS; ca1 14:22 SHELLFISH; ca1 14:22 Strawberries; ca1 14:22 Zithromax Z-Joon; ca1 - PMHx: 14:22 acid reflux; Anxiety; Endometrosis; Hyperlipidemia; Hypertension; neuropathy; ovarian ca1 cancer; vulvar cancer; - PSHx: 14:22 neck sx; ; Appendectomy; stents; ca1 - Immunization history:: Flu vaccine is up to date. - Social history:: Smoking status: Patient/guardian denies using tobacco, the patient reports quitting approximately 13 years ago. - Family history:: not pertinent. Screenin:45 Abuse screen: Denies threats or abuse. Nutritional screening: No deficits noted. aa5 Tuberculosis screening: No symptoms or risk factors identified. Fall Risk None identified. Assessment: 17:45 General: Appears uncomfortable, Behavior is calm, cooperative. Pain: Complains of pain aa5 in pelvis Pain currently is 10 out of 10 on a pain scale. Quality of pain is described as sharp, Is continuous. Neuro: Level of Consciousness is awake, alert, obeys commands, Oriented to person, place, time, situation. Cardiovascular: Patient's skin is warm and dry. Respiratory: Airway is patent Respiratory effort is even, unlabored, Respiratory pattern is regular, symmetrical. GI: Abdomen is round non-distended, Bowel sounds present X 4 quads. Abd is soft and non tender X 4 quads. : Reports vaginal bleeding that is bright red, moderate flow. EENT: No signs and/or symptoms were reported regarding the EENT system. Derm: Skin is pink, warm \T\ dry. Musculoskeletal: Range of motion: intact in all extremities. 18:20 Reassessment: Patient is alert, oriented x 3, equal unlabored respirations, skin aa5 warm/dry/pink. Patient states feeling better. 19:05 Reassessment: Patient appears in no apparent distress at this time. Patient and/or jb4 family updated on plan of care and expected duration. Pain level reassessed. Patient is alert, oriented x 3, equal unlabored respirations, skin warm/dry/pink. 20:00 Reassessment: Patient appears in no apparent distress at this time. Patient and/or jb4 family updated on plan of care and expected duration. Pain level reassessed. Patient is alert, oriented x 3, equal unlabored respirations, skin warm/dry/pink. 21:00 Reassessment: Patient appears in no apparent distress at this time. Patient and/or jb4 family updated on plan of care and expected duration. Pain level reassessed. Patient is alert, oriented x 3, equal unlabored respirations, skin warm/dry/pink. 22:00 Reassessment: Patient appears in no apparent distress at this time. Patient and/or jb4 family updated on plan of care and expected duration. Pain level reassessed. Patient is alert, oriented x 3, equal unlabored respirations, skin warm/dry/pink. Vital Signs: 14:18 BP 113 / 83; Pulse 113; Resp 18 S; Temp 97.4; Pulse Ox 97% on R/A; Weight 72.57 kg (R); ca1 Height 5 ft. 6 in. (167.64 cm) (R); Pain 10/10; 18:17 BP 153 / 81; Pulse 100; Resp 16 S; Pulse Ox 96% ; aa5 19:30 BP 133 / 64; Pulse 92; Resp 18; Pulse Ox 97% on R/A; jb4 21:00 BP 134 / 93; Pulse 86; Resp 18; Pulse Ox 94% on R/A; jb4 22:00 BP 136 / 89; Pulse 84; Resp 17; Pulse Ox 96% on R/A; jb4 14:18 Body Mass Index 25.82 (72.57 kg, 167.64 cm) ca1 ED Course: 13:40 Patient arrived in ED. am2 14:20 Triage completed. ca1 14:22 Arm band placed on right wrist. ca1 17:40 Joshua Milner MD is Attending Physician. demetra 17:43 Arminda Yin, RAAD is Primary Nurse. aa5 17:45 Patient has correct armband on for positive identification. Bed in low position. Call aa5 light in reach. Side rails up X 1. 17:45 Pulse ox on. NIBP on. aa5 18:10 Initial lab(s) drawn, by id, sent to lab. Inserted saline lock: 20 gauge in right aa5 antecubital area, using aseptic technique. Blood collected. 18:25 Manda Lassiter MD is Referral Physician. demetra 18:25 Reva Green MD is Referral Physician. demetra 19:05 Report given to RAAD Lezama. aa5 20:11 Primary Nurse role handed off by Arminda Yin, RAAD mw2 20:38 Shady Torres, RAAD is Primary Nurse. jb4 21:30 Attending Physician role handed off by Joshua Milner MD ma2 21:30 Doreen Finn MD is Attending Physician. ma2 21:53 Reva Green MD is Referral Physician. ma2 21:53 Manda Lassiter MD is Referral Physician. ma2 22:28 No provider procedures requiring assistance completed. IV discontinued, intact, jb4 bleeding controlled, No redness/swelling at site. Pressure dressing applied. Administered Medications: Discontinued: NS 0.9% 1000 ml IV at 125 ml/hr continuous 18:10 Drug: NS 0.9% 500 ml Route: IV; Rate: bolus; Site: right antecubital; aa5 19:45 Follow up: Response: No adverse reaction; IV Status: Completed infusion; IV Intake: jb4 500ml 18:10 Drug: NS 0.9% 1000 ml Route: IV; Rate: 125 ml/hr; Site: right antecubital; aa5 18:10 Drug: Zofran (Ondansetron) 4 mg Route: IVP; Site: right antecubital; aa5 18:20 Follow up: Response: No adverse reaction aa5 18:12 Drug: Dilaudid 1 mg Route: IVP; Site: right antecubital; aa5 18:20 Follow up: Response: No adverse reaction aa5 19:30 Drug: Bactrim (160 mg-800 mg (DS) 1 tablet Route: PO; jb4 20:46 Follow up: Response: No adverse reaction jb4 19:30 Drug: Doxycycline 100 mg Route: PO; jb4 20:45 Follow up: Response: No adverse reaction jb4 19:30 Drug: Potassium Effervescent Tablet 50 mEq Route: PO; jb4 20:45 Follow up: Response: No adverse reaction jb4 19:30 Drug: Potassium Chloride 20 mEq Route: IV; Rate: per protocol; Site: right antecubital; jb4 20:30 Follow up: Response: No adverse reaction; IV Status: Completed infusion; IV Intake: jb4 100ml 19:30 Drug: NS 0.9% with KCl 20 mEq/L 1000 ml Route: IV; Rate: 150 ml/hr; Site: right jb4 antecubital; 22:29 Follow up: Response: No adverse reaction; IV Status: Order to discontinue infusion; IV jb4 Intake: 406ml 20:45 Drug: Potassium Effervescent Tablet 50 mEq Route: PO; jb4 22:30 Follow up: Response: No adverse reaction jb4 21:24 Drug: fentaNYL (PF) 25 mcg Route: IVP; Site: right antecubital; jb4 21:50 Follow up: Response: No adverse reaction; Pain is decreased; RASS: Alert and Calm (0) jb4 Intake: 19:45 IV: 500ml; Total: 500ml. jb4 20:30 IV: 100ml; Total: 600ml. jb4 22:29 IV: 406ml; Total: 1006ml. jb4 Outcome: 18:31 Discharge ordered by . demetra 21:57 Discharge ordered by . maMariaelena 22:28 Discharged to home ambulatory. jb4 22:28 Condition: stable 22:28 Discharge instructions given to patient, Instructed on discharge instructions, follow up and referral plans. medication usage, Demonstrated understanding of instructions, follow-up care, medications, Prescriptions given X 5 22:30 Patient left the ED. jb4 Signatures: Joshua Milner MD MD cha Calderon, Audri, RN RN aa5 Shady Torres RN RN jb4 Francine Lujan Mohammad, MD MD ma2 [place], MyKena 2 Sally Brown RN RN ca1
[2020-06-11 18:58] LABS: Albumin 2.7 g/dL (3.4-5.0); Bilirubin Total 0.3 mg/dL (0.2-1.0)
[2020-06-11 18:59] LABS: Potassium 2.7 mmol/L (3.5-5.1)
[2020-06-11 19:00] LABS: Absolute Lymphocytes (CBC) 3.6 K/uL (0.7-4.9); Basophils % 0.6 % (0-1.3); Hematocrit 33.4 % (36.0-45.0); Lymphocytes % 30.4 % (15.3-44.8); MPV 7.2 fL (7.6-11.3); RBC Red Blood Cell Count 3.75 M/uL (3.86-4.86)
[2020-06-11] MEDS ORDERED: POTASSIUM 25 MEQ EFFERV TAB ONE ×2 (19:37→20:58)
[2020-06-11] MEDS ORDERED: SMZ./TMP. 800/160 MG TABLET ONE (19:38)
[2020-06-11] MEDS ORDERED: KCL 20 MEQ/100 mL IVPB 20 MEQ/100 ML BAG IV ONE (19:38)
[2020-06-11] MEDS ORDERED: NS KCL 20MEQ 1,000 ML IV ONE (19:38)
[2020-06-11] MEDS ORDERED: DOXYCYCLINE 100 MG CAP PO ONE (19:39)
--- NOTE | 2020-06-11 19:45 | RAD REPORT ---
EXAM DESCRIPTION: CT - Abdomen Pelvis Wo Contrast - 06/11/2020 6:52 pm CLINICAL HISTORY: Abdominal pain COMPARISON: May 2020 TECHNIQUE: Computed axial tomography of the abdomen and pelvis was obtained. IV and oral contrast we re not requested. All CT scans are performed using dose optimization technique as appropriate and may include automated exposure control or mA/KV adjustment according to patient size. FINDINGS: The evaluation of solid organs, vessels and bowel is limited secondary to the lack of con trast administration. The liver, spleen, pancreas, adrenals and kidneys appear grossly normal. There is no evidence of diverticulitis. The amount of soft tissue within the vulva region is without significant change from the prior exam. There has been mild improvement in the amount of stranding within subcutaneous fatty tissues. No absc ess noted. Hysterectomy. No ascites. Right iliac stent. Ectatic abdominal aorta Tiny umbilical hernia IMPRESSION: The patient has a known vulva neoplasm. The amount of soft tissue in this region is with out significant change. It is difficult to determine if this all represents postsurgical/radiation ch anges or any residual neoplasm. No acute abnormalities has developed since the prior exam
[2020-06-11] MEDS ORDERED: FENTANYL CITR 100 MCG/2 ML ONE (21:35)
[2020-06-11 21:45] LABS: Potassium 4.4 mmol/L (3.5-5.1)
[2020-06-11 23:17] VITALS: TEMP 97.4
[2020-06-11 23:23] VITALS: BP 136/89; O2SAT 96
--- NOTE | 2020-06-12 06:50 | EKG ---
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
== END 2020-06-11 22:30 | disposition home or self-care (01) ==
LOC: ER 13:33
DX: C51.9 Malignant neoplasm of vulva, unspecified (principal); E87.6 Hypokalemia; D64.9 Anemia, unspecified; I10 Essential (primary) hypertension; Z85.43 Personal history of malignant neoplasm of ovary; Z88.0 Allergy status to penicillin; Z88.1 Allergy status to other antibiotic agents; Z88.3 Allergy status to other anti-infective agents; Z88.5 Allergy status to narcotic agent; Z91.013 Allergy to seafood; Z91.018 Allergy to other foods; Z91.048 Other nonmedicinal substance allergy status
CPT/HCPCS: 93005; 85025; 80048; 36415; 84100; 80053; 74176; J3480 ×2; J3010; J1170; J7040; J7030; J2405; 96361; 96365; 96375; 99284

== ENCOUNTER 2020-06-30 17:51 | Emergency (ER) | payer OTHER ==
--- OUTSIDE RECORDS SUMMARY | 2020-06-30 17:55 | XMS REPORT | Continuity of Care Document ---
:1960 Author Organization [facility] t Address [address] [place] [address] Care Team Providers Name Role Phone Catarina CASTELLON Primary Care Physician SYSTEM, NOT IN Attending Clinician Unavailable Rai PARISH Attending Clinician Doctor Unassigned, Name Attending Clinician Unavailable Marcos SHANKAR, R Attending Clinician Unavailable Bill CASTELLON Attending Clinician Fred CASTELLON Attending Clinician Willie CASTELLON Attending Clinician Tammy CASTELLON Attending Clinician TAMMY Attending Clinician Unavailable Bill CASTELLON Attending Clinician Shea Morales MD Attending Clinician TAMMY Admitting Clinician Unavailable Payers Payer Name Policy Type Policy Effective Date Expiration Date Sour ce Number [facility] [id number] 2020 MD Dowell rson MEDICARE 00:00:00 [facility] MED[facility] MEDICAID DUAL [id number] 21-PresentMedicare Problems Condition Condition Condition Status Onset [...] Clinician clindamy DA [facility]ar 8[facility]02 [place] 00:00: [facility] No Known DA Active [facility] Allergie 6-13 [place] [facility] 00:[facility]: [facility] iodine DA Active [facility] 6- [place] 00:[facility]: [facility] meperidi DA Active [place] [facility] ne 6- [place] 00:00: [facility] penicill DA Active [place] 2017- [facility] in G 6- [place] 00:00: [facility] strawber DA Active [facility] ry 6- [place] 00:00: [facility] ZPAC DA Active [place] 2017- [facility] 6-25 [place] 00:00: [facility] strawber FA Active [facility] ry 6-25 [place] 00:00: [facility] TUNA DA Active [facility] FISH 1-12 [place] 00:00: [facility] Aspirin Propensi Active [place] ty to Methodi adverse st reaction s to drug Iodine Propensi Active [place] ty to Methodi adverse st reaction s to drug [place]peridi [place] [facility] adverse st reaction s to drug Penicill Propensi [place] ty to Methodi adverse st reaction s to drug Social History Social Habit Start Date Stop Date Quantity Comments Source Sex Assigned At MD [facility] on Cigarettes smoked 2020-05-15 2020-05-15 MD Delmer coleman [...] n 42 lidocaine-p Yes Suspected Please rilocaine 05-15 vulva administer And erso (EMLA) 00:00: cancer as needed n 2.5-2.5% 00 for cream comfort doxycycline 2020- No Cellulitis 100mg Take 1 (VIBRAMYCIN 2-12 02-20 capsule Delmer rso ) [...] Procedure Date / Time Performed Performing Clinician [facility] e PATHOLOGY BIOPSY 2020-05-15 18:35:00 Julian Ferro MD INTERPRETATION CT ABDOMEN PELVIS WO CONTRAST 2020-05-15 09:54:00 Mahendra Tapia MD URINALYSIS WITH MICROSCOPIC IF 2020-05-15 09:21:00 Josh Tapia MD INDICATED URINALYSIS MICROSCOPIC 2020-05-15 09:21:00 Kameron Tapia MD URINE CULTURE 2020-05-15 09:21:00 Kameron Tapia MD [...] Tapia MD derson Results CBC 2020-05-15 08:19:00 Kamerno Tapia MD MANUAL DIFFERENTIAL 2020-05-15 08:19:00 Kameron Tapia MD Estuardo zuniga CLOT EXPIRATION DATE 2020-05-15 08:19:00 Kameron Tapia [...] Delmer rschuck CONFIRM ABORH TYPE 2020-05-15 08:19:00 Kameron Tapia MD on ABORH 2020-05-15 08:19:00 Kameron Tapia MD OSI CHEST 2020-05-15 04:04:02 Joshua Milner MD Plan of Care Planned Activity Planned Date Details Comments Source Future Scheduled 2019-11-02 INFLUENZA VACCINE [place] [facility] 00:00:00 [code = INFLUENZA VACCINE] Future Scheduled 2009-12-19 BREAST CANCER [facility]odist Test 00:00:00 SCREENING [code = BREAST CANCER SCREENING] Future Scheduled 2009-12-19 COLONOSCOPY SCREENING [place] [facility] 00:00:00 [code = COLONOSCOPY SCREENING] Future Scheduled 2009-12-19 SHINGLES VACCINES [place] [facility] 00:00:00 (#1) [code = SHINGLES VACCINES (#1)] Future Scheduled 1980-12-19 Screening for [facility] Test 00:00:00 malignant neoplasm of cervix (procedure) [code = 227527416] Future Scheduled 1977-12-19 Hepatitis C screening [place] [facility] 00:00:00 (procedure) [code = 074728682] Future Scheduled 1975 COVID-19 VACCINE (1) [facility] Test 00:00:00 [code = COVID-19 VACCINE (1)] Encounters Start End Encounter Admission Attending Care Care Encounter Source Date/Time Date/Time Type Type Clinicians Facility Department ID 2020-06-01 Outpatient SYSTEM, [facility] [id number] 10:50:13 PROVIDER Ed briggs 2020-06-25 2020-06-26 [place] [facility] .[id number] 21:19:00 00:35:00 Shawn Zhang 350.1.13.10 [place] 4.2.7.2.686 [facility] [id number] 2020-06-25 2020-06-25 Orders Doctor TIM [id number] 00:00:00 00:00:00 Only UnassignedFRANCIA 350.1.13.10 [place] [facility] 4.2.7.2.686 [id number] 2020-05-22 2020-05-22 Telephone MARTHA Khan .[id number] 00:00:00 00:00:00 [facility] 350.1.13.10 [facility] 4.2.7.2.686 [id number] 2020-05-15 2020-05-15 Outpatient [facility] [id number] 22:03:48 22:03:48 Ed briggs 2020-05-15 2020-05-15 Inpatient ER TAMMY, [employer] SUPPORT ENGINEER [id number] 01:39:00 17:04:00 JULIAN Oncology Estuardo so n Results Test Description Test Time Test Comments Results Result Comments Source Blood culture 2020-05-23 00:51:09 Test Item Value Reference Range Interpretation Comme nts Final Report (test code = 8488) No growth Path Review - Bottle/Isolator (test Immunity and antibiotic use may render code = 8499) culture negative. Ongoing infection requires repeat culture.The results have been reviewed and electronically signed by Pathologist:RANDA RAMOS MD #[id number] MO (test code = MO) Short draw may invalidate quantitative blood culture results. MD MilnerUrine [id number] 19:27:30 Test Item Value Reference Range Interpretation Comments Final Report (test code <10,000 cfu/ml Gram A = 8488) Negative Rods...<10,000 cfu/ml Normal site silverio present. Path Review - Urine The results have been A (test code = 8483) reviewed and electronically signed by Pathologist:RANDA RAMOS MD #[id number] Lab Interpretation Abnormal (test code = 28655-9) MD MilnerPathology Biopsy [id number] 15:22:00 Test Item Value Reference Range Interpretation Comments Diagnosis (test code = 34) y1bovGOgPOJwnPI2KsK hDVVnt7kij7NcgOSelG JfHVsoiPDupiRkzp50x JM1qT26CA2pCTWnArC6 XEYjrtU9Aue6FNJjDLO ftFCdO708a7yqz0vaso UwtII8cUyrSXJyTJXeD WluXGZzMjAgQTogQmlv jXK4PLQ6nGx9LXywhIZ yXGxpNzIwXGxpbjcyMC QWAmLGI6cSXXZMIIhFA MCRST5TTFQHHDAFXEgh DRnOPcXTOB0JNOXHJUH lG6QQLK5LQFMlF6OFK7 bIW23BKXHOQOPHRExAN yBUTyBUSVNTVUUgRURH RVMuXHBhclxwYXJkXHR hYiBERVBUSCBPRiBJTl IYQ5zDGpQLGLCLSIZGB LUdTR1vIWPofsadTBUs FAySD0EYBzpiGEB3 Gross Description (test d7ttuMGuZKArtII8WtR code = 7750547029) jNFHzs1mur7VugJVfrV UkBPtfoIKulhTabf63h HS7eP17MB7cKJXjHuY5 ULEeisR1Lqd6KUEjBFB bcFCnT384t6ays2nbyu QseRT2iQxbBXQky2nvW SNluJNwLTN6ALbgzMEw YJKpCGRxCVd0HBYsIQa wqSXyIW9blMbdGxxruN krd9OatOClIWpjZQKcC BJsQJtjSPCtS3QZNCBx NjK3TbXvKFEeLLb7EOg kQ4QDXOJkQTS7EyUhMQ OdChJ2KMl5TPJMCs5nV hP8JTm4UsL1MVN9ZgU7 IFxcdCAyIFxcZmwgXFx mIEFyaWFsIFxcZnMgMT EgETelYjVoLN9bsVpoj GFpblxiXGZzMjAgQTpc xJInAUSxWYIsv2YuqAa wvoWivcE5AFPmAKGLu3 9paFJ6btWiXmKuGOZaa z9hnxO1KZI9dv8zgCEv jQCrGWSpu2grLOT0D0c cgA8fOZOpFHCjiIZlGy 8qOBrpQP33GTwcFV64F GNtLCBzdXJmYWNlIGRp q4XoTLgzRKVzJxYii59 sIGdyYWlueSBsZXNpb2 4gdGhhdCBpcyAwLjcge XClYrSvX42iIMxiN0L2 YLSbAV2oSPUwTIDiy15 ixFpxMO1bJNAog0GjnX JiZ1liRWLzfvyrJVZum HVlOyBlbnRpcmVseSBz fIJmsPC5IPUbpF3iQFX 8GFWooRamEF0czoajiW 2iFLXtCUPnAF72agtaA YWcQZD1VKHghUScvyBu vcMqArC5kWHzc6TxV7v cVH0zi8TcoKHlwZasi1 VjdGlvbmVkLiAgXHByb 4MjY9E1NSGwLOtoy4kc CYOwANcyo4KkVXdNJOK XWQ0VOI8vtQP1QCcSD9 WMN7mGcICrLOS1tKO1N BZLAfvxfMQ2yFG2pA74 BPAfAVTmrPUbMAspB33 6ZMl0RNVwMPpwy9awHT PnZBuvo6OlTZxNZGZCM T4EZO5dkOR1PDaQO5EJ RHwyMTAxNnwxfFVTRVJ 6NSlxwNpxzTu4v3vqtP Vgk9j4KVnsQUS8qIqei MPgzzxxxmQiy6ymrZif k2JcoXZfUP19SBQnpGI sGEE2NU7lvCftDCS0 Disclaimer (test code = o0bkfRTxHXFehEGgLkT 9844) zGYLlNEUtb5xvVUQarF FuZzEwMzNcZnRuYmpcd HEgPAPuErPyt5hqd481 nXCqh6dyDFQkNtH0gQU eVMWroBNiM625JZJqQA fxl9hyz3KeBBMtnEBdd 9P1UTTFkbitbLt1yUxr W65dk6R7CvhsQ5yzFJW hHYCnK4OrSS6cBLMoWd x3CYW3NYS4KJDmDAUjF 6CpJF0wELRkkOMsNEy1 z2hwyFxjRRXhFCJ9x0b cHYliirErWO6edw0wiD t8n8fhcbNtQZKjDHAec AROFYUaU9SiaOslZd5y uXm8iVtxLapgRVW7Bha 0ZR8rsa40xcd2vTsuBY XqwfweVvG6MUcqMIJxx wguTRj9AVlbJKNalEG8 BDUzfHPaE5UaTNTlMK3 bcyg7BFA7ZOvuALNbUo S2UUUjgWPoIGEyjDgaM Obfd585RZI3FiXvAX2n L8Fsb7W3yT1dxDHoJSO rvLZoIeBvAEMnjj9xgU FxGGexg3NsOWH4rkA5g QVioNXvZRDwUZ37Kbbg n4EpMhkbSBU3KTAuoxX az8Vca0xuXpOzezMfU4 isT7PqXGEmZEApMAAzO dGrbwNpu9Wej2ItfWVa rIn6e4qoBPHzZOWrsEc sv0mmZMJ5GCHrD0F6dK Yna8oaKUsgEXChgJB1f hS0AEMzoJGlH7AziB0r OBMvDN3uzvu1g8yeKVN 6DWmnBBKwQwQ3piU0CQ BcaGVhZGVyeTcyMFxmb 687PQI6XtAcJWFzy3Uv C0FwtWezA20puNspC69 gCZJidOftjU8pzZlsiY 5cZjBcZnMyNFxxbFxwb EUxrsfvNNhlagJ4QWey ijkzQGMyAUvsG8fiFgL rHIPucRqaJDtqt4UaYC UnXQLqOztqoxF0GPXNg 06qNFYgj0XoUJFuhY5u dMBcYVhpogHsbRH6HOn hdmUgYmVlbiBkZXZlbG 3nPNEfUM2lFNJdpoZvy a1lbxDpQVRqUKMnY5Wy cmlzdGljcyBkZXRlcm1 gwpQjFZB3XPAPQI9IOD PvIBSox97sRWGjhCtax M4hoXWhihBhYCCpp7Dy fG8vtQFPNNFpD3qkBL4 eOHpks8PrhCBujWCwbO Y2PFRha1QcEiBuniQru LMdcBGtT7UcpJncS8ni NIBnSVXbntJtfFBew5H hJHVyhWA7vGApXW5DHy CCi16lMLFwEXBItkZeN WKueWctaRB4jfC9sK5c LiBJZiBhcHBsaWNhYmx eIJNhs305ha7dekF9BI WuOZBwnteew1UzFPDcI UZwaF10TMXkGPFxaw9f xfyqhACxemOkL3Ihgqh 4uS7oQFXdEYlvFDCxKI ZzMjJcbGFuZzEwMzNca GljaFxmMVxkYmNoXGYx IBxyI0lsHfKvCcTcZym wYXJ9 MD MilnerOSI [id number] 04:04:09Study acquired at another institution. For comparison only. No MD Milner originated interpretationrequested or available.MD MilnerCT Abdomen Pelvis without IV Xeakmkks8898-28-71 16:14:151. Fungating soft tissue vulvar mass with [...] present, and agree with the final report.MD Richter Interpretation Antibody Screen Drjfejif9309-35-26 15:41:44 Test Item Value Reference Range Interpretation Comments TMP Auto Neg At the present ABSC Interp time, patient (test code = plasma shows no REJI 7535) evidence of RBC LERNER alloantibodies. So SAN paramjit by: REJI SAN,Dictated Date/Time: 05.15.2020 9:41 AM WARDROBE MISTRESS Transcrib ed Date/Time: 05.15.2020 9:41 AM CSTElectronical ly Signed By: MITCHELL SAN, on 05.15.2020 9:41 AM Kiya MilnerConfirm [id number] 13:46:54 Test Item Value Reference Range Interpretation Comments ABORh Confirm. (test code = 882-1) O POS AlfAntibody Ompams0867-30-16 13:33:05 Test Item Value Reference Range Interpretation Comments ABSC. (test code = 890-4) Negative ABSC MD MilnerNdfecuaiVOBKd4573-30-73 13:33:04 Test Item Value Reference Range Interpretation Comments ABORh. (test code = 882-1) O POS MD MilnerClot Expiration [id number] 13:32:35 Test Item Value Reference Range Interpretation Comments T & S Expiration (test code = 05/18/2020 5318) MD MilnerUrinalysis with Oaziadlbyda5649-22-31 11:06:23 Test Item Value Reference Interpretation Comments [...] implementation of new instrumentation in the Main [facility], allowing greater sensitivity of measurement. Urinalysis results reported by the [facility] using existing instrumentation, as well as Urinalysis testing performed manually or by backup methodology at the [facility] will remain relatively unchanged. New reporting parameters and units will now be reported for all campuses. Lab Interpretation Abnormal (test code = 12738-5) MD MilnerUrinalysis w/Microscopic if Vtemsrfaf7181-11-88 10:53:50 Test Item Value Reference Range Interpretation [...] A Lab Interpretation (test code = Abnormal 04629-1) MD MilnerFractionated Xhgkkmsvy1700-78-43 09:23:53 Test Item Value Reference Range Interpretation [...] result as normal/abnormal . MD MilnerGlomerular Filtration [id number] 09:23:52 Test Item Value Reference Range Interpretation [...] failure <15 [Automa paramjit message] The system Simplify generated this result tra nsmitted reference range [...] failure <15 [Automa paramjit message] The system Simplify generated this result tra nsmitted reference range : >=60 mL/min/1.73 sq. m. The reference range was not used to interpret th is result as normal/abnormal . MD MilnerTotal Uhiwkln0706-84-25 09:23:51 Test Item Value Reference Range Interpretation Comments Total Protein (test code = 7649) 7.6 g/dL 6.4-8.3 MD MilnerMagnesium [id number] 09:23:50 Test Item Value Reference Range Interpretation Comments Magnesium (test code = 6359) 2.0 mg/dL 1.6-2.6 MD MilnerPhosphorus [id number] 09:23:49 Test Item Value Reference Range Interpretation Comments Phosphorus (test code = 6817) 4.2 mg/dL 2.5-4.5 MD MilnerAlkaline Afsnhmviibx7234-09-54 09:23:48 Test Item Value Reference Range Interpretation Comments Alk Phos (test code = 4768) 137 U/L 35-104 H Lab Interpretation (test code = Abnormal 46633-5) MD MilnerCalcium Jfsgr2417-05-98 09:23:47 Test Item Value Reference Range Interpretation Comments Calcium Lvl (test code = 5258) 9.0 mg/dL 8.4-10.2 MD MilnerHwpembwhDXS7727-13-05 09:23:46 Test Item Value Reference Range Interpretation Comments ALT (test code = 8 U/L See_Comment [Automated message] The 0925) system which ge nerated this result transmit paramjit reference range : <=33. The reference range was not used to interpr et this result as deepti l/abnormal. MD MilnerAlbumin Pujqj2572-26-25 09:23:45 Test Item Value Reference Range Interpretation Comments Albumin Lvl (test code 3.5 See_Comment [Aut omated message] The = 9260) system which ge nerated this result tra nsmitted reference range : 3.5 - 5.2 gm/dL. The refe rence range was not used to interpret this result as normal/abnormal . MD Milner.Serum Htzkpxwseu2539-87-31 09:23:44 Test Item Value Reference Range Interpretation Comments Creatinine (test code = 5399) 0.88 mg/dL 0.51-0.95 MD MilnerAspartate Upxbkwwrvoqmntlu2693-72-85 09:23:43 Test Item Value Reference Range Interpretation Comments AST (test code = 10 U/L See_Comment [Automated message] The 4941) system which ge nerated this result transmit paramjit reference range : <=32. The reference range was not used to interpr et this result as deepti l/abnormal. MD MilnerAwcdzmgwRBX6859-50-01 09:23:42 Test Item Value Reference Range Interpretation Comments BUN (test code = 5055) 10 mg/dL 6-23 MD MilnerElectrolyte Qxaep0742-08-08 09:23:41 Test Item Value Reference Range Interpretation Comments Sodium Lvl (test code = 139 See_Comment [Au tomated message] The 5332) system which ge nerated this result tra [...] = 104 See_Comment [Auto mated message] The 5270) system which ge nerated this result tra [...] = 12 See_Comment [Aut omated message] The 9311) system which ge nerated this result tra nsmitted reference range : 4 - 14 mEq/L. The refe rence range was not u sed to interpret this result as normal/abnormal . MD MilnerGlucose [id number] 09:23:39 Test Item Value Reference Range Interpretation [...] diabetes Lab Interpretation (test Abnormal code = 10906-8) MD MilnerInfluenza A/B + COVID-19 Asymptomatic- [id number] 09:13:15 Test Item Value Reference Range Interpretation Comments Influenza A (test Not Detected Not Detected code = 31141-2) Influenza B (test Not Detected Not Detected code = 62565-1) COVID19 Not Detected Not Detected (SARS-CoV-2) (test code = 14621-6) COVID19 SARS Inpatient Indication (test Admission code = 24873) Inf AB+Cov19 See Note [facility] [place] SARS- CoV-2 Comment (test & Influenza A/ B code = 99936) nucleic acid t est for use on [...] sheet for patie nts provided by the outreach assistant (Kineta) can be rev iewed at: https://www.fda .gov/m edia/033281/radha nloadA fact sheet for Health Care providers is provided by the outreach assistant (Kineta) and can be reviewed at: https://www.fda .gov/m edia/667351/radha nload Influenza A and Influenza B neg [...] This assay has been authorized by t FDA for use only un fausto Emergency Use Authorization ( EUA) in laboratories that have been CLIA-certified to perform moderate-comple xity and high-comple xity tests. The Microbiology Laboratory at [facility], CLIA Accreditation #[id number] and CAP Accreditation #[id number], verif ied the performance characteristics of this assay. Int ernal controls are us ed to monitor all sta ges of the test destiny MilnerPartial Thromboplastin [id number] 09:04:05 Test Item Value Reference Range Interpretation Comments PTT (test code = 30.1 See_Comment [Automated message] The 9534) system which ge nerated this result transmit paramjit reference range : 24.2 - 36.0 second(s). The reference range was not used to interpr et this result as deepti l/abnormal. MD MilnerProthrombin Time with [id number] 09:04:04 Test Item Value Reference Range Interpretation Comments PT (test code = 6746) 14.5 See_Comment H [Auto mated message] The system Simplify generated this result transmitted ref erence range: 12.0 - 1 4.3 second(s). The reference range was not used to int erpret this result as normal/abnormal . INR (test code = 5973) 1.20 0.90-1.10 H Lab Interpretation (test Abnormal code = 08963-1) MD MilnerZvtofipkRktchhkahqve8031-28-98 08:56:12 Test Item Value Reference Range Interpretation Comments Neutrophil % (test code = 65.3 % 42-66 69260-8) Lymphocyte % (test code = 20.5 % 24-44 L 737-7) Monocyte % (test code = 10.9 % 2-7 H 744-3) Eosinophil % (test code = 2.4 % 1-4 713-8) Basophil % (test code = 0.5 % 0-1 707-0) IGRE % (test code = 0.4 % 0-0.4 IGRE % c ount 63937-6) includes Metamyelocytes, Myelocytes, and Promyelocytes. Neutrophil Abs (test code 9.79 K/uL 1.7-7.3 H = 753-4) Lymphocyte Abs (test code 3.07 K/uL 1-4.8 = 732-8) Monocyte Abs (test code = 1.63 K/uL 0.08-0.7 H 743-5) Eosinophil Abs (test code 0.36 K/uL 0.04-0.4 = 712-0) Basophil Abs (test code = 0.07 K/uL 0-0.1 705-4) IG Abs (test code = 0.06 K/uL 0-0.04 H 76961-5) Lab Interpretation (test Abnormal code = 18023-7) MD Milner.[id number] 08:56:09 Test Item Value Reference Range Interpretation Comments WBC (test code = 15.0 K/uL 4-11 H 6690-2) RBC (test code = 789-8) 3.48 See_Comment L [Au tomated message] The system Simplify generated this result transmitted ref erence range: 4.00 - 5 .50 M/uL. The refer ence range was not u sed to interpret this result as normal/abnor mal. Hgb (test code = 718-7) 10.0 See_Comment L [Au tomated message] The system TandemLaunch generated this result transmitted ref erence range: [...] L [Automate d message] 786-4) The system Simplify generated this result transmitted ref erence range: 31.0 - 3 6.0 gm/dL. The refe rence range was not u sed to interpret this result as normal/abnor mal. RDW-SD (test code = 60.4 fL 35.1-46.3 H 81327-8) RDW-CV (test code = 17.6 % 12-15.5 [...] cell differential. [Automated mess age] The system Simplify generated this result transmitted ref erence range: <=0.0. T he reference range was not used to int erpret this result as normal/abnormal . Lab Interpretation Abnormal (test code = 43052-5) MD Milner- MRI L-SPINE W/O [id number] 09:37:00 FAX: Bella Hannah MD [phone] [facility]: St: [facility] FAX: Apolinar Buchanan MD [phone] Patient Name: JEFRY LOPEZ Unit No: [id number] EXAMS: CPT CODE: [id number] MRI L-SPINE W/O CONT 48552 MRI Lumbar Spine without contrast HISTORY: Back [...] Burgos M.D. 508 Imaging NAME: JEFRY LOPEZ [address] [place] [address] PHYS: LISA Ballesteros Apolinar [place], [place] : 1960 AGE: 58 SEX: F [id number] LOC: SELAM PHONE #: [phone] EXAM DATE: 01/08/2019 STATUS: REG CLI FAX #: [phone] RAD NO: DC Dt: PAGE 1 Signed Report (CONTINUED) FAX: Bella Hannah MD [phone] [facility]: St: REG FAX: Apolinar Buchanan MD [phone] --- Patient Name: JEFRY LOPEZ Unit No: [id number] EXAMS: CPT CODE: [id number] MRI L-SPINE W/O CONT 79827 <Continued> CC: Bella Elmore MD; Apolinar Fields MD Dictated Date/Time: 01/08/2019 (936)Technologist: Low Barillas Transcribed Date/Time: 01/08/2019 (936) By: [email or web address] Orig Print D/T: S: 01/08/2019 (0940) [facility] Imaging NAME: JEFRY LOPEZ [address] [place] [address] PHYS: SHIREENColt Apolinar [place], [place] : 1960 AGE: 58 SEX: F [phone] LOC: S[place] PHONE #: [phone] EXAM DATE: 01/08/2019 STATUS: REG CLI FAX #: [phone] RAD NO: DC Dt: PAGE 2 SignedReportBASIC METABOLIC [id number] 11:35:00 Test Item Value Reference Range Interpretation [...] ENCE RANGE: (test code = CHOLHDL) WINSTON SEYMOUR FEMALE 1/2 AVG RISK 3.4 3 3.27 [...] be fasting before starting thistest? YBASIC METABOLIC [id number] 11:33:00 Test Item Value Reference Range Interpretation [...] be fasting before starting thistest? YPT AND [id number] 11:24:00 Test Item Value Reference Interpretation Comments [...] prevention in p rosthetic heart 3.0-5.4 A [place] mortality reduc tion THROMBOPLASTIN TIME 30.2 SECONDS [...] draw? NANTICOAGULANT THERAPY [Y,N]: UNK CBC W/AUTO [id number] 11:16:00 Test Item Value Reference Range Interpretation [...]
--- NOTE | 2020-06-30 20:16 | EDPHYS ---
Physician Documentation [facility] Name: Milly Cabrera Age: 59 yrs Sex: Female : 1960 Arrival Date: 06/30/2020 Time: 17:55 Bed 8 Private MD: ED Physician Tyrell Montoya HPI: 06/30 20:09 This 59 yrs old Female presents to ER via Ambulatory with complaints of vulva rn pain. 20:09 The patient presents with pelvic pain. Onset: The symptoms/episode began/occurred 3 rn month(s) ago. Modifying factors: The symptoms are alleviated by nothing, the symptoms are aggravated by pressure, urinating. Associated signs and symptoms: Pertinent negatives: diarrhea, fever. Severity of symptoms: At their worst the symptoms were mild, in the emergency department the symptoms are unchanged. The patient has experienced similar episodes in the past. The patient has been recently seen by a physician:. 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 Told to f/u with other doctors. Has not seen [facility] yet. Denies any new symptoms today, reports pain and cancer worsening while she is waiting for therapy. On abx for UTI. . Historical: - Allergies: 18:17 Cephalexin; ll1 18:17 Ciprofloxacin; ll1 18:17 Demerol; ll1 18:17 Iodine; ll1 18:17 Morphine; ll1 18:17 PENICILLINS; ll1 18:17 SHELLFISH; ll1 18:17 Strawberries; ll1 18:17 Zithromax Z-Joon; ll1 - PMHx: 18:17 Endometrosis; neuropathy; ovarian cancer; Hyperlipidemia; Anxiety; acid reflux; ll1 Hypertension; vulvar cancer; - PSHx: 18:17 neck sx; ; Appendectomy; stents; ll1 - Immunization history:: Client reports receiving the 1st dose of the Covid vaccine, Flu vaccine is up to date. - Social history:: Smoking status: Patient denies any tobacco usage or history of. - Family history:: not pertinent. - Hospitalizations: : No recent hospitalization is reported. ROS: 20:09 Positive for vulva pain and mass. rn 20:09 Constitutional: Negative for fever, chills Eyes: Negative for injury, pain, redness, and discharge, Cardiovascular: Negative for chest pain, palpitations, and edema, Respiratory: Negative for shortness of breath, cough, wheezing, and pleuritic chest pain, Abdomen/GI: Negative for abdominal pain, nausea, vomiting, diarrhea, and constipation, Back: Negative for injury and pain, MS/Extremity: Negative for injury and deformity, Neuro: Negative for headache, weakness, numbness, tingling, and seizure. Exam: 20:09 Constitutional: This is a well developed, well nourished patient who is awake, alert, rn and in no acute distress. Head/Face: Normocephalic, atraumatic. Eyes: Periorbital areas with no swelling, redness, or edema. Cardiovascular: Tachycardic, regular. No pulse deficits. Respiratory: No increased work of breathing, no retractions or nasal flaring. Abdomen/GI: soft, non-tender, no masses, no skin discoloration Female : + pedunculated masses of vulva, involving clitoris and labia with subcutaneous firmness, no bleeding. No discharge. MS/ Extremity: Pulses equal, no cyanosis. Neurovascular intact. Full, normal range of motion. Equal circumference. Neuro: Awake and alert, GCS 15, oriented to person, place, time, and situation. Cranial nerves II-XII grossly intact. Motor strength 5/5 in all extremities. Sensory grossly intact. Cerebellar exam normal. Normal gait. Vital Signs: 18:17 BP 119 / 100; Pulse 110; Resp 18; Temp 98.4; Pulse Ox 98% ; Weight 72.57 kg; Height 5 ll1 ft. 5 in. (165.10 cm); Pain 10/10; 20:15 BP 120 / 90; Pulse 99; Resp 18; Pulse Ox 99% on R/A; ea 18:17 Body Mass Index 26.63 (72.57 kg, 165.10 cm) ll1 MDM: 19:55 Patient medically screened. rn 20:13 Differential diagnosis: vulva cancer, chronic pain. Data reviewed: vital signs, nurses rn notes, lab test result(s), urinalysis, and as a result, I will discharge patient. Counseling: I had a detailed discussion with the patient and/or guardian regarding: the historical points, exam findings, and any diagnostic results supporting the discharge/admit diagnosis, lab results, the need for outpatient follow up, to return to the emergency department if symptoms worsen or persist or if there are any questions or concerns that arise at home. Special discussion: I discussed with the patient/guardian in detail that at this point there is no indication for admission to the hospital. It is understood, however, that if the symptoms persist or worsen the patient needs to return immediately for re-evaluation. Based on the history and exam findings, there is no indication for further emergent testing or inpatient evaluation. I discussed with the patient/guardian the need to see the sap data analyst/oncologist for further evaluation of the symptoms. I discussed with the patient/guardian the need to see the OB Gyne specialist for further evaluation of the symptoms. 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 . 06/30 19:37 Order name: Urine Microscopic Only em 06/30 19:38 Order name: Urine Microscopic Only [facility] 06/30 19:38 Order name: Urine Dipstick--Ancillary (enter results) tt3 06/30 19:39 Order name: Urine Dipstick-Ancillary [facility] 06/30 20:14 Order name: Urine Culture rn 06/30 19:38 Order name: Urine Dipstick-Ancillary (obtain specimen); Complete Time: 19:38 tt3 Administered Medications: 20:20 Drug: Dilaudid (HYDROmorphone) 1 mg Route: IM; Site: left deltoid; ea 20:26 Follow up: Response: Medication administered at discharge. ea Disposition: 06/30/20 20:15 Discharged to Home. Impression: Cancer of vulva, Chronic pain, not elsewhere classified. - Condition is Stable. - Discharge Instructions: Chronic Pain. - Medication Reconciliation Form, Thank You Letter, Antibiotic Education, Prescription Opioid Use form. - Follow up: Private Physician; When: As needed; Reason: Recheck today's complaints, Re-evaluation by your physician. - Problem is new. - Symptoms have improved. Signatures: Dispatcher [employer] Tyrell Shah MD MD rn Antunez, Elena, RN RN ea Lewis, Lynsay, RN RN ll1 Teja Hawthorne tt3 Corrections: (The following items were deleted from the chart) 20:26 20:15 06/30/2020 20:15 Discharged to Home. Impression: Cancer of vulva; Chronic pain, ea not elsewhere classified. Condition is Stable. Forms are Medication Reconciliation Form, Thank You Letter, Antibiotic Education, Prescription Opioid Use. Follow up: Private Physician; When: As needed; Reason: Recheck today's complaints, Re-evaluation by your physician. Problem is new. Symptoms have improved. rn
--- NOTE | 2020-06-30 20:16 | ER ---
Nurse's Notes [facility] Name: Milly Cabrera Age: 59 yrs Sex: Female : 1960 Arrival Date: 06/30/2020 Time: 17:55 Bed 8 Private MD: Diagnosis: Cancer of vulva;Chronic pain, not elsewhere classified Presentation: 06/30 18:17 Chief complaint: Patient states: Vulva CA diagnosed 3 months ago. Cannot get into a CA ll1 specialist for 3 months. Site is getting bigger, more painful, and has a foul odor again.. Coronavirus screen: Client denies travel out of the [place] in the last 14 days. At this time, the client does not indicate any symptoms associated with coronavirus-19. Ebola Screen: Patient denies travel to an Ebola-affected area in the 21 days before illness onset. Initial Sepsis Screen: Does the patient meet any 2 criteria? HR > 90 bpm. No. Patient's initial sepsis screen is negative. Does the patient have a suspected source of infection? Yes: Other: vulva CA. Risk Assessment: Do you want to hurt yourself or someone else? Patient reports no desire to harm self or others. Onset of symptoms was April 03, 2020. 18:17 Method Of Arrival: Ambulatory ll1 18:17 Acuity: DAMON 3 ll1 Historical: - Allergies: 18:17 Cephalexin; ll1 18:17 Ciprofloxacin; ll1 18:17 Demerol; ll1 18:17 Iodine; ll1 18:17 Morphine; ll1 18:17 PENICILLINS; ll1 18:17 SHELLFISH; ll1 18:17 Strawberries; ll1 18:17 Zithromax Z-Joon; ll1 - PMHx: 18:17 Endometrosis; neuropathy; ovarian cancer; Hyperlipidemia; Anxiety; acid reflux; ll1 Hypertension; vulvar cancer; - PSHx: 18:17 neck sx; ; Appendectomy; stents; ll1 - Immunization history:: Client reports receiving the 1st dose of the Covid vaccine, Flu vaccine is up to date. - Social history:: Smoking status: Patient denies any tobacco usage or history of. - Family history:: not pertinent. - Hospitalizations: : No recent hospitalization is reported. Screenin:15 Abuse screen: Denies threats or abuse. Nutritional screening: No deficits noted. ea Tuberculosis screening: No symptoms or risk factors identified. Fall Risk None identified. Assessment: 20:15 General: Appears in no apparent distress. Pain: Complains of pain in abdomen. Neuro: ea Level of Consciousness is awake, alert, obeys commands, Oriented to person, place, time. Respiratory: Airway is patent Respiratory effort is even, unlabored, Respiratory pattern is regular, symmetrical. Derm: Skin is pink, warm \T\ dry. Vital Signs: 18:17 BP 119 / 100; Pulse 110; Resp 18; Temp 98.4; Pulse Ox 98% ; Weight 72.57 kg; Height 5 ll1 ft. 5 in. (165.10 cm); Pain 10/10; 20:15 BP 120 / 90; Pulse 99; Resp 18; Pulse Ox 99% on R/A; ea 18:17 Body Mass Index 26.63 (72.57 kg, 165.10 cm) ll1 ED Course: 17:55 Patient arrived in ED. mr 18:17 Arm band placed on. ll1 18:19 Triage completed. ll1 19:39 Urine Microscopic Only Sent. tt3 19:50 Chris Brown, RN is Primary Nurse. 19:55 Tyrell Montoya MD is Attending Physician. rn 20:24 Patient has correct armband on for positive identification. Bed in low position. Call ea light in reach. Side rails up X2. 20:25 No provider procedures requiring assistance completed. Patient did not have IV access ea during this emergency room visit. Administered Medications: 20:20 Drug: Dilaudid (HYDROmorphone) 1 mg Route: IM; Site: left deltoid; ea 20:26 Follow up: Response: Medication administered at discharge. ea Outcome: 20:15 Discharge ordered by . rn 20:25 Discharged to home ambulatory. ea 20:25 Condition: stable 20:25 Discharge instructions given to patient, Instructed on discharge instructions, follow up and referral plans. Demonstrated understanding of instructions, follow-up care. 20:26 Patient left the ED. ea Signatures: Chris Brown, RAAD eubanks Chata Ashby Tyrell Montoya MD MD rn Antunez, Elena, RN RN ea Lewis, Lynsay, RN RN 1 Teja Hawthorne tt3
[2020-06-30 20:23] LABS: Urine Bacteria <20 /HPF (<20)
[2020-06-30] MEDS ORDERED: HYDROMORPHONE HCL 1 MG/ML INJ ONE (20:37)
[2020-06-30 20:40] VITALS: TEMP 98.4
[2020-06-30 20:41] VITALS: BP 120/90; O2SAT 99
[2020-06-30 21:19] LABS: Urine Blood 2+ (Negative); Urine Glucose NEGATIVE (Negative); Urine Protein 1+ (Negative); Urine Specific Gravity 1.025 (1.005-1.030); Urine pH 6.5 (5.0-7.0)
== END 2020-06-30 20:26 | disposition home or self-care (01) ==
LOC: ER 17:51
DX: C51.9 Malignant neoplasm of vulva, unspecified (principal); G89.29 Other chronic pain; I10 Essential (primary) hypertension; Z85.43 Personal history of malignant neoplasm of ovary; Z88.0 Allergy status to penicillin; Z88.1 Allergy status to other antibiotic agents; Z88.5 Allergy status to narcotic agent; Z91.013 Allergy to seafood; Z91.018 Allergy to other foods; Z91.048 Other nonmedicinal substance allergy status
CPT/HCPCS: 87088; 87086; J1170; 81003; 81015; 87077; 87186; 96372; 99283

== ENCOUNTER 2020-07-07 14:18 | Emergency (ER) | payer OTHER ==
--- OUTSIDE RECORDS SUMMARY | 2020-07-07 14:23 | XMS REPORT | Continuity of Care Document ---
:[address] [facility] t Address [address] [place] [address] Care Team Providers Name Role Phone SYSTEM, NOT IN Attending Clinician Unavailable Rai [...] Effective Date Expiration Date Sour ce Number [facility] [id number] 2020 MD Dowell rson MEDICARE 00:00:00 [facility] MEDICARE MEDICAID DUAL [id number] 21-PresentMedicare Problems Condition Condition Condition Status Onset [...] DA Active U 2018- [facility] jomar 8- [facility] 00:00: [facility] No Known DA Active U 0 [facility] Allergie 6-13 [facility] s 00:00: [facility] iodine DA Active SV [facility] 6- [facility] 00:00: [facility] meperidi DA Active [place] 2017-0 [facility] ne 6- [facility] 00:00: [facility] penicill DA Active [place] 2017- [facility] in G 6-25 [facility] 00:00: [facility] strawber DA Active SV 2017-0 [facility] ry 6-25 [facility] 00:00: [facility] ZPAC DA Active [place] 2017-0 [facility] 6-25 [facility] 00:00: [facility] strawber FA Active SV 2017- [facility] ry 6- [facility] 00:00: [facility] TUNA DA Active SV [facility] FISH 1-12 [facility] 00:00: a 00 [facility] Social History Social Habit Start Date Stop [...] n 2.5-2.5% 00 for cream comfort doxycycline 202- No Cellulitis 100mg Take 1 MD (VIBRAMYCIN [...] Body height 2020-05-15 11:19:42 164 cm MD Marte son Body weight 2020-05-15 11:19:42 79.7 kg MD Marte son BMI 2020-05-15 11:19:42 29.63 kg/m2 MD Estuardo zuniga Procedures Procedure Date / Time Performed Performing Clinician [facility] e PATHOLOGY BIOPSY 2020-05-15 18:35:00 Julian Ferro MD son INTERPRETATION CT ABDOMEN PELVIS WO CONTRAST 2020-05-15 09:54:00 Mahendra Tapia MD URINALYSIS WITH MICROSCOPIC IF 2020-05-15 09:21:00 Josh Tapia MD INDICATED URINALYSIS MICROSCOPIC 2020-05-15 09:21:00 Kameron Tapia MDson URINE CULTURE 2020-05-15 09:21:00 Kameron Tapia MD ANTIBODY SCREEN 2020-05-15 08:19:00 Kameron Tapia MD GLUCOSE LEVEL 2020-05-15 08:19:00 Kameron Tapia MD BLOOD UREA NITROGEN 2020-05-15 08:19:00 Kameron Tapia MD Estuardo nadia ELECTROLYTE PANEL 2020-05-15 08:19:00 Kameron Tapia MD SERUM CREATININE 2020-05-15 08:19:00 Kameron Tapia MD .GLOMERULAR FILTRATION RATE 2020-05-15 08:19:00 Kameron Tapia MD CALCIUM LEVEL TOTAL 2020-05-15 08:19:00 Kameron Tapia MD Estuardo zuniga ALBUMIN LEVEL 2020-05-15 08:19:00 Kameron Tapia MD ALKALINE PHOSPHATASE 2020-05-15 08:19:00 Kameron Tapia MD ALANINE AMINOTRANSFERASE 2020-05-15 08:19:00 Kameron Tapia MD ASPARTATE AMINOTRANSFERASE 2020-05-15 08:19:00 Kameron Tapia TOTAL PROTEIN 2020-05-15 08:19:00 Kameron Tapia MD FRACTIONATED BILIRUBIN 2020-05-15 08:19:00 Kameron Tapia MDson Results CBC 2020-05-15 08:19:00 Kameron Tapia MD MANUAL DIFFERENTIAL 2020-05-15 08:19:00 Kameron Tapia MD Estuardocallie zuniga CLOT EXPIRATION DATE 2020-05-15 08:19:00 Kameron [...] 2020-05-15 08:19:00 Kameron Tapia MD Ed on ABORH 2020-05-15 08:19:00 Kameron Tapia MD OSI CHEST 2020-05-15 04:04:02 Joshua Milner MD Encounters Start End Encounter Admission Attending Care Care Encounter Source Date/Time Date/Time Type Type Clinicians Facility Department ID 2020-06-01 Outpatient SYSTEM, [facility] [id number] 10:50:13 PROVIDER Ed briggs 2020-06-25 2020-06-[facility] 1..840.114 [id number] 21:19:00 00:35:00 Shawn Zhang 350.1.13.10 [place] 4.2.7.2.686 [place] [id number] 2020-06-25 2020-06-25 Orders Doctor TIM 1..840.114 [id number] 00:00:00 00:00:00 Only Unassigned, FRANCIA 350.1.13.10 [place] [facility] 4.2.7.2.686 [id number] 2020-05-22 2020-05-22 Telephone MARTHA Khan 1.2.840.11 [id number] 00:00:00 00:00:00 [facility], 1928–1983 350.1.13.10 [facility] 42.7.2.686 [id number] 2020-05-15 2020-05-15 Outpatient [facility] [id number] 22:03:48 22:03:48 Ed briggs 2020-05-15 2020-05-15 Inpatient ER TAMMY, MILTON 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 MD MilnerUrine [id number] 19:27:30 Test Item Value Reference Range Interpretation Comments Final Report (test code <10,000 cfu/ml Gram A = 8488) Negative Rods...<10,000 cfu/ml Normal site silverio present. Path Review - Urine The results have been A (test code = 8483) reviewed and electronically signed by Pathologist:RANDA RAMOS MD #[id number] Lab Interpretation Abnormal (test code = 61262-2) MD MilnerPathology Biopsy Watwkgyrnhqaer4756-28-31 15:22:00 Test Item Value Reference Range Interpretation Comments Diagnosis (test code = 34) q0pkrMIxRIIopNX1AgF iJTKof3imq3CtmTDbsJ OuNXfkcXDyhuHwwe51i TT4uF18WD5aROPiYqG1 RUAjirR4Jqx5EPQjWMM acSRaY954d9ytf2ioox NfvYQ9cJllSXFrBNPsF WluXGZzMjAgQTogQmlv aPK9DKL4hGm4KUrufSL yXGxpNzIwXGxpbjcyMC YKNdHLD2eKIEVDHIqDD UKIMW1GGWVQNIFZCPgv PHmEFmVQWA3HRRDSKGH yN8VDPK1XZBJsV0TWS9 cUH17SVNKLLBZSQGuZA yBUTyBUSVNTVUUgRURH RVMuXHBhclxwYXJkXHR hYiBERVBUSCBPRiBJTl FJF7lGQgZKSVQHGSCEG EGdIT2fNDYkjmruGOGk KDaHR9VJZhpwFCQ9 Gross Description (test v6lcbVIoVZWvgVC2JdB code = 5618831760) sVAMpz2bwj0FrlDLsnU UoDSceuKHrseGknw51n EQ6rT06MH2qMVUcKiT8 HTOzjuY3Wzb2YZFeBAJ yvMUfK715h0fvt7tteh RqcXI6xXubUCXto4deU EPiiOMpRZO5OXigvORt VAKeOCSvTNx3SRCnCJd uyMKbKH4adDnbFkdzvW myc2NhyFNuCHhwKIZxS FYwMGcfPBKcV6CKHICh TuE4VeXyWKFiRWz8JKp gE9PRHBOtRQS1LwOzTQ RaHyS2YTe7EGQZZk7jQ uY9XNj0XzW4OOP7OcH6 IFxcdCAyIFxcZmwgXFx mIEFyaWFsIFxcZnMgMT QnQIzmOfVuWE5rjDxih GFpblxiXGZzMjAgQTpc oAAkRLZcYRLjt5SydBe ageYtmcJ9KMJiVOYLy0 0thKX6enTfSdFfLLLgg x9jnmV5PRA2sk8hiXNv eFQsIYFje1lbIJO1K1a hlB9kLJDmLJNmaFMbGu 9pQLgiFP99IXcuCO67P GNtLCBzdXJmYWNlIGRp w3WeWHpzSQBySwCda46 sIGdyYWlueSBsZXNpb2 4gdGhhdCBpcyAwLjcge JKaTyKcN62fWUjbC8A5 HFGjVW3wNDFfISKrt30 gcVllQG6bWOUeu0PlsH NdM4yeWRYbjbdbEIMkp HVlOyBlbnRpcmVseSBz mLXfyPI2XIKmtW4xNOW 3TLTlwVzxSX2xushnzK 8rYZQrDGQtXZ39mfmuY JHrWPZ1AKWuyWQeylVk acUdPvU2sATko8MeD3g bKD5uz8TdnQSdpZivu0 VjdGlvbmVkLiAgXHByb 9KoD6G5UDZsCDboc9yp PSRmZMtxu1LzXEcKOQE KAQ9FVZ6ecEP0YLdCZ8 VCV0eTaORzDPY6fWI2M EYVAbkobUJ8zJO4fB59 FPAgUYFblBUxUWqrY02 2OCz6FSFzHPumi2eaZO WdLLmer6QwNRfBVNRAB M3VYM2yaIU8MJpYQ1VW RHwyMTAxNnwxfFVTRVJ 7CFxhfGgpvVq3m5oapR Hfq9f3INndZQG3mBqnd AHpnaqcfyApi3uhrSie l6RysLElBC00CYTcnTE rRCR6HU6rlGfdSOY4 Disclaimer (test code = g4zwhKZnJRBqcHHmQpS 9844) oXLHuSZAej1sgVRTkcI FuZzEwMzNcZnRuYmpcd EEgTUEsZpLbg8qbs423 cWAib4veSEKnHiE4fWY gPPUhoZKrC197KJZvGH boe8ogq9KnQJTftUQuk 5Q2BYZYexljrBd3aBbh U90zj8J8YhrsO3biUXR lZLAnN4KcUJ5sDUThMe m4ZCJ8MVA3HMKiLPXcW 5RhLN0dNSGlgDWbCOg6 h4hfvKglSAObVWQ0g5t bJUsbjpXzHP3wev7chJ s1y2purtXsRBIaFQXpg NWVUYBwW6KhdWzhJi0x tWg5nQzzJojzGZN7Oht 7MY2jfb55cuz7yPxyQK PnrngjRxN9ZRdnCSTfx nvwNWs5FFjbHYRseRV2 XRHbiZGiR7JvGJFyAG2 fqod9KOM2RNtrPJBqOx M8PDSouKSbDAUadHcpZ Xxfu239PYF4WfUkHK1v W3Oxv8L4oL3dfQOwVNQ mgUIoIlTbRLJhzu4yyW DaPImbd8LsLKK8qgY7x UNhpMBbVSThZT86Bzkp o5GyQkkiEVG3AHCiiuH ba1Bgf3qoTuIjxdJqP0 scI2TzWDIjFFOlISMzD nVgucRur1Krw3BchLLc bRx0e3rcJCAeKZCjpIp tc0jhFUZ6JWBmQ0J6mP Yju5qxAInrMGVluIO3z xW2SWRuxPSoL2WpkK8c OGXpWN6uaad5v0fpYSE 7CQmhFBEwKpR7idE5BV BcaGVhZGVyeTcyMFxmb 783ZZS8NgXwFWRbq3Oj O6WxwUdaA20wsMvuE73 vUOFchOtpoI5xoYrmaE 5cZjBcZnMyNFxxbFxwb ZRkrarbIPsfdhI8DEek kghyTACjHQooC1ibIcX pJBVryFnzJMuxu8CjCZ CpEAGjPmehueT1BBNFb 58nDVCqz0UmSYVreX7o mSZjLGyiwgZswCX4JIv hdmUgYmVlbiBkZXZlbG 3kKSLzMQ2fCBAbgaZqr o5kugIiSRAkICBjL3Kd cmlzdGljcyBkZXRlcm1 hcpSxPIT7PEUHKU1LKV ClDRPjy74eNNClgEwzh W7mvHNpdvDsKGSjj7Op hU3tbJPFURFwY2aiJY3 tXAcyo2XepRKjfZTneB N6LXUns6IpHqQtvhQer XZrfLZrD4JrfDmcD9pd FNMsBROhhwWejZMmf4C aIVDlrZL4gELmHC4WPm RGi09hYYSuQUOTotOoT VRjcWzbeNF5rmE1sJ1y LiBJZiBhcHBsaWNhYmx zMBVyk831jm7erwO1MU QrLFWxuoxzi0BjGOAmH QHypV28THOxUZZgxf6x vezpkDWhpoAlE0Nrvdu 7oE1tMKUxPShbCZRgOD ZzMjJcbGFuZzEwMzNca GljaFxmMVxkYmNoXGYx LNfnJ4cxLsIrFpScNkf wYXJ9 MD MilnerOSI [id number] 04:04:09Study acquired at another institution. For comparison only. No MD Milner originated interpretationrequested or available.MD MilnerCT Abdomen Pelvis without IV [id number] 16:14:151. Fungating soft tissue vulvar mass with [...] the final report.MD MilnerTMP Interpretation Antibody Screen Ilpiqpfw7393-51-44 15:41:44 Test Item Value Reference Range Interpretation Comments TMP Auto Neg At the present ABSC Interp time, patient (test code = plasma shows no REJI 7535) evidence of RBC LERNER alloantibodies. 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 (test code = 882-1) O POS MD MilnerAntibody [id number] 13:33:05 Test Item Value Reference Range Interpretation Comments ABSC. (test code = 890-4) Negative ABSC DaunrrloVUOJw3480-73-59 13:33:04 Test Item Value Reference Range Interpretation Comments ABORh. (test code = 882-1) O POS AlfClot Expiration [id number] 13:32:35 Test Item Value Reference Range Interpretation Comments T & S Expiration (test code = 05/18/2020 5318) MD MilnerUrinalysis with Ythseuiueoc4419-34-40 11:06:23 Test Item Value Reference Interpretation Comments [...] implementation of new instrumentation in the [facility] [place], allowing greater sensitivity of measurement. Urinalysis results reported by the [facility] using existing instrumentation, as well as Urinalysis testing performed manually or by backup methodology at the [facility] [place] will remain relatively unchanged. New reporting parameters and units will now be reported for all campuses. Lab Interpretation Abnormal (test code = 91897-6) MD MilnerUrinalysis w/Microscopic if Qbpopwzxo7041-24-59 10:53:50 Test Item Value Reference Range Interpretation [...] A Lab Interpretation (test code = Abnormal 09361-7) MD MilnerFractionated Lbkbqneiy3329-38-46 09:23:53 Test Item Value Reference Range Interpretation [...] result as normal/abnormal . MD MilnerGlomerular Filtration [id number] 09:23:52 Test Item Value Reference Range Interpretation [...] failure <15 [Automa paramjit message] The system Fetch It generated this result tra nsmitted reference range [...] failure <15 [Automa paramjit message] The system Fetch It generated this result tra nsmitted reference range : >=60 mL/min/1.73 sq. m. The reference range was not used to interpret th is result as normal/abnormal . MD MilnerTotal Vhcdsql2934-04-78 09:23:51 Test Item Value Reference Range Interpretation Comments Total Protein (test code = 7649) 7.6 g/dL 6.4-8.3 MD MilnerMagnesium [id number] 09:23:50 Test Item Value Reference Range Interpretation Comments Magnesium (test code = 6359) 2.0 mg/dL 1.6-2.6 MD MilnerPhosphorus [id number] 09:23:49 Test Item Value Reference Range Interpretation Comments Phosphorus (test code = 6817) 4.2 mg/dL 2.5-4.5 MD MilnerAlkaline Zckaognknef3163-36-27 09:23:48 Test Item Value Reference Range Interpretation Comments Alk Phos (test code = 4768) 137 U/L 35-104 H Lab Interpretation (test code = Abnormal 58524-1) MD MilnerCalcium Ibquq8334-01-87 09:23:47 Test Item Value Reference Range Interpretation Comments Calcium Lvl (test code = 5258) 9.0 mg/dL 8.4-10.2 MD MilnerIucsdpvvFWY4780-95-19 09:23:46 Test Item Value Reference Range Interpretation Comments ALT (test code = 8 U/L See_Comment [Automated message] The 4705) system which ge nerated this result transmit paramjit reference range : <=33. The reference range was not used to interpr et this result as deepti l/abnormal. MD MilnerAlbumin Gxkpn8757-02-10 09:23:45 Test Item Value Reference Range Interpretation Comments Albumin Lvl (test code 3.5 See_Comment [Aut omated message] The = 8609) system which ge nerated this result tra nsmitted reference range : 3.5 - 5.2 gm/dL. The refe rence range was not used to interpret this result as normal/abnormal . MD Milner.Serum Megdebcoip8245-56-94 09:23:44 Test Item Value Reference Range Interpretation Comments Creatinine (test code = 5399) 0.88 mg/dL 0.51-0.95 MD MilnerAspartate Cffvehmkdffjvhpl4391-71-43 09:23:43 Test Item Value Reference Range Interpretation Comments AST (test code = 10 U/L See_Comment [Automated message] The 4731) system which ge nerated this result transmit paramjit reference range : <=32. The reference range was not used to interpr et this result as deepti l/abnormal. MD MilnerMruyhpkrUOZ2184-42-00 09:23:42 Test Item Value Reference Range Interpretation Comments BUN (test code = 5055) 10 mg/dL 6-23 MD MilnerElectrolyte Pdnfk4680-72-91 09:23:41 Test Item Value Reference Range Interpretation Comments Sodium Lvl (test code = 139 See_Comment [Au tomated message] The 9039) system which ge nerated this result tra [...] = 12 See_Comment [Aut omated message] The 9375) system which ge nerated this result tra nsmitted reference range : 4 - 14 mEq/L. The refe rence range was not u sed to interpret this result as normal/abnormal . MD MilnerGlucose [id number] 09:23:39 Test Item Value Reference Range Interpretation [...] diabetes Lab Interpretation (test Abnormal code = 56370-9) MD MilnerInfluenza A/B + COVID-19 Asymptomatic- [id number] 09:13:15 Test Item Value Reference Range Interpretation Comments Influenza A (test Not Detected Not Detected code = 36532-0) Influenza B (test Not Detected Not Detected code = 66525-3) COVID19 Not Detected Not Detected (SARS-CoV-2) (test code = 83054-2) COVID19 SARS Inpatient Indication (test Admission code = 77897) Inf AB+Cov19 See Note The [place] SARS- CoV-2 Comment (test & Influenza A/ B code = 81772) nucleic acid t est for use on [...] sheet for patie nts provided by the street sweeper operator ([employer]) can be rev iewed at: https://www.Just around Us .gov/ edia/873849/radha nloadA fact sheet for Health Care providers is provided by the street sweeper operator ([employer]) and can be reviewed at: https://www.fda .gov/m edia/065597/radha nload Influenza A and Influenza B neg [...] This assay has been authorized [facility] for use only un fausto Emergency Use Authorization ( EUA) in laboratories that have been CLIA-certified to perform moderate-comple xity and high-comple xity tests. The Microbiology Laboratory at [facility], CLIA Accreditation #[id number] and CAP Accreditation #[id number], verif ied the performance characteristics of this assay. Int ernal controls are us ed to monitor all sta ges of the test proces s. MD MilnerPartial Thromboplastin [id number] 09:04:05 Test Item Value Reference Range Interpretation Comments PTT (test code = 30.1 See_Comment [Automated message] The 5658) system which ge nerated this result transmit paramjit reference range : 24.2 - 36.0 second(s). The reference range was not used to interpr et this result as deepti l/abnormal. MD MilnerProthrombin Time with [id number] 09:04:04 Test Item Value Reference Range Interpretation Comments PT (test code = 6746) 14.5 See_Comment H [Auto mated message] The system Fetch It generated this result transmitted ref erence range: 12.0 - 1 4.3 second(s). The reference range was not used to int erpret this result as normal/abnormal . INR (test code = 5973) 1.20 0.90-1.10 H Lab Interpretation (test Abnormal code = 10475-1) MD MilnerQaweejjhEbofqhfhdkeu2433-07-58 08:56:12 Test Item Value Reference Range Interpretation Comments Neutrophil % (test code = 65.3 % 42-66 31504-6) Lymphocyte % (test code = 20.5 % 24-44 L 737-7) Monocyte % (test code = 10.9 % 2-7 H 744-3) Eosinophil % (test code = 2.4 % 1-4 713-8) Basophil % (test code = 0.5 % 0-1 707-0) IGRE % (test code = 0.4 % 0-0.4 IGRE % c ount 82563-2) includes Metamyelocytes, Myelocytes, and Promyelocytes. Neutrophil Abs (test code 9.79 K/uL 1.7-7.3 H = 753-4) Lymphocyte Abs (test code 3.07 K/uL 1-4.8 = 732-8) Monocyte Abs (test code = 1.63 K/uL 0.08-0.7 H 743-5) Eosinophil Abs (test code 0.36 K/uL 0.04-0.4 = 712-0) Basophil Abs (test code = 0.07 K/uL 0-0.1 705-4) IG Abs (test code = 0.06 K/uL 0-0.04 H 24016-2) Lab Interpretation (test Abnormal code = 32188-2) MD Milner.[id number] 08:56:09 Test Item Value Reference Range Interpretation Comments WBC (test code = 15.0 K/uL 4-11 H 6690-2) RBC (test code = 789-8) 3.48 See_Comment L [Au tomated message] The system Fetch It generated this result transmitted ref erence range: 4.00 - 5 .50 M/uL. The refer ence range was not u sed to interpret this result as normal/abnor mal. Hgb (test code = 718-7) 10.0 See_Comment L [Au tomated message] The system Fetch It generated this result transmitted ref erence range: [...] L [Automate d message] 786-4) The system Fetch It generated this result transmitted ref erence range: 31.0 - 3 6.0 gm/dL. The refe rence range was not u sed to interpret this result as normal/abnor mal. RDW-SD (test code = 60.4 fL 35.1-46.3 H 42585-4) RDW-CV (test code = 17.6 % 12-15.5 [...] cell differential. [Automated mess age] The system Fetch It generated this result transmitted ref erence range: <=0.0. T he reference range was not used to int erpret this result as normal/abnormal . Lab Interpretation Abnormal (test code = 59185-1) MD Milner- MRI L-SPINE W/O [id number] 09:37:00 FAX: Bella Hannah MD [phone] [place]: St: REG FAX: Apolinar Buchanan MD [phone] Patient Name: JEFRY LOPEZ Guy Unit No: [id number] EXAMS: CPT CODE: [id number] MRI L-SPINE W/O CONT 56093 MRI Lumbar Spine without contrast HISTORY: Back [...] Burgos M.D. [facility] NAME: JEFRY LOPEZ [address] [place] [address] PHYS: LISA Apolinar Fields[place], [place] : 1960 AGE: 58 SEX: F [phone] LOC: SELAM PHONE #: [phone] EXAM DATE: 01/08/2019 STATUS: REG CLI FAX #: [phone] RAD NO: DC Dt: PAGE 1 Signed Report (CONTINUED) FAX: Bella Hannah MD [phone] [place]: St: REG FAX: Apolinar Buchanan MD [phone] --- Patient Name: JEFRY LOPEZ Unit No: [id number] EXAMS: CPT CODE: [id number] MRI L-SPINE W/O CONT 57414 <Continued> CC: Bella Elmore MD; Apolinar Fields MD Dictated Date/Time: 01/08/2019 (936)Technologist: Low Barillas Transcribed Date/Time: 01/08/2019 (936) By: [email or web address] Orig Print D/T: S: 01/08/2019 (0940 [facility] NAME: JEFRY LOPEZ [address] [place] [address] PHYS: LISA Ballesteros Apolinar [place], [place] : 1960 AGE: 58 SEX: F [phone] LOC: SELAM PHONE #: [phone] EXAM DATE: 01/08/2019 STATUS: REG CLI FAX #: [phone] RAD NO: DC Dt: PAGE 2 SignedReportBASIC METABOLIC [id number] 11:35:00 Test Item Value Reference Range Interpretation [...] be fasting before starting thistest? YBASIC METABOLIC [id number] 11:33:00 Test Item Value Reference Range Interpretation [...] ults may be = TRIG) depressed if pa leónnt is takingN-Acetylc ystei ne (NAC) and Metamizole [...] be fasting before starting thistest? YPT AND [id number] 11:24:00 Test Item Value Reference Interpretation Comments [...] prevention in p rosthetic heart 3.0-5.4 A [place] mortality reduc tion THROMBOPLASTIN TIME 30.2 SECONDS [...] draw? NANTICOAGULANT THERAPY [Y,N]: UNK CBC W/AUTO [id number] 11:16:00 Test Item Value Reference Range Interpretation [...]
[2020-07-07] MEDS ORDERED: VANCOMYCIN/NS 1 gm 1 GM/250 ML BAG IV ONE (15:15)
[2020-07-07] MEDS ORDERED: NA CHLORIDE 0.9% 2,000 ML ONE (15:17)
[2020-07-07 15:46] LABS: Potassium 3.2 mmol/L (3.5-5.1)
[2020-07-07 15:54] LABS: Absolute Lymphocytes (CBC) 2.7 K/uL (0.7-4.9); Hematocrit 29.4 % (36.0-45.0); Lymphocytes % 19.6 % (15.3-44.8); MPV 6.6 fL (7.6-11.3); RBC Red Blood Cell Count 3.34 M/uL (3.86-4.86)
--- NOTE | 2020-07-07 15:56 | RAD REPORT ---
EXAM DESCRIPTION: CT - Abdomen Pelvis Wo Contrast - 07/07/2020 3:28 pm CLINICAL HISTORY: Abdominal pain. pelvic cancer, drainage right mons COMPARISON: Abdomen Pelvis Wo Contrast dated 06/11/2020; Abdomen Pelvis Wo Contrast dated 05/14/19 21 TECHNIQUE: CT imaging of the abdomen and pelvis was performed without contrast. Solid organ, bowel a nd vascular assessment is limited due to lack of IV and oral contrast. All CT scans are performed using dose optimization technique as appropriate and may include automated exposure control or mA/KV adjustment according to patient size. FINDINGS: The lower lung rao are clear. The liver, spleen, pancreas, adrenal glands and kidneys are within normal limits for a limited non-co ntrast examination. No bowel obstruction, free air, free fluid or abscess. Stent is present in the right common iliac art charles. Appendectomy. Prominent soft tissue is seen in mons pubis/ vulva region. This abnormal soft tissue appears increase d in size since comparative study and extends anteriorly measuring approximately 4.3 x 3.9 cm. In the anterior soft tissues, a lesion has developed along the midline mons pubis involving the skin measur ing 3.0 x 2.5 cm. The surrounding skin is thickened with subcutaneous inflammatory changes. There is no evidence of localized fluid collection. The osseous structures are within normal limits. IMPRESSION: Progression in the soft tissues along the vulvar and mons pubis region noted as detailed . A localized fluid collection is not seen. A limited non-contrast examination was performed as detailed.
[2020-07-07 15:58] LABS: Urine Blood 3+ (Negative); Urine Glucose Negative (Negative); Urine Protein 1+ (Negative); Urine Specific Gravity 1.015 (1.005-1.030)
[2020-07-07 17:29] LABS: Urine Bacteria 20-50 /HPF (<20)
[2020-07-07 17:33] LABS: Urine RBC 20-50 /HPF (NONE SEEN)
--- NOTE | 2020-07-07 18:12 | EDPHYS ---
Physician Documentation [facility] Name: Milly Cabrera Age: 59 yrs Sex: Female : 1960 Arrival Date: 07/07/2020 Time: 14:20 Bed 4 Private MD: Jerzy Kim E ED Physician Tyrell Montoya HPI: 07/07 15:13 This 59 yrs old Female presents to ER via Wheelchair with complaints of rn Dizziness, Nausea, Vaginal Pain. 15:13 The patient presents with dizziness, generalized weakness, lightheadedness. Onset: The rn symptoms/episode began/occurred 2 day(s) ago. Modifying factors: The symptoms are alleviated by nothing, the symptoms are aggravated by standing up, changing position. Associated signs and symptoms: Pertinent positives: abdominal pain, Pertinent negatives: chest pain, confusion, headache, seizure, shortness of breath. Severity of symptoms: At their worst the symptoms were moderate in the emergency department the symptoms are unchanged. The patient has not experienced similar symptoms in the past. The patient has been recently seen by a physician:. Reports dizziness, fatigue, lightheaded, + increased lower abd/pelvic pain, started 2 days ago, worse today while getting mammogram, and BP was low, so came to ER. Triage vitals showed hypotension. . Historical: - Allergies: 14:42 Cephalexin; ll1 14:42 Ciprofloxacin; ll1 14:42 Demerol; ll1 14:42 Iodine; ll1 14:42 Morphine; ll1 14:42 PENICILLINS; ll1 14:42 SHELLFISH; ll1 14:42 Strawberries; ll1 14:42 Zithromax Z-Joon; ll1 14:42 Clindamycin; ll1 - PMHx: 14:42 acid reflux; Anxiety; Endometrosis; Hyperlipidemia; Hypertension; neuropathy; ovarian ll1 cancer; vulvar cancer; - PSHx: 14:42 neck sx; ; Appendectomy; stents; ll1 - Immunization history:: Flu vaccine is up to date. - Social history:: Smoking status: Patient denies any tobacco usage or history of. - Family history:: not pertinent. - Hospitalizations: : No recent hospitalization is reported. ROS: 15:13 Constitutional: Negative for fever, chills, and weight loss, Eyes: Negative for injury, rn pain, redness, and discharge, Neck: Negative for injury, pain, and swelling, Cardiovascular: Negative for chest pain, palpitations, and edema, Respiratory: Negative for shortness of breath, cough, wheezing, and pleuritic chest pain, Abdomen/GI: Negative for constipation,+ nausea/vomiting/diarrhea Back: Negative for injury and pain, : + pain and swelling/mass to mons pubis MS/Extremity: Negative for injury and deformity, Skin: Negative for injury, rash, and discoloration, Neuro: Negative for headache, weakness, numbness, tingling, and seizure. Exam: 15:13 Constitutional: This is a well developed, well nourished patient who is awake, alert, rn and in no acute distress. Head/Face: Normocephalic, atraumatic. Eyes: Pupils equal round and reactive to light, extra-ocular motions intact. Lids and lashes normal. Conjunctiva and sclera are non-icteric and not injected. Cornea within normal limits. Periorbital areas with no swelling, redness, or edema. Cardiovascular: Regular rate and rhythm. No pulse deficits. Respiratory: No increased work of breathing, no retractions or nasal flaring. Abdomen/GI: soft, mild suparpubic and mons pubis pain with cauliflower appearance, + fluctuant area superior mons pubis with expressed purulence Skin: Warm, dry MS/ Extremity: Pulses equal, no cyanosis. Neurovascular intact. Full, normal range of motion. Equal circumference. Neuro: Awake and alert, GCS 15, oriented to person, place, time, and situation. Vital Signs: 14:39 BP 55 / 44; Pulse 81; Resp 18; Temp 97.3; Pulse Ox 98% ; Weight 72.57 kg; Height 5 ft. ll1 5 in. (165.10 cm); Pain 10/10; 15:00 BP 76 / 46; Pulse 73; Resp 16; Pulse Ox 98% on R/A; iw 15:12 BP 75 / 50; Pulse 68; Resp 16; Pulse Ox 100% on R/A; iw 16:03 BP 98 / 58; Pulse 70; Resp 16; Pulse Ox 98% on R/A; iw 16:24 BP 95 / 52; iw 17:50 BP 110 / 57; Pulse 72; Resp 16; Pulse Ox 98% on R/A; iw 18:09 BP 137 / 68; Pulse 79; rn 19:21 BP 162 / 78; Pulse 91; Resp 18; Pulse Ox 99% on R/A; mg2 20:15 BP 147 / 93; Pulse 89; Resp 18; Temp 98; Pulse Ox 100% on R/A; mg2 14:39 Body Mass Index 26.63 (72.57 kg, 165.10 cm) ll1 MDM: 14:49 Patient medically screened. rn 17:57 ED course: Pt with cellulitis on mons pubis on top of her soft tissue cancer, still rn waiting on [facility] to call us back. Abx given, BP improved, HR improved. Pt feels better. No drainable fluid collection but definite purulence expressed by me, patient, and nurse. . 18:09 Differential diagnosis: generalized weakness, hypovolemia, idiopathic dizziness, rn sepsis, abscess, vulvar cancer. Data reviewed: vital signs, nurses notes, lab test result(s), radiologic studies, CT scan, and as a result, I will admit patient. Counseling: I had a detailed discussion with the patient and/or guardian regarding: the historical points, exam findings, and any diagnostic results supporting the discharge/admit diagnosis, lab results, radiology results, the need to transfer to another facility, for higher level of care, [facility] does not immediately have the required specialist. Response to treatment: the patient's symptoms have markedly improved after treatment, and as a result, I will admit patient. ED course: Accepted for transfer to [facility] for [employer]-ON[facility], stable vitals, responded very well to fluid bolus, abx given. . 07/07 14:56 Order name: CBC with Diff; Complete Time: 16:15 rn 07/07 14:56 Order name: Basic Metabolic Panel; Complete Time: 16:15 rn 07/07 14:56 Order name: Blood Culture Adult (2) rn 07/07 14:56 Order name: Wound Culture rn 07/07 14:56 Order name: Procalcitonin; Complete Time: 17:06 rn 07/07 14:56 Order name: Lactate; Complete Time: 15:46 rn 07/07 14:56 Order name: CT Abd/Pelvis - Without Contrast; Complete Time: 16:15 rn 07/07 14:57 Order name: Urine Culture rn 07/07 14:57 Order name: Urine Microscopic Only rn 07/07 14:58 Order name: Urine Culture EDDE 07/07 14:58 Order name: Urine Microscopic Only; Complete Time: 18:01 EDDE 07/07 15:58 Order name: Urine Dipstick-Ancillary; Complete Time: 16:15 EDMS 07/07 17:45 Order name: SARS-COV-2 RT PCR; Complete Time: 18:01 EDMS 07/07 14:56 Order name: IV Start; Complete Time: 15:08 rn 07/07 14:56 Order name: EKG; Complete Time: 14:57 rn 07/07 14:56 Order name: EKG - Nurse/Tech; Complete Time: 15:15 rn 07/07 14:57 Order name: Urine Dipstick-Ancillary (obtain specimen); Complete Time: 16:04 rn Administered Medications: 15:07 Drug: NS 0.9% (30 ml/kg) 30 ml/kg Route: IV; Rate: bolus; Site: right antecubital; sv 17:30 Follow up: IV Status: Completed infusion iw 16:04 Drug: vancoMYCIN 1 grams Route: IVPB; Infused Over: 2 hrs; Site: right antecubital; iw 17:35 Follow up: IV Status: Completed infusion iw 18:42 Drug: HYDROcodone-acetaminophen 5 mg-325 mg 1 tabs Route: PO; iw 19:00 Follow up: Response: No adverse reaction iw Disposition: 07/07/20 18:12 Transfer ordered to [facility]. Diagnosis are Cellulitis of Mon Pubis, cancer of vulva and vagina, Sepsis, unspecified organism. - Reason for transfer: Higher level of care. - Accepting physician is . - Condition is Stable. - Problem is new. - Symptoms have improved. Critical care time excluding procedures: 18:09 Critical care time: Bedside Care: 25 minutes, Consultation: 5 minutes. Total time: 30 rn minutes Signatures: Dispatcher [employer] EDDE Radha Cui RN Adele Busby RN RN iw Tyrell Montoya MD MD rn Gardose, Michele, RN RN mg2 Lewis, Lynsay, RN RN ll1 Corrections: (The following items were deleted from the chart) 17:03 16:30 CORONAVIRUS+MR.LAB.BRZ ordered. [facility] 20:24 18:12 07/07/2020 18:12 Transfer ordered to [facility]. Diagnosis is Cellulitis of Mon mg2 Pubis; cancer of vulva and vagina; Sepsis, unspecified organism. Reason for transfer: Higher level of care. Accepting physician is . Condition is Stable. Problem is new. Symptoms have improved. rn
--- NOTE | 2020-07-07 18:12 | ER ---
Nurse's Notes [facility] Name: Milly Cabrera Age: 59 yrs Sex: Female : 1960 Arrival Date: 07/07/2020 Time: 14:20 Bed 4 Private MD: Jerzy Kim E Diagnosis: Cellulitis of Mon Pubis;cancer of vulva and vagina;Sepsis, unspecified organism Presentation: 07/07 14:39 Chief complaint: Patient states: Dizzy, nausea, fatigue, weak since Monday night. ll1 Coronavirus screen: Client denies travel out of the [place] in the last 14 days. At this time, the client does not indicate any symptoms associated with coronavirus-19. Ebola Screen: Patient denies travel to an Ebola-affected area in the 21 days before illness onset. Initial Sepsis Screen: Does the patient meet any 2 criteria? No. Patient's initial sepsis screen is negative. Does the patient have a suspected source of infection? No. Patient's initial sepsis screen is negative. Risk Assessment: Do you want to hurt yourself or someone else? Patient reports no desire to harm self or others. Onset of symptoms was July 05, 2020. 14:39 Method Of Arrival: Wheelchair ll1 14:39 Acuity: DAMON 2 ll1 Triage Assessment: 07/08 07:59 General: Behavior is. iw Historical: - Allergies: 07/07 14:42 Cephalexin; ll1 14:42 Ciprofloxacin; ll1 14:42 Demerol; ll1 14:42 Iodine; ll1 14:42 Morphine; ll1 14:42 PENICILLINS; ll1 14:42 SHELLFISH; ll1 14:42 Strawberries; ll1 14:42 Zithromax Z-Joon; ll1 14:42 Clindamycin; ll1 - PMHx: 14:42 acid reflux; Anxiety; Endometrosis; Hyperlipidemia; Hypertension; neuropathy; ovarian ll1 cancer; vulvar cancer; - PSHx: 14:42 neck sx; ; Appendectomy; stents; ll1 - Immunization history:: Flu vaccine is up to date. - Social history:: Smoking status: Patient denies any tobacco usage or history of. - Family history:: not pertinent. - Hospitalizations: : No recent hospitalization is reported. Screenin:03 Abuse screen: Denies threats or abuse. Denies injuries from another. Nutritional iw screening: No deficits noted. Tuberculosis screening: No symptoms or risk factors identified. Fall Risk IV access (20 points). Assessment: 14:50 General: Appears in no apparent distress. Pain: Complains of pain in groin and iw suprapubic area. Neuro: Level of Consciousness is awake, alert, obeys commands, Oriented to person, place, time, situation, Moves all extremities. Cardiovascular:. Respiratory: Respiratory effort is even, unlabored, Respiratory pattern is regular, symmetrical. GI: Abdomen is. : Lesions noted. Derm: Skin is pale. Musculoskeletal: Range of motion: intact in all extremities. 15:42 Reassessment: Patient appears in no apparent distress at this time. Patient and/or iw family updated on plan of care and expected duration. Pain level reassessed. Patient is alert, oriented x 3, equal unlabored respirations, skin warm/dry/pink. 17:49 Reassessment: Patient appears in no apparent distress at this time. Patient and/or iw family updated on plan of care and expected duration. Pain level reassessed. Patient is alert, oriented x 3, equal unlabored respirations, skin warm/dry/pink. 19:02 Reassessment: Patient appears in no apparent distress at this time. Patient and/or iw family updated on plan of care and expected duration. Pain level reassessed. Patient is alert, oriented x 3, equal unlabored respirations, skin warm/dry/pink. 19:50 Reassessment: report given to RAAD Campo of [facility] oncology 9D [id number]. mg2 patient signed the consent for transfer. EMS on the way. 20:24 Reassessment: report given to EMS., patient in stable condition, IV intact, patient mg2 aox4. Vital Signs: 14:39 BP 55 / 44; Pulse 81; Resp 18; Temp 97.3; Pulse Ox 98% ; Weight 72.57 kg; Height 5 ft. ll1 5 in. (165.10 cm); Pain 10/10; 15:00 BP 76 / 46; Pulse 73; Resp 16; Pulse Ox 98% on R/A; iw 15:12 BP 75 / 50; Pulse 68; Resp 16; Pulse Ox 100% on R/A; iw 16:03 BP 98 / 58; Pulse 70; Resp 16; Pulse Ox 98% on R/A; iw 16:24 BP 95 / 52; iw 17:50 BP 110 / 57; Pulse 72; Resp 16; Pulse Ox 98% on R/A; iw 18:09 BP 137 / 68; Pulse 79; rn 19:21 BP 162 / 78; Pulse 91; Resp 18; Pulse Ox 99% on R/A; mg2 20:15 BP 147 / 93; Pulse 89; Resp 18; Temp 98; Pulse Ox 100% on R/A; mg2 14:39 Body Mass Index 26.63 (72.57 kg, 165.10 cm) ll1 ED Course: 14:20 Patient arrived in ED. am2 14:20 Jerzy Kim MD is Private Physician. am2 14:41 Triage completed. ll1 14:42 Arm band placed on. ll1 14:49 Tyrell Montoya MD is Attending Physician. rn 14:49 Adele Galeana, RN is Primary Nurse. iw 15:00 Initial lab(s) drawn, by co, sent to lab. Inserted saline lock: 20 gauge in right iw antecubital area, using aseptic technique. Blood collected. 15:12 Inserted saline lock: 20 gauge in left antecubital area, using aseptic technique. iw 15:28 CT Abd/Pelvis - Without Contrast In Process Unspecified. EDMS 16:06 Urine Microscopic Only Sent. sv 16:06 Urine Culture Sent. sv 17:17 initiated transfer to [facility]. bd 19:16 Primary Nurse role handed off by Adele Galeana, RAAD [facility] 19:17 administrative approval given by Mary Blackburn/ patient has been accepted to [address] 9 D 964/ Dr. Rousseau has accepted the patient in transfer/ report to be called to [phone]. 19:21 Mike Carrillo, RN is Primary Nurse. mg2 19:22 Patient has correct armband on for positive identification. Door closed. Warm blanket mg2 given. Assisted to bedside commode. 19:22 No provider procedures requiring assistance completed. Patient transferred, IV remains mg2 in place. Administered Medications: 15:07 Drug: NS 0.9% (30 ml/kg) 30 ml/kg Route: IV; Rate: bolus; Site: right antecubital; sv 17:30 Follow up: IV Status: Completed infusion iw 16:04 Drug: vancoMYCIN 1 grams Route: IVPB; Infused Over: 2 hrs; Site: right antecubital; iw 17:35 Follow up: IV Status: Completed infusion iw 18:42 Drug: HYDROcodone-acetaminophen 5 mg-325 mg 1 tabs Route: PO; iw 19:00 Follow up: Response: No adverse reaction iw Outcome: 18:12 ER care complete, transfer ordered by . rn 20:23 Transferred by ground EMS to [facility], Transfer form mg2 completed. 20:23 Condition: stable 20:23 Instructed on the need for transfer, Demonstrated understanding of instructions. 20:24 Patient left the ED. mg2 Addendum: 07/10/2020 07:44 Addendum: Culture Results: Positive urine culture. Positive wound culture. called [facility] santana Avalosny Chriss [phone] spoke with Gloria Guerra/ faxed over culture report to [phone]. Signatures: Dispatcher [employer] EDMS Meena Johnson Stephanie, RN RN Adele Galeana RN RN Tyrell Montoya MD MD rn Moreno, Amanda Jhon Uriarte 2 Jo Ann Olivia Michele, RN RN mg2 Radha Fay RN RN ll1
[2020-07-07] MEDS ORDERED: HYDROCODONE/APAP 5/325 MG TAB ONE (18:58)
--- NOTE | 2020-07-08 12:49 | EKG ---
Test Date: 2020-07-07 Test Time: 15:10:07 Electronic Device Monitor: RUPAL MEASUREMENT RESULTS: Intervals: Rate: 70 OR: 176 QRSD: 88 QT: 404 QTc: 436 [place]: P: OR: 176 QRS: -20 T: -3 INTERPRETIVE STATEMENTS: Normal sinus rhythm Normal ECG Compared to ECG 06/11/2020 19:56:57 First degree AV block no longer present Electronically Signed On 07-08-20 12:45:39 CDT by Jose Cook
== END 2020-07-07 20:24 | disposition short-term general hospital (02) ==
LOC: ER 14:18
DX: A41.9 Sepsis, unspecified organism (principal); L03.314 Cellulitis of groin; C51.9 Malignant neoplasm of vulva, unspecified; C52 Malignant neoplasm of vagina; Z20.822 Contact with and (suspected) exposure to COVID-19; Z85.43 Personal history of malignant neoplasm of ovary; Z88.0 Allergy status to penicillin; Z88.1 Allergy status to other antibiotic agents; Z88.3 Allergy status to other anti-infective agents; Z88.5 Allergy status to narcotic agent; Z91.013 Allergy to seafood; Z91.048 Other nonmedicinal substance allergy status
CPT/HCPCS: 87040 ×2; 87088; 87070; 85025; 87086; 80048; 36415; 87205; 83605; 84145; 74176; U0003; J3370; J7030; 81003; 81015; 87077; 87186; 93005; 96365; 99285

== ENCOUNTER 2020-11-21 19:59 | Inpatient (IN) | payer OTHER ==
--- OUTSIDE RECORDS SUMMARY | 2020-11-21 20:03 | XMS REPORT | Clinical Summary ---
:1960 Author Organization [facility] MD Marte [facility] Center Address [address] [place] [address] Care Team Providers Name Role Phone Joshua Milner MD Unavailable Allergies Active Allergy Reactions Severity Noted Date Comments Azithromycin Itching 05/15/2020 Cephalexin Rash Low 05/15/2020 Ciprofloxacin Rash Low 05/15/2020 Meperidine Hives 09/25/2017 Morphine Itching 05/15/2020 Penicillins Anaphylaxis High 05/15/2020 Shellfish Containing Products Anaphylaxis High 05/15/2020 Medications Medication Sig Dispensed Refills Start Date End Date Status amitriptyline Take 50 mg by 0 04/13/2020 A ctive (ELAVIL) 50 mg mouth daily. tablet Takes 50mg by mouth in the morning and 100mg by mouth in the evening. atorvastatin Take 40 mg by 0 04/13/2020 Ac tive (LIPITOR) 40 mg mouth at bedtime. tablet clopidogrel (PLAVIX) Take 75 mg by 0 04/16/2020 Active 75 mg tablet mouth daily. FLUoxetine (PROzac) Take 40 mg by 0 04/13/2020 Active 40 mg capsule mouth daily. HYDROcodone-acetamin Take 1 tablet by 0 05/07/2020 Active ophen (NORCO) 10 mouth every 6 mg-325 mg per tablet (six) hours as needed for pain. tiZANidine Take 4 mg by 0 05/07/2020 Activ e (ZANAFLEX) 4 mg mouth every 8 tablet (eight) hours as needed for muscle spasms. amitriptyline Take 100 mg by 0 A ctive (ELAVIL) 50 mg mouth at bedtime. tablet Takes 50mg by mouth in the morning and 100mg by mouth in the evening. aspirin 81 mg EC Take 81 mg by 0 Active tablet mouth daily. lidocaine-prilocaine Please administer 30 g 0 05/15/2020 Active (EMLA) 2.5-2.5% as needed for creamIndications: comfort Suspected vulva cancer doxycycline Take 1 capsule 14 capsule 0 05/15/2020 05/22/2020 (VIBRAMYCIN) 100 MG (100 mg) by mouth capsuleIndications: twice daily for 7 Cellulitis days. Active Problems Problem Noted Date Chronic obstructive pulmonary disease 05/15/2020 Coronary arteriosclerosis 05/15/2020 Chronic back pain 05/15/2020 Cellulitis 05/15/2020 Anxiety depression 05/15/2020 Hyperlipidemia 05/15/2020 Abnormal vaginal bleeding 05/15/2020 Malignant neoplasm of vulva Encounters Date Type Specialty Care Team Description 05/28/2020 Documentation Surgical Oncology Rhona Rodríguez RN 05/16/2020 Telephone Gynecology Rylie Ibarra MD 05/15/2020 Ancillary Procedure Radiology Cancer 05/15/2020 Hospital Encounter /GI Med Kameron Tapia Suspe ctelizbeth vulva cancer (Primary Dx); Cellulitis; Kasie, Malignant neopl asm of labium majus MD Julian 05/15/2020 Telephone Surgical Oncology Perez Khan MD 05/15/2020 Lab Requisition Jermaine Morales MD Levenback, Charles, MD 05/15/2020 Travel 05/14/2020 Travel after 11/22/2019 Surgical History Surgery Date Site/Laterality Comments SECTION, LOW TRANSVERSE age 20, reports emergent and required c-hyst TOTAL ABDOMINAL HYSTERECTOMY W/ BILATERAL SALPINGOOPHORECTOMY VULVA SURGERY 04/03/2007 - 04/02/2008 FEMORAL ARTERY STENT 04/03/2018 - 04/02/2019 APPENDECTOMY Medical History Medical History Date Comments Malignant neoplasm of vulva Chronic obstructive pulmonary disease Multi vessel coronary artery disease Chronic depression Endometriosis Hyperlipidemia Social History Tobacco Use Types Packs/Day Years Used Date Former Smoker 1 20 Smokeless Tobacco: Never Used Tobacco Cessation: Counseling Given: No Alcohol Use Standard Drinks/Week Comments Not Currently 0 (1 standard drink = 0.6 oz pure alcoho l) Sex Assigned at Date Recorded Not on file Job Start Date Occupation Industry Not on file Not on file Not on file Obstetrics History Grav Para Term Pre Abrt (TAB) (SAB) (Ect) Mult Lvng Comments 2 1 1 1 1 Emergent c/s x 1, stillbirth at 9 months (vagina l) Date Outcome GA Total Labor/2nd/3rd Weight Sex Delivery Anes PTL Tanya A 1 A5 Name Clin Labor Term M CS-LTranv Complications: Delivery by hyst erectomy AB SAB Complications: Stillbirth Comments: states stillbirth at 9 m o Last Filed Vital Signs Vital Sign Reading Time Taken Comments Blood Pressure 145/80 05/15/2020 4:03 PM RN TESTING Pulse 94 05/15/2020 4:03 PM RN TESTING Temperature 36.7 C (98.1 F) 05/15/2020 4:03 PM RN TESTING Respiratory Rate 18 05/15/2020 4:03 PM RN TESTING Oxygen Saturation 95% 05/15/2020 4:03 PM RN TESTING Inhaled Oxygen Concentration - - Weight 79.7 kg (175 lb 11.3 oz) 05/15/2020 5:19 AM RN TESTING Height 164 cm (5' 4.57") 05/15/2020 5:19 AM RN TESTING Body Mass Index 29.63 05/15/2020 5:19 AM RN TESTING Plan of Treatment Not on file Procedures Procedure Name Priority Date/Time Associated Comments Diagnosis PATHOLOGY BIOPSY Routine 05/15/2020 12:35 Results for this INTERPRETATION PM RN TESTING procedure are in the results section. CT ABDOMEN PELVIS WO STAT 05/15/2020 3:54 Res ults for this CONTRAST AM RN TESTING procedure are i n the results section. URINALYSIS MICROSCOPIC Routine 05/15/2020 3:21 R esults for this AM RN TESTING procedure are i n the results section. URINALYSIS WITH Now 05/15/2020 3:21 Results for this MICROSCOPIC IF INDICATED AM RN TESTING pro cedure are in the results section. URINE CULTURE Now 05/15/2020 3:21 Results fo r this AM RN TESTING procedure are i n the results section. TMP INTERPRETATION STAT 05/15/2020 2:19 Resul ts for this ANTIBODY SCREEN NEGATIVE AM RN TESTING pro cedure are in the results section. CLOT EXPIRATION DATE STAT 05/15/2020 2:19 Res ults for this AM RN TESTING procedure are i n the results section. MANUAL DIFFERENTIAL STAT 05/15/2020 2:19 Resu lts for this AM RN TESTING procedure are i n the results section. Results CBC STAT 05/15/2020 2:19 Results for this AM RN TESTING procedure are i n the results section. FRACTIONATED BILIRUBIN Now 05/15/2020 2:19 R esults for this AM RN TESTING procedure are i n the results section. TOTAL PROTEIN Now 05/15/2020 2:19 Results fo r this AM RN TESTING procedure are i n the results section. ASPARTATE Now 05/15/2020 2:19 Results for this AMINOTRANSFERASE AM RN TESTING procedure a re in the results section. ALANINE AMINOTRANSFERASE Now 05/15/2020 2:19 Results for this AM RN TESTING procedure are i n the results section. ALKALINE PHOSPHATASE Now 05/15/2020 2:19 Res ults for this AM RN TESTING procedure are i n the results section. ALBUMIN LEVEL Now 05/15/2020 2:19 Results fo r this AM RN TESTING procedure are i n the results section. CALCIUM LEVEL TOTAL Now 05/15/2020 2:19 Resu lts for this AM RN TESTING procedure are i n the results section. .GLOMERULAR FILTRATION Now 05/15/2020 2:19 R esults for this RATE AM RN TESTING procedure are i n the results section. SERUM CREATININE Now 05/15/2020 2:19 Results for this AM RN TESTING procedure are i n the results section. ELECTROLYTE PANEL Now 05/15/2020 2:19 Result s for this AM RN TESTING procedure are i n the results section. BLOOD UREA NITROGEN Now 05/15/2020 2:19 Resu lts for this AM RN TESTING procedure are i n the results section. GLUCOSE LEVEL Now 05/15/2020 2:19 Results fo r this AM RN TESTING procedure are i n the results section. ANTIBODY SCREEN STAT 05/15/2020 2:19 Results for this AM RN TESTING procedure are i n the results section. ABORH STAT 05/15/2020 2:19 Results for this AM RN TESTING procedure are i n the results section. CONFIRM ABORH TYPE STAT 05/15/2020 2:19 Resul ts for this AM RN TESTING procedure are i n the results section. TYPE AND SCREEN STAT 05/15/2020 2:19 AM RN TESTING PARTIAL THROMBOPLASTIN Now 05/15/2020 2:19 R esults for this TIME AM RN TESTING procedure are i n the results section. PROTHROMBIN TIME Now 05/15/2020 2:19 Results for this AM RN TESTING procedure are i n the results section. COMPLETE BLOOD COUNT W/ Now 05/15/2020 2:19 DIFFERENTIAL AM RN TESTING COMPREHENSIVE METABOLIC Now 05/15/2020 2:19 PANEL AM RN TESTING PHOSPHORUS LEVEL Now 05/15/2020 2:19 Results for this AM RN TESTING procedure are i n the results section. MAGNESIUM LEVEL Now 05/15/2020 2:19 Results for this AM RN TESTING procedure are i n the results section. INFLUENZA A/B + COVID-19 Now 05/15/2020 2:19 Results for this ASYMPTOMATIC-L AM RN TESTING procedure are in the results section. BLOODCULTURE Now 05/15/2020 2:19 Results for this AM RN TESTING procedure are i n the results section. OSI CHEST Routine 05/14/2020 10:04 Cancer Results for this PM RN TESTING procedure are i n the results section. after 11/22/2019 Results Pathology Biopsy Interpretation (05/15/2020 12:35 PM RN TESTING) Pathologist Sig nature Diagnosis A: Biopsy, vulva: [facility] Electronic ally signed INVASIVE WELL TO MODERATELY DIFFERENTIATED SQUAMOUS CARCINOMA EXTENDING TO TISSUE EDGES. by Josselin DEPTH OF INVASION AT LEAST 3MM. MD Cuate on 05/16/2020 at 9 :22 AM PXR/PXR Gross Description A: [facility] Biopsy, vulva: Consists of a lowry-garcia, unoriented, skin excision that is 2.3 x 0.8 x 0.5 cm, surface displays a brown, grainy lesion that is 0.7 x 0.5 cm, located 0.1 cm from the nearest margin, inked b lue; entirely submitted in A 1: Both ends, ink side down; A2-A3: Remainder of the specimen serially sectioned. XZ Disclaimer "Some tests reported [facility] here may have been developed and performance characteristics determined by [facility] Pathology and Laboratory Medicine. These tests have not been specifically cleared or approved by the U.S. Food and Drug Administration. If applicable, controls were reviewed and showed appropriate reactivity." Specimen Tissue - Biopsy, Vulva Performing Organization Address City/State/ZIP Code Phon e Number [facility] [place] [address] Abdomen Pelvis without IV Contrast (05/15/2020 3:54 AM RN TESTING) Specimen Impressions Performed At 1. Fungating soft tissue vulvar mass with overlying subcutaneous [id number] edema, consistent with patient's known t reated vulvar malignancy. 2. Colonic diverticulosis without acut e diverticulitis. 3. Incidental findings as above. I personally reviewed these image(s) along with the resident's/fellow's interpretations, certify that if a procedure was performed I was physically present, and agree with the final report. Narrative Performed At This result has an attachment that is no t available. EXAM: CT ABDOMEN AND PELVIS WITHOUT CONTRAST [id number] DATE: 05/15/2020 3:54 AM INDICATION: 59-year-old woman with vulvar cancer, pres enting with pain ADDITIONAL INFORMATION: None. COMPARISON: None. TECHNIQUE: Volumetric CT acquisition of the abdomen and pelvis without the intravenous administration contrast. Axial, coronal and sagittal reconstructions. The study is limited by the noncontrast technique. FINDINGS: Soft tissues: Fungating vulvar soft tiss ue mass consistent with treated malignancy measures 2.8 x 7.7 x 5.2 cm, with overlying subcutaneous edema. Reproductive organs: Status post hysterectomy. There i s no adnexal mass. Gastrointestinal tract: Incidental colonic diverticulo sis. Small hiatal hernia. Peritoneum and retroperitoneum: No ascit es or free air. No other fluid collection. Lymph nodes: Scattered nonenlarged mesen teric and retroperitoneal lymph nodes. Prominent left inguinal lymph node measures 0.7 cm in short axis. Liver: Normal. Biliary tree: No intra- or extrahepatic biliary ductal dilation. Gallbladder: Hydropic, measuring 4.6 cm in diameter. No CT evidence of gallstones. Pancreas: Normal. Spleen: Normal. Adrenals: Normal. Kidneys and ureters: Normal. Urinary bladder: Normal. Vasculature: Atherosclerotic changes of the abdominal aorta and its branches. Bones: Multilevel degenerative changes of the visualiz ed axial skeleton. Lines, tubes and hardware: None. Lower thorax: 0.4 cm right middle lobe p ulmonary nodule. Mild bibasilar pulmonary scarring/atelectasis. Procedure Note Interface, Radiology Results In - 2020 10:16 AM RN TESTING EXAM: CT ABDOMEN AND PELVIS WITHOUT CON TRAST DATE: 05/15/2020 3:54 AM INDICATION: 59-year-old woman with vulva r cancer, presenting with pain ADDITIONAL INFORMATION: None. COMPARISON: None. TECHNIQUE: Volumetric CT acquisition of the abdomen and pelvis without the intravenous administration contrast. Axial, coronal and sagittal reconstructions. The study is limited by the noncontrast technique. FINDINGS: Soft tissues: Fungating vulvar soft tiss ue mass consistent with treated malignancy measures 2.8 x 7.7 x 5.2 cm, with overlying subcutaneous edema. Reproductive organs: Status post hystere ctomy. There is no adnexal mass. Gastrointestinal tract: Incidental colon ic diverticulosis. Small hiatal hernia. Peritoneum and retroperitoneum: No ascit es or free air. No other fluid collection. Lymph nodes: Scattered nonenlarged mesen teric and retroperitoneal lymph nodes. Prominent left inguinal lymph node measures 0.7 cm in short axis. Liver: Normal. Biliary tree: No intra- or extrahepatic biliary ductal dilation. Gallbladder: Hydropic, measuring 4.6 cm in diameter. No CT evidence of gallstones. Pancreas: Normal. Spleen: Normal. Adrenals: Normal. Kidneys and ureters: Normal. Urinary bladder: Normal. Vasculature: Atherosclerotic changes of the abdominal aorta and its branches. Bones: Multilevel degenerative changes o f the visualized axial skeleton. Lines, tubes and hardware: None. Lower thorax: 0.4 cm right middle lobe p ulmonary nodule. Mild bibasilar pulmonary scarring/atelectasis. IMPRESSION: 1. Fungating soft tissue vulvar mass wi th overlying subcutaneous edema, consistent with patient's known treated vulvar malignancy. 2. Colonic diverticulosis without acute diverticulitis. 3. Incidental findings as above. I personally reviewed these image(s) elinor duckworth with the resident's/fellow's interpretations, certify that if a procedure was performed I was physically present, and agree with the final report. Performing Organization Address City/State/ZIP Code Phon e Number [id number] Urinalysis with Microscopic (05/15/2020 3:21 AM RN TESTING) Pathologist Sig nature UA WBC 108 (H) 0 - 2 /HPF [facility] UA RBC 7 (H) 0 - 2 /HPF [facility] UA Mucous NOT SEEN TRACE /HPF [facility] UA Bacteria OCC NOT SEEN /HPF [facility] UA Squam Epi OCC OCC /HPF [facility] UA WBC Clump OCC OCC /HPF [facility] Specimen Urine Narrative Performed At Some reporting parameters within the Urinalysis test U [facility] have changed due to the implementation of new instrumentation in the [place], allowing greater sensitivity of measurement. Urinalysis results reporte d by the [facility] Centers using exist ing instrumentation, as well as Urinalysis testing perform ed manually or by backup methodology at the [place] will remain relatively unchanged. New reporting parameters and units will now be reported for all campuses. Performing Organization Address City/[facility]/ZIP Code Phon e Number [facility] CANCER Unless otherwise noted, [address] all lab tests performed by: Division of Pathology and Laboratory Medicine [address] Urinalysis w/Microscopic if Indicated (05/15/2020 3:21 AM RN TESTING) Pathologist Sig nature UA Color Yellow Yellow [facility] UA Appear Clear Clear [facility] UA Glucose NEG NEG mg/dL [facility] UA Bili NEG NEG [facility] UA Ketones NEG NEG mg/dL [facility] UA Spec Grav 1.009 1.002 - 1.035 [facility] UA Blood Moderate (A) NEG [facility] UA pH 6.0 4.5 - 8.0 [facility] UA Protein NEG NEG mg/dL [facility] UA Urobilinogen NEG NEG [facility] UA Nitrite NEG NEG [facility]) UA Leuk Est Large (A) NEG [facility] Specimen Urine Performing Organization Address City/[facility]/ZIP Code Phon e Number [facility] CANCER Unless otherwise noted, [address] all lab tests performed by: Division of Pathology and Laboratory Medicine [address] Urine Culture (05/15/2020 3:21 AM RN TESTING) Final Report <10,000 cfu/ml Gram Negative Rods ND MD Wagner NDEADRIELON ... [facility]ENTER <10,000 cfu/ml Normal site silverio present. (A) Path Review - The results have been review ed and electronically signed by Pathologist: [facility] Urine RANDA RAMOS MD #[id number] [facility] CENTE R (A) Specimen Urine Performing Organization Address City/[facility]/ZIP Code Phon e Number [facility] CANCER Unless otherwise noted, [address] all lab tests performed by: Division of Pathology and Laboratory Medicine [address] Influenza A/B + COVID-19 Asymptomatic- L (05/15/2020 2:19 AM RN TESTING) Influenza A Not Detected Not Detected [facility] Influenza B Not Detected Not Detected [facility] COVID19 Not Detected Not Detected [facility] (SARS-CoV-2) [facility] COVID19 SARS Inpatient Admission [facility] Indication CANCER CENTER Inf AB+Cov19 See Note [facility] Comment Comment: [facility] The stanton SARS-CoV-2 & Influ joey A/B nucleic acid test for use on the stanton Geni System is a multiplex real-time RT-PCR assay intended for the simultaneous, qualitative detection and differential of SARS-CoV-2 (COVID-19), influenza A, and influenza B viral RNA in nasopharyngeal swabs in transport media from patients suspected of having a respiratory infection with one of these viruses or possibly exposure to COVID-19 by a healthcare provider. Results must be interpreted within the context of all relevant clinical and labora tory findings and should not form the sole basis for a diagnosis or treatment decision. A fact sheet for patients provided by the log hooker ([employer]) can be reviewed at: https://www.fda.gov/media/826571/download A fact sheet for Health Care providers is provided by the log hook[employer] ([employer]) and can be reviewed at: https://www.fda.gov/media/736291/download Influenza A and Influenza B negative results should be considered presumptive in samples that have a positive SARS-CoV-2 result. If co-infection with influenza A or influenza B virus is suspected in vamshi ples with a positive SARS-CoV-2 results, the sample should be re-tested with another approved influenza te st. This assay has been authoriz ed by the FDA for use only under Emergency Use Authorization (EUA) in laboratories that have been CLIA-certified to perform moderate-complexity and high-complexity tests. The [facility], CLIA Accreditation # [id number] and CAP Accreditation #[id number], verified the performance characteristics of this assay. Internal controls are used to monitor all stages of the test process. Specimen Nasopharyngeal Swab Performing Organization Address City/State/ZIP Code Phon e Number [facility] Unless otherwise noted, [place] [address] [address] all lab tests performed by: Division of Pathology and Laboratory Medicine [address] [place] [address] .Serum Creatinine (05/15/2020 2:19 AM RN TESTING) Pathologist Sig nature Creatinine 0.88 0.51 - 0.95 mg/dL [facility] CANCER C ENTER Specimen Blood Performing Organization Address [facility] Phon e Number [facility] CANCER Unless otherwise noted, [address] all lab tests performed by: Division of Pathology and Laboratory Medicine [address] [place] [address] .CBC (05/15/2020 2:19 AM RN TESTING) WBC 15.0 (H) 4.0 - 11.0 [facility] K/uL [facility] RBC 3.48 (L) 4.00 - 5.50 [facility] M/uL [facility] Hgb 10.0 (L) 12.0 - 16.0 [facility] gm/dL [facility] Hct 32.9 (L) 37.0 - 47.0 % [facility] MCV 94 82 - 98 fL [facility] MCH 28.7 27.0 - 31.0 pg [facility] MCHC 30.4 (L) 31.0 - 36.0 [facility] gm/dL [facility] RDW-SD 60.4 (H) 35.1 - 46.3 fL [facility] RDW-CV 17.6 (H) 12.0 - 15.5 % [facility] Platelet count 407 140 - 440 K/uL [facility] MPV 8.6 4.0 - 10.4 fL [facility] INRBC 0.1 (H) <=0.0 % [facility] Comment: [facility]ER CENTER The INRBC (instrument NRBC) value reflects the enumera tion of nucleated red blood cells contained in a 200uL samp le of whole blood analyzed by the instrument. This value may differ from the NRBC value reported in a manual differ ential, which is based on a 100 cell differential. Specimen Blood Performing Organization Address [facility] Phon e Number [facility] CANCER Unless otherwise noted, [address] all lab tests performed by: Division of Pathology and Laboratory Medicine [address] [place] [address] Clot Expiration Date (05/15/2020 2:19 AM RN TESTING) Pathologist Sig nature T & S Expiration 05/18/2020 [facility] Specimen Blood Performing Organization Address City/[facility] Phon e Number [facility] CANCER Unless otherwise noted, [address] all lab tests performed by: Division of Pathology and Laboratory Medicine [address] Glomerular Filtration Rate (05/15/2020 2:19 AM RN TESTING) eGFR-AA 83 >=60 [facility] Comment: mL/min/1.73 [facility] Normal eGFR: >= 60 mL/min/1.73 m2 sq. m Note: The eGFR is calculated using the CKD-EPI equation. The eGFR declines with age. eGFR <60 mL/min/1.73 m2 is considered as "decreased". This equation should only be used for patients 18 and older. According to the National dney Foundation's Kidney Disease Outcome Quality Initiative (KDOQI) classification and 2012 Kidney Disease Improving Global Outcomes (KDIGO) Clinical Practice Guideline, the stage of CKD should be categorized based on estimated GFR. Stage Description GFR mL/min/1.73 m2 1 Normal or high GFR >=90 2 Mildly decreased GFR 60-89 3a Mildly to moderately decreased GFR 45-59 3b Moderately to severely decreased GFR 30-44 4 Severely decreased GFR 15-29 5 Kidney failure <15 eGFR-EMILY 72 >=60 [facility] Comment: mL/min/1.73 [facility] Normal eGFR: >= 60 mL/min/1.73 m2 sq. m Note: The eGFR is calculated using the CKD-EPI equation. The eGFR declines with age. eGFR <60 mL/min/1.73 m2 is considered as "decreased". This equation should only be used for patients 18 and older. According to the National dney Foundation's Kidney Disease Outcome Quality Initiative (KDOQI) classification and 2012 Kidney Disease Improving Global Outcomes (KDIGO) Clinical Practice Guideline, the stage of CKD should be categorized based on estimated GFR. Stage Description GFR mL/min/1.73 m2 1 Normal or high GFR >=90 2 Mildly decreased GFR 60-89 3a Mildly to moderately decreased GFR 45-59 3b Moderately to severely decreased GFR 30-44 4 Severely decreased GFR 15-29 5 Kidney failure <15 Specimen Blood Performing Organization Address City/State/[facility] Phon e Number [facility] CANCER Unless otherwise noted, [address] all lab tests performed by: Division of Pathology and Laboratory Medicine [address] Fractionated Bilirubin (05/15/2020 2:19 AM RN TESTING) Pathologist Marquez Bili Total <0.3 <=1.2 mg/dL [facility] Comment: [facility] Direct and indirect bilirubi n will not be reported when Total bilirubin result is <0.3 mg/dL Indocyanine Green (ICG) may cause falsely elevated bilirubin results. Total and direct bilirubin must not be measured from samples containing indocyanine green. False elevation of total nahomi irubin can be seen in patients with IgG concentrations above 28 g/L. Specimen Blood Performing Organization Address City/[facility] Phon e Number [facility] CANCER Unless otherwise noted, [address] all lab tests performed by: Division of Pathology and Laboratory Medicine [facility] [address] TMP Interpretation Antibody Screen Negative (05/15/2020 2:19 AM RN TESTING) Pathologist Marquez SPAIN Auto Neg ABSC At the present time, patien t plasma shows no evidence of RBC alloantibodies. [facility] Interp Comment: [facility] REJI SAN, Dictated by: REJI SAN, Dictated Date/Time: 05.15.19 9:41 AM RN TESTING Transcribed Date/Time: 05.15.2020 9:41 AM RN TESTING Electronically Signed By: REJI SAN, on 0 05.15.2020 9:41 AM C Specimen Blood Performing Organization Address City/[facility]/ZIP [facility] [place], [place] Phon e Number [facility] CANCER Unless otherwise noted, [address] all lab tests performed by: Division of Pathology and Laboratory Medicine [address] Confirm ABORh (05/15/2020 2:19 AM RN TESTING) Pathologist Sig nature ABORh Confirm. O POS [facility] CANCER CENT ER Specimen Blood Performing Organization Address City/[facility] Phon e Number [facility] CANCER Unless otherwise noted, [address] all lab tests performed by: Division of Pathology and Laboratory Medicine [facility] [address] Partial Thromboplastin Time (05/15/2020 2:19 AM RN TESTING) Pathologist Sig nature PTT 30.1 24.2 - 36.0 second(s) [facility] Specimen Blood Performing Organization Address City/State/ZIP Code Phon e Number [facility] CANCER Unless otherwise noted, [address] all lab tests performed by: Division of Pathology and Laboratory Medicine [address] ABORh (05/15/2020 2:19 AM RN TESTING) Pathologist Sig nature ABORh. O POS [facility] Specimen Blood Performing Organization Address City/[facility]/ZIP Code Phon e Number [facility] CANCER Unless otherwise noted, [address] all lab tests performed by: Division of Pathology and Laboratory Medicine [address] Differential (05/15/2020 2:19 AM RN TESTING) Neutrophil % 65.3 42.0 - 66.0 % [facility] Lymphocyte % 20.5 (L) 24.0 - 44.0 % [facility] Monocyte % 10.9 (H) 2.0 - 7.0 % [facility] Eosinophil % 2.4 1.0 - 4.0 % [facility] Basophil % 0.5 0.0 - 1.0 % [facility] IGRE % 0.4Comment: IGRE % 0.0 - 0.4 % [facility] count includes [facility] Metamyelocytes, Myelocytes, and Promyelocytes. Neutrophil Abs 9.79 (H) 1.70 - 7.30 [facility] Lymphocyte Abs 3.07 1.00 - 4.80 [facility] Monocyte Abs 1.63 (H) 0.08 - 0.70 [facility] Eosinophil Abs 0.36 0.04 - 0.40 [facility] Basophil Abs 0.07 0.00 - 0.10 [facility] IG Abs 0.06 (H) 0.00 - 0.04 [facility] Specimen Blood Performing Organization Address City/State/ZIP Code Phon e Number [facility] CANCER Unless otherwise noted, [address] all lab tests performed by: Division of Pathology and Laboratory Medicine [address] Blood culture (05/15/2020 2:19 AM RN TESTING) Final Report No growth [facility] Path Review - Immunity and antibiotic use may render culture negative. Ongoing infection requires repeat culture. [facility] Bottle/Isolator The results have been review ed and electronically signed by Pathologist: [facility] RANDA RAMOS MD #[id number] Specimen Blood - Periph Venous Narrative Performed At Short draw may invalidate quantitative blood culture U T [facility] results. Performing Organization Address City/[facility]/ZIP Code Phon e Number [facility] CANCER Unless otherwise noted, [address] all lab tests performed by: Division of Pathology and Laboratory Medicine [address] Prothrombin Time with INR (05/15/2020 2:19 AM RN TESTING) Pathologist Sig obdulia PT 14.5 (H) 12.0 - 14.3 [facility](s) [place] INR 1.20 (H) 0.90 - 1.10 [facility] Specimen Blood Performing Organization Address [facility] Phon e Number [facility] CANCER Unless otherwise noted, [address] all lab tests performed by: Division of Pathology and Laboratory Medicine [address] Antibody Screen (05/15/2020 2:19 AM RN TESTING) Pathologist Sig obdulia ABSC. Negative ABSC [facility] Specimen Blood Performing Organization Address [facility] Phon e Number [facility] CANCER Unless otherwise noted, [address] all lab tests performed by: Division of Pathology and Laboratory Medicine [address] BUN (05/15/2020 2:19 AM RN TESTING) Pathologist Sig nature BUN 10 6 - 23 mg/dL [facility] Specimen Blood Performing Organization Address City/[facility]/ZIP Code Phon e Number [facility] CANCER Unless otherwise noted, [address] all lab tests performed by: Division of Pathology and Laboratory Medicine [address] ALT (05/15/2020 2:19 AM RN TESTING) Pathologist Sig obdulia ALT 8 <=33 U/L [facility] Specimen Blood Performing Organization Address City/[facility] Phon e Number [facility] CANCER Unless otherwise noted, [address] all lab tests performed by: Division of Pathology and Laboratory Medicine [address] Aspartate Aminotransferase (05/15/2020 2:19 AM RN TESTING) Pathologist Sig nature AST 10 <=32 U/L [facility] Specimen Blood Performing Organization Address [facility] Phon e Number [facility] Unless otherwise noted, [address] all lab tests performed by: Division of Pathology and Laboratory Medicine [address] Total Protein (05/15/2020 2:19 AM RN TESTING) Pathologist Sig nature Total Protein 7.6 6.4 - 8.3 g/dL [facility] [address] Specimen Blood Performing Organization Address [facility] Phon e Number [facility] Unless otherwise noted, [address] all lab tests performed by: Division of Pathology and Laboratory Medicine [address] Phosphorus Level (05/15/2020 2:19 AM RN TESTING) Pathologist Sig nature Phosphorus 4.2 2.5 - 4.5 mg/dL [facility] Specimen Blood Performing Organization Address [facility] Phon e Number [facility] Unless otherwise noted, [address] all lab tests performed by: Division of Pathology and Laboratory Medicine [address] Alkaline Phosphatase (05/15/2020 2:19 AM RN TESTING) Pathologist Sig nature Alk Phos 137 (H) 35 - 104 U/L [facility] Specimen Blood Performing Organization Address [facility] Phon e Number [facility] CANCER Unless otherwise noted, [address] all lab tests performed by: Division of Pathology and Laboratory Medicine [address] Magnesium Level (05/15/2020 2:19 AM RN TESTING) Pathologist Sig nature Magnesium 2.0 1.6 - 2.6 mg/dL [facility] Specimen Blood Performing Organization Address [facility] Phon e Number [facility] Unless otherwise noted, [address] all lab tests performed by: Division of Pathology and Laboratory Medicine [address] Glucose Level (05/15/2020 2:19 AM RN TESTING) Glucose Level 110 (H) 70 - 99 mg/dL [facility] Comment: [facility] Effective 10/28/15, the gluco se reference intervals have been updated based on [place] [employer] guidelines (Standards of Medical Care in Diabetes 2016. Diabetes Care 2016; 39: S13-S22). Fasting blood glucose: Normal: 70 99 mg/dL Impaired fasting glucose (in creased risk for diabetes or pre-diabetes): 100 125 mg/dL Diabetes mellitus: >/=126 mg/dL Random blood glucose: Normal: 70 199 mg/dL Note: Random glucose >100 mg/dL is assoc iated with increased risk for diabetes Specimen Blood Performing Organization Address [facility] Phon e Number [facility] CANCER Unless otherwise noted, [address] all lab tests performed by: Division of Pathology and Laboratory Medicine [address] Calcium Level (05/15/2020 2:19 AM RN TESTING) Pathologist Sig nature Calcium Lvl 9.0 8.4 - 10.2 mg/dL [facility]TER Specimen Blood Performing Organization Address [facility] Phon e Number [facility] CANCER Unless otherwise noted, [address] all lab tests performed by: Division of Pathology and Laboratory Medicine [address] Albumin Level (05/15/2020 2:19 AM RN TESTING) Pathologist Sig nature Albumin Lvl 3.5 3.5 - 5.2 gm/dL [facility] [address] Specimen Blood Performing Organization Address [facility] Phon e Number [facility] CANCER Unless otherwise noted, [address] all lab tests performed by: Division of Pathology and Laboratory Medicine [address] Electrolyte Panel (05/15/2020 2:19 AM RN TESTING) Pathologist Sig nature Sodium Lvl 139 136 - 145 mEq/L [facility] Potassium Lvl 3.8 3.5 - 5.1 mEq/L [facility] Chloride 104 98 - 107 mEq/L [facility] CO2 23 22 - 29 mEq/L [facility] Anion Gap 12 4 - 14 mEq/L [facility] Specimen Blood Performing Organization Address City/State/ZIP Code Phon e Number [facility] Unless otherwise noted, [place] [address] CENTER all lab tests performed by: Division of Pathology and Laboratory Medicine [address] Chest (05/14/2020 10:04 PM RN TESTING) Specimen Narrative Performed At This result has an attachment that is no t available. Study acquired at another institution. For comparison only. No MD Milner originated interpretation requested or available. after 11/22/2019 Insurance Payer Benefit Plan / Subscriber ID Effective Dates Phone Addre ss Type Group [employer] MEDICARE [id number] 2020-Present Medicare MEDICARE MEDICAID [employer] HMO Advance Directives Code Status Date Activated Date Inactivated Comments Full Code 05/15/2020 5:07 AM 05/15/2020 7:09 PM
--- OUTSIDE RECORDS SUMMARY | 2020-11-21 20:05 | XMS REPORT | Continuity of Care Document ---
:1960 Author Organization [facility] t Address [address] [place] [address] Care Team Providers Name Role Phone Catarina CASTELLON Primary Care Physician SYSTEM, NOT IN Attending Clinician Unavailable Doctor Unassigned, Name Attending Clinician Unavailable Bill CASTELLON Attending Clinician Marcos SHANKAR, R Attending Clinician Unavailable Fred CASTELLON Attending Clinician TAMMY Attending Clinician Unavailable Willie CASTELLON Attending Clinician Tammy CASTELLON Attending Clinician Bill CASTELLON Attending Clinician Andrew CASTELLON G Attending Clinician TAMMY Admitting Clinician Unavailable Payers Payer Name Policy Type Policy Effective Date Expiration Date Sour Number [facility] [id number] 2020 MD Dowell rson MEDICARE 00:00:00 [facility] MEDICARE MEDICAID DUAL [id number] 21-PresentMedicare Problems Condition Condition Condition Status Onset [...] 2-12 Anderso bleeding bleeding 00:00: n 00 No known No known Disease Metho di active active st problems problems Hospit a l Malignant Malignant Disease Active neoplasm neoplasm Ed o of vulva of vulva n Allergies, Adverse Reactions, Alerts Allergy Allergy Status Severity Reaction(s) Onset Inactive Treating Comm ents Source Name Type Date Date Clinician clindamy DA Active U [facility] jomar 8-02 [place] 00:00: [facility] No Known DA Active U [facility] Allergie 6-13 [place] s 00:00: [facility] iodine DA Active SV [facility] 6- [place] 00:00: [facility] meperidi DA Active DE [facility] ne 6- [place] 00:00: [facility] penicill DA Active DE [facility] in G 6- [place] 00:00: [facility] strawber DA Active SV [facility] ry 6- [place] 00:00: [facility] ZPAC DA Active DE 2017- [facility] 6-25 [place] 00:00: [facility] strawber FA Active SV [facility] ry 6-25 [place] 00:00: [facility] 00 [facility] TUNA DA Active SV [facility] FISH 1-12 [place] 00:00: [facility] 00 [facility] Aspirin Propensi Active Methodi ty to st adverse Hospita reaction l s to drug Iodine Propensi Active Methodi ty to st adverse Hospita reaction l s to drug Meperidi Propensi Active Method i ne ty to st adverse Hospita reaction l s to drug Penicill Propensi Active Method i ins ty to st adverse Hospita reaction l s to drug Social History Social Habit Start Date Stop Date Quantity Comments Source Cigarettes smoked 2020-05-15 2020-05-15 MD Delmer coleman current (pack per 00:00:00 00:00:00 day) - Reported Cigarette pack-years 2020-05-15 2020-05-15 MD Kristy villeda 00:00:00 00:00:00 Tobacco use and 2020-05-15 2020-05-15 Never used MD Ward on exposure 00:00:00 00:00:00 Alcohol intake 2020-05-15 2020-05-15 Ex-drinker MD Arlene briggs 00:00:00 00:00:00 (finding) Sex Ass[birth year] At [birth year] MD Ward on 00:00:00 00:00:00 Smoking Status Start Date Stop Date Source Unknown if ever smoked [facility] Former smoker 2020-05-15 00:00:00 2020-05-15 00:00:00 MD [...] n 2.5-2.5% 00 for cream comfort doxycycline 0 2021- No Cellulitis 100mg Take 1 MD [...] rso mg capsule 00:00: daily. n 00 ibuprofen 2017-04 Yes ibuprofen Met hodi (MOTRIN) 0-15 st 100 mg/5 mL 19:33: Hospit a suspension 44 l pregabalin 2017-04 Yes Lyrica 75 Me thodi (LYRICA) 75 0-[address] MG capsule 19:33: Take 1 Hospi ta 44 capsule l twice a day by oral route. metoprolol 2017-04 Yes metoprolol M ethodi clements/hydrochl 0-15 clements-hydroch st orothiaz 19:33: lorothiaz Hosp [facility] (DUTOPROL 44 l ORAL) morPHINE 2017-04 Yes morphine Metho di 0.2 mg/mL 0-15 st solution 19:33: Hospita () 44 l atorvastati 2017- Yes atorvastat Methodi n (LIPITOR) 0-[address] 10 MG 19:33: tablet Hospita tablet 44 Take 1 l tablet every day by oral route. Vital Signs Vital [...] Procedure Date / Time Performed Performing Clinician [facility] e PATHOLOGY BIOPSY 2020-05-15 18:35:00 Julian Munoz MD son INTERPRETATION CT ABDOMEN PELVIS WO [...] 08:19:00 Kameron Tapia TOTAL PROTEIN 2020-05-15 08:19:00 [facility] FRACTIONATED BILIRUBIN 2020-05-15 08:19:00 Kameron Tapia [...] MD COMPREHENSIVE METABOLIC PANEL 2020-05-15 08:19:00 Mahendra aTpia MD COMPLETE BLOOD COUNT W/ 2020-05-15 08:19:00 [...] Planned Date Details Comments Source Future Scheduled Test COVID-19 VACCINE (1) [facility] [code = COVID-19 VACCINE (1)] Future Scheduled Test Hepatitis C screening [facility] (procedure) [code = 151268397] Future Scheduled Test Screening for malignant [facility] neoplasm of cervix (procedure) [code = 031073319] Future Scheduled Test BREAST CANCER SCREENING [facility] [code = BREAST CANCER SCREENING] Future Scheduled Test COLONOSCOPY SCREENING [facility] [code = COLONOSCOPY SCREENING] Future Scheduled Test SHINGLES VACCINES (#1) [facility] [code = SHINGLES VACCINES (#1)] Future Scheduled Test INFLUENZA VACCINE [code [facility] = INFLUENZA VACCINE] Encounters Start End Encounter Admission Attending Care Care Encounter Source Date/Time Date/Time Type Type Clinicians Facility Department ID 2020-07-23 Outpatient SYSTEM, [facility] [id number] 11:50:28 PROVIDER Ededward briggs 2020-06-01 Outpatient SYSTEM, [facility] [id number] 10:50:13 PROVIDER Ed o chester 2020-11-18 2020-11-18 Orders Doctor TIM [id number] 00:00:00 00:00:00 Only Unassigned, FRANCIA 350.1.13.10 [place] [facility] [id number] 2020-11-10 2020-11-10 Office MARTHA Khan [id number] 15:41:39 16:11:39 Visit Perez [facility] [id number] [facility] [id number] 2020-05-15 2020-05-15 Outpatient [facility] [id number] 22:03:48 22:03:48 Ed o chester 2020-05-15 2020-05-15 Inpatient ER [facility] [id number] 01:39:00 17:04:00 JULIAN Vaelrio Estuardo so n Results Test Description Test [...] and electronically signed by Pathologist:RANDA RAMOS MD #[id number] MO (test code = MO) Short draw may invalidate quantitative blood culture results. MD MilnerUrine [id number] 19:27:30 Test Item Value Reference Range Interpretation Comments Final Report (test code <10,000 cfu/ml Gram A = 8488) Negative Rods...<10,000 cfu/ml Normal site silverio present. Path Review - Urine The results have been A (test code = 8483) reviewed and electronically signed by Pathologist:RANDA RAMOS MD #[id number] Lab Interpretation Abnormal (test code = 00759-3) MD MilnerPathology Biopsy [id number] 15:22:00 Test Item Value Reference Range Interpretation Comments Diagnosis (test code = 34) g5trqMGgBOFdsUO7HfH wAUKwv8gqf6WvyLEklH NvRNbckYHvotIvlj13t WU1tW80ZQ5tMVAvYaF7 ATEhqoK1Acs8NIQaUFC rpPCeM326s8qzd3vamo PprZF9pEnoOGYoYGWgA WluXGZzMjAgQTogQmlv nAJ7JPY0yHa1RQkviRH yXGxpNzIwXGxpbjcyMC ROPiSQV2cVKYDESJuBU EPJEK1ZLIJNBUMQZSlw IChCXpWQTY2JZEEIUCK eJ5UOND2IHNWyG0CLL1 uJG40IHQNQFULZGPxRC yBUTyBUSVNTVUUgRURH RVMuXHBhclxwYXJkXHR hYiBERVBUSCBPRiBJTl BIV8jDZxDLGYWPOZEQL EVqNE2bTMWokymtMBUe TVySU3YSQlikKLR8 Gross Description (test q6dwyBZmONYlcSV9TnS code = 8225637236) eJDZrv4thl5PjuQZxzU HpOVfltYGjdnQztg34n DX4yB59EO5hPLQgDuA4 KHRvgnD2Nan0FFYpIZN bjBDfM987k3tul0jufm HgkIW7lTtyZQQhs2wlA OUppLObJXS0WToevNWy YAAcNPSiINj9HXCjSXk gkQKmBL5wjDsjQonzxD rte6XnrNArPBgkHURhO LTbWEclHHVbX0QBRQNr FyM4WiLqGVEnTUw8FLy xI1HMFAOlXQK8BbXyTA EmAtW8XYr4FMOWBl8iJ kZ9QUf7YhM8BIJ2OvB7 IFxcdCAyIFxcZmwgXFx mIEFyaWFsIFxcZnMgMT TqYUacJlJgYT8ggBwut GFpblxiXGZzMjAgQTpc tKWlYXNgVKLwm1QnrYy vqkUvlmN6JWQkTMPAz7 4esTY0qnAmHyViVFYjm r5rpsD0NXD9tn3nfVVd lCIyMLItj7qiKEU2Z0g tjC4wKSMbODVmlJOwBi 3fHNspEE34RHldUY27N GNtLCBzdXJmYWNlIGRp p1KlMMrxSSHaOaFft48 sIGdyYWlueSBsZXNpb2 4gdGhhdCBpcyAwLjcge IBvIhUrF46lLHggD0V7 BSOsGB9xDYHaWYKeo42 xkCqeDX0vRZGvo1JnwZ PbP2jiDFRnsyluTEKwa HVlOyBlbnRpcmVseSBz xJMxoVW8RUJvxC5wXHI 1TAIclGrkWH4oswnarC 2oMAKuYZSoAP97iqqjU MYeGTW5VCAziSPobxSc fmGqSmP1qOLqq4UkP0x wGJ0ld7ErsDTbmOiyc7 VjdGlvbmVkLiAgXHByb 9XzZ2M5VJQpWYhog7mm WZNtRNvdd8GrBSzDMFE KKR1NZO8mlDZ5HUeSV6 UGY3dEgHUlPLG1lBJ2O EMGLgcdhBK9cIU2mQ63 HTLbIIMbsWVrWYjlP79 9RDw7MEIgNQwzm8xbSS ThAAyau3QiZGyVGRXPD P2APG4neYE0WYiYR3LF RHwyMTAxNnwxfFVTRVJ 5HWfyhZxhwUr3e0ddzH Qiq2d9WLciNWK2cPslx YCfxsyqleCrc6qzkTko h7PdfSPzXV22HFCgvRU vFWB9KE4wyZkxDRX8 Disclaimer (test code = m3ybyFNpIDFhfACsTtL 9844) fEXKhDGUop1ldHSHwbY FuZzEwMzNcZnRuYmpcd IPqDYBaXuLix9xhc273 zYQyn7onKWJeSpH0jZE mDZQsrVPwF244RBNyGG qyk9abz8PjUXLczXQds 3V6FZVZiolyqYi7eKfw J63gr0Z9UgdwR7uaLTZ oAZSiL3XyEQ2iAKHbJx c8HCG3EUD9AOIqCXKyH 8QxAG3nRAMyiNCtJSm2 y4pdeGqeYOImCNV5x8y nPQuhqcCwPC9brn7wrM w1a6uaaoVtMWLeNQTbr LKBNPNiB0LvqRyiEb8d zLn4eXytPlzgCCY5Yys 4LV6iwp11htj8oHonFC TmfrdxTqJ1ZUrcHOCfc veyGJg7KIoaCCVuwWM0 URCeiJVwV5WjWCGlBA4 hfgr2WHH2EOtzGIWeRn W7SZLbgGAaJRCmiFamO Pfxj490CRX4NbAmRV3x I3Wkb6Y0uW9ukONgOGX miDOrWlJvAWTxlh4mgA JtLSgob9HkGWR0shY6j UCxxSKtTJNgMF95Bvhm p9JcInpkOFG4FBDvsrT sv2Eqz3kbJeCpkvYxZ2 fbJ7OcUXMbHLXlSCLlU mBdlzGbo5Cjw6QhgERp tNi0u3mdQTBjXLItdFz yj4cvRAK1IBHjX6E3nL Nbo4fxHQciERFltSC0m eW2RTYlbBHlP4MtrU9r IFKoBR3ucvx1i9ojDNS 2AHmjIGTsSjX5bgN7XC BcaGVhZGVyeTcyMFxmb 988WBF2PhRlPQCzp3Ui L7VtaYcjQ82ayWwbV62 zQLJsrMdwdT9yvJbibD 5cZjBcZnMyNFxxbFxwb PVasybqDMvzkuM4VCnv kebbYREoYGffF8joHrY lWDIwhDvyAWckd0ZiUZ MgIYPcUxsrtpB1GWZXw 55yAQTwj3OvDRVotI4c oKUoUUptqmDjcBP9MLm hdmUgYmVlbiBkZXZlbG 6pGZSiCN6dVSTtkzBwz f5gcnRpJCEcUUVvM9Qz cmlzdGljcyBkZXRlcm1 zokNpMYH4LKFFWK3PCO EjZFBjn00sKZHbmCfeh Z5azNPbhzXzIVMzt7Mh iD0wiPMZWCHiJ0kdFE5 kLVvsq4UxjEDbqFIdqX W5YJZlj2SgIwFrjzKuf OLkpILzU8XanCjxQ8rs XZYeLVUqqvQliKVta9B iTGOakPQ3bTZeVF7PMh JZe39sMWNlYTTDpoQnQ DOnqReryHY2isH1pI1w LiBJZiBhcHBsaWNhYmx cIBFgf195jr6wzfF1GL ThAFYntdtve8WqJJWaF BNsrO91RXEsNHZrmv9v pdudqXRrniHcW8Grrcn 3gO8rUOCtVXcfMXPoEH ZzMjJcbGFuZzEwMzNca GljaFxmMVxkYmNoXGYx KBtjQ3vzAtIpPnTeXfi wYXJ9 MD MilnerOSI [id number] 04:04:09Study acquired at another institution. For comparison only. No MD Milner originated interpretationrequested or available.MD MilnerCT Abdomen Pelvis without IV Ezhiabdu1884-72-01 16:14:151. Fungating soft tissue vulvar mass with overlying subcutaneous edema, consistent with patient's known treated vulvar malignancy.2. Colonic diverticulosis without acute diverticulitis.3. Incidentalfindings as above. I personally reviewed these image(s) along with the resident's/fellow's interpretations, certify that if a procedure was performed I was physically present, and agree with the final report.Interface, Radiology Results In - 05/15/2020 10:16 AM CST EXAM: CT ABDOMEN AND PELVIS WITHOUT CONTRASTDATE: 05/15/2020 [...] cm, with overlying subcutaneous edema.Reproductive organs: Status posthysterectomy. There is no adnexal mass.Gastrointestinal tract: Incidental colonic diverticulosis. Small hiatal hernia.Peritoneum and retroperitoneum: No ascites or free air. No other fluid collection.Lymph nodes: Scattered nonenlarged mesenteric and retroperitoneal lymph nodes. Prominent left inguinallymph node measures 0.7 cm in short axis.Liver: Normal.Biliary tree: No intra- or extrahepatic biliary ductal dilation.Gallbladder: Hydropic, measuring 4.6 cm in diameter. No CT evidence of gallstones.Pancreas: Normal.Spleen: Normal.Adrenals: Normal.Kidneys and ureters: Normal.Urinary bladder: Normal.Vasculature: Atherosclerotic changes of the abdominal aorta and its branches.Bones: Multilevel degenerative changes of the visualized axial skeleton.Lines, tubes and hardware: None.Lower thorax: 0.4 cm r ight middle lobe pulmonary nodule. Mild bibasilar pulmonary scarring/atelectasis.IMPRESSION:1. Fungating soft tissue vulvar mass with overlying subcutaneous edema, consistent with patient's known treated vulvar malignancy.2. Colonic diverticulosis without acute diverticulitis.3. Incidental findingsas above.I personally reviewed these image(s) along with the resident's/fellow's interpretations, certify that if a procedure was performed I was physically present, and agree with the final report.MD MilnerTMP Interpretation Antibody Screen [id number] 15:41:44 Test Item Value Reference Range Interpretation Comments TMP Auto Neg At the present ABSC Interp time, patient (test code = plasma shows no REJI 7535) evidence of RBC LERNER alloantibodies. So SAN paramjit by: REJI SAN,Dictated Date/Time: 05.15.2020 9:41 AM [employer] Transcrib ed Date/Time: 05.15.2020 9:41 AM CSTElectronical ly Signed By: MITCHELL IN EDUARDA SAN on 05.15.2020 9:41 AM C MD MilnerConfirm [id number] 13:46:54 Test Item Value Reference Range Interpretation Comments ABORh Confirm. (test code = 882-1) O POS MD MilnerAntibody Dzvqwz3673-24-30 13:33:05 Test Item Value Reference Range Interpretation Comments ABSC. (test code = 890-4) Negative ABSC MD MilnerVllygnxnFGFJf9139-70-25 13:33:04 Test Item Value Reference Range Interpretation Comments ABORh. (test code = 882-1) O POS MD MilnerClot Expiration [id number] 13:32:35 Test Item Value Reference Range Interpretation Comments T & S Expiration (test code = 05/18/2020 5318) MD MilnerUrinalysis with Dawxtfysxms0714-16-02 11:06:23 Test Item Value Reference Interpretation Comments [...] implementation of new instrumentation in the [facility] [place], allowing greater sensitivity of measurement. Urinalysis results reported by the [facility] using existing instrumentation, as well as Urinalysis testing performed manually or by backup methodology at the [facility] [place] will remain relatively unchanged. New reporting parameters and units will now be reported for all campuses. Lab Interpretation Abnormal (test code = 80878-8) MD MilnerUrinalysis w/Microscopic if [id number] 10:53:50 Test Item Value Reference Range Interpretation [...] A Lab Interpretation (test code = Abnormal 56026-5) MD MilnerFractionated Lhxcmzuxb9652-94-18 09:23:53 Test Item Value Reference Range Interpretation [...] result as normal/abnormal . MD MilnerGlomerular Filtration [id number] 09:23:52 Test Item Value Reference Range Interpretation [...] failure <15 [Automa paramjit message] The system [employer] generated this result tra nsmitted reference range [...] failure <15 [Automa paramjit message] The system [employer] generated this result tra nsmitted reference range : >=60 mL/min/1.73 sq. m. The reference range was not used to interpret is result as normal/abnormal . MD MilnerTotal [id number] 09:23:51 Test Item Value Reference Range Interpretation Comments Total Protein (test code = 7649) 7.6 g/dL 6.4-8.3 MD MilnerMagnesium Aeswr0506-06-12 09:23:50 Test Item Value Reference Range Interpretation Comments Magnesium (test code = 6359) 2.0 mg/dL 1.6-2.6 MD MilnerPhosphorus [id number] 09:23:49 Test Item Value Reference Range Interpretation Comments Phosphorus (test code = 6817) 4.2 mg/dL 2.5-4.5 MD MilnerAlkaline Detpbuyfahu4817-05-11 09:23:48 Test Item Value Reference Range Interpretation Comments Alk Phos (test code = 4768) 137 U/L 35-104 H Lab Interpretation (test code = Abnormal 05352-3) MD MilnerCalcium [id number] 09:23:47 Test Item Value Reference Range Interpretation Comments Calcium Lvl (test code = 5258) 9.0 mg/dL 8.4-10.2 MD MilnerAygkmvhdBGY0051-63-24 09:23:46 Test Item Value Reference Range Interpretation Comments ALT (test code = 8 U/L See_Comment [Automated message] The 4705) system which ge nerated this result transmit paramjit reference range : <=33. The reference range was not used to interpr et this result as deepti l/abnormal. MD MilnerAlbumin [id number] 09:23:45 Test Item Value Reference Range Interpretation Comments Albumin Lvl (test code 3.5 See_Comment [Aut omated message] The = 8868) system which ge nerated this result tra nsmitted reference range : 3.5 - 5.2 gm/dL. The refe rence range was not used to interpret this result as normal/abnormal . MD Milner.Serum Xbpmwiymcb1220-44-94 09:23:44 Test Item Value Reference Range Interpretation Comments Creatinine (test code = 5399) 0.88 mg/dL 0.51-0.95 MD MilnerAspartate Alxrbwvmbvueqnrv6625-49-15 09:23:43 Test Item Value Reference Range Interpretation Comments AST (test code = 10 U/L See_Comment [Automated message] The 4731) system which ge nerated this result transmit paramjit reference range : <=32. The reference range was not used to interpr et this result as deepti l/abnormal. MD [id number] 09:23:42 Test Item Value Reference Range Interpretation Comments BUN (test code = 5055) 10 mg/dL 6 MD MilnerElectrolyte [id number] 09:23:41 Test Item Value Reference Range Interpretation Comments Sodium Lvl (test code = 139 See_Comment [Au tomated message] The 9435) system which ge nerated this result tra [...] = 104 See_Comment [Auto mated message] The 5659) system which ge nerated this result tra [...] = 12 See_Comment [Aut omated message] The 9325) system which ge nerated this result tra nsmitted reference range : 4 - 14 mEq/L. The refe rence range was not u sed to interpret this result as normal/abnormal . MD MilnerGlucose [id number] 09:23:39 Test Item Value Reference Range Interpretation [...] diabetes Lab Interpretation (test Abnormal code = 09044-0) MD MilnerInfluenza A/B + COVID-19 Asymptomatic- [id number] 09:13:15 Test Item Value Reference Range Interpretation Comments Influenza A (test Not Detected Not Detected code = 00058-4) Influenza B (test Not Detected Not Detected code = 42812-1) COVID19 Not Detected Not Detected (SARS-CoV-2) (test code = 97876-5) COVID19 SARS Inpatient Indication (test Admission code = 43688) Inf AB+Cov19 See Note [facility] [place] SARS- CoV-2 Comment (test & Influenza A/ B code = 58575) nucleic acid t est for use on [...] sheet for patie nts provided by the form maker ([employer]) can be rev iewed at: https://www.[employer] .gov/m edia/785315/radha nloadA fact sheet for Health Care providers is provided by the form maker ([employer]) and can be reviewed at: https://www.fda .gov/[employer] edia/593521/radha nload Influenza A and Influenza B neg [...] This assay has been authorized by t [facility] for use only un fausto Emergency Use Authorization ( EUA) in laboratories that have been CLIA-certified to perform moderate-comple xity and high-comple xity tests. The Microbiology Laboratory at [facility] [place], CLIA Accreditation #[id number] and CAP Accreditation #[id number], verif ied the performance characteristics of this assay. Int ernal controls are us ed to monitor all sta ges of the test proces s. MD MilnerPartial Thromboplastin [id number] 09:04:05 Test Item Value Reference Range Interpretation Comments PTT (test code = 30.1 See_Comment [Automated message] The 3963) system which ge nerated this result transmit paramjit reference range : 24.2 - 36.0 second(s). The reference range was not used to interpr et this result as deepti l/abnormal. MD MilnerProthrombin Time with [id number] 09:04:04 Test Item Value Reference Range Interpretation Comments PT (test code = 6746) 14.5 See_Comment H [Auto mated message] The system [employer] generated this result transmitted ref erence range: 12.0 - 1 4.3 second(s). The reference range was not used to int erpret this result as normal/abnormal . INR (test code = 5973) 1.20 0.90-1.10 H Lab Interpretation (test Abnormal code = 44177-1) MD MilnerAgkhlstzKivhxpvjzspu0329-14-58 08:56:12 Test Item Value Reference Range Interpretation Comments Neutrophil % (test code = 65.3 % 42.0-66.0 28094-9) Lymphocyte % (test code = 20.5 % 24.0-44.0 L 737-7) Monocyte % (test code = 10.9 % 2.0-7.0 H 744-3) Eosinophil % (test code = 2.4 % 1.0-4.0 713-8) Basophil % (test code = 0.5 % 0.0-1.0 707-0) IGRE % (test code = 0.4 % 0.0-0.4 IGRE % c ount 92349-8) includes Metamyelocytes, Myelocytes, and Promyelocytes. Neutrophil Abs (test code 9.79 K/uL 1.70-7.30 H = 753-4) Lymphocyte Abs (test code 3.07 K/uL 1.00-4.80 = 732-8) Monocyte Abs (test code = 1.63 K/uL 0.08-0.70 H 743-5) Eosinophil Abs (test code 0.36 K/uL 0.04-0.40 = 712-0) Basophil Abs (test code = 0.07 K/uL 0.00-0.10 705-4) IG Abs (test code = 0.06 K/uL 0.00-0.04 H 06616-0) Lab Interpretation (test Abnormal code = 79801-2) MD Milner.[id number] 08:56:09 Test Item Value Reference Range Interpretation Comments WBC (test code = 15.0 K/uL 4.0-11.0 H 6690-2) RBC (test code = 789-8) 3.48 See_Comment L [Au tomated message] The system [employer] generated this result transmitted ref erence range: 4.00 - 5 .50 M/uL. The refer ence range was not u sed to interpret this result as normal/abnor mal. Hgb (test code = 718-7) 10.0 See_Comment L [Au tomated message] The system [employer] generated this result transmitted ref erence range: 12.0 - 1 6.0 gm/dL. The refe rence range was not u sed to interpret this result as normal/abnor mal. Hct (test code = 32.9 % 37.0-47.0 L 4544-3) MPV (test code = 787-2) 8.6 fL 4.0-10.4 MCH (test code = 785-6) 28.7 pg 27.0-31.0 MCHC (test code = 30.4 See_Comment L [Automate d message] 786-4) The system [employer] generated this result transmitted ref erence range: 31.0 - 3 6.0 gm/dL. The refe rence range was not u sed to interpret this result as normal/abnor mal. RDW-SD (test code = 60.4 fL 35.1-46.3 H 23123-7) RDW-CV (test code = 17.6 % 12.0-15.5 H 788-0) Platelet count (test 407 K/uL [...] cell differential. [Automated mess age] The system [employer] generated this result transmitted ref erence range: <=0.0. T he reference range was not used to int erpret this result as normal/abnormal . Lab Interpretation Abnormal (test code = 92151-6) MD Milner- MRI L-SPINE W/O [id number] 09:37:00 FAX: Bella Hannah MD [phone] [place]: St: REG FAX: Apolinar Buchanan MD [phone] Patient Name: JEFRY LOPEZ Unit No: [id number] EXAMS: CPT CODE: [id number] MRI L-SPINE W/O CONT 11705 MRI Lumbar Spine without contrast HISTORY: Back [...] At L3-L4, mild bilateral neuroforaminal narrowing. at 0949 Reported and signed by: Tyrell Burgos M.D. 508 Imaging NAME: JEFRY LOPEZ [address] [place] [address] PHYS: LISA Ballesteros [place], [place] : 1960 AGE: 58 SEX: F [phone] LOC: SELAM PHONE #: [phone] EXAM DATE: 01/08/2019 STATUS: REG CLI FAX #: [phone] RAD NO: DC Dt: PAGE 1 Signed Report (CONTINUED) FAX: Bella Hannah MD [phone] [place]: St: REG FAX: Apolinar Buchanan MD [phone] --- Patient Name: JEFRY LOPEZ Unit No: [id number] EXAMS: CPT CODE: [id number] MRI L-SPINE W/O CONT 05579 <Continued> CC: Bella Elmore MD; Apolinar Fields MD Dictated Date/Time: 01/08/2019 (936)Technologist: Low Barillas Transcribed Date/Time: 01/08/2019 (936) By: [email or web address] Orig Print D/T: S: 01/08/2019 (0940 [facility] NAME: JEFRY LOPEZ [address] [place] [address] PHYS: LISA [place]olinar [place], [place] : 1960 AGE: 58 SEX: F [phone] LOC: KirtIM508 PHONE #: [phone] EXAM DATE: 01/08/2019 STATUS: REG CLI FAX #: [phone] RAD NO: DC Dt: PAGE 2 SignedReportBASIC METABOLIC [id number] 11:35:00 Test Item Value Reference Range Interpretation [...] be fasting before starting thistest? YBASIC METABOLIC [id number] 11:33:00 Test Item Value Reference Range Interpretation [...] may be = TRIG) depressed if pa tient is takingN-Acetylc ystei ne (NAC) and Metamizole [...] be fasting before starting thistest? YPT AND [id number] 11:24:00 Test Item Value Reference Interpretation Comments [...] prevention in p rosthetic heart 3.0-5.4 A DE mortality reduc tion THROMBOPLASTIN TIME 30.2 SECONDS [...] draw? NANTICOAGULANT THERAPY [Y,N]: UNK CBC W/AUTO [id number] 11:16:00 Test Item Value Reference Range Interpretation [...]
[2020-11-21] MEDS ORDERED: PROMETHAZINE INJ 25 MG/ML AMP ONE (22:24)
[2020-11-21] MEDS ORDERED: NA CHLORIDE 0.9% 1,000 ML ONE ×2 (22:24→23:54)
[2020-11-21] MEDS ORDERED: FAMOTIDINE 20 MG/2 ML VIAL IV ONE (22:24)
[2020-11-21 22:48] LABS: Absolute Lymphocytes (CBC) 2.4 K/uL (0.7-4.9); Basophils % 0.4 % (0-1.3); Hematocrit 26.1 % (36.0-45.0); Lymphocytes % 75.7 % (15.3-44.8); MPV 9.1 fL (7.6-11.3); RBC Red Blood Cell Count 2.64 M/uL (3.86-4.86)
[2020-11-21 22:49] LABS: Albumin 3.2 g/dL (3.4-5.0); Bilirubin Direct 0.1 mg/dL (0-0.2); Bilirubin Total 0.3 mg/dL (0.2-1.0); Potassium 4.2 mmol/L (3.5-5.1); Protein, Total 7.3 g/dL (6.4-8.2)
[2020-11-21 23:11] LABS: Anisocytosis 2+; Blood Morphology Comment NOTED (NOT SEEN); Hypochromasia 1+; Ovalocytes 1+; Platelet Estimate DECR; Stomatocytes 1+
[2020-11-22 00:45] LABS: Urine Blood 1+ (Negative); Urine Glucose Negative (Negative); Urine Protein Negative (Negative)
[2020-11-22 01:27] LABS: Urine Bacteria 20-50 /HPF (<20); Urine Mucus 1+ /HPF (NONE SEEN)
[2020-11-22] MEDS ORDERED: HYDROMORPHONE HCL 2 MG/ML inj ONE ×2 (01:54→05:00)
--- NOTE | 2020-11-22 01:55 | EDPHYS ---
Physician Documentation [facility] Name: Milly Cabrera Age: 59 yrs Sex: Female : 1960 Arrival Date: 11/21/2020 Time: 20:02 Bed 16 Private MD: ED Physician Nitish Hatch HPI: 11/21 21:15 This 59 yrs old Female presents to ER via Ambulatory with complaints of mh7 Vomiting/Diarrhea. 21:15 The patient presents to the emergency department with nausea, that is moderate, mh7 vomiting, that is intermittent, described as clear fluid, diarrhea, that is intermittent. Onset: The symptoms/episode began/occurred 3 day(s) ago. Possible causes: unknown. The symptoms are aggravated by food , The symptoms are alleviated by nothing. Associated signs and symptoms: Pertinent positives: diarrhea, nausea, vomiting, Pertinent negatives: abdominal pain, anorexia, belching, constipation, dysuria, fever, flatulence, GI bleeding, hematuria, vaginal discharge. Severity of symptoms: At their worst the symptoms were moderate 2 day(s) ago, in the emergency department the symptoms have improved moderately. Patient was on chemo therapy for vulvar cancer and states that she started having nausea, vomiting, and diarrhea 3 days ago. She has been taking Zofran with minimal improvement. She denies any chest pain, shortness of breath, fever, cough, abdominal pain, dysuria, dizziness, numbness/tingling, or focal weakness. She reports that her last chemo was about 9 to 10 days ago.. Historical: - Allergies: 20:32 Cephalexin; kg 20:32 Ciprofloxacin; kg 20:32 Clindamycin; kg 20:32 Demerol; kg 20:32 Iodine; kg 20:32 Morphine; kg 20:32 PENICILLINS; kg 20:32 SHELLFISH; kg 20:32 Strawberries; kg 20:32 Zithromax Z-Joon; kg - Home Meds: 20:32 Plavix 75 mg Oral tab 1 tab once daily [Active]; metoprolol tartrate 50 mg Oral tab kg once daily [Active]; Pepcid Oral [Active]; fluoxetine 40 mg Oral cap 1 cap once daily [Active]; metronidazole 500 mg Oral tab 1 tab 2 times per day [Active]; prochlorperazine maleate 10 mg Oral tab 1 tab 3 times per day [Active]; magnesium oxide 400 mg magnesium Oral tab 400 mg twice a day [Active]; atorvastatin 40 mg Oral tab 1 tab once daily [Active]; gabapentin 100 mg oral tab twice a day [Active]; potassium chloride 10 mEq Oral cpER 1 cap once daily [Active]; aspirin 81 mg Oral TbEC 1 tab once daily [Active]; Zofran 4 mg Oral tab 1 tab every 8 hours [Active]; - PMHx: 20:32 vulvar cancer; neuropathy; Hypertension; Hyperlipidemia; Endometrosis; Anxiety; acid kg reflux; - PSHx: 20:32 Total abdominal hysterectomy; Vascular stents; Appendectomy; section; kg - Immunization history:: Adult Immunizations up to date, Client reports receiving the 2nd dose of the Covid vaccine, Date received: July 22, 2020 [facility] Client reports receiving the 1st dose of the Covid vaccine, June 23, 2020 [facility]. - Social history:: Smoking status: Patient/guardian denies using tobacco, but has a distant history of tobacco abuse. ROS: 21:15 Constitutional: Negative for fever, chills, and weight loss, Eyes: Negative for injury, mh7 pain, redness, and discharge, ENT: Negative for injury, pain, and discharge, Neck: Negative for injury, pain, and swelling, Cardiovascular: Negative for chest pain, palpitations, and edema, Respiratory: Negative for shortness of breath, cough, wheezing, and pleuritic chest pain, Back: Negative for injury and pain, : Negative for injury, bleeding, discharge, and swelling, MS/Extremity: Negative for injury and deformity, Skin: Negative for injury, rash, and discoloration, Neuro: Negative for headache, weakness, numbness, tingling, and seizure, Psych: Negative for depression, anxiety, suicide ideation, homicidal ideation, and hallucinations, Allergy/Immunology: Negative for hives, rash, and allergies, Endocrine: Negative for neck swelling, polydipsia, polyuria, polyphagia, and marked weight changes, Hematologic/Lymphatic: Negative for swollen nodes, abnormal bleeding, and unusual bruising. Exam: 21:15 Constitutional: This is a well developed, well nourished patient who is awake, alert, mh7 and in no acute distress. Head/Face: Normocephalic, atraumatic. Eyes: Pupils equal round and reactive to light, extra-ocular motions intact. Lids and lashes normal. Conjunctiva and sclera are non-icteric and not injected. Cornea within normal limits. Periorbital areas with no swelling, redness, or edema. Neck: Trachea midline, no thyromegaly or masses palpated, and no cervical lymphadenopathy. Supple, full range of motion without nuchal rigidity, or vertebral point tenderness. No Meningismus. Chest/axilla: Normal chest wall appearance and motion. Nontender with no deformity. No lesions are appreciated. Cardiovascular: Regular rate and rhythm with a normal S1 and S2. No gallops, murmurs, or rubs. Normal PMI, no JVD. No pulse deficits. Respiratory: Lungs have equal breath sounds bilaterally, clear to auscultation and percussion. No rales, rhonchi or wheezes noted. No increased work of breathing, no retractions or nasal flaring. Abdomen/GI: Soft, non-tender, with normal bowel sounds. No distension or tympany. No guarding or rebound. No evidence of tenderness throughout. Back: No spinal tenderness. No costovertebral tenderness. Full range of motion. Skin: Warm, dry with normal turgor. Normal color with no rashes, no lesions, and no evidence of cellulitis. MS/ Extremity: Pulses equal, no cyanosis. Neurovascular intact. Full, normal range of motion. Neuro: Awake and alert, GCS 15, oriented to person, place, time, and situation. Cranial nerves II-XII grossly intact. Motor strength 5/5 in all extremities. Sensory grossly intact. Cerebellar exam normal. Normal gait. Psych: Awake, alert, with orientation to person, place and time. Behavior, mood, and affect are within normal limits. Vital Signs: 20:31 BP 135 / 89; Pulse 98; Resp 20; Temp 98.3(O); Pulse Ox 98% on R/A; Weight 60.33 kg; kg Height 5 ft. 6 in. (167.64 cm); Pain 9/10; 20:31 Body Mass Index 21.47 (60.33 kg, 167.64 cm) kg MDM: 11/22 01:53 Differential diagnosis: gastritis, pancreatitis, diverticulitis, viral gastroenteritis, mh7 gastroenteritis. Data reviewed: vital signs, nurses notes, old medical records, lab test result(s), CBC, electrolytes, urinalysis, EKG, radiologic studies, CT scan. Data interpreted: Pulse oximetry: on room air is 98 %. Interpretation: normal. Counseling: I had a detailed discussion with the patient and/or guardian regarding: the historical points, exam findings, and any diagnostic results supporting the discharge/admit diagnosis, lab results, radiology results, the need for further work-up and treatment in the hospital. Response to treatment: the patient's symptoms have mildly improved after treatment. 01:55 Patient medically screened. [facility] 11/21 21:25 Order name: Basic Metabolic Panel; Complete Time: 22:57 [facility] 11/21 21:25 Order name: CBC with Diff; Complete Time: 23:23 [facility] 11/21 21:25 Order name: Hepatic Function; Complete Time: 22:57 [facility] 11/21 21:25 Order name: Lipase; Complete Time: 22:57 [facility] 11/21 23:02 Order name: Manual Differential; Complete Time: 23:23 [facility] 11/21 23:07 Order name: SARS-COV-2 RT PCR; Complete Time: 23:09 [facility] 11/21 23:30 Order name: Type And Screen [facility] 11/21 23:30 Order name: Blood Culture Adult (2) [facility] 11/21 23:40 Order name: Protime (+inr) [facility] 11/21 23:40 Order name: Ptt, Activated [facility] 11/21 23:40 Order name: Lactate [facility] 11/21 23:40 Order name: Procalcitonin [facility] 11/22 00:45 Order name: Urine Dipstick-Ancillary; Complete Time: 00:48 [facility] 11/22 00:45 Order name: Urine Microscopic Only; Complete Time: 01:44 11/22 00:48 Order name: Urine Culture [facility] 11/22 00:49 Order name: Urine Culture [facility] 11/22 01:57 Order name: Fecal Leukocyte Stain [facility] 11/22 01:57 Order name: Occult Blood [facility] 11/22 01:57 Order name: Ova And Parasites [facility] 11/22 01:57 Order name: Stool Culture [facility] 11/22 01:57 Order name: Fecal Leukocyte Stain [facility] 11/22 01:58 Order name: Occult Blood [facility] 11/22 01:58 Order name: C.difficile em 11/22 01:59 Order name: C.difficile GDH Ag [facility] 11/22 02:48 Order name: ABO/RH no charge EDMS 11/22 05:26 Order name: CBC with Automated Diff EDMS 11/22 06:01 Order name: Comprehensive Metabolic Panel [facility] 11/22 06:01 Order name: T4 Free [facility] 11/22 06:01 Order name: Magnesium [facility] 11/21 21:25 Order name: IV Saline Lock; Complete Time: 22:14 [facility] 11/21 21:25 Order name: Labs collected and sent; Complete Time: 22:14 [facility] 11/21 21:25 Order name: Urine Dipstick-Ancillary (obtain specimen); Complete Time: 01:58 [facility] 11/21 22:17 Order name: CT Abd/Pelvis - Without Contrast [facility] 11/22 06:01 Order name: Thyroid Stimulating Hormone [facility] 11/22 20:43 Order name: Basic Metabolic Panel [facility] 11/22 20:43 Order name: Magnesium EDLA Administered Medications: 11/21 22:16 Drug: Pepcid (famotidine) 20 mg Route: IVP; Site: right antecubital; ea 22:17 Drug: NS 0.9% 1000 ml Route: IV; Rate: 1000 ml; Site: right antecubital; ea 22:17 Drug: Phenergan (promethazine) 12.5 mg Route: IVP; Site: right antecubital; ea 11/22 01:56 Follow up: Response: No adverse reaction bs2 01:30 Drug: Dilaudid (HYDROmorphone) 1 mg Route: IVP; Site: right antecubital; bs2 02:24 Drug: Flagyl (metroNIDAZOLE) 500 mg Volume: 100 ml; Route: IVPB; Rate: 200 ml/hr; ea Infused Over: 30 mins; Site: right antecubital; 02:29 Drug: Bactrim (trimethoprim-sulfamethoxazole) (160 mg-800 mg (DS) 1 tablet Route: PO; ea Disposition Summary: 11/22/20 01:55 Hospitalization Ordered Hospitalization Status: Inpatient Admission [facility] Provider: Doreen Abraham Condition: Stable [facility] Problem: new mh7 Symptoms: have improved [facility] Bed/Room Type: Standard [facility] Location: Telemetry/MedSurg (Inpatient)(11/22/20 21:14) Room Assignment: [facility](11/22/20 21:14) cg Diagnosis - Nausea with vomiting, unspecified mh7 - Diarrhea, unspecified mh7 - Antineoplastic chemotherapy induced pancytopenia mh7 - Dehydration 7 Forms: - Medication Reconciliation Form 7 - SBAR form 7 Signatures: Dispatcher [employer] EDLA Rodrigo Ash RN RN Lina Vallejo RN RN cg Kelly Carmichael RN RN ea Peltier, Brian RN Nitish Juares MD MD [facility] Kate Coats RN RN kg Orquidea Palmer RN RN bs2 Corrections: (The following items were deleted from the chart) 11/21 22:06 20:48 CORONAVIRUS+MR.LAB.BRZ ordered. [facility] 11/22 02:06 01:55 Telemetry/MedSurg (Inpatient) 7 cg 02:06 01:55 [facility] cg 12:19 10:36 PMHx: ovarian cancer; bp bp 21:14 02:06 [facility] ER HOLD cg cg 21:14 02:06 ERHOLD- cg cg
--- NOTE | 2020-11-22 01:55 | ER ---
Nurse's Notes [facility] Name: Milly Cabrera Age: 59 yrs Sex: Female : 1960 Arrival Date: 11/21/2020 Time: 20:02 Bed 16 Private MD: Diagnosis: Nausea with vomiting, unspecified;Diarrhea, unspecified;Antineoplastic chemotherapy induced pancytopenia;Dehydration Presentation: 11/21 20:31 Chief complaint: Patient states: Nausea/Vomiting/ Diarrhea x 3 days. Coronavirus kg screen: Client denies travel out of the [place] in the last 14 days. At this time, unable to obtain information related to travel outside the [place] Client presents with at least one sign or symptom that may indicate coronavirus-19. Standard/surgical mask placed on the client. Provider contacted for isolation considerations. Ebola Screen: Patient negative for fever greater than or equal to 101.5 degrees Fahrenheit, and additional compatible Ebola Virus Disease symptoms Patient denies exposure to infectious person. Patient denies travel to an Ebola-affected area in the 21 days before illness onset. Initial Sepsis Screen: Does the patient meet any 2 criteria? No. Patient's initial sepsis screen is negative. Does the patient have a suspected source of infection? No. Patient's initial sepsis screen is negative. Risk Assessment: Do you want to hurt yourself or someone else? Patient reports no desire to harm self or others. Onset of symptoms was November 18, 2020. 20:31 Method Of Arrival: Ambulatory kg 20:31 Acuity: DAMON 3 kg Triage Assessment: 20:32 General: Appears in no apparent distress. Behavior is calm, cooperative, appropriate kg for age, quiet. Pain: Complains of pain in groin Pain radiates to lumbar area, sacrum, left low back and right low back Pain currently is 9 out of 10 on a pain scale. at worst was 10 out of 10 on a pain scale. level that patient reports is acceptable is 5 out of 10 on a pain scale. GI: Reports lower abdominal pain, diarrhea, nausea, vomiting, since x 3 days. Historical: - Allergies: 20:32 Cephalexin; kg 20:32 Ciprofloxacin; kg 20:32 Clindamycin; kg 20:32 Demerol; kg 20:32 Iodine; kg 20:32 Morphine; kg 20:32 PENICILLINS; kg 20:32 SHELLFISH; kg 20:32 Strawberries; kg 20:32 Zithromax Z-Joon; kg - Home Meds: 20:32 Plavix 75 mg Oral tab 1 tab once daily [Active]; metoprolol tartrate 50 mg Oral tab kg once daily [Active]; Pepcid Oral [Active]; fluoxetine 40 mg Oral cap 1 cap once daily [Active]; metronidazole 500 mg Oral tab 1 tab 2 times per day [Active]; prochlorperazine maleate 10 mg Oral tab 1 tab 3 times per day [Active]; magnesium oxide 400 mg magnesium Oral tab 400 mg twice a day [Active]; atorvastatin 40 mg Oral tab 1 tab once daily [Active]; gabapentin 100 mg oral tab twice a day [Active]; potassium chloride 10 mEq Oral cpER 1 cap once daily [Active]; aspirin 81 mg Oral TbEC 1 tab once daily [Active]; Zofran 4 mg Oral tab 1 tab every 8 hours [Active]; - PMHx: 20:32 vulvar cancer; neuropathy; Hypertension; Hyperlipidemia; Endometrosis; Anxiety; acid kg reflux; - PSHx: 20:32 Total abdominal hysterectomy; Vascular stents; Appendectomy; section; kg - Immunization history:: Adult Immunizations up to date, Client reports receiving the 2nd dose of the Covid vaccine, Date received: July 22, 2020 [facility] Client reports receiving the 1st dose of the Covid vaccine, June 23, 2020 [facility]. - Social history:: Smoking status: Patient/guardian denies using tobacco, but has a distant history of tobacco abuse. Screenin:30 Abuse screen: Denies threats or abuse. Denies injuries from another. Nutritional bs2 screening: No deficits noted. Tuberculosis screening: No symptoms or risk factors identified. Fall Risk None identified. Assessment: 21:30 General: Appears in no apparent distress. uncomfortable, slender, Behavior is calm, bs2 cooperative, appropriate for age. Pain: Complains of pain in back and right low back and left low back and sacrum and lumbar area and pelvis and groin. GI: Abdomen is flat, Stools are reported to be diarrhea. Bowel sounds present X 4 quads. Abd is soft X 4 quads Abdomen is tender to palpation in right lower quadrant and left lower quadrant. Vital Signs: 20:31 BP 135 / 89; Pulse 98; Resp 20; Temp 98.3(O); Pulse Ox 98% on R/A; Weight 60.33 kg; kg Height 5 ft. 6 in. (167.64 cm); Pain 9/10; 20:31 Body Mass Index 21.47 (60.33 kg, 167.64 cm) kg ED Course: 20:02 Patient arrived in ED. as 20:32 Triage completed. kg 20:32 Arm band placed on right wrist. EKG completed in triage. Results shown to MD. EKG kg completed in triage. Results shown to MD. 21:01 Nitish Hatch MD is Attending Physician. 7 21:11 Orquidea Palmer, RN is Primary Nurse. bs2 21:30 Patient has correct armband on for positive identification. Placed in gown. Bed in low bs2 position. Call light in reach. Side rails up X2. Pulse ox on. NIBP on. Warm blanket given. 21:30 No provider procedures requiring assistance completed. bs2 22:14 Inserted saline lock: 20 gauge in right antecubital area, using aseptic technique. dh4 Blood collected. 23:59 CT Abd/Pelvis - Without Contrast In Process Unspecified. EDMS 11/22 01:15 Initiated transfer at [facility] with Laisha. Was informed they were at capacity and stated tt3 we could reinitiate in the morning if needed. Information passed on to Dr. Hatch. 01:54 Doreen Abraham MD is Hospitalizing Provider. 7 01:56 Urine Culture Sent. bs2 01:56 Urine Culture Sent. bs2 01:56 Procalcitonin Sent. bs2 01:56 Lactate Sent. bs2 01:56 Protime (+inr) Sent. bs2 01:56 Ptt, Activated Sent. bs2 01:56 Blood Culture Adult (2) Sent. bs2 01:56 Type And Screen Sent. bs2 07:46 Primary Nurse role handed off by Orquidea Palmer, RAAD bp 07:46 Kenneth Lam, RAAD is Primary Nurse. bp 19:30 Primary Nurse role handed off by Kenneth Lam, RN mw2 Administered Medications: 11/21 22:16 Drug: Pepcid (famotidine) 20 mg Route: IVP; Site: right antecubital; ea 22:17 Drug: NS 0.9% 1000 ml Route: IV; Rate: 1000 ml; Site: right antecubital; ea 22:17 Drug: Phenergan (promethazine) 12.5 mg Route: IVP; Site: right antecubital; ea 11/22 01:56 Follow up: Response: No adverse reaction bs2 01:30 Drug: Dilaudid (HYDROmorphone) 1 mg Route: IVP; Site: right antecubital; bs2 02:24 Drug: Flagyl (metroNIDAZOLE) 500 mg Volume: 100 ml; Route: IVPB; Rate: 200 ml/hr; ea Infused Over: 30 mins; Site: right antecubital; 02:29 Drug: Bactrim (trimethoprim-sulfamethoxazole) (160 mg-800 mg (DS) 1 tablet Route: PO; ea Outcome: 01:55 Decision to Hospitalize by Provider. [facility] 22:27 Patient left the ED. lp1 Signatures: Dispatcher [employer] EDMS Faviola Stafford Laura, RN RN lp1 Kelly Carmichael RN RN ea Peltier, Brian, RN RN Jhon Barton [facility] Alfredo Saucedo 4 Nitish Hatch MD MD 7 Teja Hawthorne 3 Kate Coats RN RN kg Smith, Bridget, RN RN bs2 Corrections: (The following items were deleted from the chart) 12:19 10:36 PMHx: ovarian cancer; bp
[2020-11-22 02:11] LABS: Protime INR 1.01
--- NOTE | 2020-11-22 02:30 | P.HP ---
Certification for Inpatient Patient admitted to: Inpatient With expected LOS: >2 Midnights Patient will require the following post-hospital care: None Practitioner: I am a practitioner with admitting privileges, knowledge of patient current condition, hospital course, and medical plan of care. Services: Services provided to patient in accordance with Admission requirements found in Title 42 Section 412.3 of the Code of Federal Regulations <Carlos De Los Santos - Last Filed: 11/22/20 02:23> Patient History Date of Service: 11/22/20 Primary Care Provider: Radha Parham, oncology at [facility] Reason for admission: Intractable vomiting, pancytopenia, diarrhea History of Present Illness: 59-year-old female with history of vulvar cancer on chemotherapy, hypertension, hyperlipidemia presents emerged from for nausea, vomiting, diarrhea. Patient reports ongoing nausea vomiting diarrhea over the course of last 3 days, patient unable to tolerate anything by mouth including fluids at this time. Patient failed p.o. challenge after multiple rounds of antiemetics in the emergency department. Last chemotherapy was on 11/12/2020, patient receives chemo every 3.5 weeks. Patient was following the emergency department labs were significant for pancytopenia with white blood cell count 10.2 hemoglobin 8.6 medical 26.1 platelet count 34 red blood cell 2.64 sodium 135 GFR 66 glucose 113 calcium 8.4 urinalysis with 20-50 bacteria 5-[address] abdomen pelvis negative for any acute findings, patient with allergies to multiple antibiotics currently on Bactrim for UTI, Flagyl for anaerobic coverage from diarrhea. ED provider wishes to admit for further evaluation and management. - Past Medical/Surgical History -: Vulvar cancer on chemotherapy -: Hypertension -: Hyperlipidemia -: PAD with vascular stenting -: Appendectomy -: Hysterectomy -: Psychosocial/ Personal History: Patient lives at home with her son - Family History Father -: Cancer Mother -: Cancer - Social History Smoking Status: Former smoker Alcohol use: No CD- Drugs: No Caffeine use: Yes Place of Residence: Home <Carlos De Los Santos - Last Filed: 11/22/20 02:23> Date of Service: 11/22/20 <Doreen Abraham - Last Filed: 11/23/20 16:31> Review of Systems 10-point ROS is otherwise unremarkable General: Weakness, Malaise Gastrointestinal: Nausea, Vomiting, Abdominal Pain, Diarrhea <Carlos De Los Santos - Last Filed: 11/22/20 02:23> Physical Examination - Physical Exam General: Alert, In no apparent distress, Oriented x3 HEENT: Atraumatic, PERRLA, Other (Mucous membranes dry), EOMI, Sclerae nonicteric Neck: Supple, 2+ carotid pulse no bruit, No LAD, Without JVD or thyroid abnormality Respiratory: Clear to auscultation bilaterally, Normal air movement Cardiovascular: Regular rate/rhythm, Normal S1 S2 Gastrointestinal: Normal bowel sounds, No tenderness Musculoskeletal: No tenderness Integumentary: No rashes Neurological: Normal gait, Normal speech, Normal strength at 5/5 x4 extr, Normal tone, Normal affect Lymphatics: No axilla or inguinal lymphadenopathy - Studies Laboratory Data (last 24 hrs) 11/22/20 01:45: PT 11.6, INR 1.01, APTT 26.7 11/21/20 22:10: WBC 3.20 L, Hgb 8.6 L, Hct 26.1 L, Plt Count 34 L* 11/21/20 22:10: Sodium 135 L, Potassium 4.2, BUN 12, Creatinine 0.87, Glucose 113 H, Total Bilirubin 0.3, AST 10 L, ALT 10 L, Alkaline Phosphatase 78, Lipase 83 Microbiology Data (last 24 hrs): 11/22/20 01:57 Stool Stool Occult Blood (RUBENS) - 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 aside from ice chips and sips of fluids, scheduled twice daily Protonix, as needed Zofran, Phenergan. Advance diet as tolerated, stool studies including C. difficile ordered. Patient reports history of C. difficile a couple of years ago. Currently on Flagyl. UTI: Patient with many antibiotic allergies including penicillins, cephalosporins, fluoroquinolones. Continue with Bactrim for now. Urine culture ordered. Vulvar cancer on chemotherapy with pancytopenia, thrombocytopenia: Platelet counts low 34 hemoglobin 8.6 will transfuse to maintain hemoglobin greater than 7. No active bleeding noted. Hypertension: Continue medications as appropriate Hyperlipidemia: Continue medications as appropriate PAD: Continue home medications as appropriate DVT PPX: SCDs Code status: Full Discharge Plan: Home Plan to discharge in: 48 Hours - Advance Directives Does patient have a Living Will: No Does patient have a Durable POA for Healthcare: No - Code Status/Comfort Care Code Status Assessed: Yes (Full code) Critical Care: No Time Spent Managing Pts Care (In Minutes): 55 <Carlos De Los Santos - Last Filed: 11/22/20 02:23> - Problems (Diagnosis) (1) Intractable nausea and vomiting Current Visit: Yes Status: Acute (2) Primary cancer of vulva with widespread metastatic disease Current Visit: Yes Status: Acute (3) HTN (hypertension) Current Visit: Yes Status: Acute (4) Dyslipidemia Current Visit: Yes Status: Acute <Doreen Abraham - Last Filed: 11/23/20 16:31> Malnutrition Assessment - Patient Problems (1) Intractable nausea and vomiting Code(s): R11.2 - NAUSEA WITH VOMITING, UNSPECIFIED (2) Primary cancer of vulva with widespread metastatic disease Code(s): C51.9 - MALIGNANT NEOPLASM OF VULVA, UNSPECIFIED; C80.0 - DISSEMINATED MALIGNANT NEOPLASM, UNSPECIFIED (3) HTN (hypertension) Code(s): I10 - ESSENTIAL (PRIMARY) HYPERTENSION (4) Dyslipidemia Code(s): E78.5 - HYPERLIPIDEMIA, UNSPECIFIED <AbrahamDoreen fraga Alber - Last Filed: 11/23/20 16:31> Date of Service: 11/22/20 Subjective Chart reviewed and agree with events as above Review of Systems 10-point ROS is otherwise unremarkable Physical Examination - Vital Signs Reviewed - Physical Exam General: Alert, In no apparent distress, Oriented x3; cachectic Respiratory: Clear to auscultation bilaterally, Normal air movement Cardiovascular: Regular rate/rhythm, Normal S1 S2, No murmurs Gastrointestinal: Minimal tenderness Neurological: Sensation intact, Cranial nerves 3-12 intact Lymphatics: No axilla or inguinal lymphadenopathy - Studies Medications List Reviewed: Yes Assessment & Plan - Problems (Diagnosis) (1) Intractable nausea and vomiting Current Visit: Yes Status: Acute (2) Primary cancer of vulva with widespread metastatic disease Current Visit: Yes Status: Acute (3) HTN (hypertension) Current Visit: Yes Status: Acute (4) Dyslipidemia Current Visit: Yes Status: Acute - Plan Agree with plan of care as mentioned above 1. Continue with IV hydration 2. Continue with IV antibiotics 3. Continue with pain control-patient requesting fentanyl patch 4. Anti emetics and anti diarrheal medicine 5. Outpatient oncology appointment 6. Monitor magnesium level 7. GI and DVT prophylaxis <Doreen Abraham - Last Filed: 11/23/20 16:31>
[2020-11-22] MEDS ORDERED: METRONIDAZOLE 500mg IVPB 500 MG/100 ML BAG IV ONE ×3 (02:35→18:33)
[2020-11-22] MEDS ORDERED: SMZ./TMP. 800/160 MG TABLET ONE ×3 (02:53→21:33)
[2020-11-22] MEDS ORDERED: SODIUM CHLORIDE 0.9% 10ML INJ IV PRN (04:14)
[2020-11-22] MEDS ORDERED: ONDANSETRON 4 MG/2 ML VIAL IV PRN (04:14)
[2020-11-22] MEDS: NA CHLORIDE 0.9% 1,000 ML IV SCH ×2 (04:14→14:14)
[2020-11-22] MEDS ORDERED: ACETAMINOPHEN 500 MG TAB PO PRN (04:14)
[2020-11-22] MEDS: HYDROMORPHONE HCL 0.5 MG/0.5 ML INJ IV PRN ×4 (04:55→23:13)
[2020-11-22] MEDS ORDERED: NA CHLORIDE 0.9% 1,000 ML ONE ×2 (05:20→18:33)
[2020-11-22 05:24] LABS: Absolute Lymphocytes (CBC) 2.8 K/uL (0.7-4.9); Basophils % 0.4 % (0-1.3); Hematocrit 25.3 % (36.0-45.0); Lymphocytes % 85.4 % (15.3-44.8); MPV 8.7 fL (7.6-11.3); RBC Red Blood Cell Count 2.53 M/uL (3.86-4.86)
[2020-11-22] MEDS: PROMETHAZINE INJ 25 MG/ML AMP IV PRN ×4 (05:40→23:15)
[2020-11-22 05:53] LABS: Albumin 3.1 g/dL (3.4-5.0); Bilirubin Total 0.3 mg/dL (0.2-1.0); Potassium 3.2 mmol/L (3.5-5.1); Protein, Total 6.9 g/dL (6.4-8.2); Thyroid Stimulating Hormone 2.61 uIU/mL (0.360-3.740)
[2020-11-22] MEDS ORDERED: PROMETHAZINE INJ 25 MG/ML AMP ONE ×3 (05:57→18:32)
[2020-11-22] MEDS ORDERED: PANTOPRAZOLE 40 MG INJ ONE ×2 (08:58→21:33)
[2020-11-22] MEDS: SMZ./TMP. 800/160 MG TABLET PO SCH ×2 (09:00→21:00)
[2020-11-22] MEDS: PANTOPRAZOLE 40 MG INJ IVP SCH ×2 (09:00→21:00)
[2020-11-22] MEDS: METRONIDAZOLE 500mg IVPB 500 MG/100 ML BAG IV SCH ×2 (09:00→17:00)
[2020-11-22] MEDS ORDERED: HYDROMORPHONE HCL 0.5 MG/0.5 ML INJ ONE ×2 (09:48→18:32)
[2020-11-22] MEDS ORDERED: MAGNESIUM 50% 3 GM in NA CHLORIDE 0.9% 100 ML IV ONE (10:18)
[2020-11-22 20:36] LABS: BUN Blood Urea Nitrogen 7 mg/dL (7-18); Bicarbonate 23 mmol/L (21-32); Glucose Level 94 mg/dL (74-106); Potassium 3.3 mmol/L (3.5-5.1); Sodium Level 141 mmol/L (136-145)
[2020-11-22 20:42] LABS: Magnesium 1.1 mg/dL (1.8-2.4)
[2020-11-22 22:24] VITALS: O2SAT 98
[2020-11-22 23:08] VITALS: BMI 23.1
[2020-11-23] MEDS: METRONIDAZOLE 500mg IVPB 500 MG/100 ML BAG IV SCH ×3 (01:03→16:40)
[2020-11-23 02:16] LABS: Urine Appearance CLEAR (Clear); Urine Bilirubin NEGATIVE (Negative); Urine Blood 1+ (Negative); Urine Color YELLOW (Yellow); Urine Glucose NEGATIVE (Negative); Urine Protein NEGATIVE (Negative); Urine Specific Gravity <=1.005 (1.005-1.030); Urine Urobilinogen 0.2 mg/dL (0.2-1.0)
[2020-11-23 02:21] LABS: Urine Microscopic Reflex ORDER UMIC
[2020-11-23 04:04] LABS: Urine Bacteria <20 /HPF (<20); Urine RBC <5 /HPF (NONE SEEN)
[2020-11-23] MEDS: PROMETHAZINE INJ 25 MG/ML AMP IV PRN ×2 (04:08→20:15)
[2020-11-23 06:09] LABS: Absolute Lymphocytes (CBC) 1.8 K/uL (0.7-4.9); Basophils % 0.3 % (0-1.3); Lymphocytes % 72.8 % (15.3-44.8); RBC Red Blood Cell Count 2.11 M/uL (3.86-4.86)
[2020-11-23] MEDS: HYDROMORPHONE HCL 0.5 MG/0.5 ML INJ IV PRN ×4 (06:18→20:14)
[2020-11-23] MEDS: NA CHLORIDE 0.9% 1,000 ML IV SCH ×2 (06:18→20:14)
[2020-11-23 06:33] LABS: Albumin 2.6 g/dL (3.4-5.0); Bilirubin Total 0.2 mg/dL (0.2-1.0); Potassium 3.1 mmol/L (3.5-5.1); Protein, Total 5.9 g/dL (6.4-8.2)
[2020-11-23 06:37] LABS: Magnesium 0.8 mg/dL (1.8-2.4)
[2020-11-23] MEDS ORDERED: MAGNESIUM 50% 3 GM in NA CHLORIDE 0.9% 100 ML IV ONE (06:38)
[2020-11-23] MEDS ORDERED: Magnesium Sulfate 2gm IVPB 2 G/50 ML BAG IV ONE ×2 (07:00→16:12)
[2020-11-23] MEDS ORDERED: MAGNESIUM SULFATE 1 gm IVPB 1 GM/100 ML BAG IV ONE (08:00)
[2020-11-23] MEDS: PANTOPRAZOLE 40 MG INJ IVP SCH ×2 (08:44→20:16)
[2020-11-23] MEDS: SMZ./TMP. 800/160 MG TABLET PO SCH (08:45)
[2020-11-23] MEDS ORDERED: POTASSIUM CL SA 10 MEQ TAB PO ONE (09:00)
--- NOTE | 2020-11-23 11:56 | RAD REPORT ---
EXAM DESCRIPTION: CT - Abdomen Pelvis Wo Contrast - 11/22/2020 5:10 am CLINICAL HISTORY: 59 years, Female, Diarrhea;Nausea / vomiting COMPARISON: 07/07/2020 TECHNIQUE: Multiple transaxial tomograms of the abdomen and pelvis were performed from the lung base s to the symphysis pubis 5 mm slice thickness at 5 mm interval reconstruction, without administration of IV and oral contrast. Multiplanar reformats in the sagittal and coronal plane were generated and reviewed. This exam was performed according to our departmental dose-optimization protocol, which includes auto mated exposure control, adjustment of the mA and/or kV according to patient size and/or use of iterat prabhakar reconstruction technique. FINDINGS: The lack of IV and oral contrast limits evaluation of solid organs, subtle lesions cannot be excluded. The lung bases demonstrate to be clear. Again the heart demonstrate the presence of fat deposition wi thin the superior aspect anterior atrial septum/left atrial appendage area. There is minimal coronary artery calcification and mitral annular calcification. Grossly the unopacified liver, gallbladder, pancreas, spleen and adrenal glands demonstrate to be wit hin normal limits, no significant focal lesions were identified. The kidneys demonstrate grossly unremarkable. There is no evidence for nephrolithiasis and/or hydro nephrosis. No focal masses were demonstrated. The ureters displays normal appearance with normal caliber, no hydroureter was seen. Grossly the unopacified stomach, small bowel and large bowel demonstrate to be within normal limits. There is no evidence for bowel dilatation/or free air. Some minimal fluid-filled rectosigmoid colon p erhaps suggesting imminent diarrhea. The urinary bladder demonstrate to be within normal limits. The uterus is absent. External genitalia demonstrate the presence of drainage of the previous described phlegmon/abscess within the deep mon s pubis with air tracking along the anterior aspect of the external genitalia/labia. There is a focal area of scarring within the right inguinal region. The aorta demonstrate atherosclerotic disease with the presence of right external iliac stent. Ther e is no retroperitoneal lymphadenopathy. There is no evidence for ascites. The bone windows demonst rate mild diffuse bony neutropenia. Minimal anterior spondylosis. IMPRESSION: Interval drainage of the previous described phlegmon/abscess within the deep mons pubis with evacuation/air along the anterior aspect of of the external genitalia/labia. Some minimal fluid-filled rectosigmoid colon perhaps suggesting imminent diarrhea. Atherosclerotic disease of the aorta with the presence of right external iliac stent. Electronically signed by: Lobo Granados MD 11/22/2020 12:21 AM CDT Due to temporary technical issues with the PACS/Fluency reporting system, reports are being signed by the in house radiologist without review as a courtesy to ensure prompt reporting. The interpreting r adiologist is fully responsible for the content of the report.
[2020-11-23] MEDS ORDERED: FENTANYL 50 MCG/PATCH TD ONE (15:30)
[2020-11-23] MEDS ORDERED: DIPHENOX/ATROP SULF 1 TAB PO PRN (15:54)
--- NOTE | 2020-11-23 16:06 | P.PN ---
Subjective Date of Service: 11/23/20 Patient feeling somewhat better. Still having quite a bit of pain. Nausea and vomiting are improved and diarrhea is better as well. Review of Systems 10-point ROS is otherwise unremarkable Physical Examination - Vital Signs Temperature: 98.7 F Blood Pressure: 95/48 Pulse: 70 Respirations: 18 Pulse Ox (%): 98 - Physical Exam General: Alert, In no apparent distress, Oriented x3 Respiratory: Clear to auscultation bilaterally, Normal air movement Cardiovascular: Regular rate/rhythm, Normal S1 S2, No murmurs Gastrointestinal: Normal bowel sounds, Soft and benign, Non-distended, No tenderness Neurological: Sensation intact, Cranial nerves 3-12 intact Lymphatics: No axilla or inguinal lymphadenopathy - Studies Medications List Reviewed: Yes Assessment & Plan - Problems (Diagnosis) (1) Intractable nausea and vomiting Status: Acute (2) Primary cancer of vulva with widespread metastatic disease Status: Acute (3) HTN (hypertension) Status: Acute (4) Dyslipidemia Status: Acute - Plan continue with plan of care as mentioned below: 1. Continue with IV hydration 2. Continue with IV antibiotics 3. Continue with pain control-patient requesting fentanyl patch 4. Anti emetics and anti diarrheal medicine 5. Outpatient oncology appointment 6. Monitor magnesium level 7. GI and DVT prophylaxis Discharge Plan: Home - Advance Directives Does patient have a Living Will: No Does patient have a Durable POA for Healthcare: No - Code Status/Comfort Care Code Status Assessed: Yes Code Status: Full Code Critical Care: No Time Spent Managing PTS Care (In Minutes): 35
[2020-11-23] MEDS ORDERED: MORPHINE 2 MG/ML SYR IV PRN (16:08)
[2020-11-23] MEDS ORDERED: NA CHLORIDE 0.9% 100 ML ONE (22:21)
[2020-11-24] MEDS: HYDROMORPHONE HCL 0.5 MG/0.5 ML INJ IV PRN ×3 (00:35→10:41)
[2020-11-24] MEDS: METRONIDAZOLE 500mg IVPB 500 MG/100 ML BAG IV SCH ×2 (00:40→08:19)
[2020-11-24] MEDS: PROMETHAZINE INJ 25 MG/ML AMP IV PRN (02:28)
[2020-11-24 05:25] LABS: Absolute Lymphocytes (CBC) 2.1 K/uL (0.7-4.9); Basophils % 0.3 % (0-1.3); Hematocrit 23.2 % (36.0-45.0); MPV 8.3 fL (7.6-11.3); RBC Red Blood Cell Count 2.38 M/uL (3.86-4.86)
[2020-11-24 05:30] LABS: Lymphocytes % 76.3 % (15.3-44.8)
[2020-11-24 05:44] LABS: ALT/SGPT 9 U/L (12-78); AST/SGOT 14 U/L (15-37); Albumin 2.4 g/dL (3.4-5.0); Alkaline Phosphatase 58 U/L (45-117); BUN Blood Urea Nitrogen 3 mg/dL (7-18); Bicarbonate 21 mmol/L (21-32); Bilirubin Total 0.1 mg/dL (0.2-1.0); Glucose Level 92 mg/dL (74-106); Magnesium 1.7 mg/dL (1.8-2.4); Potassium 3.6 mmol/L (3.5-5.1); Protein, Total 5.5 g/dL (6.4-8.2); Sodium Level 142 mmol/L (136-145)
[2020-11-24] MEDS ORDERED: MAGNESIUM SULFATE 1 gm IVPB 1 GM/100 ML BAG IV ONE (05:47)
[2020-11-24] MEDS: NA CHLORIDE 0.9% 1,000 ML IV SCH ×2 (06:14→08:20)
[2020-11-24] MEDS ORDERED: Magnesium Sulfate 2gm IVPB 2 G/50 ML BAG IV ONE (07:48)
[2020-11-24] MEDS: PANTOPRAZOLE 40 MG INJ IVP SCH (08:19)
[2020-11-24] MEDS ORDERED: POTASSIUM CL SA 10 MEQ TAB PO ONE (09:00)
[2020-11-24] MEDS ORDERED: NA CHLORIDE 0.9% 250 ML ONE (10:44)
[2020-11-24] MEDS ORDERED: HYDROCODONE/APAP 10/325 TAB PO PRN (15:25)
[2020-11-30 02:31] VITALS: BP 95/48; TEMP 98.7
--- NOTE | 2020-11-30 02:32 | P.DS ---
Discharge Date: 11/24/20 Primary Care Provider: Radha Parham, oncology at [facility] [place] Disposition: ROUTINE DISCHARGE Discharge Condition: GOOD Reason for Admission: Intractable vomiting, pancytopenia, diarrhea - Problems (1) Intractable nausea and vomiting Status: Acute (2) Primary cancer of vulva with widespread metastatic disease Status: Acute (3) HTN (hypertension) Status: Acute (4) Dyslipidemia Status: Acute Brief History of Present Illness: 59-year-old female with history of vulvar cancer on chemotherapy, hypertension, hyperlipidemia presents emerged from for nausea, vomiting, diarrhea. Patient reports ongoing nausea vomiting diarrhea over the course of last 3 days, patient unable to tolerate anything by mouth including fluids at this time. Patient failed p.o. challenge after multiple rounds of antiemetics in the emergency department. Last chemotherapy was on 11/12/2020, patient receives chemo every 3.5 weeks. Patient was following the emergency department labs were significant for pancytopenia with white blood cell count 10.2 hemoglobin 8.6 medical 26.1 platelet count 34 red blood cell 2.64 sodium 135 GFR 66 glucose 113 calcium 8.4 urinalysis with 20-50 bacteria 5-[address] abdomen pelvis negative for any acute findings, patient with allergies to multiple antibiotics currently on Bactrim for UTI, Flagyl for anaerobic coverage from diarrhea. ED provider wishes to admit for further evaluation and manage ment. Hospital Course: Patient clinical symptoms have improved. Patient is feeling better. Tolerating diet. Continue with gentle hydration and advanced diet as tolerated. Anticipate discharge with outpatient follow-up with Oncology in 1-2 weeks. Vital Signs/Physical Exam: Temp Pulse Resp BP Pulse Ox 98.7 F 70 18 95/48 L 98 11/30/20 02:30 11/30/20 02:30 11/30/20 02:30 11/30/20 02:30 11/30/20 02:30 General: Alert, In no apparent distress, Oriented x3 Laboratory Data at Discharge: WBC 2.70 K/uL (4.3-10.9) L 11/24/20 05:05 Hgb 7.6 g/dL (12.0-15.0) L 11/24/20 05:05 Hct Cancelled 11/24/20 Unknown Plt Count 31 K/uL (152-406) L* 11/24/20 05:05 PT 11.6 SECONDS (9.5-12.5) 11/22/20 01:45 INR 1.01 11/22/20 01:45 APTT 26.7 SECONDS (24.3-36.9) 11/22/20 01:45 Sodium 142 mmol/L (136-145) 11/24/20 05:05 Potassium 3.6 mmol/L (3.5-5.1) 11/24/20 05:05 BUN 3 mg/dL (7-18) L 11/24/20 05:05 Creatinine 0.58 mg/dL (0.55-1.3) 11/24/20 05:05 Glucose 92 mg/dL (74-106) 11/24/20 05:05 Magnesium 1.7 mg/dL (1.8-2.4) L 11/24/20 05:05 Total Bilirubin 0.1 mg/dL (0.2-1.0) L 11/24/20 05:05 AST 14 U/L (15-37) L 11/24/20 05:05 ALT 9 U/L (12-78) L 11/24/20 05:05 Alkaline Phosphatase 58 U/L (45-117) 11/24/20 05:05 Lipase 83 U/L (73-393) 11/21/20 22:10 Home Medications: Aspirin [Aspirin EC 81 MG] 81 mg PO DAILY 11/22/20 Atorvastatin Calcium [Lipitor] 40 mg PO BEDTIME 11/22/20 Clopidogrel Bisulfate [Plavix] 75 mg PO DAILY 11/22/20 Fluoxetine HCl [Prozac] 40 mg PO DAILY 11/22/20 Gabapentin 100 mg PO BID 11/22/20 Metoprolol Tartrate [Lopressor*] 50 mg PO DAILY 11/22/20 Ondansetron [Ondansetron Odt] 4 mg PO Q8HR PRN 11/22/20 Potassium Chloride 10 meq PO DAILY 11/22/20 Prochlorperazine Maleate [Compazine] 10 mg PO TID 11/22/20 Hydrocodone Bit/Acetaminophen [[place]on 10-325 Tablet] 1 each PO Q4HP PRN 11/23/20 fentaNYL [Fentanyl] 50 mcg TD Q72H 11/23/20 Diphenox/Atropine [Lomotil*] 1 tab PO QIDP PRN #20 tab 11/24/20 Magnesium Chloride [Slow-Mag] 64 mg PO DAILY #30 tab 11/24/20 Pantoprazole [Protonix Tab] 40 mg PO BID #60 tab 11/24/20 New Medications: Diphenox/Atropine [Lomotil*] 1 tab PO QIDP PRN #20 tab PRN Reason: Diarrhea Pantoprazole [Protonix Tab] 40 mg PO BID #60 tab Magnesium Chloride [Slow-Mag] 64 mg PO DAILY #30 tab Diet: Regular Activity: Fall precautions Followup: Erika Parham NP [Primary Care Provider] - Time spent managing pt's care (in minutes): 35
== END 2020-11-24 18:12 | disposition home or self-care (01) | DRG 391 ==
LOC: ER 19:59 → ERHOLD 11-22 02:15 → 2ND 11-22 22:19
PROVIDERS: ADMIT Hospitalist; ATTEND Hospitalist
PROC: 30233N1 Transfusion of Nonautologous Red Blood Cells into Peripheral Vein, Percutaneous Approach (ICD-10-PCS; principal; 2020-11-22)
DX: R11.2 Nausea with vomiting, unspecified (principal); D61.810 Antineoplastic chemotherapy induced pancytopenia; N39.0 Urinary tract infection, site not specified; C79.9 Secondary malignant neoplasm of unspecified site; C51.9 Malignant neoplasm of vulva, unspecified; I10 Essential (primary) hypertension; E78.5 Hyperlipidemia, unspecified; R19.7 Diarrhea, unspecified; I73.9 Peripheral vascular disease, unspecified; Z20.822 Contact with and (suspected) exposure to COVID-19
CPT/HCPCS: 36415; 36430; 74176; 80048; 80053; 80076; 81003; 81015; 82274; 83605; 83690; 83735; 84132; 84145; 84439; 84443; 85025; 85610; 85730; 86850; 86900; 86901; 87040; 87045; 87046; 87086; 87088; 87177; 87209; 89055; 96374; 96375; 99284; C9113; J1170; J2405; J2550; J3475; J7030; J7050; P9016; U0003

== ENCOUNTER 2021-06-29 19:51 | Emergency (ER) | payer OTHER ==
--- OUTSIDE RECORDS SUMMARY | 2021-06-29 19:54 | XMS REPORT | Clinical Summary ---
:1960 Author Organization [facility] MD [facility] Address [address] [place] [address] Care Team Providers Name Role Phone Joshua Milner MD Unavailable Allergies Active Allergy Reactions Severity Noted Date Comments Azithromycin Itching 05/15/2020 Cephalexin Rash Low 05/15/2020 Ciprofloxacin Rash Low 05/15/2020 Meperidine Hives 09/25/2017 Morphine Itching 05/15/2020 Penicillins Anaphylaxis High 05/15/2020 Shellfish Containing Products Anaphylaxis High 05/15/2020 Medications Medication Sig Dispensed Refills Start Date End Date Status amitriptyline (ELAVIL) Take 50 mg by 0 04/13/2020 Active 50 mg tablet mouth daily. Takes 50mg by mouth in the morning and 100mg by mouth in the evening. atorvastatin (LIPITOR) Take 40 mg by 0 04/13/2020 Active 40 mg tablet mouth at bedtime. clopidogrel (PLAVIX) Take 75 mg by 0 04/16/2020 Active 75 mg tablet mouth daily. FLUoxetine (PROzac) 40 Take 40 mg by 0 04/13/2020 Active mg capsule mouth daily. HYDROcodone-acetaminop Take 1 tablet by 0 05/07/2020 Active hen (NORCO) 10 mg-325 mouth every 6 mg per tablet (six) hours as needed for pain. tiZANidine (ZANAFLEX) Take 4 mg by mouth 0 Active 4 mg tablet every 8 (eight) hours as needed for muscle spasms. amitriptyline (ELAVIL) Take 100 mg by 0 Active 50 mg tablet mouth at bedtime. Takes 50mg by mouth in the morning and 100mg by mouth in the evening. aspirin 81 mg EC Take 81 mg by 0 Active tablet mouth daily. lidocaine-prilocaine Please administer 30 g 0 05/15/2020 Active (EMLA) 2.5-2.5% as needed for creamIndications: comfort Suspected vulva cancer Active Problems Problem Noted Date Chronic obstructive pulmonary disease 05/15/2020 Coronary arteriosclerosis 05/15/2020 Chronic back pain 05/15/2020 Cellulitis 05/15/2020 Anxiety depression 05/15/2020 Hyperlipidemia 05/15/2020 Abnormal vaginal bleeding 05/15/2020 Malignant neoplasm of vulva Surgical History Surgery Date Site/Laterality Comments SECTION, [...] on file Not on file Obstetrics History Para Term AB IAB SAB Ectopic Multiple Living Live Births 2 1 1 1 1 Date Outcome GA Total Labor/2nd/3rd Weight Sex Delivery Anes PTL Tanya A 1 A5 Name Clin Labor Term M CS-LTranv Complications: Delivery by hyst erectomy AB SAB Complications: Stillbirth Comments: states stillbirth at 9 m o Comments Emergent c/s x 1, stillbirth at 9 months (vaginal) Last Filed Vital Signs Not on file Plan of Treatment Health Maintenance Due Date Last Done Comments COVID-19 Vaccination (1) 12/19/1965 Results Not on fileafter 06/29/2020 Insurance Payer Benefit Plan / Subscriber ID Effective Phone Address T ype Group Dates [facility] MEDICARE [id number] 2020-Prese [address] Medicare HEALTHCARE MEDICAID DUAL nt [place], [place] MEDICARE HMO [id number] SOLUTIONS Advance Directives Code Status Date Activated Date Inactivated Comments Full Code 05/15/2020 5:07 AM 05/15/2020 7:09 PM Care Teams Speech Coach Relationship Specialty Start Date End Date Joshua Milner MD PCP - External Referring Emergency Medicine 05/14/[address] [place], [place] [id number] [place] [address]
--- OUTSIDE RECORDS SUMMARY | 2021-06-29 19:56 | XMS REPORT | Continuity of Care Document ---
:1960 Author Organization [facility] t Address [address] [place] [address] Care Team Providers Name Role Phone Catarina CASTELLON Primary Care Physician SYSTEM, NOT IN Attending Clinician Unavailable Ailx Jaffe MD Attending Clinician Doctor Unassigned, Name Attending Clinician Unavailable Bill CASTELLON Attending Clinician TAMMY Attending Clinician Unavailable TAMMY Admitting Clinician Unavailable Payers Payer Name Policy Type Policy Number Effective Date Expiration Date Kobi quan [facility] D [id number] 2019 Community Plan [facility] 00:00:00 [facility] MEDICARE [id number] 2020 MEDICAID DUAL HMO 00:00:00 Problems Condition Condition Condition Status Onset Resolution Last Treating Co mments Source Name Details Category Date Date Treatment Clinician Date Diarrhea Diarrhea Disease Active Unive rs with with 1-18 ity of dehydratio dehydratio 00:00: [place] n 00 Medical Branch Obesity Obesity Disease Active Univers (BMI (BMI 1-14 ity of 30-39.9) 30-39.9) 00:00: [place] [facility] 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 1-14 ity of 00:00: [place] [facility] Vulvar Vulvar Disease Active Univers abscess abscess 1-14 ity of 00:00: [place] [facility] Polyneurop Polyneurop Disease Active U elvis athy athy 1-04 ity of 00:00: [place] [facility] History of History of Disease Active U elvis radiation radiation 4-21 ity of therapy therapy 00:00: [place] [facility] DNR (do DNR (do Disease Active Univers not not 4-11 ity of resuscitat resuscitat 00:00: [place] e) e) 00 Medical Branch 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 vers neoplastic neoplastic 4-07 it y of disease disease 00:00: [place] [facility] Encounter Encounter Disease Active Uni vers for for 4-07 ity of palliative palliative 00:00: [place] care care 00 Medical Branch Neoplasm Neoplasm Disease Active Unive rs related related 4-07 ity of pain pain 00:00: [place] (acute) (acute) 00 Medical (chronic) (chronic) Bran ch Hypokalemi Hypokalemi Disease Active U elvis a a 4-07 ity of 00:00: [place] [facility] Hypomagnes Hypomagnes Disease Active U elvis emia emia 4-07 ity of 00:00: [place] [facility] Essential Essential Disease Active Uni vers hypertensi hypertensi 4-07 it y of on on 00:00: [place] [facility] Gastroesop Gastroesop Disease Active U elvis hageal hageal 4-07 ity of reflux reflux 00:00: [place] disease disease 00 Medical without without Branch esophagiti esophagiti s s Chronic Chronic Disease Active Univers back pain back pain 4-07 ity of 00:00: [place] 00 Medical Branch Malignant Malignant Disease Active Uni vers neoplasm neoplasm 3-09 ity of of vulva of vulva 00:00: [place] 00 Medical Branch Chronic Chronic Disease Active obstructiv obstructiv 2-12 An derso e e 00:00: n pulmonary pulmonary 00 disease disease Coronary Coronary Disease Active MD arterioscl arterioscl 2-12 An derso erosis erosis 00:00: n 00 Chronic Chronic Disease Active MD back pain back pain 2-12 Delmer rso 00:00: n 00 Cellulitis Cellulitis Disease Active M D 2-12 Anderso 00:00: n 00 Anxiety Anxiety Disease Active MD depression depression 2-12 An derso 00:00: n 00 Hyperlipid Hyperlipid Disease Active M D emia emia 2-12 Anderso 00:00: n 00 Abnormal Abnormal Disease Active MD vaginal vaginal 2-12 Anderso bleeding bleeding 00:00: n 00 Malignant Malignant Disease Active MD neoplasm neoplasm Ed o of vulva of vulva n No known No known Disease Metho di active active st problems problems Hospit a l Allergies, Adverse Reactions, Alerts Allergy Allergy Status Severity Reaction(s) Onset Inactive Treating Comm ents Source Name Type Date Date Clinician Clindamradha Propensi Active Other - See Will U nivers jomar ty to comments 4-06 cause ity of adverse 00:00: cdiff to [place] reaction 00 reoccur Medical s Branch Aspirin Propensi Active Other - See Un jimmy ty to comments 3-09 ity of adverse 00:00: [place] reaction 00 Medical s Branch Iodine Propensi Active Shortness of Un jimmy ty to Breath 2-25 ity of adverse 00:00: [place] reaction 00 Medical s Branch Penicill Propensi Active Hives Univer s in ty to 2-25 ity of adverse 00:00: [place] reaction 00 Medical s Branch Shellfis Propensi Active Shortness of Univers h ty to Breath 2-25 ity of Derived adverse 00:00: [place] reaction 00 Medical s Branch Strawber Propensi Active Shortness of Univers ry ty to Breath 2-25 ity of adverse 00:00: [place] reaction 00 Medical s Branch Azithrom Propensi Active Itching Unive rs ycin ty to 2-12 ity of adverse 00:00: [place] reaction Medical s Branch Cephalex Propensi Active Rash Univer s in ty to 2-12 ity of adverse 00:00: [place] reaction Medical s Branch Ciproflo Propensi Active Rash Univer s xacin ty to 2-12 ity of adverse 00:00: [place] reaction Medical s Branch Morphine Propensi Active Itching Unive rs ty to 2-12 ity of adverse 00:00: [place] reaction Medical s Branch clindamy DA Active U 2019-0 [facility] [place] 00:00: [facility] clindamy DA Active U C-DIFF 2019-0 [facility]- [place] 00:00: [address] No Known DA Active U 2019-0 [facility] Allergie 6-13 [place] 00:00: [facility] strawber DA Active SV 2018-0 [facility] ry 6-25 [place] 00:00: [facility] ZPAC DA Active LA RASH 2018-0 [facility] 6-25 [place] 00:00: [facility] strawber FA Active SV 2018-0 [facility] ry 6-25 [place] 00:00: [address] iodine DA Active SV SWELLIG RESP 2018-0 [facility] DIFFICULTY 6-25 [place] 00:00: [address] meperidi DA Active [place] RASH 2018-0 [facility] ne 6-25 [place] 00:00: [address] penicill DA Active [place] RASH 2018-0 [facility] in G 6-25 [place] 00:00: [address] strawber FA Active SV SWELLING 2018-0 [facility] ry 6-25 [place] 00:00: [address] Meperidi Drug Active Hives 2018-0 Univers ne Allergy 6-25 ity of 00:00: [place] [facility] iodine DA Active SV 2018-0 [facility] 6-25 [place] 00:00: [address] meperidi DA Active LA 2018-0 [facility] ne 6-25 [place] 00:00: [address] penicill DA Active LA 2018-0 [facility] in G 6-25 [place] 00:00: [facility] 00 [facility] TUNA DA Active SV SWELLING [facility] FISH 1-12 [place] 00:00: [facility] 00 [facility] Aspirin Propensi Active Methodi ty to st [...] Start Date Stop Date Quantity Comments Source History of tobacco Cigarette Smoker University of use [facility] Exposure to Not sure [facility] SARS-CoV-2 (event) [facility] Cigarettes smoked 2020-05-15 2020-05-15 MD Delmer coleman current (pack per 00:00:00 00:00:00 day) - Reported Cigarette 2020-05-15 2020-05-15 MD Milner pack-years 00:00:00 00:00:00 Tobacco use and 2020-05-15 2020-05-15 Smokeless MD Ward on exposure 00:00:00 00:00:00 tobacco non-user Alcohol intake 2020-05-15 2020-05-15 Ex-drinker MD Arlene briggs 00:00:00 00:00:00 (finding) Sex Ass[birth year] At [birth year] MD [place] on 00:00:00 00:00:00 Smoking Status Start Date Stop Date Source Unknown if ever smoked [facility] Current some day 2021-04-16 00:00:00 [facility] smoker [facility] Branch Ex-smoker 2020-05-15 00:00:00 2020-05-15 00:00:00 MD Marte son Medications Ordered Filled Start Stop Current Ordering Indication Dosage Frequency Signature Comments Components Source Medication Medication Date Date Medication? Clinician (SIG) Name Name HYDROmorpho 2021- No 5224 16mg Take 2 Uni vers ne 06-09 tablets by cj of (DILAUDID) 00:00: 00:00 mouth [place] 8 mg tablet 00 :00 every 4 Medic al (four) Branch hours as needed for Pain. Indication s: chronic pain methadone 5 2021- No 5224 15mg Take 3 Uni vers mg tablet 06-09 03-24 tablets by ity of 00:00: 00:00 mouth [place] 00 :00 every 8 Medical (eight) Branch hours. Indication s: chronic pain predniSONE Yes [id number] 20mg Take 1 Univers 20 mg 3-02 tablet by ity of tablet 00:00: mouth [place] 00 daily. Medical Branch clopidogrel Yes Take by Un jimmy bisulfate 3- mouth. ity of (PLAVIX 20:25: [place] ORAL) 32 Medical Branch atorvastati Yes Take by Un jimmy n calcium 3- mouth. ity of (ATORVASTAT 20:25: [place] IN ORAL) 32 Medical Branch aspirin 81 Yes 81mg Take 81 mg U nivers mg EC 06-01 by mouth. ity of tablet 20:25: [place] 32 Medical Branch mirtazapine Yes [id number] 30mg Take 1 Univers 30 mg 2-24 tablet by ity of tablet 00:00: mouth at [place] 00 bedtime. Medical Branch metroNIDAZO Yes [id number] Crush one Univers LE 500 mg 2-15 tab and ity of tablet 00:00: sprinkle [place] 00 into wound Medical bed twice Branch daily lidocaine-p Yes [id number] 1{appli Apply 1 Univers rilocaine 2-07 102 cator} Applicator it y of 4-2.5-2.5 % 00:00: to area(s) [place] Kt 00 daily. Medical Branch Nitrofurant Yes [id number] 100mg Take 1 Univers oin&Nit. 2-07 capsule by ity o f Macrocryst 00:00: [place] (MACROBID) 00 (two) Medical 100 mg times Branch capsule daily. lidocaine 2 Yes [id number] Apply to Univers % mucosal 2-06 vulva up ity of jelly 00:00: to three [place] 00 times a Medical day as Branch needed for pain DULoxetine Yes [id number] 30mg Take 1 Univers 30 mg 1-31 capsule by ity of capsule 00:00: mouth [place] 00 daily. Medical Branch sennosides 0 202- Yes [id number] 8.6mg Take 1 Univers (SENNA) 8.6 1-28 03-30 tablet by it y of mg tablet 00:00: 04:59 mouth 2 [place] 00 :00 (two) Medical times Branch daily for 60 days. polyethylen 202- Yes [id number] 1{packe Take 1 Univers e glycol 1-28 03-30 t} Packet by ity o f 3350 00:00: 04:59 mouth [place] (MIRALAX) 00 :00 daily for Medic al 17 gram 60 days. Branch powder lidocaine 2 Yes [id number] Apply Univers % mucosal 1-27 small ity of jelly 00:00: amount to [place] 00 vulva once Medical daily as Branch needed for pain. gabapentin Yes [id number] 600mg Take 1 Univers 600 mg 1-25 tablet by ity of tablet 00:00: mouth at [place] 00 bedtime. Medical Branch gabapentin Yes [id number] Take one Univers 300 mg 1-25 capsule by ity of capsule 00:00: mouth in [place] 00 the Medical morning Branch and one capsule by mouth at noon gabapentin Yes [id number] Take one Univers 100 mg 1-25 capsule by ity of capsule 00:00: mouth in [place] 00 the Medical morning Branch and one capsule by mouth at noon magnesium Yes [id number] 143mg Take 2 Univers chloride 1-05 tablets by ity o f (SLOW-MAG) 00:00: mouth 2 [place] 71.5 mg 00 (two) Medical tablet times Branch daily. foLIC acid 2020-04 Yes [id number] 1mg Take 1 Univers 1 mg tablet 2-19 tablet by ity of 00:00: mouth [place] 00 daily. Medical Twice Branch daily for 1 month, then once daily. cyanocobala 2020-04 Yes [id number] 1000ug 1 mL by Univers min 1,000 2-19 Intramuscu ity of mcg/mL 00:00: lar route [place] injection 00 weekly. Medical Weekly for Branch 4 weeks, then monthly sennosides Yes [id number] 8.6mg Take 1 Univers (SENNA) 8.6 9-01 tablet by ity of mg tablet 00:00: mouth [place] 00 daily. Medical Branch polyethylen Yes [id number] 1{packe Take 1 Univers e glycol 9-01 t} Packet by ity of 3350 00:00: mouth [place] (MIRALAX) 00 daily. Medical 17 gram Branch powder pantoprazol Yes Univer s e 40 mg EC 8-24 ity of tablet 00:00: [place] 00 Medical Branch diphenoxyla Yes Univer s te-atropine 8-24 ity of 2.5-0.025 00:00: [place] mg tablet 00 Medical Branch KCL 10 mEq 0 Yes [id number] 10meq Take 1 Univers tablet 7-21 tablet by ity of 00:00: mouth [place] 00 daily. Medical Branch ondansetron Yes [id number] 4mg Take 1 Univers 4 mg 7-21 tablet by ity of disintegrat 00:00: mouth [place] ing tablet 00 every 8 Medica l (eight) Branch hours as needed for Nausea and Vomiting (N/V). maalox:diph Yes [id number] 10mL Take 10 mL Univers enhydrAMINE 6-09 by mouth ity of :lidocaine 00:00: as needed [place] 2 % viscous 00 for Oral Medi leonides 1:1:1 mucositis. Branch Swish in mouth for 1-2 minutes and spit proCHLORper Yes [id number] 10mg Take 1 Univers azine 10 mg 4-16 tablet by ity of tablet 00:00: mouth [place] 00 every 6 Medical (six) Branch hours as needed for Nausea and Vomiting (N/V). amitriptyli Yes 100mg Take 100 M D ne (ELAVIL) 2-12 mg by Anderso 50 mg 17:04: mouth at n tablet 43 bedtime. Takes 50mg by mouth in the morning and 100mg by mouth in the evening. aspirin 81 Yes 81mg Take 81 mg M D mg EC 2-12 by mouth Anderso tablet 17:04: daily. n 43 lidocaine-p Yes Univer s rilocaine 2-12 ity of 2.5-2.5 % 00:00: [place] cream 00 Medical Branch lidocaine-p 0 Yes Suspected Please rilocaine 2-12 vulva administer And erso (EMLA) 00:00: cancer as needed n 2.5-2.5% 00 for cream comfort HYDROcodone Yes 1{tbl} Take 1 MD -acetaminop [...] rso mg capsule 00:00: daily. n 00 pregabalin 2017-04 Yes Lyrica 75 Me thodi [...] solution 19:33: Hospita () 44 l atorvastati 2017-04 Yes atorvastat Methodi n (LIPITOR) 0-[address] 10 MG 19:33: tablet Hospita tablet 44 Take 1 l tablet every day by oral route. ibuprofen 2017-04 Yes ibuprofen Met hodi (MOTRIN) 0-15 st 100 mg/5 mL 19:33: Hospit a suspension 44 l Immunizations Ordered Filled Immunization Date Status Comments Sourc e Immunization Name Name SARS-COV-2 COVID-19 2020-07-22 Completed Unive rsity of PFIZER VACCINE 00:00:00 [facility] SARS-COV-2 COVID-19 2020-06-23 Completed Unive rsity of PFIZER VACCINE 00:00:00 [facility] Influenza Virus 2020-06-09 Completed Universit y of Vaccine Quad .5 mL 00:00:00 [facility] 6+ MO Branch Vital Signs Vital Name Observation Time Observation Value Comments Source WEIGHT 2020-05-15 05:19:42 79.7 kg HEIGHT 2020-05-15 05:19:42 164 cm Procedures This patient has no known procedures. Plan of Care Planned Activity Planned Date Details Comments Source Future Scheduled 1964-12-19 COVID-19 Vaccination MD [facility] Test 00:00:00 (1) [code = COVID-19 Vaccination (1)] Future Scheduled COVID-19 VACCINE (1) [facility] Test [code = COVID-19 VACCINE (1)] Future Scheduled Hepatitis C screening Me [facility] Test (procedure) [code = 461103682] Future Scheduled Screening for [facility] Test malignant neoplasm of cervix (procedure) [code = 522538827] Future Scheduled BREAST CANCER [facility] Test SCREENING [code = BREAST CANCER SCREENING] Future Scheduled COLONOSCOPY SCREENING Me [facility] Test [code = COLONOSCOPY SCREENING] Future Scheduled SHINGLES VACCINES (#1) [facility] Test [code = SHINGLES VACCINES (#1)] Future Scheduled INFLUENZA VACCINE [facility] Test [code = INFLUENZA VACCINE] Medication 2021-07-10 HYDROmorphone [facility] 00:00:00 (DILAUDID) 8 mg tablet Medic [facility] [code = 070384] Medication 2021-07-10 methadone 5 mg tablet [facility] 00:00:00 [code = 573175] Medical Bran ch Encounters Start End Encounter Admission Attending Care Care Encounter Source Date/Time Date/Time Type Type Clinicians Facility Department ID 2021-06-26 Outpatient LS LS [id number] [place] 12:32:40 [id number] [facility] 2020-07-23 Outpatient SYSTEM, MILTON ROSE [id number] 11:50:28 PROVIDER Ed o n 2020-06-01 Outpatient SYSTEM, MDA MDA [id number] 10:50:13 PROVIDER Ed briggs 2021-06-24 2021-06-24 Telephone Ld NVESTEPHANIE [id number] Univers 00:00:00 00:00:00 Gabby MULTISPEC [id number] ity of Alix ENRIQUE [id number] [facility] [id number] [facility] AND [address] DI[facility]ES [facility] 2020-11-18 2020-11-18 Orders Doctor TIM [id number] 00:00:00 00:00:00 Only Unassigned, FRANCIA 350.1.13.10 [place] [facility] 4.2.7.2.686 [id number] 2020-11-10 2020-11-10 Office MARTHA Khan [id number] 15:41:39 16:11:39 Visit [facility] 350.1.13.10 [facility] 4.2.7.2.686 [id number] 2020-05-15 2020-05-15 Outpatient [facility] MDA [id number] 22:03:48 22:03:48 Ed briggs 2020-05-15 2020-05-15 Inpatient ER TAMMY, MILTON FACILITIES MANAGER [id number] 01:39:00 17:04:00 CORINE briggs Results Test Description Test Time Test Comments Results Result [facility] e Comments - MRI L-SPINE W/O 2019-01-08 FAX: Radha CONT 09:37:00 Bella Elmore MD [phone] [place]: St: REG FAX: Apolinar Buchanan MD [phone] Patient Name: JEFRY LOPEZ Guy Unit No: [id number] EXAMS: CPT CODE: [id number] MRI L-SPINE W/O CONT [id number] MRI Lumbar Spine without contrast HISTORY: Back [...] by: Tyrell Burgos M.D. 508 Imaging NAME: MCDONALDJEFRY [address] PHYS: SHIREEN. - Apolinar Fields [place] : 1960 AGE: 58 SEX: F [phone] LOC: [id number] PHONE #: [phone] EXAM DATE: 01/08/2019 STATUS: REG CLI FAX #: [phone] RAD NO: DC Dt: PAGE 1 Signed Report (CONTINUED) FAX: Bella Hannah MD [phone] [place]: St: REG FAX: Apolinar Buchanan MD [phone] Patient Name: JEFRY LOPEZ Unit No: [id number] EXAMS: CPT CODE: [id number] MRI L-SPINE W/O CONT [id number] <Continued> CC: Bella Elmore MD; Apolinar Fields MD Dictated Date/Time: 01/08/2019 (0937)Technologist: Low Barillas Transcribed Date/Time: 01/08/2019 (0937) By: [email or web address] Orig Print D/T: S: 01/08/2019 (0940) 508 Imaging NAME: JEFRY LOPEZ [address] [place] [address] PHYS: LISA - Apolinar Fields [place], [place] : 1960 AGE: 58 SEX: F [phone] LOC: [id number] PHONE #: [phone] EXAM DATE: 01/08/2019 STATUS: REG CLI FAX #: [phone] RAD NO: DC Dt: PAGE 2 Signed Report BASIC METABOLIC PANEL 2018-11-02 11:35:00 Test Item Value Reference Range Interpretation Comme nts SODIUM (test code = NA) 138.0 mmol/L 133-144 N POTASSIUM (test code = K) 4.5 mmol/L 3.5-5.1 N CHLORIDE (test code = CL) 105 mmol/L 95-105 N CARBON DIOXIDE (test code 27 mmol/L 21-32 N = CO2) ANION GAP (test code = 6.0 GAP calc 4.0-15.0 N GAP) GLUCOSE (test code = GLU) 144 MG/DL 70-110 H BLOOD UREA NITROGEN (test 9 MG/DL 7-18 N code = BUN) CREATININE (test code = 0.75 MG/DL 0.55-1.30 N Resu lts may be depressed CREAT) if patient is takingN-Acetylc ysteine (NAC) and Metam izole (Dipyrone). CALCIUM (test code = CA) 8.7 MG/DL 8.5-10.1 N INDEX HEMOLYSIS (test code 1 NORMAL <10 MG 1 NORMAL = HEMINDEX) Index/DL INDEX ICTERIC (test code = 1 NORMAL <2 MG 1 NORMAL ICTINDEX) Index/DL INDEX LIPEMIA (test code = 1 NORMAL <50 MG 1 NORMAL LIPINDEX) Index/DL Specimen comments: PRE-OPIs this a LINE draw? [place],N: The patient will be fasting before starting thistest? YLIPID PROFILE (CORONARY RISK)2018-11-02 11:35:00 Test Item Value Reference Range Interpretation Comments TRIGLYCERIDES (test 105 MG/DL 0-150 N Results may be code = TRIG) depressed if pa mohinder is takingN-Acetylc ystei ne (NAC) and Metamizole [...] s maybe code = HDL) depressed if pa mohinder is taking Metamizole(Dipy dorys) . NON-HDL CHOLESTEROL [...] be fasting before starting thistest? YBASIC METABOLIC [id number] 11:33:00 Test Item Value Reference Range Interpretation [...] be fasting before starting thistest? YPT AND [id number] 11:24:00 Test Item Value Reference Interpretation Comments [...] prevention in p rosthetic heart 3.0-5.4 A LA mortality reduc tion THROMBOPLASTIN TIME 30.2 SECONDS [...] draw? NANTICOAGULANT THERAPY [Y,N]: UNK CBC W/AUTO [id number] 11:16:00 Test Item Value Reference Range Interpretation [...]
--- NOTE | 2021-06-29 22:02 | EDPHYS ---
Physician Documentation [facility] Name: Milly Cabrera Age: 60 yrs Sex: Female : 1960 Arrival Date: 06/29/2021 Time: 20:13 Bed 16 Private MD: ELINA Physician Joshua Milner HPI: 06/29 21:57 This 60 yrs old Female presents to ER via Ambulatory with complaints of Nausea - demetra Problem with port. 21:57 The patient presents to the emergency department with nausea, that is mild. Onset: The demetra symptoms/episode began/occurred 2 day(s) ago. Possible causes: unknown. The symptoms are aggravated by nothing. The symptoms are alleviated by nothing. Severity of symptoms: At their worst the symptoms were very mild. The patient has not experienced similar symptoms in the past. Historical: - Allergies: 20:46 Cephalexin; lg3 20:46 Ciprofloxacin; lg3 20:46 Clindamycin; lg3 20:46 Demerol; lg3 20:46 Iodine; lg3 20:46 Morphine; lg3 20:46 PENICILLINS; lg3 20:46 SHELLFISH; lg3 20:46 Strawberries; lg3 20:46 Zithromax Z-Joon; lg3 - Home Meds: 20:46 aspirin 81 mg Oral TbEC 1 tab once daily [Active]; atorvastatin 40 mg Oral tab 1 tab lg3 once daily [Active]; fluoxetine 40 mg Oral cap 1 cap once daily [Active]; gabapentin 100 mg Oral tab twice a day [Active]; magnesium oxide 400 mg magnesium Oral tab 400 mg twice a day [Active]; metoprolol tartrate 50 mg Oral tab once daily [Active]; metronidazole 500 mg Oral tab 1 tab 2 times per day [Active]; Pepcid Oral [Active]; Plavix 75 mg Oral tab 1 tab once daily [Active]; potassium chloride 10 mEq Oral cpER 1 cap once daily [Active]; prochlorperazine maleate 10 mg Oral tab 1 tab 3 times per day [Active]; Zofran 4 mg Oral tab 1 tab every 8 hours [Active]; - PMHx: 20:46 acid reflux; Anxiety; Endometrosis; Hyperlipidemia; Hypertension; neuropathy; vulvar lg3 cancer; - PSHx: 20:46 Appendectomy; section; Total abdominal hysterectomy; Vascular stents; lg3 - Immunization history:: Adult Immunizations up to date, Client reports receiving the 2nd dose of the Covid vaccine, pfizer X3. - Social history:: Smoking status: Patient reports the use of cigarette tobacco products, smokes one pack cigarettes per day. Patient/guardian denies using alcohol. ROS: 21:58 Constitutional: Negative for fever, chills, and weight loss, Eyes: Negative for injury, demetra pain, redness, and discharge, ENT: Negative for injury, pain, and discharge, Neck: Negative for injury, pain, and swelling, Cardiovascular: Negative for chest pain, palpitations, and edema, Respiratory: Negative for shortness of breath, cough, wheezing, and pleuritic chest pain, Back: Negative for injury and pain, : Negative for injury, bleeding, discharge, and swelling, MS/Extremity: Negative for injury and deformity, Skin: Negative for injury, rash, and discoloration, Neuro: Negative for headache, weakness, numbness, tingling, and seizure, Psych: Negative for depression, anxiety, suicide ideation, homicidal ideation, and hallucinations, Allergy/Immunology: Negative for hives, rash, and allergies, Endocrine: Negative for neck swelling, polydipsia, polyuria, polyphagia, and marked weight changes, Hematologic/Lymphatic: Negative for swollen nodes, abnormal bleeding, and unusual bruising. 21:58 Abdomen/GI: Positive for nausea. 21:58 Skin: Positive for port a cath look odd, no pain , not using. Exam: 21:58 Constitutional: This is a well developed, well nourished patient who is awake, alert, demetra and in no acute distress. Head/Face: Normocephalic, atraumatic. Eyes: Pupils equal round and reactive to light, extra-ocular motions intact. Lids and lashes normal. Conjunctiva and sclera are non-icteric and not injected. Cornea within normal limits. Periorbital areas with no swelling, redness, or edema. ENT: Nares patent. No nasal discharge, no septal abnormalities noted. Tympanic membranes are normal and external auditory canals are clear. Oropharynx with no redness, swelling, or masses, exudates, or evidence of obstruction, uvula midline. Mucous membranes moist. Neck: Trachea midline, no thyromegaly or masses palpated, and no cervical lymphadenopathy. Supple, full range of motion without nuchal rigidity, or vertebral point tenderness. No Meningismus. Chest/axilla: Normal chest wall appearance and motion. Nontender with no deformity. No lesions are appreciated. Cardiovascular: Regular rate and rhythm with a normal S1 and S2. No gallops, murmurs, or rubs. Normal PMI, no JVD. No pulse deficits. Respiratory: Lungs have equal breath sounds bilaterally, clear to auscultation and percussion. No rales, rhonchi or wheezes noted. No increased work of breathing, no retractions or nasal flaring. Abdomen/GI: Soft, non-tender, with normal bowel sounds. No distension or tympany. No guarding or rebound. No evidence of tenderness throughout. Back: No spinal tenderness. No costovertebral tenderness. Full range of motion. Skin: Warm, dry with normal turgor. Normal color with no rashes, no lesions, and no evidence of cellulitis. MS/ Extremity: Pulses equal, no cyanosis. Neurovascular intact. Full, normal range of motion. Neuro: Awake and alert, GCS 15, oriented to person, place, time, and situation. Cranial nerves II-XII grossly intact. Motor strength 5/5 in all extremities. Sensory grossly intact. Cerebellar exam normal. Normal gait. Psych: Awake, alert, with orientation to person, place and time. Behavior, mood, and affect are within normal limits. Vital Signs: 20:44 BP 119 / 76; Pulse 84; Resp 16; Temp 98.3(O); Pulse Ox 99% on R/A; Weight 67.59 kg (R); lg3 Height 5 ft. 5 in. (165.10 cm) (R); Pain 10/10; 22:20 BP 117 / 78; Pulse 79; Resp 18; Pulse Ox 99% on R/A; ke1 20:44 Body Mass Index 24.80 (67.59 kg, 165.10 cm) lg3 MDM: 21:34 Patient medically screened. demetra 21:59 Differential diagnosis: viral gastroenteritis, gastroenteritis. Data reviewed: vital demetra signs, nurses notes. Data interpreted: alarm security or surveillance monitor: not applicable for this patient encounter. rate is 84 beats/min, rhythm is regular, Pulse oximetry: on room air is 99 %. Counseling: I had a detailed discussion with the patient and/or guardian regarding: the historical points, exam findings, and any diagnostic results supporting the discharge/admit diagnosis, lab results, radiology results. Administered Medications: 22:05 Drug: Zofran (Ondansetron) 4 mg Route: PO; ke1 22:19 Follow up: Response: Medication administered at discharge. ke1 Disposition Summary: 06/29/21 22:01 Discharge Ordered Location: Home [facility] Problem: new demetra Symptoms: have improved demetra Condition: Stable demetra Diagnosis - Nausea demetra Followup: demetra - With: Private Physician - When: 2 - 3 days - Reason: Recheck today's complaints, Continuance of care, Re-evaluation by your physician Discharge Instructions: - Discharge Summary Sheet demetra - Nausea and Vomiting, Adult demetra - Nausea, Adult demetra Forms: - Medication Reconciliation Form [facility] - Thank You Letter demetra - Antibiotic Education [facility] - Prescription Opioid Use [facility] Prescriptions: - Zofran 4 mg Oral Tablet - take 1 tablet by ORAL route every 12 hours As needed; 20 tablet; Refills: 0, demetra Product Selection Permitted Signatures: Joshua Milner MD MD cha Gibson, Lacie, RN RN lg3 Janak Rock RN RN ke1
--- NOTE | 2021-06-29 22:02 | ER ---
Nurse's Notes [facility] Name: Milly Cabrera Age: 60 yrs Sex: Female : 1960 Arrival Date: 06/29/2021 Time: 20:13 Bed 16 Private MD: Diagnosis: Nausea Presentation: 06/29 20:44 Chief complaint: Patient states: currently on hospice. hospice nurse stated that pt lg3 needed to be checked out by the ER due to the nurse not being able to physically see PT tonight. feels like there is something wrong with port placed to right clavicle area. new onset pain starting this morning. Coronavirus screen: Client denies travel out of the [place] in the last 14 days. At this time, the client does not indicate any symptoms associated with coronavirus-19. Ebola Screen: No symptoms or risks identified at this time. Initial Sepsis Screen: Does the patient meet any 2 criteria? No. Patient's initial sepsis screen is negative. Does the patient have a suspected source of infection? No. Patient's initial sepsis screen is negative. Risk Assessment: Do you want to hurt yourself or someone else? Patient reports no desire to harm self or others. Onset of symptoms was June 29, 2021. 20:44 Method Of Arrival: Ambulatory lg3 20:44 Acuity: DAMON 3 lg3 Triage Assessment: 20:46 General: Appears in no apparent distress. comfortable, Behavior is calm, cooperative. lg3 Pain: Complains of pain in right shoulder. Neuro: No deficits noted. Level of Consciousness is awake, alert, obeys commands, Oriented to person, place, time, situation. Cardiovascular: No deficits noted. Denies chest pain, shortness of breath. Respiratory: No deficits noted. Airway is patent Trachea midline Respiratory effort is even, unlabored, Respiratory pattern is regular, symmetrical. GI: No deficits noted. Reports nausea. : No deficits noted. No signs and/or symptoms were reported regarding the genitourinary system. Derm: Skin is intact, is thin, Skin is dry. Musculoskeletal: No deficits noted. No signs and/or symptoms reported regarding the musculoskeletal system. Historical: - Allergies: 20:46 Cephalexin; lg3 20:46 Ciprofloxacin; lg3 20:46 Clindamycin; lg3 20:46 Demerol; lg3 20:46 Iodine; lg3 20:46 Morphine; lg3 20:46 PENICILLINS; lg3 20:46 SHELLFISH; lg3 20:46 Strawberries; lg3 20:46 Zithromax Z-Joon; lg3 - Home Meds: 20:46 aspirin 81 mg Oral TbEC 1 tab once daily [Active]; atorvastatin 40 mg Oral tab 1 tab lg3 once daily [Active]; fluoxetine 40 mg Oral cap 1 cap once daily [Active]; gabapentin 100 mg Oral tab twice a day [Active]; magnesium oxide 400 mg magnesium Oral tab 400 mg twice a day [Active]; metoprolol tartrate 50 mg Oral tab once daily [Active]; metronidazole 500 mg Oral tab 1 tab 2 times per day [Active]; Pepcid Oral [Active]; Plavix 75 mg Oral tab 1 tab once daily [Active]; potassium chloride 10 mEq Oral cpER 1 cap once daily [Active]; prochlorperazine maleate 10 mg Oral tab 1 tab 3 times per day [Active]; Zofran 4 mg Oral tab 1 tab every 8 hours [Active]; - PMHx: 20:46 acid reflux; Anxiety; Endometrosis; Hyperlipidemia; Hypertension; neuropathy; vulvar lg3 cancer; - PSHx: 20:46 Appendectomy; section; Total abdominal hysterectomy; Vascular stents; lg3 - Immunization history:: Adult Immunizations up to date, Client reports receiving the 2nd dose of the Covid vaccine, pfizer X3. - Social history:: Smoking status: Patient reports the use of cigarette tobacco products, smokes one pack cigarettes per day. Patient/guardian denies using alcohol. Screenin:49 Abuse screen: Denies threats or abuse. Denies injuries from another. Nutritional lg3 screening: No deficits noted. Tuberculosis screening: No symptoms or risk factors identified. Fall Risk None identified. Vital Signs: 20:44 BP 119 / 76; Pulse 84; Resp 16; Temp 98.3(O); Pulse Ox 99% on R/A; Weight 67.59 kg (R); lg3 Height 5 ft. 5 in. (165.10 cm) (R); Pain 10/10; 22:20 BP 117 / 78; Pulse 79; Resp 18; Pulse Ox 99% on R/A; ke1 20:44 Body Mass Index 24.80 (67.59 kg, 165.10 cm) lg3 ED Course: 20:13 Patient arrived in ED. kz 20:46 Triage completed. lg3 20:46 Arm band placed on right wrist. lg3 21:00 Call light in reach. ke1 21:31 Janak Rock, RN is Primary Nurse. ke1 21:34 Joshua Milner MD is Attending Physician. demetra 22:20 No provider procedures requiring assistance completed. ke1 22:21 Patient did not have IV access during this emergency room visit. ke1 Administered Medications: 22:05 Drug: Zofran (Ondansetron) 4 mg Route: PO; ke1 22:19 Follow up: Response: Medication administered at discharge. ke1 Outcome: 22:01 Discharge ordered by . demetra 22:21 Discharged to home ambulatory. ke1 22:21 Condition: good 22:21 Discharge instructions given to patient. 22:31 Patient left the ED. ke1 Signatures: Joshua Milner MD MD cha Gibson, Lacie RN RN [facility] Janak Rock RN RN ke1 Nanda Mario
[2021-06-29] MEDS ORDERED: ONDANSETRON 4 MG (ODT) TAB ONE (22:05)
[2021-06-29 23:35] VITALS: TEMP 98.3; O2SAT 99
[2021-06-29 23:37] VITALS: BP 117/78
== END 2021-06-29 22:31 | disposition home or self-care (01) ==
LOC: ER 19:51
DX: R11.0 Nausea (principal); I10 Essential (primary) hypertension; E78.5 Hyperlipidemia, unspecified; F41.9 Anxiety disorder, unspecified; F17.210 Nicotine dependence, cigarettes, uncomplicated; Z79.01 Long term (current) use of anticoagulants; Z79.82 Long term (current) use of aspirin; Z88.0 Allergy status to penicillin; Z88.1 Allergy status to other antibiotic agents; Z88.3 Allergy status to other anti-infective agents; Z88.5 Allergy status to narcotic agent; Z91.013 Allergy to seafood; Z91.018 Allergy to other foods; Z95.818 Presence of other cardiac implants and grafts
CPT/HCPCS: 99283

== ENCOUNTER 2021-07-20 01:40 | Emergency (ER) | payer OTHER ==
--- OUTSIDE RECORDS SUMMARY | 2021-07-20 01:42 | XMS REPORT | Clinical Summary ---
:1960 Author Organization [facility] MD [facility] Address [address] [place] [address] Care Team Providers Name Role Phone Joshua [...] Vaccination (1) 12/19/1965 Results Not on fileafter 07/20/2020 Insurance Payer Benefit Plan / Subscriber ID Effective Phone Address T ype Group Dates [facility] MEDICARE [id number] 2020-Prese [address] Medicare HEALTHCARE MEDICAID DUAL nt [place], [place] MEDICARE HMO [id number] SOLUTIONS Advance Directives Code Status Date Activated Date Inactivated Comments Full Code 05/15/2020 5:07 AM 05/15/2020 7:09 PM Care Teams 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
--- OUTSIDE RECORDS SUMMARY | 2021-07-20 01:43 | XMS REPORT | Continuity of Care Document ---
:1960 Author Organization [facility] t Address [address] [place] [address] Care Team Providers Name Role Phone Catarina CASTELLON Primary Care Physician SYSTEM, NOT IN Attending Clinician Unavailable DRAKE JAFFE Attending Clinician Unavailable DRAKE JAFFE Attending Clinician Unavailable LASHONDA Attending Clinician Unavailable URSULA Attending Clinician Unavailable Drake Jaffe MD Attending Clinician Shea GARCIA Attending Clinician Unavailable Kobi TIJERINA Attending Clinician Unavailable Doctor Unassigned, Name Attending Clinician Unavailable Bill CASTELLON Attending Clinician TAMMY Attending Clinician Unavailable Shea GARCIA Admitting Clinician Unavailable LILLIANA, S Admitting Clinician Unavailable TAMMY Admitting Clinician Unavailable Payers Payer Name Policy Type Policy Number Effective Date Expiration Date [facility] [id number] 2019 Community Plan Elsa 00:00:00 [facility] DUAL [id number] 2021 2021 COMP CHOICE PPO 00:00:00 00:00:00 DSNP [facility] STAR [id number] 2021 PLUS 00:00:00 MEDICAID [facility] [id number] 2020 2020 00:00:00 00:00:00 [facility] MEDICARE [id number] 2020 MEDICAID DUAL HMO 00:00:00 Problems Condition Condition Condition Status Onset Resolution Last Treating Co mments Source Name Details Category Date Date Treatment Clinician Date Diarrhea Diarrhea Disease Active Unive rs with with 1-18 ity of dehydratio dehydratio 00:00: [place] 00 Medical Branch Obesity Obesity Disease Active Univers (BMI (BMI 1-14 ity of 30-39.9) 30-39.9) 00:00: [place] [facility] 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 1-14 ity of 00:00: [place] [facility] Vulvar Vulvar Disease Active Univers abscess abscess 1-14 ity of 00:00: [place] [facility] Polyneurop Polyneurop Disease Active U idrisers athy athy 1-04 ity of 00:00: [place] [facility] History of History of Disease Active U nivers radiation radiation 4-21 ity of therapy therapy 00:00: [place] [facility] DNR (do DNR (do Disease Active Univers not not 4-11 ity of resuscitat resuscitat 00:00: [place] e) e) 00 Medical Branch 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 vers neoplastic neoplastic 4-07 it y of disease disease 00:00: [place] 00 Medical Branch Encounter Encounter Disease Active Uni vers for for 4-07 ity of palliative palliative 00:00: [place] care care 00 Medical Branch Neoplasm Neoplasm Disease Active Unive rs related related 4-07 ity of pain pain 00:00: [place] (acute) (acute) 00 Medical (chronic) (chronic) Bran ch Hypokalemi Hypokalemi Disease Active 2021-0 U nivers a a 4-07 ity of 00:00: [place] 00 Medical Branch Hypomagnes Hypomagnes Disease Active U nivers emia emia 4-07 ity of 00:00: [place] 00 Medical Branch Essential Essential Disease Active Uni vers hypertensi hypertensi 4-07 it y of on on 00:00: [place] 00 Medical Branch Gastroesop Gastroesop Disease Active U nivers hageal hageal 4 ity of reflux reflux 00:00: [place] disease disease 00 Medical without without Branch esophagiti esophagiti s s Chronic Chronic Disease Active Univers back pain back pain 4 ity of 00:00: [place] 00 Medical Branch Malignant Malignant Disease Active Uni vers neoplasm neoplasm 309 ity of of vulva of vulva 00:00: [place] 00 Medical Branch Chronic Chronic Disease Active [...] Hospit a l Malignant Malignant Disease Active MD neoplasm neoplasm Ed o of vulva of vulva n Allergies, Adverse Reactions, Alerts Allergy Allergy Status Severity Reaction(s) Onset Inactive Treating Comm ents Source Name Type Date Date Clinician CLINDAMY DRUG Active Other-Cmnt Univ ers JOMAR INGREDI 4-06 ity of 00:00: [place] 00 Medical Branch Clindamy Propensi Active Other - See Will U nivers jomar ty to comments 07-07 cause ity of adverse 00:00: cdiff to [place] reaction 00 reoccur Medical s Branch ASPIRIN DRUG Active Other-Cmnt 2020-0 Unive rs INGREDI 3-09 ity of 00:00: [place] 00 Medical Branch Aspirin Propensi Active Other - See 2020-0 Un jimmy ty to comments 3-09 ity of adverse 00:00: [place] reaction 00 Medical s Branch IODINE DRUG Active SOB 2020-0 Univers INGREDI 2-25 ity of 00:00: [place] 00 Medical Branch PENICILL DRUG Active Hives 2020-0 Univers IN INGREDI 2-25 ity of 00:00: [place] 00 Medical Branch SHELLFIS DRUG Active SOB 2020-0 Univers H INGREDI 2-25 ity of DERIVED 00:00: [place] 00 Medical Branch STRAWBER DRUG Active SOB 2020-0 Univers RY INGREDI 2-25 ity of 00:00: [place] 00 Medical Branch Iodine Propensi Active Shortness of 2020-0 Un jimmy ty to Breath 2-25 ity of adverse 00:00: [place] reaction 00 Medical s Branch Penicill Propensi Active Hives 2020-0 Univer s in ty to 2-25 ity of adverse 00:00: [place] reaction 00 Medical s Branch Shellfis Propensi Active Shortness of 2020-0 Univers h ty to Breath 2-25 ity of Derived adverse 00:00: [place] reaction 00 Medical s Branch Strawber Propensi Active Shortness of 2020-0 Univers ry ty to Breath 2-25 ity of adverse 00:00: [place] reaction 00 Medical s Branch AZITHROM DRUG Active Rash 2020-0 Univers YCIN INGREDI 2-12 ity of 00:00: [place] 00 Medical Branch MORPHINE DRUG Active Hives 2020-0 Univers INGREDI 2-12 ity of 00:00: [place] 00 Medical Branch CEPHALEX DRUG Active Low Rash 1-0 Univers IN INGREDI 2-12 ity of 00:00: [place] 00 Medical Branch CIPROFLO DRUG Active Low Rash 2020-0 Univers XACIN INGREDI 2-12 ity of 00:00: [place] 00 Medical Branch Azithrom Propensi Active Itching 2020-0 Unive rs ycin ty to 2-12 ity of adverse 00:00: [place] reaction 00 Medical s Branch Cephalex Propensi Active Rash 2020-0 Univer s in ty to 2-12 ity of adverse 00:00: [place] reaction Medical s Branch Ciproflo Propensi Active Rash Univer s xacin ty to 2-12 ity of adverse 00:00: [place] reaction Medical s Branch Morphine Propensi Active Itching Unive rs ty to 2-12 ity of adverse 00:00: [place] reaction Medical s Branch clindamy DA Active U 2019-0 [facility] j[facility]ar 8[facility]02 [place] 00:00: [facility] Counts include 234 beds at the [facility] clindamy DA Active U C-DIFF 2019-0 [facility] jomar 8-02 [place] 00:00: [facility] Counts include 234 beds at the [facility] No Known DA Active U 2019-0 [facility] Allergie 6-13 [place] 00:00: [facility] Counts include 234 beds at the [facility] strawber DA Active SV 2018-0 [facility] ry 6-25 [place] 00:00: [address] ZPAC DA Active ME RASH 2018-0 [facility] 6-25 [place] 00:00: [facility] Counts include 234 beds at the [facility] strawber FA Active SV 2018-0 [facility] ry 6-25 [place] 00:00: [address] iodine DA Active SV SWELLIG RESP 2018-0 [facility] DIFFICULTY 6-25 [place] 00:00: [address] meperidi DA Active ME RASH 2018-0 [facility] ne 6-25 [place] 00:00: [address] penicill DA Active ME RASH 2018-0 [facility] in G 6-25 [place] 00:00: [address] strawber FA Active SV SWELLING 2018-0 [facility] ry 6-25 [place] 00:00: [address] MEPERIDI DRUG Active Hives 2018-0 Univers NE INGREDI 6-25 ity of 00:00: [place] [facility] Meperidi Drug Active Hives 2018-0 Univers ne Allergy 6-25 ity of 00:00: [place] [facility] [place] iodine DA Active SV 2018-0 [facility] 6-25 [place] 00:00: [address] meperidi DA Active ME 2018-0 [facility] ne 6-25 [place] 00:00: [address] penicill DA Active ME 2018-0 [facility] in G 6-25 [place] 00:00: [address] TUNA DA Active SV SWELLING 2018-0 [facility] FISH 1-12 [place] 00:00: [facility] Meperidi Propensi Active Method i ne ty to [facility] adverse Hospita reaction l s to drug Penicill Propensi Active Method i ins ty to [facility] adverse Hospita reaction l s to drug Aspirin Propensi Active Methodi ty to [facility] adverse Hospita reaction l s to drug Iodine Propensi Active Methodi ty to [facility] adverse Hospita reaction l s to drug Social History Social Habit Start Date Stop Date Quantity Comments Source History of tobacco Cigarette Smoker University of use [facility] Exposure to Not sure University SARS-CoV-2 (event) [facility] Cigarettes smoked 2020-05-15 2020-05-15 MD Delmer coleman [...] Stop Date Source Unknown if ever smoked [facility] Current some day 2021-04-16 00:00:00 [facility] smoker [facility] Branch Ex-smoker 2020-05-15 00:00:00 2020-05-15 00:00:00 MD Marte son Medications Ordered Filled Start Stop Current Ordering Indication Dosage Frequency Signature Comments Components Source Medication Medication Date Date Medication? Clinician (SIG) Name Name HYDROmorpho Yes [id number] 16mg Take 2 Univ ers ne 4-09 tablets by ity of (DILAUDID) 00:00: mouth [place] 8 mg tablet 00 every 4 Medic al (four) Branch hours as needed for Pain. Indication s: chronic pain methadone 5 Yes 5224 15mg Take 3 Univ ers mg tablet 4-09 tablets by ity of 00:00: mouth [place] 00 every 8 Medical (eight) Branch hours. Indication s: chronic pain HYDROmorpho 2021- No 5224 16mg Take 2 Uni vers ne 3 03-24 tablets by ity of (DILAUDID) 00:00: 00:00 mouth [place] 8 mg tablet 00 :00 every 4 Medic al (four) Branch hours as needed for Pain. Indication s: chronic pain methadone 5 2021- No 5224 15mg Take 3 Uni vers mg tablet 06-09 03-24 tablets by ity of 00:00: 00:00 mouth [place] 00 :00 every 8 Medical (eight) Branch hours. Indication s: chronic pain predniSONE Yes [id number] 20mg Take 1 Univers 20 mg 3-02 tablet by ity of tablet 00:00: mouth [place] 00 daily. Medical Branch clopidogrel Yes Take by Un jimmy bisulfate 3 mouth. ity of (PLAVIX 20:25: [place] ORAL) 32 Medical Branch atorvastati Yes Take by Un jimmy n calcium 3- mouth. ity of (ATORVASTAT 20:25: [place] IN ORAL) 32 Medical Branch aspirin 81 Yes 81mg Take 81 mg U nivers mg EC 06-01 by mouth. ity of tablet 20:25: [place] 32 Medical Branch mirtazapine Yes [id number] 30mg Take 1 Univers 30 mg 2-24 tablet by ity of tablet 00:00: mouth at [place] 00 bedtime. Medical Branch metroNIDAZO Yes [id number] Crush one Univers LE 500 mg 2-15 tab and ity of tablet 00:00: sprinkle [place] 00 into wound Medical bed twice Branch daily lidocaine-p Yes [id number] 1{appli Apply 1 Univers rilocaine 2-07 102 cator} Applicator it y of 4-2.5-2.5 % 00:00: to area(s) [place] Kt 00 daily. Medical Branch Nitrofurant Yes [id number] 100mg Take 1 Univers oin&Nit. 2-07 capsule by ity o f Macrocryst 00:00: [place] (MACROBID) 00 (two) Medical 100 mg times Branch capsule daily. lidocaine 2 Yes [id number] Apply to Univers % mucosal 2-06 vulva up ity of jelly 00:00: to three [place] 00 times a Medical day as Branch needed for pain DULoxetine Yes [id number] 30mg Take 1 Univers 30 mg 1-31 capsule by ity of capsule 00:00: mouth [place] 00 daily. Medical Branch sennosides 2021- Yes [id number] 8.6mg Take 1 Univers (SENNA) 8.6 1-28 03-30 tablet by it y of mg tablet 00:00: 04:59 [place] 2 [place] 00 :00 (two) Medical times Branch daily for 60 days. polyethylen 2021- Yes [id number] 1{packe Take 1 Univers e glycol -28 03-30 t} Packet by ity o f 3350 00:00: 04:59 mouth [place] (MIRALAX) 00 :00 daily for Medic al 17 gram 60 days. Branch powder lidocaine 2 Yes [id number] Apply Univers % mucosal 1-27 small ity of jelly 00:00: amount to [place] 00 vulva once Medical daily as Branch needed for pain. gabapentin Yes [id number] 600mg Take 1 Univers 600 mg 1-25 tablet by ity of tablet 00:00: mouth at [place] 00 bedtime. Medical Branch gabapentin Yes [id number] Take one Univers 300 mg 1-25 capsule by ity of capsule 00:00: mouth in [place] 00 the Medical morning Branch and one capsule by mouth at noon gabapentin Yes [id number] Take one Univers 100 mg 1-25 capsule by ity of capsule 00:00: mouth in [place] 00 the Medical morning Branch and one capsule by mouth at noon magnesium Yes [id number] 143mg Take 2 Univers chloride 1-05 tablets by ity o f (SLOW-MAG) 00:00: [place] 2 [place] 71.5 mg 00 (two) Medical tablet times Branch daily. foLIC acid 2020-04 Yes [id number] 1mg Take 1 Univers 1 mg tablet 2-19 tablet by ity of 00:00: mouth [place] 00 daily. Medical Twice Branch daily for 1 month, then once daily. cyanocobala 2020-04 Yes [id number] 1000ug 1 mL by Univers min 1,000 2-19 Intramuscu ity of mcg/mL 00:00: lar route [place] injection 00 weekly. Medical Weekly for Branch 4 weeks, then monthly sennosides Yes [id number] 8.6mg Take 1 Univers (SENNA) 8.6 9-01 tablet by ity of mg tablet 00:00: mouth [place] 00 daily. Medical Branch polyethylen Yes [id number] 1{packe Take 1 Univers e glycol 9-01 t} Packet by ity of 3350 00:00: mouth [place] (MIRALAX) 00 daily. Medical 17 gram Branch powder pantoprazol Yes Univer s e 40 mg EC 8-24 ity of tablet 00:00: [place] 00 Medical Branch [facility] ity of 2.5-0.025 00:00: [place] mg tablet 00 Medical Branch KCL 10 mEq Yes [id number] 10meq Take 1 Univers tablet 7-21 tablet by ity of 00:00: mouth [place] 00 daily. Medical Branch ondansetron Yes [id number] 4mg Take 1 Univers 4 mg 7-21 tablet by ity of disintegrat 00:00: mouth [place] ing tablet 00 every 8 Medica l (eight) Branch hours as needed for Nausea and Vomiting (N/V). maalox:diph Yes [id number] 10mL Take 10 mL Univers enhydrAMINE 6-09 by mouth ity of :lidocaine 00:00: as needed [place] 2 % viscous 00 for Oral Medi leonides 1:1:1 mucositis. Branch Swish in mouth for 1-2 minutes and spit proCHLORper Yes [id number] 10mg Take 1 Univers azine 10 mg [...] by mouth in the evening. aspirin 81 0 Yes 81mg Take 81 mg M D mg EC 2-12 by mouth Anderso tablet 17:04: daily. n 43 lidocaine-p 2020-0 Yes Univer s rilocaine 2-12 ity of 2.5-2.5 % 00:00: [place] cream 00 Medical Branch lidocaine-p Yes Suspected Please MD rilocaine 2-12 vulva administer And erso (EMLA) [...] 0-15 clements-hydroch [facility] orothiaz 19:33: lorothiaz [facility] (DUTOPROL 44 l ORAL) morPHINE 2017-04 Yes [...] Completed Unive rsity of PFIZER VACCINE 00:00:00 [facility] SARS-COV-2 COVID-19 2020-06-23 Completed Unive rsity of PFIZER VACCINE 00:00:00 [facility] Influenza Virus 2020-06-09 Completed Universit y of Vaccine Quad .5 mL 00:00:00 [facility] 6+ MO Branch Vital Signs Vital Name Observation Time Observation Value Comments Source WEIGHT 2020-05-15 05:19:42 79.7 kg HEIGHT 2020-05-15 05:19:42 164 cm Procedures This patient has no known procedures. Plan of Care Planned Activity Planned Date Details Comments Source Future Scheduled 1964-[birth year]-19 COVID-19 Vaccination MD [facility] Test 00:00:00 (1) [code = COVID-19 Vaccination (1)] Future Scheduled COVID-19 VACCINE (1) Met [facility] Test [code = COVID-19 VACCINE (1)] Future Scheduled Hepatitis C screening Me [facility] Test (procedure) [code = 688340106] Future Scheduled Screening for [facility] Test malignant neoplasm of cervix (procedure) [code = 933463418] Future Scheduled BREAST CANCER [facility] Test SCREENING [code = BREAST CANCER SCREENING] Future Scheduled COLONOSCOPY SCREENING [facility] Test [code = COLONOSCOPY SCREENING] Future Scheduled SHINGLES [facility]ACCINES [facility] (#1) [code = SHINGLES VACCINES (#1)] Future Scheduled INFLUENZA VACCINE [facility] [code = INFLUENZA VACCINE] Encounters Start End Encounter Admission Attending Care Care Encounter Source Date/Time Date/Time Type Type Clinicians Facility Department ID 2021-06-26 Outpatient [facility] [id number] [place] 12:32:40 [id number] [facility] 2020-07-23 Outpatient SYSTEM, MILTON ROSE [id number] 11:50:28 PROVIDER Ed o n 2020-06-01 Outpatient SYSTEM, [facility] [id number] 10:50:13 PROVIDER Ed briggs 2021-08-26 2021-08-26 Outpatient R GABBY JAFFE [facility] [id number] Univers 15:30:00 15:30:00 GABBY JAFFE [facility] 2021-07-14 2021-07-14 [id number] Univers 11:30:00 11:30:00 MARGAUX [facility] 2021-07-13 2021-07-13 [facility] [id number] Univers 10:00:00 10:00:00 ARTI [id number] [facility] 2021-06-24 2021-06-24 Outpatient R [facility] [id number] Univers 09:00:00 09:00:00 [facility] 2021-06-24 2021-06-24 Telephone Ld [facility] [id number] Univers 00:00:00 00:00:00 Gabby MULTISPEC [id number] [facility] Paul ENRIQUE [id number] [facility] [id number] [address] [facility] 2021-05-31 2021-06-01 Outpatient X [facility] SYSTEMS SOFTWARE SPECIALIST [id number] Univers 03:07:00 20:25:00 CARLIN [facility] 2021-05-25 2021-05-25 Outpatient R GABBY JAFFE [facility] [id number] Univers 15:00:00 16:09:05 GABBY JAFFE [facility] 2021-05-19 2021-05-19 [facility] [id number] Univers 11:00:00 11:00:00 MARGAUX [facility] 2021-05-09 2021-05-10 Emergency X LILLIANA [facility] ERT [id number] Univers 21:22:00 01:57:00 HAYLEE [facility] 2020-11-18 2020-11-18 Orders Doctor DUMONT [id number] 00:00:00 00:00:00 Only Unassigned, FRANCIA [id number] [place] [facility] [id number] 2020-11-10 2020-11-10 Office MARTHA Khan [id number] 15:41:39 16:11:39 Visit [facility] [id number] [facility] [id number] 2020-05-15 2020-05-15 Outpatient [facility] [id number] 22:03:48 22:03:48 Ededward briggs 2020-05-15 2020-05-15 Inpatient ER TAMMY, [place] SYSTEMS SOFTWARE SPECIALIST [id number] 01:39:00 17:04:00 CORINE briggs Results Test Description Test Time Test Comments Results Result [facility] e Comments - MRI L-SPINE W/O 2019-01-08 FAX: Y CONT 09:37:00 Bella Elmore MD [phone] [place]: St: [facility] FAX: Apolinar Buchanan MD [phone] Patient Name: JEFRY LOPEZ Unit No: [id number] EXAMS: CPT CODE: [id number] MRI L-SPINE W/O CONT [id number] MRI Lumbar Spine without contrast HISTORY: Back [...] Reported and signed by: Tyrell Burgos M.D. [facility] NAME: JEFRY LOPEZ [address] [place] [address] PHYS: SHIREEN. - Apolinar Fields [place] : 1960 AGE: 58 SEX: F [id number] LOC: [email or web address].[id number] PHONE #: [phone] EXAM DATE: 01/08/2019 STATUS: REG CLI FAX #: [phone] RAD NO: DC Dt: PAGE 1 Signed Report (CONTINUED) FAX: Bella Hannah MD [phone] [place]: St: REG FAX: Apolinar Buchanan MD [phone] Patient Name: JEFRY LOPEZ Guy Unit No: [id number] EXAMS: CPT CODE: [id number] MRI L-SPINE W/O CONT [id number] <Continued> CC: Bella Elmore MD; Apolinar Fields MD Dictated Date/Time: 01/08/2019 (936)Technologist: Low Painting - Eran Transcribed Date/Time: 01/08/2019 (936) By: [email or web address] Orig Print D/T: S: 01/08/2019 (2319) 508 Imaging NAME: JEFRY LOPEZ [address] [place] [address] PHYS: LISA - Apolinar [place], [place] : 1960 AGE: 58 SEX: F [id number] LOC: KirtIMAmari PHONE #: [phone] EXAM DATE: 01/08/2019 STATUS: REG CLI FAX #: [phone] RAD NO: DC Dt: PAGE 2 Signed [...] ENCE RANGE: (test code = CHOLHDL) MA [place] FEMALE 1/2 AVG RISK 3.4 3 [...] be fasting before starting thistest? YBASIC METABOLIC [id number] 11:33:00 Test Item Value Reference Range Interpretation [...] be fasting before starting thistest? YPT AND [id number] 11:24:00 Test Item Value Reference Interpretation Comments [...] prevention in p rosthetic heart 3.0-5.4 A ME mortality reduc tion THROMBOPLASTIN TIME 30.2 SECONDS [...] draw? NANTICOAGULANT THERAPY [Y,N]: UNK CBC W/AUTO [id number] 11:16:00 Test Item Value Reference Range Interpretation [...]
[2021-07-20] MEDS ORDERED: HYDROCODONE/APAP 5/325 MG TAB ONE (03:16)
--- NOTE | 2021-07-20 05:04 | ER ---
Nurse's Notes [facility] Name: Milly Cabrera Age: 60 yrs Sex: Female : 1960 Arrival Date: 07/20/2021 Time: 01:46 Bed 4 Private MD: Diagnosis: Unspecified injury of head, initial encounter;Chest pain, unspecified Presentation: 07/20 02:29 Chief complaint: Patient states: " I slipped on the rug in the bathroom and hit the ag7 back of my head on the hand bar". Care prior to arrival: None. Mechanism of Injury: Fall hand bar in he bathroom. Trauma event details: Injury occurred in the [facility], Injury occurred: at home. Injury occurred: July 20, 2021. 02:29 Acuity: DAMON 2 ag7 02:29 Method Of Arrival: Ambulatory ag7 02:46 Coronavirus screen: Client denies travel out of the [place] in the last 14 days. At this ag7 time, the client does not indicate any symptoms associated with coronavirus-19. Ebola Screen: Patient negative for fever greater than or equal to 101.5 degrees Fahrenheit, and additional compatible Ebola Virus Disease symptoms Patient denies exposure to infectious person. Patient denies travel to an Ebola-affected area in the 21 days before illness onset. Initial Sepsis Screen: Does the patient meet any 2 criteria? No. Patient's initial sepsis screen is negative. Does the patient have a suspected source of infection? No. Patient's initial sepsis screen is negative. Risk Assessment: Do you want to hurt yourself or someone else? Patient reports no desire to harm self or others. Onset of symptoms was July 20, 2021. Trauma Activation: Physician: ED Physician; Name: Carly; Notified At: 01:54; Arrived At: Physician: General Surgeon; Name: ; Notified At: 01:54; Arrived At: Physician: Radiology; Name: ; Notified At: 01:54; Arrived At: Physician: Respiratory; Name: ; Notified At: 01:54; Arrived At: Physician: Lab; Name: ; Notified At: 01:54; Arrived At: Historical: - Allergies: 02:47 Cephalexin; ag7 02:47 Ciprofloxacin; ag7 02:47 Clindamycin; ag7 02:47 Demerol; ag7 02:47 Iodine; ag7 02:47 Morphine; ag7 02:47 PENICILLINS; ag7 02:47 SHELLFISH; ag7 02:47 Strawberries; ag7 02:47 Zithromax Z-Joon; ag7 - Home Meds: 02:47 aspirin 81 mg Oral TbEC 1 tab once daily [Active]; atorvastatin 40 mg Oral tab 1 tab ag7 once daily [Active]; fluoxetine 40 mg Oral cap 1 cap once daily [Active]; gabapentin 100 mg Oral tab twice a day [Active]; magnesium oxide 400 mg magnesium Oral tab 400 mg twice a day [Active]; metoprolol tartrate 50 mg Oral tab once daily [Active]; metronidazole 500 mg Oral tab 1 tab 2 times per day [Active]; Pepcid Oral [Active]; Plavix 75 mg Oral tab 1 tab once daily [Active]; potassium chloride 10 mEq Oral cpER 1 cap once daily [Active]; prochlorperazine maleate 10 mg Oral tab 1 tab 3 times per day [Active]; Zofran 4 mg Oral tab 1 tab every 8 hours [Active]; - PMHx: 02:47 acid reflux; Anxiety; Endometrosis; Hyperlipidemia; Hypertension; neuropathy; vulvar ag7 cancer; - PSHx: 02:47 Appendectomy; section; Total abdominal hysterectomy; Vascular stents; ag7 - Immunization history: Last tetanus immunization: < 5 years ago. - Social history:: Smoking status: Patient reports the use of cigarette tobacco products, smokes 0.25 packs per day. Screenin:45 Abuse screen: Denies threats or abuse. Nutritional screening: No deficits noted. ag7 Tuberculosis screening: No symptoms or risk factors identified. Fall Risk Fall in past 12 months (25 points). Secondary diagnosis (15 points) IV access (20 points). Ambulatory Aid- None/Bed Rest/Nurse Assist (0 pts). Gait- Normal/Bed Rest/Wheelchair (0 pts) Mental Status- Oriented to own ability (0 pts). Total Araya Fall Scale indicates High Risk Score (45 or more points). Fall prevention measures have been instituted. Side Rails Up X 2 Placed Close to Nursing Station Frequent Obs/Assessments Occuring Family Present and informed to notify staff if the need to leave the bedside As available patient and family educated on Fall Prevention Program and Strategies. Primary Survey: 02:41 NO uncontrolled hemorrhage observed. Breathing/Chest: Respiratory pattern: regular, ag7 Respiratory effort: spontaneous, unlabored, Breath sounds: clear, bilaterally. Circulation: Cardiac rhythm: sinus rhythm. Disability Alert. Exposure/Environment: A warming method has been applied: A warm blanket has been provided to the patient. 02:46 Reassessment Breathing/Chest Respiratory pattern Regular Respiratory effort Spontaneous ag7 Unlabored Circulation Heart rhythm Sinus rhythm Disability Alert. Assessment: 01:54 General: Appears in no apparent distress. Behavior is calm, cooperative, appropriate ag7 for age. Pain: Complains of pain in occipital area Pain does not radiate. Pain currently is 10 out of 10 on a pain scale. Quality of pain is described as aching, Pain began suddenly, Is continuous, Alleviated by nothing. 01:54 Neuro: Level of Consciousness is awake, alert, obeys commands, Oriented to person, ag7 place, situation, Appropriate for age Steam Box Operator are equal bilaterally EENT:. Cardiovascular: Heart tones S1 S2 present Capillary refill < 3 seconds in bilateral fingers Patient's skin is warm and dry. Respiratory: Airway is patent Trachea midline Respiratory effort is even, unlabored, Respiratory pattern is regular, symmetrical, Breath sounds are clear bilaterally. Musculoskeletal: Injury Description: Abrasion sustained to left mid back. 02:54 Reassessment: No changes from previously documented assessment. ag7 03:54 Reassessment: Patient and/or family updated on plan of care and expected duration. Pain ag7 level reassessed. Patient is alert, oriented x 3, equal unlabored respirations, skin warm/dry/pink. Patient off the floor for CT. 04:00 Reassessment: Patient return from CT. ag7 04:52 Reassessment: Patient and/or family updated on plan of care and expected duration. Pain ag7 level reassessed. Patient is alert, oriented x 3, equal unlabored respirations, skin warm/dry/pink. Patient states feeling better. Patient states symptoms have improved. Pain: Pain does not radiate. Pain currently is 8 out of 10 on a pain scale. Quality of pain is described as aching, pressure, Pain began suddenly, Is continuous, Alleviated by medications, rest. Vital Signs: 01:54 BP 75 / 36; Pulse 84; Resp 16; Temp 98.6(O); Pulse Ox 100% ; Weight 63.96 kg; Height 5 ag7 ft. 6 in. (167.64 cm) (R); Pain 10/10; 02:00 BP 101 / 55; Pulse 74; Resp 16; Pulse Ox 99% ; Pain 10/10; ag7 03:27 BP 98 / 82; Pulse 77; Resp 19; Pulse Ox 99% ; Pain 10/10; ag7 04:26 Pain 8/10; ag7 01:54 Body Mass Index 22.76 (63.96 kg, 167.64 cm) ag7 Toño Coma Score: 01:54 Eye Response: spontaneous(4). Verbal Response: oriented(5). Motor Response: obeys ag7 commands(6). Total: 15. Trauma Score (Adult): 01:54 Eye Response: spontaneous(1); Verbal Response: oriented(1); Motor Response: obeys ag7 commands(2); Systolic BP: 50 to 75 mm Hg(2); Respiratory Rate: 10 to 29 per min(4); Toño Score: 15; Trauma Score: 10 ED Course: 01:46 Patient arrived in ED. kz 02:03 Mateo Carroll MD is Attending Physician. kdr 02:20 Gloria Napoles RN is Primary Nurse. ag7 02:38 Triage completed. ag7 02:45 Arm band placed on right wrist. ag7 02:45 No provider procedures requiring assistance completed. Inserted saline lock: 20 gauge ag7 in left antecubital area, using aseptic technique. Blood collected. 02:47 Patient has correct armband on for positive identification. Bed in low position. Call ag7 light in reach. Side rails up X 1. Adult w/ patient. 02:47 Thermoregulation: warm blanket given to patient. ag7 02:47 Patient maintains SpO2 saturation greater than 95% on room air. ag7 04:12 CT Traumagram (Head C Spine CAP wo con) In Process Unspecified. EDMS 05:17 IV discontinued, intact, bleeding controlled, No redness/swelling at site. Pressure ag7 dressing applied. Administered Medications: 03:26 Drug: HYDROcodone-acetaminophen 5 mg-325 mg 1 tabs {Note: RASS 0.} Route: PO; ag7 04:26 Follow up: Pain 8/10 Adult; Response: No adverse reaction; RASS: Alert and Calm (0) ag7 Intake: 05:17 PO: 100ml; Total: 100ml. ag7 Output: 05:17 Urine: 3ml (Voided); Total: 3ml. ag7 Outcome: 05:02 Discharge ordered by . kdr 05:17 Discharged to home via wheelchair. ag7 05:17 Condition: stable 05:17 Discharge instructions given to patient, Instructed on discharge instructions, follow up and referral plans. Demonstrated understanding of instructions, follow-up care. 05:18 Patient's length of stay in the Emergency Department was greater than 2 hours. ag7 05:18 Patient left the ED. ag7 Signatures: Dispatcher [employer] EDMS Mateo Carroll MD MD kdr Zapata, Kelly kz Glenn, Angela, RN RN ag7 Corrections: (The following items were deleted from the chart) 04:52 03:26 HYDROcodone-acetaminophen 5 mg-325 mg 1 tabs PO ag7 ag7
--- NOTE | 2021-07-20 05:04 | EDPHYS ---
Physician Documentation [facility] Name: Milly Cabrera Age: 60 yrs Sex: Female : 1960 Arrival Date: 07/20/2021 Time: 01:46 Bed 4 Private MD: ED Physician Mateo Carroll HPI: 07/20 05:04 This 60 yrs old Female presents to ER via Ambulatory with complaints of Fall Injury. kdr 05:04 Details of fall: The patient fell from an upright position, while standing. Onset: The kdr symptoms/episode began/occurred suddenly, just prior to arrival. Associated injuries: The patient sustained injury to the head, contusion, injury to the chest, contusion. Severity of symptoms: At their worst the symptoms were mild, in the emergency department the symptoms are unchanged. The patient has not experienced similar symptoms in the past. The patient has not recently seen a physician. Patient slipped and fell around the toilet into the tub. Striking her chest on the side of the tub and her head on the part of the shower. She denies LOC. She denies any other injury. She is alert and oriented and appropriate. She is not in any acute distress at this time. She has no evidence of any life or limb threatening illness or injury at the time of initial presentation. Historical: - Allergies: 02:47 Cephalexin; ag7 02:47 Ciprofloxacin; ag7 02:47 Clindamycin; ag7 02:47 Demerol; ag7 02:47 Iodine; ag7 02:47 Morphine; ag7 02:47 PENICILLINS; ag7 02:47 SHELLFISH; ag7 02:47 Strawberries; ag7 02:47 Zithromax Z-Joon; ag7 - Home Meds: 02:47 aspirin 81 mg Oral TbEC 1 tab once daily [Active]; atorvastatin 40 mg Oral tab 1 tab ag7 once daily [Active]; fluoxetine 40 mg Oral cap 1 cap once daily [Active]; gabapentin 100 mg Oral tab twice a day [Active]; magnesium oxide 400 mg magnesium Oral tab 400 mg twice a day [Active]; metoprolol tartrate 50 mg Oral tab once daily [Active]; metronidazole 500 mg Oral tab 1 tab 2 times per day [Active]; Pepcid Oral [Active]; Plavix 75 mg Oral tab 1 tab once daily [Active]; potassium chloride 10 mEq Oral cpER 1 cap once daily [Active]; prochlorperazine maleate 10 mg Oral tab 1 tab 3 times per day [Active]; Zofran 4 mg Oral tab 1 tab every 8 hours [Active]; - PMHx: 02:47 acid reflux; Anxiety; Endometrosis; Hyperlipidemia; Hypertension; neuropathy; vulvar ag7 cancer; - PSHx: 02:47 Appendectomy; section; Total abdominal hysterectomy; Vascular stents; ag7 - Immunization history: Last tetanus immunization: < 5 years ago. - Social history:: Smoking status: Patient reports the use of cigarette tobacco products, smokes 0.25 packs per day. ROS: 05:04 Constitutional: Negative for fever, chills, and weight loss, Eyes: Negative for injury, kdr pain, redness, and discharge, ENT: Negative for injury, pain, and discharge, Neck: Negative for injury, pain, and swelling, Respiratory: Negative for shortness of breath, cough, wheezing, and pleuritic chest pain, Abdomen/GI: Negative for abdominal pain, nausea, vomiting, diarrhea, and constipation, Back: Negative for injury and pain, : Negative for injury, bleeding, discharge, and swelling, MS/Extremity: Negative for injury and deformity, Skin: Negative for injury, rash, and discoloration, Neuro: Negative for headache, weakness, numbness, tingling, and seizure activity. Psych: Negative for depression, anxiety, suicide ideation, homicidal ideation, and hallucinations, Allergy/Immunology: Negative for hives, rash, and allergies, Endocrine: Negative for neck swelling, polydipsia, polyuria, polyphagia, and marked weight changes, Hematologic/Lymphatic: Negative for swollen nodes, abnormal bleeding, and unusual bruising. 05:04 Cardiovascular: Positive for chest pain. Exam: 05:04 Constitutional: This is a well developed, well nourished patient who is awake, alert, kdr and in no acute distress. Head/Face: Normocephalic, atraumatic. Eyes: Pupils equal round and reactive to light, extra-ocular motions intact. Lids and lashes normal. Conjunctiva and sclera are non-icteric and not injected. Cornea within normal limits. Periorbital areas with no swelling, redness, or edema. Neck: Trachea midline, no thyromegaly or masses palpated, and no cervical lymphadenopathy. Supple, full range of motion without nuchal rigidity, or vertebral point tenderness. No Meningismus. Chest/axilla: Normal chest wall appearance and motion. Nontender with no deformity. No lesions are appreciated. Cardiovascular: Regular rate and rhythm with a normal S1 and S2. No gallops, murmurs, or rubs. Normal PMI, no JVD. No pulse deficits. Respiratory: Lungs have equal breath sounds bilaterally, clear to auscultation and percussion. No rales, rhonchi or wheezes noted. No increased work of breathing, no retractions or nasal flaring. Abdomen/GI: Soft, non-tender, with normal bowel sounds. No distension or tympany. No guarding or rebound. No evidence of tenderness throughout. Back: No spinal tenderness. No costovertebral tenderness. Full range of motion. Skin: Warm, dry with normal turgor. Normal color with no rashes, no lesions, and no evidence of cellulitis. MS/ Extremity: Pulses equal, no cyanosis. Neurovascular intact. Full, normal range of motion. Neuro: Awake and alert, GCS 15, oriented to person, place, time, and situation. Cranial nerves II-XII grossly intact. Motor strength 5/5 in all extremities. Sensory grossly intact. Cerebellar exam normal. Normal gait. Psych: Awake, alert, with orientation to person, place and time. Behavior, mood, and affect are within normal limits. Vital Signs: 01:54 BP 75 / 36; Pulse 84; Resp 16; Temp 98.6(O); Pulse Ox 100% ; Weight 63.96 kg; Height 5 ag7 ft. 6 in. (167.64 cm) (R); Pain 10/10; 02:00 BP 101 / 55; Pulse 74; Resp 16; Pulse Ox 99% ; Pain 10/10; ag7 03:27 BP 98 / 82; Pulse 77; Resp 19; Pulse Ox 99% ; Pain 10/10; ag7 04:26 Pain 8/10; ag7 01:54 Body Mass Index 22.76 (63.96 kg, 167.64 cm) ag7 Toño Coma Score: 01:54 Eye Response: spontaneous(4). Verbal Response: oriented(5). Motor Response: obeys ag7 commands(6). Total: 15. Trauma Score (Adult): 01:54 Eye Response: spontaneous(1); Verbal Response: oriented(1); Motor Response: obeys ag7 commands(2); Systolic BP: 50 to 75 mm Hg(2); Respiratory Rate: 10 to 29 per min(4); Toño Score: 15; Trauma Score: 10 MDM: 05:02 Patient medically screened. kdr 05:04 Data reviewed: vital signs, nurses notes, lab test result(s), radiologic studies. kdr Counseling: I had a detailed discussion with the patient and/or guardian regarding: the historical points, exam findings, and any diagnostic results supporting the discharge/admit diagnosis, lab results, radiology results, the need for outpatient follow up. 07/20 02:59 Order name: CT Traumagram (Head C Spine CAP wo con) kdr Administered Medications: 03:26 Drug: HYDROcodone-acetaminophen 5 mg-325 mg 1 tabs {Note: RASS 0.} Route: PO; ag7 04:26 Follow up: Pain 8/10 Adult; Response: No adverse reaction; RASS: Alert and Calm (0) ag7 Disposition Summary: 07/20/21 05:02 Discharge Ordered Location: Home kdr Problem: new kdr Symptoms: have improved kdr Condition: Stable kdr Diagnosis - Unspecified injury of head, initial encounter kdr - Chest pain, unspecified kdr Followup: kdr - With: Private Physician - When: 2 - 3 days - Reason: If symptoms return, Further diagnostic work-up, Recheck today's complaints, Continuance of care, Re-evaluation by your physician Discharge Instructions: - Discharge Summary Sheet kdr - Chest Wall Pain, [id number] kdr - Head Injury, Adult, [id number] kdr Forms: - Medication Reconciliation Form kdr - Thank You Letter kdr Signatures: Dispatcher [employer] Mateo Junior MD MD kdr Gloria Napoles RN RN ag7
[2021-07-20 09:57] VITALS: TEMP 98.6
[2021-07-20 09:58] VITALS: O2SAT 99
[2021-07-20 10:00] VITALS: BP 98/82
--- NOTE | 2021-07-20 12:30 | RAD REPORT ---
EXAM DESCRIPTION: CT Head and Cervical Spine Without Intravenous Contrast CLINICAL HISTORY: The patient is 60 years old and is Female; fall from standing into tub, confusion. Previous report indicates a history of vulvar cancer. TECHNIQUE: Axial computed tomography images of the head/brain and cervical spine without intravenous contrast. Sagittal and coronal reformatted images were created and reviewed. This CT exam was pe rformed using one or more of the following dose reduction techniques: automated exposure control, a djustment of the mA and/or kV according to patient size, and/or use of iterative reconstruction techn ique. COMPARISON: No relevant prior studies available. FINDINGS: Brain: Unremarkable. No hemorrhage. No significant white matter disease. No edema. Ventricles: Unremarkable. No ventriculomegaly. Skull: No acute fracture. Sinuses: Unremarkable as visualized. No acute sinusitis. Mastoid air cells: Unremarkable as visualized. No mastoid effusion. Vertebrae: No acute cervical spine fracture visualized. Normal alignment. Discs/spinal canal/neural foramina: Posterior osteophytes C3-4. Lateral alignment is maintained. Degenerative disc disease with disc osteophyte complexes, C4-5 to C6-7. Mild central canal st enosis C4-5. Soft tissues: Unremarkable. Pleural space: No apical pneumothorax. * A single impression for all exams can be found at the end of this report EXAM DESCRIPTION: CT Chest, Abdomen and Pelvis Without Intravenous Contrast CLINICAL HISTORY: The patient is 60 years old and is Female; fall from standing into tub, confusion. Previous report indicates a history of vulvar cancer. TECHNIQUE: Axial computed tomography images of the chest, abdomen and pelvis without intravenous con trast. Sagittal and coronal reformatted images were created and reviewed. This CT exam was perfor med using one or more of the following dose reduction techniques: automated exposure control, adjus tment of the mA and/or kV according to patient size, and/or use of iterative reconstruction technique . COMPARISON: CT abdomen pelvis November 21, 2020. FINDINGS: CHEST: Lungs: Unremarkable. No mass. No consolidation. Pleural space: No pleural effusion or pneumothorax. Heart: No cardiomegaly. No significant pericardial fluid. Coronary artery calcifications. Mediastinum: No pneumomediastinum. No retrosternal hemorrhage. Small hiatal hernia. ABDOMEN: Liver: Unremarkable. Gallbladder and bile ducts: Unremarkable. No calcified stones. No ductal dilation. Pancreas: Unremarkable. No ductal dilation. Spleen: Unremarkable. No splenomegaly. Adrenals: Unremarkable. No mass. Kidneys and ureters: Unremarkable. No obstructing stones. No hydronephrosis. Stomach and bowel: Unremarkable. No obstruction. No mucosal thickening. PELVIS: Appendix: No findings to suggest acute appendicitis. Bladder: Unremarkable. No stones. Reproductive: Unremarkable as visualized. CHEST, ABDOMEN and PELVIS: Intraperitoneal space: Unremarkable. No significant fluid collection. No free air. Bones/joints: No thoracic or lumbar spine compression fracture. Degenerative changes in the lumba r spine. Old fracture right lateral seventh rib. No acute fracture visualized. No dislocation. Soft tissues: Soft tissue mass with thickening of the vulvar skin and subcutaneous fat, increased compared with November 21, 2020. Vasculature: Atherosclerotic changes in the abdominal aorta. 2.8 x 2.5 cm aneurysm without eviden ce of rupture. Right external iliac artery stent. Lymph nodes: Unremarkable. No enlarged lymph nodes. Tubes, lines and devices: Right IJ chest port with the catheter tip in the distal SVC. * A single impression for all exams can be found at the end of this report IMPRESSION: CT Head and Cervical Spine Without Intravenous Contrast: 1. No intracranial hemorrhage. No acute skull fracture. 2. No acute cervical spine fracture visualized. 3. Degenerative changes in the cervical spine as above. CT Chest, Abdomen and Pelvis Without Intravenous Contrast: 1. No evidence of intrathoracic or intra-abdominal injury. Study performed without IV contrast. 2. Atherosclerotic changes in the abdominal aorta. 2.8 x 2.5 cm aneurysm without evidence of ruptur e. 3. Soft tissue mass with thickening of the vulvar skin and subcutaneous fat, increased compared wit h November 21, 2020. Previous reports indicate a history of vulvar cancer. Electronically signed by: Radha Machado MD 07/20/2021 4:50 AM CDT Due to temporary technical issues with the PACS/Fluency reporting system, reports are being signed by the in house radiologists without review as a courtesy to insure prompt reporting. The interpreting radiologist is fully responsible for the content of the report.
--- NOTE | 2021-07-22 07:58 | EKG ---
Test Date: 2021-07-20 Test Time: 02:06:48 Table And Desk Finisher: AMMY MEASUREMENT RESULTS: Intervals: Rate: 73 CO: 192 QRSD: 96 QT: 536 QTc: 590 [place]es: P: 84 CO: 192 QRS: -5 T: 13 INTERPRETIVE STATEMENTS: Normal sinus rhythm Prolonged QT Abnormal ECG Compared to ECG 07/07/2020 15:10:07 Prolonged QT interval now present Electronically Signed On 07-22-21 07:56:46 CDT by Jose Cook
== END 2021-07-20 05:18 | disposition home or self-care (01) ==
LOC: ER 01:40
DX: S00.83XA Contusion of other part of head, initial encounter (principal); S20.219A Contusion of unspecified front wall of thorax, initial encounter; R07.9 Chest pain, unspecified; W18.39XA Other fall on same level, initial encounter; F17.210 Nicotine dependence, cigarettes, uncomplicated; I10 Essential (primary) hypertension; E78.5 Hyperlipidemia, unspecified; F41.9 Anxiety disorder, unspecified; Z79.01 Long term (current) use of anticoagulants; Z79.82 Long term (current) use of aspirin; Z88.0 Allergy status to penicillin; Z88.1 Allergy status to other antibiotic agents; Z88.3 Allergy status to other anti-infective agents; Z88.5 Allergy status to narcotic agent; Z91.018 Allergy to other foods
CPT/HCPCS: 70450; 71250; 72125; 93005; 99284